=== PATIENT | male | born 1965 | race Caucasian/White ===

== ENCOUNTER 2018-11-24 12:28 | Inpatient (IN) | payer MEDICAID ==
[~2018-11-24] VITALS: Ht 177.8 cm; Wt 71.5 kg
--- NOTE | 2018-11-24 12:41 | NUR ---
IRRIGATOR OVERHEAD MYLENE PERALES HERE. CONTACT NUMBER [phone]
--- NOTE | 2018-11-24 12:51 | NUR ---
REFERRAL COORDINATOR LEFT BUT APPLIED ANKLE BRACELET TO PATIENT'S RIGHT ANKLE. WHEN PATIENT IS DISCHARGED, THE OFFICER TECHNOLOGY METHODOLOGY CONSULTANT SHOULD BE NOTIFIED.
[2018-11-24 14:39] LABS: BASOPHILS % (AUTO) 0.1 % (0-1); EOSINOPHILS % (AUTO) 0 % (0-6); HEMATOCRIT 41.5 % (42.0-52.0); HEMOGLOBIN 13.5 g/dl (14.0-17.9); LYMPHOCYTES # (AUTO) 0.7 X10'3 (1.1-4.8); LYMPHOCYTES % (AUTO) 6.9 % (21-51); MEAN CORPUSCULAR HEMOGLOBIN 28.2 PG (27.0-31.0); MEAN CORPUSCULAR HGB CONC 32.5 g/dL (33.0-36.5); MEAN PLATELET VOLUME 7.9 FL (7.4-10.4); MONOCYTES # (AUTO) 0.3 X10'3 (0-0.9); MONOCYTES % (AUTO) 2.6 % (2-12); NEUTROPHILS # (AUTO) 8.9 X10'3 (1.8-7.7); NEUTROPHILS % (AUTO) 90.4 % (42-75); PLATELET COUNT 155 X10'3 (140-440); RED BLOOD COUNT 4.77 X10'6 (4.70-6.10); RED CELL DISTRIBUTION WIDTH 16.8 % (11.5-14.5); WHITE BLOOD COUNT 9.8 X10'3 (4.5-11.0)
[2018-11-24 14:55] LABS: ALANINE AMINOTRANSFERASE 101 U/L (12-78); ALBUMIN 2.9 G/DL (3.4-5.0); ALBUMIN/GLOBULIN RATIO 0.8 (1.1-1.5); ALKALINE PHOSPHATASE 93 IU/L (46-116); ANION GAP 9 (8-16); ASPARTATE AMINO TRANSFERASE 35 U/L (10-37); BILIRUBIN,TOTAL 0.3 MG/DL (0.1-1.0); BLOOD UREA NITROGEN 15 MG/DL (7-18); BUN/CREATININE RATIO 16.5 (5.4-32.0); CALCIUM 9.2 MG/DL (8.5-10.1); CHLORIDE 101 MMOL/L (99-107); CREATININE 0.91 MG/DL (0.60-1.10); GLUCOSE 168 MG/DL (70-104); POTASSIUM 4.3 MMOL/L (3.5-5.1); SODIUM 136 MMOL/L (135-145); TOTAL PROTEIN 6.5 G/DL (6.4-8.2); eGFR 87 ML/MIN
[2018-11-24 15:00] LABS: ETHANOL < 0.010 GM/DL (0.0-0.010); TROPONIN I < 0.04 NG/ML (0.0-0.05)
[2018-11-24] MEDS ORDERED: normal saline 1000ML IV soln IVB ONE ×2 (15:35→21:15)
[2018-11-24] MEDS ORDERED: CefTRIAXone/D5W-Rocephin 1gm 50 ML IV ONE (15:40)
[2018-11-24] MEDS ORDERED: azithromycin/NS 500mg/250ml 250 ML IV ONE (15:40)
--- NOTE | 2018-11-24 16:30 | NUR ---
COMPLETE LINENE CHANGE PERFORMED. PARTIAL BED BATH PERFORMED, AND PT PLACED IN CLEAN GOWN.
[2018-11-24 17:56] LABS: CLARITY,URINE SLIGHTLY CLOUDY (Clear); COLOR,URINE YELLOW (Yellow); GLUCOSE, URINE 500 mg/dl (Neg); KETONES,URINE NEGATIVE (Neg); LEUKOCYTE ESTERASE ,URINE NEGATIVE (Neg); NITRITES, URINE NEGATIVE (Neg); OCCULT BLOOD,URINE NEGATIVE (Neg); PH,URINE 8.5 (4.8-8.0); PROTEIN,URINE NEGATIVE (Neg); UROBILINOGEN,URINE 0.2 E.U/dL (0.2-1.0)
[2018-11-24 18:02] LABS: BACTERIA,URINE NONE SEEN /HPF (Neg); RBC,URINE NONE SEEN /HPF (0-2); UA COLLECTION TYPE VOIDED; WBC,URINE NONE SEEN /HPF (0-4)
[2018-11-24 18:03] LABS: AMORPHOUS PHOSPHATES 2+; MUCUS STRANDS FEW /LPF (Neg); SQUAMOUS EPITHELIAL CELL,UR NONE SEEN /LPF (FEW)
[2018-11-24 18:07] LABS: URINE AMPHETAMINE SCREEN NEGATIVE (Neg); URINE BARBITUATE SCREEN NEGATIVE (Neg); URINE BENZODIAZEPINES SCREEN NEGATIVE (Neg); URINE CANNABINOID SCREEN NEGATIVE (Neg); URINE COCAINE SCREEN NEGATIVE (Neg); URINE METHADONE SCREEN NEGATIVE (Neg); URINE OPIATE SCREEN NEGATIVE (Neg); URINE PHENCYCLIDINE SCREEN NEGATIVE (Neg)
--- NOTE | 2018-11-24 21:30 | NUR ---
PT PULLED OUT EJ IV STATING "IT WAS PINCHING SO I TOOK IT OUT". NEW IV STARTED IN LEFT AC AND PT INSTRUCTED NOT TO PULL IT OUT IF HURTING BUT TO ALERT THE RN. PT VERBALIZED UNDERSTANDING
--- NOTE | 2018-11-24 21:45 | NUR ---
PT REQUESTING FOOD, TURKEY SANDWICH AND ICE WATER GIVEN.
[2018-11-24] MEDS ORDERED: iohexol 300mg/ml 100ml inj. ONE (21:55)
--- NOTE | 2018-11-25 00:15 | NUR ---
PT STATING HE WANTS TO LEAVE DUE TO BEING HUNGRY AND NOT GETTING ANY FOOD AFTER ASKING SEVERAL TIMES. PT HAS BEEN SLEEPING AND RESTING COMFORTABLY AND HAS NOT ASKED FOR FOOD SINCE TURKEY SANDWICH 3 HOURS AGO. PT DECIDED TO STAY AFTER JELLO FED TO HIM
--- NOTE | 2018-11-25 01:00 | NUR ---
PT YELLING AND CUSSING AT STAFF SAYING HE HAS NOT BEEN TAKEN CARE OF AND WANTS TO LEAVE. PT REORIENTED TO CARE PROVIDED AND PT SAID HE WOULD STAY.
[2018-11-25] MEDS ORDERED: morphine 2 MG/ML inj. syringe IV PRN ×2 (01:05)
[2018-11-25] MEDS ORDERED: ondansetron/PF 4mg/2ml inj IV PRN (01:05)
[2018-11-25] MEDS ORDERED: magnesium hydroxide 30ml (MOM) UD suspension PO PRN (01:05)
[2018-11-25] MEDS ORDERED: acetaminophen 325mg tablet PO PRN (01:05)
[2018-11-25] MEDS ORDERED: mag hydrox/Alum hydrox/simeth 30ml oral suspension PO PRN (01:05)
[2018-11-25] MEDS: normal saline 1000ml 1,000 ML IV SCH ×3 (02:15→23:39)
--- NOTE | 2018-11-25 02:30 | NUR ---
PT REQUESTING TO LEAVE AGAIN DUE TO "NOT HAVING ANY FOOD OR DRINK SINCE NOON". AFTER LONG DISCUSSION OF PT CONDITION, REORIENTING PT TO GETTING TURKEY SANDWICH ADN JELLO EARLIER, AND HOW RECOMMENDED IT IS TO STAY DUE TO PT CONDITION, PT DECIDED TO STAY IF HE COULD GET SLEEP. FULL LINEN CHANGE ACHIEVED, NEW PT GOWN PLACED, 2 NEW WARM BLANKETS, LIGHTS TURNED OFF, AND CALL LIGHT WITHIN REACH. PT RESTING COMFORTABLY.
--- NOTE | 2018-11-25 03:15 | NUR ---
Patient in room ORTHO 4023. I have received report from CASTRO Charles and had the opportunity to ask questions and assume patient care.
[2018-11-25 03:30] VITALS: BP 135/82
--- NOTE | 2018-11-25 03:40 | NUR ---
PT STATED AT TRANSFER UPSTAIRS THAT HE BROUGHT MEDICATIONS IN. THIS INFORMATION NOT GIVEN TO ME AT COS REPORT, CHECKED WITH WIND UP WORKER, LOOKED THROUGH PT BELONGINGS, AND CHECK PHARMACY IN BOX - NO MEDS FOR THIS PT FOUND. SABRINA BRUCE RN NOTIFIED AND RECOMMENDED TO CHECK WITH DIRECTOR CORPORATE SECURITY, NUMBER IN NOTES
[2018-11-25] MEDS: HYDROcodone/acetaminophen 10/325mg tab PO PRN ×3 (03:46→20:42)
[2018-11-25 06:00] VITALS: BP 116/62
--- NOTE | 2018-11-25 06:42 | NUR ---
Problems reprioritized. Patient report given, questions answered & plan of care reviewed with CASTRO Mac.
[2018-11-25] MEDS: enoxaparin 100mg/ml syringe SUBCUT SCH ×2 (08:00→20:15)
[2018-11-25] MEDS ORDERED: enoxaparin 30mg/0.3ml syringe SUBCUT SCH (08:00)
[2018-11-25] MEDS ORDERED: enoxaparin 100mg/ml syringe SUBCUT SCH (08:00)
[2018-11-25 10:00] VITALS: BP 116/66
--- NOTE | 2018-11-25 12:30 | NUR ---
PT IV pulled out LAC/will restart IV after pt eats lunch/pt request
--- NOTE | 2018-11-25 13:06 | NUR ---
Malnutrition consult: Pt reports 2-13 # wt loss r/t decreased appetite per malnutrition risk screening with RN. Pt currently on a CHO controlled diet pending documented PO intake. Current documented wt classified as obese with BMI 31.0 using documented wt of 98 kg using gurney scale. Unknown wt hx as pt with no prior visits. Pt A/O x 2 per physical assessment. Attempted visit with pt at bedside however pt sleeping and did not wake with verbal cues. Unable to assess for any visible fat or muscle wasting d/t patient's sleeping position. Pt with no documented edema or decrease in muscle strength. Unable to determine if patient meets criteria for malnutrition at this time as additional information is required. Will f/u tomorrow. Addendum: 11/25/18 at [address] Amended: Links added.
[2018-11-25 18:00] VITALS: BP 116/62
--- NOTE | 2018-11-25 18:30 | NUR ---
Patient in room ORTHO 4023. I have received report from myrna Mac and had the opportunity to ask questions and assume patient care.
--- NOTE | 2018-11-25 19:30 | NUR ---
pt stated that he is going to leave hospital, he will refuse everything anyway. pt thinks it was a mistake that he was brought to the hospital and not needed. pt thinks nothing is happening since he came. i asked how he will get back to his place which is a [facility]. pt said his [employer] airspace control officer will pick him up. contacted [employer] airspace control officer and he said its not his responsibility. [employer] airspace control officer has talked to pt as well. he doesn't have ways to get back and not safe for him to go. for now, he agreed to stay overnight.
[2018-11-25 20:00] VITALS: BP_SYST 107; BP_SYST 115; BP_DIAS 65; BP_DIAS 67
--- NOTE | 2018-11-25 21:00 | NUR ---
pt med rec has not been done. i asked which pharmacy he uses but he said he doesn't have a pharmacy. nurse will come to the house and sort his medication. pt doesn't remember nurses name. when i asked which doctor he sees, he answered he sees Dr. Cantu at [facility] in [facility]. he just came to [place] a couple days ago and new chief learning officer was assigned. He states he has a list of medication that his gave at his motel.
[2018-11-25 22:00] VITALS: BP 107/67
[2018-11-26] VITALS (13 sets, daily range): BP systolic 77–151; BP diastolic 51–84
[2018-11-26] MEDS: HYDROcodone/acetaminophen 10/325mg tab PO PRN (01:12)
[2018-11-26] MEDS: normal saline 1000ml 1,000 ML IV SCH ×3 (02:12→23:05)
[2018-11-26 05:26] LABS: BASOPHILS % (AUTO) 0.1 % (0-1); EOSINOPHILS # (AUTO) 0.1 X10'3 (0-0.9); EOSINOPHILS % (AUTO) 1.1 % (0-6); HEMATOCRIT 36.7 % (42.0-52.0); HEMOGLOBIN 12.4 g/dl (14.0-17.9); LYMPHOCYTES # (AUTO) 0.7 X10'3 (1.1-4.8); MEAN CORPUSCULAR HEMOGLOBIN 29.1 PG (27.0-31.0); MEAN CORPUSCULAR HGB CONC 33.7 g/dL (33.0-36.5); MEAN CORPUSCULAR VOLUME 86.2 FL (78-98); MEAN PLATELET VOLUME 8.4 FL (7.4-10.4); MONOCYTES # (AUTO) 0.3 X10'3 (0-0.9); MONOCYTES % (AUTO) 4.3 % (2-12); NEUTROPHILS # (AUTO) 5.4 X10'3 (1.8-7.7); NEUTROPHILS % (AUTO) 83.5 % (42-75); PLATELET COUNT 124 X10'3 (140-440); RED BLOOD COUNT 4.26 X10'6 (4.70-6.10); RED CELL DISTRIBUTION WIDTH 16.8 % (11.5-14.5); WHITE BLOOD COUNT 6.5 X10'3 (4.5-11.0)
[2018-11-26 05:31] LABS: ALBUMIN 2.5 G/DL (3.4-5.0); ANION GAP 6 (8-16); BLOOD UREA NITROGEN 16 MG/DL (7-18); BUN/CREATININE RATIO 18.8 (5.4-32.0); CALCIUM 8.2 MG/DL (8.5-10.1); CHLORIDE 103 MMOL/L (99-107); CREATININE 0.85 MG/DL (0.60-1.10); GLUCOSE 93 MG/DL (70-104); POTASSIUM 3.6 MMOL/L (3.5-5.1); SODIUM 135 MMOL/L (135-145); TOTAL CARBON DIOXIDE 26.1 MMOL/L (24-32); eGFR > 90 ML/MIN
--- NOTE | 2018-11-26 06:00 | NUR ---
Patient in room ORTHO 4023. I have received report from and had the opportunity to ask questions and assume patient care CASTRO Grider.
--- NOTE | 2018-11-26 06:25 | NUR ---
Problems reprioritized. Patient report given, questions answered & plan of care reviewed with myrna Mac.
[2018-11-26] MEDS ORDERED: NO HOME MEDS (07:35)
[2018-11-26] MEDS ORDERED: CefTRIAXone 2gm/D5W 50ml 50 ML IV SCH (08:00)
[2018-11-26] MEDS ORDERED: levoFLOXACIN 750MG TABLET PO SCH (08:00)
[2018-11-26] MEDS ORDERED: ipratropium/albuterol 3ml nebule NEB PRN (12:40)
[2018-11-26] MEDS ORDERED: propofol 1000mg/100ml bottle 100 ML IV SCH ×2 (12:40→12:45)
[2018-11-26] MEDS ORDERED: thiamine inj. 100 MG in normal saline 100ml IV soln 100 ML IV ONE (12:45)
[2018-11-26] MEDS ORDERED: fentaNYL/PF 50MCG/1 ML 2ML syringe IV ONE (12:45)
--- NOTE | 2018-11-26 12:45 | NUR ---
Pt was resp code on ortho neuro floor. Found down by PT with chin hooked on rail and rest of body slouched over bed onto floor. Pt was not breathing at the time, appeared to be seizing and was very cyanotic according to report. Code was called and pt was intubated by ED doc and brought to ICU. Pt HR 160s, sats in 80s on 60% FiO2. O2 turned up to 100% with sat improvement to mid 90s. Pt was hypertensive, started on propofol which improved HR and BP. 50mcg ivp of fentanyl administered by senior talent management consultant. OGT and Mcneill placed without difficulty. 2 RN skin check performed with CASTRO Cueto. Orders for EEG, head and neck CT obtained. Suctioned copious thick clear secretions from pt's mouth. Pt has gag and cough reflex. Restraints also initiated. Will continue to monitor.
[2018-11-26 13:00] LABS: ABG BASE EXCESS -9.3 mmol/L (-2.0-3.0); ABG HCO3 18.7 mmol/L (22.0-26.0); ABG PCO2 (T) 48.5 mmHg (35.0-48.0); ABG PH (T) 7.204 (7.350-7.450); ABG PO2 (T) 78.5 mmHg (83-108); ALLEN'S TEST Positive; FCOHb 0.5 % (0.5-1.5); FMetHb 0.3 % (0.3-1.12); FO2Hb 92.3 % (94-100); MINUTE VOLUME 6 L/min; PEEP 5 cm H2O; RESPIRATORY RATE 14 b/min; RESPIRATORY RATE (OBSERVED) 14 b/min; TIDAL VOLUME 450 mL; TOTAL HEMOGLOBIN 15.2 G/dl (14.0-18.0)
[2018-11-26] MEDS: propofol 1000mg/100ml bottle 100 ML IV SCH ×2 (13:56→15:25)
[2018-11-26] MEDS: FENTANYL-0.9 % NACL/PF 100 ML IV PRN (13:57)
[2018-11-26] MEDS ORDERED: folic acid inj. 2 MG, thiamine inj. 100 MG, MVI, adult No.4 with vit. K 10 ML in dextro... IV SCH ×4 (14:00)
[2018-11-26] MEDS: piperacillin/tazo 3.375gm/50ml 50 ML IV SCH (15:11)
[2018-11-26] MEDS ORDERED: iohexol 300mg/ml 100ml inj. ONE (15:32)
--- NOTE | 2018-11-26 17:13 | NUR ---
Pt taken to and from CT without complications. Accompanied by two RNs and RT. instrument and control technician at bedside. MRI rescheduled for tomorrow
--- NOTE | 2018-11-26 18:17 | NUR ---
Problems reprioritized. Patient report given, questions answered & plan of care reviewed with CASTRO Soto.
--- NOTE | 2018-11-26 18:30 | NUR ---
Patient in room ICU 2038. I have received report from Brooke ERAZO and had the opportunity to ask questions and assume patient care.
[2018-11-26 20:25] LABS: BASOPHILS % (AUTO) 0.1 % (0-1); EOSINOPHILS % (AUTO) 0.6 % (0-6); HEMOGLOBIN 12.5 g/dl (14.0-17.9); LYMPHOCYTES # (AUTO) 0.7 X10'3 (1.1-4.8); LYMPHOCYTES % (AUTO) 9.6 % (21-51); MEAN CORPUSCULAR HEMOGLOBIN 28.3 PG (27.0-31.0); MEAN CORPUSCULAR HGB CONC 32.7 g/dL (33.0-36.5); MEAN CORPUSCULAR VOLUME 86.5 FL (78-98); MONOCYTES # (AUTO) 0.3 X10'3 (0-0.9); MONOCYTES % (AUTO) 4.3 % (2-12); NEUTROPHILS # (AUTO) 6.7 X10'3 (1.8-7.7); NEUTROPHILS % (AUTO) 85.4 % (42-75); PLATELET COUNT 149 X10'3 (140-440); RED BLOOD COUNT 4.39 X10'6 (4.70-6.10); RED CELL DISTRIBUTION WIDTH 17.4 % (11.5-14.5); WHITE BLOOD COUNT 7.8 X10'3 (4.5-11.0)
[2018-11-26 20:38] LABS: ALANINE AMINOTRANSFERASE 152 U/L (12-78); ALBUMIN 2.5 G/DL (3.4-5.0); ALBUMIN/GLOBULIN RATIO 0.8 (1.1-1.5); ALKALINE PHOSPHATASE 107 IU/L (46-116); ANION GAP 6 (8-16); ASPARTATE AMINO TRANSFERASE 65 U/L (10-37); BILIRUBIN,TOTAL 0.4 MG/DL (0.1-1.0); BLOOD UREA NITROGEN 12 MG/DL (7-18); BUN/CREATININE RATIO 13.6 (5.4-32.0); CALCIUM 8.4 MG/DL (8.5-10.1); CHLORIDE 102 MMOL/L (99-107); CREATININE 0.88 MG/DL (0.60-1.10); GLUCOSE 101 MG/DL (70-104); MAGNESIUM 1.9 MG/DL (1.5-2.4); PHOSPHORUS 3.9 MG/DL (2.3-4.5); POTASSIUM 3.8 MMOL/L (3.5-5.1); SODIUM 135 MMOL/L (135-145); TOTAL CARBON DIOXIDE 26.9 MMOL/L (24-32); TOTAL PROTEIN 5.6 G/DL (6.4-8.2); eGFR > 90 ML/MIN
[2018-11-26] MEDS: lactobacillus rhamnosus 10,000 MMU CELLS/CAPSULE PO SCH (21:14)
[2018-11-26] MEDS: enoxaparin 100mg/ml syringe SUBCUT SCH ×2 (21:15→21:17)
--- NOTE | 2018-11-26 21:25 | NUR ---
Pt opens eyes to voice, nods head to questions. Titrating sedation to patient comfort.
[2018-11-26] MEDS ORDERED: albumin (Human) 5% 250ml 250 ML IV ONE ×2 (22:50→23:15)
[2018-11-27] VITALS (21 sets, daily range): BP systolic 81–141; BP diastolic 55–92
[2018-11-27] MEDS: piperacillin/tazo 3.375gm/50ml 50 ML IV SCH ×4 (00:06→23:35)
[2018-11-27] MEDS: propofol 1000mg/100ml bottle 100 ML IV SCH (00:43)
--- NOTE | 2018-11-27 01:41 | NUR ---
Patient opens eyes spontaneously, nods head to questions. Titrating FiO2 down as tolerated. Albumin completed, MAP greater than 65,will continue to monitor.
[2018-11-27 03:30] LABS: ABG BASE EXCESS 0.6 mmol/L (-2.0-3.0); ABG HCO3 23.1 mmol/L (22.0-26.0); ABG OXYGEN SATURATION 97.2 % (95-98); ABG PCO2 (T) 30.3 mmHg (35.0-48.0); ABG PH (T) 7.499 (7.350-7.450); ABG PO2 (T) 86.3 mmHg (83-108); ALLEN'S TEST Positive; FCOHb 0.3 % (0.5-1.5); FMetHb 0.3 % (0.3-1.12); FO2Hb 96.6 % (94-100); MINUTE VOLUME 8 L/min; PATIENT TEMPERATURE 36.8; PEEP 5 cm H2O; RESPIRATORY RATE 18 b/min; RESPIRATORY RATE (OBSERVED) 18 b/min; TIDAL VOLUME 450 mL; TOTAL HEMOGLOBIN 11.8 G/dl (14.0-18.0)
[2018-11-27] MEDS: FENTANYL-0.9 % NACL/PF 100 ML IV PRN (03:37)
[2018-11-27 05:16] LABS: BASOPHILS % (AUTO) 0.1 % (0-1); EOSINOPHILS # (AUTO) 0.1 X10'3 (0-0.9); EOSINOPHILS % (AUTO) 1.7 % (0-6); HEMOGLOBIN 11.7 g/dl (14.0-17.9); LYMPHOCYTES % (AUTO) 14.5 % (21-51); MEAN CORPUSCULAR HEMOGLOBIN 29.1 PG (27.0-31.0); MEAN CORPUSCULAR HGB CONC 33.5 g/dL (33.0-36.5); MEAN CORPUSCULAR VOLUME 86.9 FL (78-98); MEAN PLATELET VOLUME 7.8 FL (7.4-10.4); MONOCYTES # (AUTO) 0.3 X10'3 (0-0.9); MONOCYTES % (AUTO) 3.9 % (2-12); NEUTROPHILS # (AUTO) 5.3 X10'3 (1.8-7.7); NEUTROPHILS % (AUTO) 79.8 % (42-75); PLATELET COUNT 132 X10'3 (140-440); RED BLOOD COUNT 4.03 X10'6 (4.70-6.10); RED CELL DISTRIBUTION WIDTH 16.8 % (11.5-14.5); WHITE BLOOD COUNT 6.7 X10'3 (4.5-11.0)
[2018-11-27 05:44] LABS: ALANINE AMINOTRANSFERASE 121 U/L (12-78); ALBUMIN 2.7 G/DL (3.4-5.0); ALBUMIN/GLOBULIN RATIO 0.9 (1.1-1.5); ALKALINE PHOSPHATASE 86 IU/L (46-116); AMYLASE 53 U/L (25-115); ANION GAP 8 (8-16); ASPARTATE AMINO TRANSFERASE 49 U/L (10-37); BILIRUBIN,TOTAL 0.6 MG/DL (0.1-1.0); BLOOD UREA NITROGEN 11 MG/DL (7-18); BUN/CREATININE RATIO 13.1 (5.4-32.0); CALCIUM 8.2 MG/DL (8.5-10.1); CHLORIDE 102 MMOL/L (99-107); CREATININE 0.84 MG/DL (0.60-1.10); GLUCOSE 101 MG/DL (70-104); LIPASE 57 U/L (73-393); MAGNESIUM 1.8 MG/DL (1.5-2.4); PHOSPHORUS 3.3 MG/DL (2.3-4.5); POTASSIUM 3.5 MMOL/L (3.5-5.1); SODIUM 137 MMOL/L (135-145); TOTAL CARBON DIOXIDE 27.5 MMOL/L (24-32); TOTAL PROTEIN 5.6 G/DL (6.4-8.2); TRIGLYCERIDES 181 MG/DL (20-135); eGFR > 90 ML/MIN
--- NOTE | 2018-11-27 06:19 | NUR ---
Problems reprioritized. Patient report given, questions answered & plan of care reviewed with Brooke ERAZO.
--- NOTE | 2018-11-27 06:37 | NUR ---
Patient in room ICU 2038. I have received report from CASTRO Soto and had the opportunity to ask questions and assume patient care.
[2018-11-27] MEDS: enoxaparin 100mg/ml syringe SUBCUT SCH ×2 (07:46→19:18)
[2018-11-27] MEDS: lactobacillus rhamnosus 10,000 MMU CELLS/CAPSULE PO SCH ×2 (07:46→19:19)
[2018-11-27] MEDS ORDERED: sod chloride 0.9% 10ml flush syringe IV ONE (12:00)
[2018-11-27] MEDS ORDERED: iohexol 300mg/ml 100ml inj. ONE (12:50)
[2018-11-27] MEDS: normal saline 1000ml 1,000 ML IV SCH ×2 (13:02→23:02)
--- NOTE | 2018-11-27 13:30 | NUR ---
1145: Pt pulled out of restraint on R side and extubated himself. Immediately started complaining that throat hurt and he was "tired of being restrained and suffocated with that tube." Vital signs stable including O2 on room air. Fentanyl and propofol immediately turned off. Pt taken to MRI and CT successfully on room air without complaints. Pt impulsive at times but follows commands when asked and is able to respond appropriately. Dr. Curtis and Prachi, rn relief charge aware. Will continue to monitor
[2018-11-27] MEDS: mineral oil/petrolatum ophthal oint EACHEYE SCH ×3 (14:00→23:35)
--- NOTE | 2018-11-27 14:00 | NUR ---
Patient was intubated with acute respiratory failure, pending CT and MRI today, no tube feedings to begin today, patient self extubated this am per CM note. Pt eating well prior to the intubation, was eating 75-100% of carb controlled meals. Does not appear to be malnourished at this time. Will continue to follow. Recommend: 1. continue carb controlled diet as medically indicated 2. Weight per rx Addendum: 11/27/18 at [address] Amended: Links added.
--- NOTE | 2018-11-27 14:45 | NUR ---
Pt's licensed clinical neonatal social worker dropped off medical records to pt who gave them to RN.
--- NOTE | 2018-11-27 14:49 | NUR ---
Per Dr. Curtis, will start pt on clear liquids and advance as tolerated. Pt tolerated popsicle and water. Given applesauce and vikram crackers next which were also tolerated well. Ordered pt mechanical soft, carb controlled diet for dinner
--- NOTE | 2018-11-27 18:21 | NUR ---
Problems reprioritized. Patient report given, questions answered & plan of care reviewed with CASTRO Soto.
--- NOTE | 2018-11-27 18:30 | NUR ---
Patient in room ICU 2038. I have received report from Brooke ERAZO and had the opportunity to ask questions and assume patient care.
--- NOTE | 2018-11-27 19:38 | NUR ---
Report called to Jean Carlos RN,receiving nurse. Transferred via bed on Tele# 7. Belongings . Pt awake, alert, Sats 96% on RA, lungs coarse but able to clear secretions. Instructed on IS and flutter valve use. Special Issues communicated to receiving nurse.
--- NOTE | 2018-11-27 19:50 | NUR ---
pt in room 4020a. pt has been oriented to the room. vss. received report from myrna Soto prior to pt's arrival.
--- NOTE | 2018-11-28 03:51 | NUR ---
COASTAL TUG MATE: MYLENE PERALES [phone]
[2018-11-28 05:54] LABS: BASOPHILS % (AUTO) 0.1 % (0-1); EOSINOPHILS # (AUTO) 0.1 X10'3 (0-0.9); EOSINOPHILS % (AUTO) 1.7 % (0-6); HEMATOCRIT 37.4 % (42.0-52.0); HEMOGLOBIN 12.4 g/dl (14.0-17.9); LYMPHOCYTES # (AUTO) 0.7 X10'3 (1.1-4.8); LYMPHOCYTES % (AUTO) 12.4 % (21-51); MEAN CORPUSCULAR HEMOGLOBIN 28.5 PG (27.0-31.0); MEAN CORPUSCULAR HGB CONC 33.1 g/dL (33.0-36.5); MEAN PLATELET VOLUME 8.1 FL (7.4-10.4); MONOCYTES # (AUTO) 0.2 X10'3 (0-0.9); MONOCYTES % (AUTO) 3.5 % (2-12); NEUTROPHILS # (AUTO) 4.6 X10'3 (1.8-7.7); NEUTROPHILS % (AUTO) 82.3 % (42-75); PLATELET COUNT 132 X10'3 (140-440); RED BLOOD COUNT 4.35 X10'6 (4.70-6.10); RED CELL DISTRIBUTION WIDTH 17.5 % (11.5-14.5); WHITE BLOOD COUNT 5.6 X10'3 (4.5-11.0)
[2018-11-28 06:00] VITALS: BP 94/56
[2018-11-28 06:31] LABS: ALANINE AMINOTRANSFERASE 87 U/L (12-78); ALBUMIN 2.5 G/DL (3.4-5.0); ALBUMIN/GLOBULIN RATIO 0.8 (1.1-1.5); ALKALINE PHOSPHATASE 83 IU/L (46-116); AMYLASE 51 U/L (25-115); ANION GAP 7 (8-16); ASPARTATE AMINO TRANSFERASE 29 U/L (10-37); BILIRUBIN,TOTAL 0.5 MG/DL (0.1-1.0); BLOOD UREA NITROGEN 8 MG/DL (7-18); BUN/CREATININE RATIO 11.6 (5.4-32.0); CHLORIDE 102 MMOL/L (99-107); CREATININE 0.69 MG/DL (0.60-1.10); GLUCOSE 131 MG/DL (70-104); LIPASE 75 U/L (73-393); MAGNESIUM 1.8 MG/DL (1.5-2.4); PHOSPHORUS 2.8 MG/DL (2.3-4.5); POTASSIUM 3.1 MMOL/L (3.5-5.1); SODIUM 136 MMOL/L (135-145); TOTAL PROTEIN 5.8 G/DL (6.4-8.2); eGFR > 90 ML/MIN
--- NOTE | 2018-11-28 06:41 | NUR ---
Problems reprioritized. Patient report given, questions answered & plan of care reviewed with CASTRO PEREZ.
--- NOTE | 2018-11-28 07:08 | NUR ---
Patient in room ORTHO 4020. I have received report from Marni ERAZO and had the opportunity to ask questions and assume patient care.
[2018-11-28] MEDS: enoxaparin 100mg/ml syringe SUBCUT SCH ×2 (07:39→20:24)
[2018-11-28] MEDS: piperacillin/tazo 3.375gm/50ml 50 ML IV SCH ×3 (07:39→23:55)
[2018-11-28] MEDS: lactobacillus rhamnosus 10,000 MMU CELLS/CAPSULE PO SCH ×2 (07:40→20:24)
[2018-11-28] MEDS: pantoprazole 40mg Tablet.DR PO SCH (07:40)
[2018-11-28] MEDS: mineral oil/petrolatum ophthal oint EACHEYE SCH ×3 (07:43→20:00)
[2018-11-28] MEDS: normal saline 1000ml 1,000 ML IV SCH ×2 (09:02→15:17)
--- NOTE | 2018-11-28 09:10 | NUR ---
DM consult: Pt with A1c 6.8; DM ed not warranted at this time. Will continue to follow. Addendum: 11/28/18 at [address] Amended: Links added.
[2018-11-28 10:00] VITALS: BP 114/74
[2018-11-28] MEDS ORDERED: potassium Cl 20 mEq SR tablet PO PRN (11:10)
[2018-11-28] MEDS: potassium Cl 20 mEq SR tablet PO PRN ×3 (11:27→20:35)
[2018-11-28] MEDS ORDERED: hydrOXYzine 25 MG tablet PO PRN (11:45)
--- NOTE | 2018-11-28 11:50 | NUR ---
Spoke with Mimi social media marketing manager about patient, reviewed medication list that patient came out of [place] with, called Dr. anthony and received verbal order for medications. Called nurse to let her know about new medication orders, spoke with Albert.
[2018-11-28 18:00] VITALS: BP 114/71
--- NOTE | 2018-11-28 18:13 | NUR ---
Problems reprioritized. Patient report given, questions answered & plan of care reviewed with brook ERAZO.
--- NOTE | 2018-11-28 18:35 | NUR ---
Patient in room ORTHO 4020. I have received report from Albert ERAZO and had the opportunity to ask questions and assume patient care.
--- NOTE | 2018-11-28 19:59 | NUR ---
Patient upset with staff and calling staff liars. Patient states, "Your not feeding me enough." Patient ate 100% of dinner and snacks were given to him. Patient still upset with staff.
[2018-11-28] MEDS: busPIRone 15mg tablet PO SCH (20:24)
[2018-11-28] MEDS: lithium carbonate 150mg capsule PO SCH (20:26)
[2018-11-28] MEDS: OLANZAPINE 5 MG TABLET PO SCH (20:26)
[2018-11-28] MEDS: HYDROcodone/acetaminophen 5mg/325mg tablet PO PRN (20:32)
[2018-11-28 22:00] VITALS: BP 101/67
[2018-11-29] MEDS: mineral oil/petrolatum ophthal oint EACHEYE SCH ×3 (02:00→14:00)
[2018-11-29] MEDS: normal saline 1000ml 1,000 ML IV SCH ×2 (05:02→08:32)
[2018-11-29 06:00] VITALS: BP 108/73
[2018-11-29 06:03] LABS: BASOPHILS % (AUTO) 0.3 % (0-1); EOSINOPHILS # (AUTO) 0.2 X10'3 (0-0.9); EOSINOPHILS % (AUTO) 3.3 % (0-6); HEMATOCRIT 37.9 % (42.0-52.0); HEMOGLOBIN 12.5 g/dl (14.0-17.9); LYMPHOCYTES # (AUTO) 0.6 X10'3 (1.1-4.8); LYMPHOCYTES % (AUTO) 13.8 % (21-51); MEAN CORPUSCULAR HEMOGLOBIN 28.7 PG (27.0-31.0); MEAN PLATELET VOLUME 7.9 FL (7.4-10.4); MONOCYTES # (AUTO) 0.2 X10'3 (0-0.9); MONOCYTES % (AUTO) 4.4 % (2-12); NEUTROPHILS # (AUTO) 3.6 X10'3 (1.8-7.7); NEUTROPHILS % (AUTO) 78.2 % (42-75); PLATELET COUNT 144 X10'3 (140-440); RED BLOOD COUNT 4.36 X10'6 (4.70-6.10); RED CELL DISTRIBUTION WIDTH 17.3 % (11.5-14.5); WHITE BLOOD COUNT 4.6 X10'3 (4.5-11.0)
--- NOTE | 2018-11-29 06:20 | NUR ---
Problems reprioritized. Patient report given, questions answered & plan of care reviewed with Pavithra ERAZO.
--- NOTE | 2018-11-29 06:25 | NUR ---
Patient in room ORTHO 4020. I have received report from Rukhsana ERAZO and had the opportunity to ask questions and assume patient care.
[2018-11-29 06:34] LABS: ALANINE AMINOTRANSFERASE 83 U/L (12-78); ALBUMIN 2.7 G/DL (3.4-5.0); ALBUMIN/GLOBULIN RATIO 0.7 (1.1-1.5); ALKALINE PHOSPHATASE 81 IU/L (46-116); AMYLASE 44 U/L (25-115); ANION GAP 7 (8-16); ASPARTATE AMINO TRANSFERASE 31 U/L (10-37); BILIRUBIN,TOTAL 0.4 MG/DL (0.1-1.0); BLOOD UREA NITROGEN 8 MG/DL (7-18); BUN/CREATININE RATIO 9.8 (5.4-32.0); CALCIUM 8.4 MG/DL (8.5-10.1); CHLORIDE 106 MMOL/L (99-107); CREATININE 0.82 MG/DL (0.60-1.10); GLUCOSE 113 MG/DL (70-104); LIPASE 76 U/L (73-393); MAGNESIUM 2.2 MG/DL (1.5-2.4); PHOSPHORUS 2.4 MG/DL (2.3-4.5); POTASSIUM 3.9 MMOL/L (3.5-5.1); SODIUM 138 MMOL/L (135-145); TOTAL PROTEIN 6.4 G/DL (6.4-8.2); eGFR > 90 ML/MIN
[2018-11-29] MEDS: enoxaparin 100mg/ml syringe SUBCUT SCH ×2 (08:30→20:02)
[2018-11-29] MEDS: HYDROcodone/acetaminophen 5mg/325mg tablet PO PRN ×3 (08:31→21:10)
[2018-11-29] MEDS: busPIRone 15mg tablet PO SCH ×2 (08:31→20:02)
[2018-11-29] MEDS: piperacillin/tazo 3.375gm/50ml 50 ML IV SCH ×2 (08:31→17:35)
[2018-11-29] MEDS: lactobacillus rhamnosus 10,000 MMU CELLS/CAPSULE PO SCH ×2 (08:31→20:02)
[2018-11-29] MEDS: pantoprazole 40mg Tablet.DR PO SCH (08:31)
[2018-11-29 10:00] VITALS: BP 107/70
--- NOTE | 2018-11-29 13:27 | NUR ---
reassessment: Pt PO 75-100% meals meeting needs. LBM 11/24; REGINA d/w RN for addition of routine bowel care per MD approval; RN agrees. Pt received MoM yesterday but PRN. No other nutrition concerns at this time. Will continue to monitor. Recommend: 1. continue carb controlled/mechanical soft diet as medically indicated 2. routine bowel care 3. Weight per rx Addendum: 11/29/18 at [address] Amended: Links added.
[2018-11-29 18:00] VITALS: BP 114/77
--- NOTE | 2018-11-29 18:10 | NUR ---
Problems reprioritized. Patient report given, questions answered & plan of care reviewed with Juanita Rodriguez RN.
--- NOTE | 2018-11-29 18:10 | NUR ---
Patient in room ORTHO 4020A. I have received report from CASTRO Arshad and had the opportunity to ask questions and assume patient care.
[2018-11-29] MEDS: OLANZAPINE 5 MG TABLET PO SCH (20:02)
[2018-11-29] MEDS: lithium carbonate 150mg capsule PO SCH (20:02)
[2018-11-29 21:47] VITALS: BP 111/63
[2018-11-30] MEDS: normal saline 1000ml 1,000 ML IV SCH (01:02)
[2018-11-30] MEDS: HYDROcodone/acetaminophen 10/325mg tab PO PRN (04:39)
[2018-11-30] MEDS: piperacillin/tazo 3.375gm/50ml 50 ML IV SCH ×3 (04:39→21:46)
[2018-11-30 06:00] VITALS: BP 116/77
[2018-11-30 06:14] LABS: BASOPHILS % (AUTO) 0.4 % (0-1); EOSINOPHILS # (AUTO) 0.1 X10'3 (0-0.9); EOSINOPHILS % (AUTO) 3.2 % (0-6); HEMATOCRIT 36.1 % (42.0-52.0); HEMOGLOBIN 11.9 g/dl (14.0-17.9); LYMPHOCYTES # (AUTO) 0.7 X10'3 (1.1-4.8); LYMPHOCYTES % (AUTO) 17.2 % (21-51); MEAN CORPUSCULAR HEMOGLOBIN 28.8 PG (27.0-31.0); MEAN CORPUSCULAR VOLUME 87.4 FL (78-98); MEAN PLATELET VOLUME 7.9 FL (7.4-10.4); MONOCYTES # (AUTO) 0.2 X10'3 (0-0.9); MONOCYTES % (AUTO) 5.5 % (2-12); NEUTROPHILS % (AUTO) 73.7 % (42-75); PLATELET COUNT 153 X10'3 (140-440); RED BLOOD COUNT 4.13 X10'6 (4.70-6.10); RED CELL DISTRIBUTION WIDTH 17.6 % (11.5-14.5); WHITE BLOOD COUNT 4.1 X10'3 (4.5-11.0)
--- NOTE | 2018-11-30 06:14 | NUR ---
Problems reprioritized. Patient report given, questions answered & plan of care reviewed with CASTRO Arshad.
--- NOTE | 2018-11-30 06:20 | NUR ---
Patient in room ORTHO 4020. I have received report from Juanita Rodriguez RN and had the opportunity to ask questions and assume patient care.
[2018-11-30 06:51] LABS: ALANINE AMINOTRANSFERASE 69 U/L (12-78); ALBUMIN 2.6 G/DL (3.4-5.0); ALBUMIN/GLOBULIN RATIO 0.7 (1.1-1.5); ALKALINE PHOSPHATASE 80 IU/L (46-116); AMYLASE 47 U/L (25-115); ANION GAP 7 (8-16); ASPARTATE AMINO TRANSFERASE 26 U/L (10-37); BILIRUBIN,TOTAL 0.3 MG/DL (0.1-1.0); BLOOD UREA NITROGEN 12 MG/DL (7-18); BUN/CREATININE RATIO 14.8 (5.4-32.0); CALCIUM 8.7 MG/DL (8.5-10.1); CHLORIDE 106 MMOL/L (99-107); CREATININE 0.81 MG/DL (0.60-1.10); GLUCOSE 116 MG/DL (70-104); LIPASE 91 U/L (73-393); MAGNESIUM 2.1 MG/DL (1.5-2.4); PHOSPHORUS 3.4 MG/DL (2.3-4.5); SODIUM 136 MMOL/L (135-145); TOTAL CARBON DIOXIDE 23.1 MMOL/L (24-32); TOTAL PROTEIN 6.2 G/DL (6.4-8.2); eGFR > 90 ML/MIN
[2018-11-30] MEDS: pantoprazole 40mg Tablet.DR PO SCH (08:16)
[2018-11-30] MEDS: lactobacillus rhamnosus 10,000 MMU CELLS/CAPSULE PO SCH ×2 (08:16→19:36)
[2018-11-30] MEDS: HYDROcodone/acetaminophen 5mg/325mg tablet PO PRN ×2 (08:16→19:36)
[2018-11-30] MEDS: busPIRone 15mg tablet PO SCH ×2 (08:16→19:36)
[2018-11-30] MEDS: enoxaparin 100mg/ml syringe SUBCUT SCH (08:17)
[2018-11-30 09:49] VITALS: BP 109/69
[2018-11-30] MEDS ORDERED: LISI-604 PO (13:13)
[2018-11-30] MEDS ORDERED: WOOL454C TOP (13:13)
[2018-11-30] MEDS ORDERED: KEP500T PO (13:13)
[2018-11-30] MEDS ORDERED: TETR15DR84 OP (13:13)
[2018-11-30] MEDS ORDERED: LEVA15HF4 INH (13:13)
[2018-11-30] MEDS ORDERED: NYST1000 PO (13:13)
[2018-11-30] MEDS ORDERED: OMEP20CA15 PO (13:13)
[2018-11-30] MEDS ORDERED: OLAN5TAB3 PO (13:13)
[2018-11-30] MEDS ORDERED: ACET-2119 PO (13:13)
[2018-11-30] MEDS ORDERED: HYDR50TA65 PO (13:13)
[2018-11-30] MEDS ORDERED: VITA1TAB20 PO (13:13)
[2018-11-30] MEDS ORDERED: LIT300C PO (13:13)
[2018-11-30] MEDS ORDERED: APIX2.5T PO (13:13)
[2018-11-30] MEDS ORDERED: METF-436 PO (13:13)
[2018-11-30] MEDS ORDERED: BUSP15TA3 PO (13:13)
[2018-11-30] MEDS ORDERED: LOPE2TAB25 PO (13:13)
[2018-11-30] MEDS ORDERED: ZOLP10TA PO (13:13)
[2018-11-30] MEDS ORDERED: non-formulary drug (Hydroxyzine HCl 1 TAB) PO PRN (13:55)
[2018-11-30] MEDS ORDERED: acetaminophen 325mg tablet PO PRN (13:55)
[2018-11-30] MEDS ORDERED: mineral oil/petrolatum, white cream 113gm jar TP PRN (13:55)
[2018-11-30] MEDS ORDERED: non-formulary drug (Levalbuterol Tartrate (Xopenex Hfa) 2 PUFFS) INH PRN (13:55)
[2018-11-30] MEDS ORDERED: naphazoline/pheniramine eye 1 DROP BOTTLE EACHEYE PRN (14:15)
[2018-11-30] MEDS ORDERED: loperamide 2mg capsule PO PRN (14:15)
[2018-11-30] MEDS ORDERED: LITH300T3 PO (14:22)
[2018-11-30] MEDS: lisinopril 5mg tablet PO SCH (14:30)
[2018-11-30 18:00] VITALS: BP 115/65
--- NOTE | 2018-11-30 18:12 | NUR ---
Problems reprioritized. Patient report given, questions answered & plan of care reviewed with Juanita Rodriguez RN.
--- NOTE | 2018-11-30 18:35 | NUR ---
PAGER ID: [phone] MESSAGE: [id number] Enrique Quinteros here for ARF but history of chronic back pain and someone d/c his [place] today. Complaining of pain. Can I please get them reordered? Call natalia at [phone]
--- NOTE | 2018-11-30 18:40 | NUR ---
Patient in room ORTHO 4020A. I have received report from CASTRO Arshad and had the opportunity to ask questions and assume patient care.
[2018-11-30] MEDS: apixaban 2.5mg tablet PO SCH (19:36)
[2018-11-30] MEDS: levetiracetam 250mg tablet PO SCH (19:36)
[2018-11-30] MEDS ORDERED: busPIRone 15mg tablet PO SCH (20:00)
[2018-11-30] MEDS: OLANZAPINE 5 MG TABLET PO SCH (20:08)
[2018-11-30] MEDS: lithium carbonate 150mg capsule PO SCH (20:08)
[2018-11-30] MEDS ORDERED: OLANZAPINE 5 MG TABLET PO SCH (21:00)
[2018-11-30] MEDS ORDERED: lithium carbonate 300mg SR tablet (LithoBID) PO SCH (21:00)
[2018-11-30 21:42] VITALS: BP 113/79
[2018-12-01] MEDS: piperacillin/tazo 3.375gm/50ml 50 ML IV SCH ×3 (04:51→21:27)
[2018-12-01 06:00] VITALS: BP 101/72
--- NOTE | 2018-12-01 06:17 | NUR ---
Problems reprioritized. Patient report given, questions answered & plan of care reviewed with CASTRO Arshad.
[2018-12-01 06:22] LABS: ALANINE AMINOTRANSFERASE 70 U/L (12-78); ALBUMIN 2.9 G/DL (3.4-5.0); ALBUMIN/GLOBULIN RATIO 0.7 (1.1-1.5); ALKALINE PHOSPHATASE 91 IU/L (46-116); AMYLASE 47 U/L (25-115); ANION GAP 10 (8-16); ASPARTATE AMINO TRANSFERASE 27 U/L (10-37); BILIRUBIN,TOTAL 0.3 MG/DL (0.1-1.0); BLOOD UREA NITROGEN 13 MG/DL (7-18); BUN/CREATININE RATIO 14.3 (5.4-32.0); CALCIUM 8.9 MG/DL (8.5-10.1); CHLORIDE 102 MMOL/L (99-107); CREATININE 0.91 MG/DL (0.60-1.10); GLUCOSE 123 MG/DL (70-104); LIPASE 86 U/L (73-393); MAGNESIUM 2.1 MG/DL (1.5-2.4); PHOSPHORUS 3.7 MG/DL (2.3-4.5); POTASSIUM 3.9 MMOL/L (3.5-5.1); SODIUM 137 MMOL/L (135-145); TOTAL CARBON DIOXIDE 25.5 MMOL/L (24-32); TOTAL PROTEIN 6.8 G/DL (6.4-8.2); eGFR 87 ML/MIN
--- NOTE | 2018-12-01 06:26 | NUR ---
Patient in room ORTHO 4020. I have received report from Juanita Rodriguez RN and had the opportunity to ask questions and assume patient care.
[2018-12-01] MEDS ORDERED: non-formulary drug (Omeprazole 1 CAP) PO SCH (08:00)
[2018-12-01] MEDS: lactobacillus rhamnosus 10,000 MMU CELLS/CAPSULE PO SCH ×2 (08:21→19:27)
[2018-12-01] MEDS: busPIRone 15mg tablet PO SCH ×2 (08:21→19:27)
[2018-12-01] MEDS: lisinopril 5mg tablet PO SCH (08:21)
[2018-12-01] MEDS: apixaban 2.5mg tablet PO SCH ×2 (08:21→19:27)
[2018-12-01] MEDS: levetiracetam 250mg tablet PO SCH ×2 (08:21→19:27)
[2018-12-01] MEDS: vitamin B comp w/Vit. C tab 1 TAB TABLET PO SCH (08:21)
[2018-12-01] MEDS: HYDROcodone/acetaminophen 5mg/325mg tablet PO PRN (08:21)
[2018-12-01] MEDS: pantoprazole 40mg Tablet.DR PO SCH (08:21)
[2018-12-01 10:00] VITALS: BP 127/68
[2018-12-01 18:00] VITALS: BP 101/61
--- NOTE | 2018-12-01 18:10 | NUR ---
Patient in room ORTHO 4020A. I have received report from CASTRO Arshad and had the opportunity to ask questions and assume patient care.
--- NOTE | 2018-12-01 18:10 | NUR ---
Problems reprioritized. Patient report given, questions answered & plan of care reviewed with Juanita Rodriguez RN.
[2018-12-01] MEDS: lithium carbonate 150mg capsule PO SCH (20:19)
[2018-12-01] MEDS: OLANZAPINE 5 MG TABLET PO SCH (20:19)
[2018-12-01 22:00] VITALS: BP 99/63
[2018-12-02] MEDS: HYDROcodone/acetaminophen 5mg/325mg tablet PO PRN ×2 (00:26→20:40)
[2018-12-02] MEDS: piperacillin/tazo 3.375gm/50ml 50 ML IV SCH ×3 (04:43→20:28)
[2018-12-02 06:00] VITALS: BP 98/68
--- NOTE | 2018-12-02 06:07 | NUR ---
Problems reprioritized. Patient report given, questions answered & plan of care reviewed with CASTRO Mac.
[2018-12-02] MEDS: busPIRone 15mg tablet PO SCH ×2 (07:52→20:27)
[2018-12-02] MEDS: vitamin B comp w/Vit. C tab 1 TAB TABLET PO SCH (07:52)
[2018-12-02] MEDS: apixaban 2.5mg tablet PO SCH ×2 (07:52→20:27)
[2018-12-02] MEDS: lactobacillus rhamnosus 10,000 MMU CELLS/CAPSULE PO SCH ×2 (07:52→20:26)
[2018-12-02] MEDS: pantoprazole 40mg Tablet.DR PO SCH (07:52)
[2018-12-02] MEDS: levetiracetam 250mg tablet PO SCH ×2 (07:52→20:27)
[2018-12-02] MEDS: lisinopril 5mg tablet PO SCH (07:55)
[2018-12-02 10:00] VITALS: BP 95/70
[2018-12-02 18:00] VITALS: BP 109/64
--- NOTE | 2018-12-02 18:30 | NUR ---
Patient in room ORTHO 4020. I have received report from CASTRO GRIMES and had the opportunity to ask questions and assume patient care.
[2018-12-02 20:00] VITALS: BP 109/64
[2018-12-02] MEDS: OLANZAPINE 5 MG TABLET PO SCH (20:26)
[2018-12-02] MEDS: lithium carbonate 150mg capsule PO SCH (20:28)
[2018-12-02 22:03] VITALS: BP 95/61
[2018-12-03] MEDS: piperacillin/tazo 3.375gm/50ml 50 ML IV SCH ×2 (04:50→13:00)
[2018-12-03 06:00] VITALS: BP 120/83
--- NOTE | 2018-12-03 06:00 | NUR ---
Patient in room ORTHO 4020. I have received report from and had the opportunity to ask questions and assume patient care CASTRO Grider.
--- NOTE | 2018-12-03 06:25 | NUR ---
Problems reprioritized. Patient report given, questions answered & plan of care reviewed with CASTRO GRIMES.
--- NOTE | 2018-12-03 06:30 | NUR ---
Problems reprioritized. Patient report given, questions answered & plan of care reviewed with CASTRO Grider.
[2018-12-03] MEDS: lisinopril 5mg tablet PO SCH (08:13)
[2018-12-03] MEDS: vitamin B comp w/Vit. C tab 1 TAB TABLET PO SCH (08:13)
[2018-12-03] MEDS: apixaban 2.5mg tablet PO SCH ×2 (08:13→19:50)
[2018-12-03] MEDS: levetiracetam 250mg tablet PO SCH ×2 (08:13→19:50)
[2018-12-03] MEDS: pantoprazole 40mg Tablet.DR PO SCH (08:13)
[2018-12-03] MEDS: busPIRone 15mg tablet PO SCH ×2 (08:13→19:49)
[2018-12-03] MEDS: lactobacillus rhamnosus 10,000 MMU CELLS/CAPSULE PO SCH ×2 (08:13→19:50)
[2018-12-03] MEDS ORDERED: AMOX-422 PO (11:31)
--- NOTE | 2018-12-03 14:44 | NUR ---
reassessment: Pt PO 75-100% meals meeting needs. LBM 12/02. Will continue to monitor. Recommend: 1. continue carb controlled/mechanical soft diet as medically indicated 2. routine bowel care 3. Weight per rx Addendum: 12/03/18 at [address] Amended: Links added.
--- NOTE | 2018-12-03 17:37 | NUR ---
Paged Dr Gregory r/t replacing IV abx zosyn. Pt IV infiltrated, was set for DC. DC has been put on hold/MD aware. Pt refuses an IV start. Requested Dr Gregory order replacement/oral abx
[2018-12-03 18:00] VITALS: BP 105/74
[2018-12-03] MEDS: OLANZAPINE 5 MG TABLET PO SCH (19:50)
[2018-12-03] MEDS: lithium carbonate 150mg capsule PO SCH (19:50)
[2018-12-03] MEDS: HYDROcodone/acetaminophen 5mg/325mg tablet PO PRN (21:24)
[2018-12-03 22:00] VITALS: BP 102/71
--- NOTE | 2018-12-04 03:07 | NUR ---
Patient in room ORTHO 4020. I have received report from myrna Mac and had the opportunity to ask questions and assume patient care.
[2018-12-04 06:00] VITALS: BP 100/66
--- NOTE | 2018-12-04 06:26 | NUR ---
Problems reprioritized. Patient report given, questions answered & plan of care reviewed with CASTRO GRIMES.
[2018-12-04] MEDS: lisinopril 5mg tablet PO SCH (08:00)
[2018-12-04] MEDS: apixaban 2.5mg tablet PO SCH ×2 (08:14→21:09)
[2018-12-04] MEDS: vitamin B comp w/Vit. C tab 1 TAB TABLET PO SCH (08:14)
[2018-12-04] MEDS: busPIRone 15mg tablet PO SCH ×2 (08:14→21:09)
[2018-12-04] MEDS: lactobacillus rhamnosus 10,000 MMU CELLS/CAPSULE PO SCH ×2 (08:14→21:09)
[2018-12-04] MEDS: levetiracetam 250mg tablet PO SCH ×2 (08:14→21:09)
[2018-12-04] MEDS: pantoprazole 40mg Tablet.DR PO SCH (08:14)
[2018-12-04] MEDS: amox tr/potassium clavulanate 875/125mg TAB PO SCH ×2 (08:20→16:55)
[2018-12-04 09:00] VITALS: BP 83/54
[2018-12-04 18:00] VITALS: BP 113/81
--- NOTE | 2018-12-04 18:24 | NUR ---
Patient in room ORTHO 4020. I have received report from Estefania ERAZO and had the opportunity to ask questions and assume patient care.
--- NOTE | 2018-12-04 18:35 | NUR ---
Problems reprioritized. Patient report given, questions answered & plan of care reviewed with CASTRO Walters.
[2018-12-04] MEDS: OLANZAPINE 5 MG TABLET PO SCH (21:10)
[2018-12-04] MEDS: lithium carbonate 150mg capsule PO SCH (21:10)
[2018-12-04] MEDS: HYDROcodone/acetaminophen 5mg/325mg tablet PO PRN (21:11)
[2018-12-04 22:00] VITALS: BP 90/60
[2018-12-05 02:00] VITALS: BP 123/45
[2018-12-05 06:00] VITALS: BP 111/68
[2018-12-05 06:19] LABS: ALANINE AMINOTRANSFERASE 64 U/L (12-78); ALBUMIN 3.1 G/DL (3.4-5.0); ALBUMIN/GLOBULIN RATIO 0.8 (1.1-1.5); ALKALINE PHOSPHATASE 98 IU/L (46-116); ANION GAP 7 (8-16); ASPARTATE AMINO TRANSFERASE 26 U/L (10-37); BILIRUBIN,DIRECT 0.1 MG/DL (0-0.3); BILIRUBIN,TOTAL 0.3 MG/DL (0.1-1.0); BLOOD UREA NITROGEN 21 MG/DL (7-18); BUN/CREATININE RATIO 21.2 (5.4-32.0); CALCIUM 8.9 MG/DL (8.5-10.1); CHLORIDE 104 MMOL/L (99-107); CREATININE 0.99 MG/DL (0.60-1.10); GLUCOSE 109 MG/DL (70-104); POTASSIUM 4.1 MMOL/L (3.5-5.1); SODIUM 137 MMOL/L (135-145); TOTAL CARBON DIOXIDE 25.7 MMOL/L (24-32); TOTAL PROTEIN 7.1 G/DL (6.4-8.2); eGFR 79 ML/MIN
--- NOTE | 2018-12-05 07:04 | NUR ---
Report given to Gretchen ERAZO.
[2018-12-05] MEDS: lactobacillus rhamnosus 10,000 MMU CELLS/CAPSULE PO SCH ×2 (08:51→19:53)
[2018-12-05] MEDS: levetiracetam 250mg tablet PO SCH ×2 (08:51→19:53)
[2018-12-05] MEDS: HYDROcodone/acetaminophen 5mg/325mg tablet PO PRN (08:52)
[2018-12-05] MEDS: vitamin B comp w/Vit. C tab 1 TAB TABLET PO SCH (08:52)
[2018-12-05] MEDS: lisinopril 5mg tablet PO SCH (08:52)
[2018-12-05] MEDS: busPIRone 15mg tablet PO SCH ×2 (08:52→19:53)
[2018-12-05] MEDS: apixaban 2.5mg tablet PO SCH ×2 (08:52→19:53)
[2018-12-05] MEDS: amox tr/potassium clavulanate 875/125mg TAB PO SCH ×2 (08:53→17:43)
[2018-12-05] MEDS: pantoprazole 40mg Tablet.DR PO SCH (08:53)
[2018-12-05 10:00] VITALS: BP 96/59
--- NOTE | 2018-12-05 13:30 | NUR ---
Patient sleeping most of the shift, wakes up periodically and watches TV. eating well and pain well controlled with norco
[2018-12-05 18:00] VITALS: BP 94/59
[2018-12-05] MEDS: OLANZAPINE 5 MG TABLET PO SCH (19:53)
[2018-12-05] MEDS: lithium carbonate 150mg capsule PO SCH (19:54)
[2018-12-05 22:00] VITALS: BP 102/64
[2018-12-06 06:00] VITALS: BP 95/56
--- NOTE | 2018-12-06 06:26 | NUR ---
Patient in room ORTHO 4020. I have received report from Magda RN and had the opportunity to ask questions and assume patient care.
[2018-12-06] MEDS: lisinopril 5mg tablet PO SCH (08:00)
[2018-12-06] MEDS: lactobacillus rhamnosus 10,000 MMU CELLS/CAPSULE PO SCH ×2 (08:18→19:09)
[2018-12-06] MEDS: busPIRone 15mg tablet PO SCH ×2 (08:18→19:09)
[2018-12-06] MEDS: amox tr/potassium clavulanate 875/125mg TAB PO SCH ×2 (08:18→17:33)
[2018-12-06] MEDS: apixaban 2.5mg tablet PO SCH ×2 (08:18→19:09)
[2018-12-06] MEDS: levetiracetam 250mg tablet PO SCH ×2 (08:18→19:09)
[2018-12-06] MEDS: vitamin B comp w/Vit. C tab 1 TAB TABLET PO SCH (08:18)
[2018-12-06] MEDS: pantoprazole 40mg Tablet.DR PO SCH (08:18)
[2018-12-06 10:00] VITALS: BP 119/80
[2018-12-06] MEDS: HYDROcodone/acetaminophen 5mg/325mg tablet PO PRN (17:33)
[2018-12-06 18:00] VITALS: BP 102/58
--- NOTE | 2018-12-06 18:15 | NUR ---
Patient in room ORTHO 4020A. I have received report from CASTRO Arshad and had the opportunity to ask questions and assume patient care.
--- NOTE | 2018-12-06 18:21 | NUR ---
Problems reprioritized. Patient report given, questions answered & plan of care reviewed with Juanita Rodriguez RN.
[2018-12-06] MEDS: lithium carbonate 150mg capsule PO SCH (20:12)
[2018-12-06] MEDS: OLANZAPINE 5 MG TABLET PO SCH (20:12)
[2018-12-06 22:00] VITALS: BP 93/47
[2018-12-07 06:00] VITALS: BP 88/65
--- NOTE | 2018-12-07 06:10 | NUR ---
Patient in room ORTHO 4020. I have received report from Juanita Rodriguez RN and had the opportunity to ask questions and assume patient care.
--- NOTE | 2018-12-07 06:30 | NUR ---
Problems reprioritized. Patient report given, questions answered & plan of care reviewed with CASTRO Arshad.
[2018-12-07] MEDS: pantoprazole 40mg Tablet.DR PO SCH (07:30)
[2018-12-07] MEDS: lisinopril 5mg tablet PO SCH (08:00)
[2018-12-07] MEDS: vitamin B comp w/Vit. C tab 1 TAB TABLET PO SCH (08:36)
[2018-12-07] MEDS: levetiracetam 250mg tablet PO SCH ×2 (08:36→19:26)
[2018-12-07] MEDS: amox tr/potassium clavulanate 875/125mg TAB PO SCH ×2 (08:36→17:14)
[2018-12-07] MEDS: apixaban 2.5mg tablet PO SCH ×2 (08:36→19:27)
[2018-12-07] MEDS: lactobacillus rhamnosus 10,000 MMU CELLS/CAPSULE PO SCH ×2 (08:36→19:27)
[2018-12-07] MEDS: busPIRone 15mg tablet PO SCH ×2 (08:36→19:26)
[2018-12-07 10:00] VITALS: BP 81/46
--- NOTE | 2018-12-07 10:31 | NUR ---
Reassessment: Pt continues with 75-100% PO intake meeting nutrient needs. LBM 12/05. Pt awaiting placement per MD notes. Will continue to follow. Recommend: 1. continue carb controlled/mechanical soft diet 2. routine bowel care 3. Weight per rx Addendum: 12/07/18 at [address] Amended: Links added.
[2018-12-07] MEDS: HYDROcodone/acetaminophen 5mg/325mg tablet PO PRN (17:13)
[2018-12-07 18:00] VITALS: BP 104/57
--- NOTE | 2018-12-07 18:13 | NUR ---
Problems reprioritized. Patient report given, questions answered & plan of care reviewed with Juanita Rodriguez RN.
[2018-12-07] MEDS: lithium carbonate 150mg capsule PO SCH (21:09)
[2018-12-07] MEDS: OLANZAPINE 5 MG TABLET PO SCH (21:09)
[2018-12-07 22:00] VITALS: BP 113/76
[2018-12-08 06:10] VITALS: BP 103/56
--- NOTE | 2018-12-08 06:15 | NUR ---
Problems reprioritized. Patient report given, questions answered & plan of care reviewed with CASTRO Joya.
--- NOTE | 2018-12-08 06:30 | NUR ---
I have received patient report from Juanita Rdoriguez RN
[2018-12-08] MEDS: pantoprazole 40mg Tablet.DR PO SCH ×2 (07:30→09:10)
[2018-12-08] MEDS: apixaban 2.5mg tablet PO SCH ×3 (08:00→19:39)
[2018-12-08] MEDS: lactobacillus rhamnosus 10,000 MMU CELLS/CAPSULE PO SCH ×3 (08:00→19:39)
[2018-12-08] MEDS: lisinopril 5mg tablet PO SCH (08:00)
[2018-12-08] MEDS: busPIRone 15mg tablet PO SCH ×3 (08:00→19:39)
[2018-12-08] MEDS: levetiracetam 250mg tablet PO SCH ×3 (08:00→19:39)
[2018-12-08] MEDS: vitamin B comp w/Vit. C tab 1 TAB TABLET PO SCH ×2 (08:00→09:10)
[2018-12-08] MEDS: amox tr/potassium clavulanate 875/125mg TAB PO SCH ×3 (08:30→18:22)
[2018-12-08 10:00] VITALS: BP 110/68
--- NOTE | 2018-12-08 11:10 | NUR ---
Patient refused all of his 0800 medications.
[2018-12-08] MEDS: HYDROcodone/acetaminophen 5mg/325mg tablet PO PRN (16:07)
[2018-12-08 18:00] VITALS: BP 104/74
--- NOTE | 2018-12-08 18:10 | NUR ---
Patient in room ORTHO 4020a. I have received report from CASTRO Joya and had the opportunity to ask questions and assume patient care.
--- NOTE | 2018-12-08 18:24 | NUR ---
Patient report given to Juanita ERAZO
[2018-12-08] MEDS: OLANZAPINE 5 MG TABLET PO SCH (20:45)
[2018-12-08] MEDS: lithium carbonate 150mg capsule PO SCH (20:46)
[2018-12-08 21:55] VITALS: BP 93/58
--- NOTE | 2018-12-09 06:25 | NUR ---
Problems reprioritized. Patient report given, questions answered & plan of care reviewed with CASTRO Walter.
[2018-12-09 07:01] VITALS: BP 95/53
[2018-12-09] MEDS: levetiracetam 250mg tablet PO SCH ×2 (07:45→21:03)
[2018-12-09] MEDS: HYDROcodone/acetaminophen 5mg/325mg tablet PO PRN ×2 (07:45→17:45)
[2018-12-09] MEDS: lactobacillus rhamnosus 10,000 MMU CELLS/CAPSULE PO SCH ×2 (07:46→21:03)
[2018-12-09] MEDS: lisinopril 5mg tablet PO SCH (07:46)
[2018-12-09] MEDS: pantoprazole 40mg Tablet.DR PO SCH (07:46)
[2018-12-09] MEDS: vitamin B comp w/Vit. C tab 1 TAB TABLET PO SCH (07:46)
[2018-12-09] MEDS: busPIRone 15mg tablet PO SCH ×2 (07:46→21:04)
[2018-12-09] MEDS: apixaban 2.5mg tablet PO SCH ×2 (07:46→21:03)
[2018-12-09] MEDS: amox tr/potassium clavulanate 875/125mg TAB PO SCH ×2 (07:50→17:44)
[2018-12-09 10:39] VITALS: BP 88/51
[2018-12-09 18:00] VITALS: BP 111/76
--- NOTE | 2018-12-09 18:22 | NUR ---
RC'D VERBAL REPORT FROM CHE AND ASSUMED CARE OF PATIENT
[2018-12-09] MEDS: OLANZAPINE 5 MG TABLET PO SCH (21:03)
[2018-12-09] MEDS: lithium carbonate 150mg capsule PO SCH (21:04)
[2018-12-09 22:00] VITALS: BP 108/74
[2018-12-10 06:00] VITALS: BP 111/57
--- NOTE | 2018-12-10 06:27 | NUR ---
REPORTED OFF SHIFT TO CHE ERAZO WITH VERBAL REPORT.
[2018-12-10] MEDS: levetiracetam 250mg tablet PO SCH ×2 (07:30→19:50)
[2018-12-10] MEDS: lisinopril 5mg tablet PO SCH (07:30)
[2018-12-10] MEDS: lactobacillus rhamnosus 10,000 MMU CELLS/CAPSULE PO SCH ×2 (07:31→19:50)
[2018-12-10] MEDS: apixaban 2.5mg tablet PO SCH ×2 (07:31→19:50)
[2018-12-10] MEDS: pantoprazole 40mg Tablet.DR PO SCH (07:31)
[2018-12-10] MEDS: busPIRone 15mg tablet PO SCH ×2 (07:31→19:50)
[2018-12-10] MEDS: vitamin B comp w/Vit. C tab 1 TAB TABLET PO SCH (07:31)
[2018-12-10] MEDS: amox tr/potassium clavulanate 875/125mg TAB PO SCH ×2 (07:42→17:18)
[2018-12-10] MEDS: HYDROcodone/acetaminophen 5mg/325mg tablet PO PRN ×3 (08:17→20:14)
[2018-12-10 09:59] VITALS: BP 125/75
[2018-12-10 17:00] VITALS: BP 93/65
[2018-12-10] MEDS: OLANZAPINE 5 MG TABLET PO SCH (20:14)
[2018-12-10] MEDS: lithium carbonate 150mg capsule PO SCH (20:14)
[2018-12-10 22:00] VITALS: BP 85/47
[2018-12-11 06:00] VITALS: BP 98/62
--- NOTE | 2018-12-11 06:23 | NUR ---
Patient report given, questions answered & plan of care reviewed with Betty ERAZO.
--- NOTE | 2018-12-11 06:45 | NUR ---
Patient in room ORTHO 4020. I have received report from CASTRO Dennis and had the opportunity to ask questions and assume patient care.
[2018-12-11] MEDS: lactobacillus rhamnosus 10,000 MMU CELLS/CAPSULE PO SCH ×2 (08:42→19:27)
[2018-12-11] MEDS: lisinopril 5mg tablet PO SCH (08:42)
[2018-12-11] MEDS: amox tr/potassium clavulanate 875/125mg TAB PO SCH ×2 (08:42→19:26)
[2018-12-11] MEDS: vitamin B comp w/Vit. C tab 1 TAB TABLET PO SCH (08:42)
[2018-12-11] MEDS: levetiracetam 250mg tablet PO SCH ×2 (08:42→19:26)
[2018-12-11] MEDS: busPIRone 15mg tablet PO SCH ×2 (08:42→19:27)
[2018-12-11] MEDS: pantoprazole 40mg Tablet.DR PO SCH (08:42)
[2018-12-11] MEDS: apixaban 2.5mg tablet PO SCH ×2 (08:42→19:27)
[2018-12-11 10:00] VITALS: BP 89/56
--- NOTE | 2018-12-11 10:20 | NUR ---
Reassessment: No changes in PO intake, continues to be 75-100% meeting nutrient needs. [facility] 12/09. No nutrition diagnosis at this time. Will continue to follow. Recommend: 1. continue carb controlled/mechanical soft diet 2. routine bowel care 3. Weight per rx Addendum: 12/11/18 at [address] Amended: Links added.
[2018-12-11 18:48] VITALS: BP 97/70
[2018-12-11] MEDS: lithium carbonate 150mg capsule PO SCH (19:26)
[2018-12-11] MEDS: HYDROcodone/acetaminophen 5mg/325mg tablet PO PRN (19:27)
[2018-12-11] MEDS: OLANZAPINE 5 MG TABLET PO SCH (19:27)
--- NOTE | 2018-12-11 20:30 | NUR ---
Patient in room ORTHO 4020. I have received report from CASTRO Hernández and had the opportunity to ask questions and assume patient care. Addendum: 12/11/18 at 2030 by Urszula Powell RN Amended: Links added.
[2018-12-11 22:26] VITALS: BP 92/50
[2018-12-12 05:19] VITALS: BP 90/51
--- NOTE | 2018-12-12 06:20 | NUR ---
Problems reprioritized. Patient report given, questions answered & plan of care reviewed with CASTRO Godinez. Addendum: 12/12/18 at 0620 by Urszula Powell RN Amended: Links added.
[2018-12-12] MEDS: lisinopril 5mg tablet PO SCH (08:02)
[2018-12-12] MEDS: apixaban 2.5mg tablet PO SCH ×2 (08:02→20:57)
[2018-12-12] MEDS: levetiracetam 250mg tablet PO SCH ×2 (08:02→20:57)
[2018-12-12] MEDS: busPIRone 15mg tablet PO SCH ×2 (08:02→20:57)
[2018-12-12] MEDS: pantoprazole 40mg Tablet.DR PO SCH (08:02)
[2018-12-12] MEDS: lactobacillus rhamnosus 10,000 MMU CELLS/CAPSULE PO SCH ×2 (08:03→20:57)
[2018-12-12] MEDS: vitamin B comp w/Vit. C tab 1 TAB TABLET PO SCH (08:03)
[2018-12-12] MEDS: HYDROcodone/acetaminophen 5mg/325mg tablet PO PRN ×2 (08:03→17:07)
[2018-12-12] MEDS: amox tr/potassium clavulanate 875/125mg TAB PO SCH ×2 (08:04→16:27)
[2018-12-12 10:00] VITALS: BP 104/68
[2018-12-12 17:00] VITALS: BP 120/60
[2018-12-12] MEDS: OLANZAPINE 5 MG TABLET PO SCH (20:57)
[2018-12-12] MEDS: lithium carbonate 150mg capsule PO SCH (20:57)
[2018-12-12 22:00] VITALS: BP 100/69
[2018-12-13 06:00] VITALS: BP 96/59
--- NOTE | 2018-12-13 06:31 | NUR ---
Problems reprioritized. Patient report given, questions answered & plan of care reviewed with Char ERAZO.
[2018-12-13] MEDS: busPIRone 15mg tablet PO SCH ×2 (07:53→19:55)
[2018-12-13] MEDS: lisinopril 5mg tablet PO SCH (07:53)
[2018-12-13] MEDS: levetiracetam 250mg tablet PO SCH ×2 (07:53→19:55)
[2018-12-13] MEDS: apixaban 2.5mg tablet PO SCH ×2 (07:53→19:55)
[2018-12-13] MEDS: vitamin B comp w/Vit. C tab 1 TAB TABLET PO SCH (07:53)
[2018-12-13] MEDS: lactobacillus rhamnosus 10,000 MMU CELLS/CAPSULE PO SCH ×2 (07:53→19:55)
[2018-12-13] MEDS: amox tr/potassium clavulanate 875/125mg TAB PO SCH ×2 (07:53→17:31)
[2018-12-13] MEDS: pantoprazole 40mg Tablet.DR PO SCH (07:53)
[2018-12-13 10:00] VITALS: BP 113/61
[2018-12-13] MEDS: HYDROcodone/acetaminophen 5mg/325mg tablet PO PRN ×2 (17:31→21:33)
[2018-12-13 18:00] VITALS: BP 95/62
[2018-12-13] MEDS: OLANZAPINE 5 MG TABLET PO SCH (19:55)
[2018-12-13] MEDS: lithium carbonate 150mg capsule PO SCH (19:56)
[2018-12-13 22:00] VITALS: BP 98/64
[2018-12-14 06:00] VITALS: BP 95/58
[2018-12-14] MEDS: lisinopril 5mg tablet PO SCH (07:15)
[2018-12-14] MEDS: vitamin B comp w/Vit. C tab 1 TAB TABLET PO SCH (07:15)
[2018-12-14] MEDS: lactobacillus rhamnosus 10,000 MMU CELLS/CAPSULE PO SCH ×2 (07:15→19:27)
[2018-12-14] MEDS: levetiracetam 250mg tablet PO SCH ×2 (07:15→19:28)
[2018-12-14] MEDS: pantoprazole 40mg Tablet.DR PO SCH (07:15)
[2018-12-14] MEDS: apixaban 2.5mg tablet PO SCH ×2 (07:15→19:27)
[2018-12-14] MEDS: HYDROcodone/acetaminophen 5mg/325mg tablet PO PRN ×2 (07:19→16:16)
[2018-12-14] MEDS: busPIRone 15mg tablet PO SCH ×2 (08:04→19:27)
[2018-12-14 10:00] VITALS: BP 101/58
--- NOTE | 2018-12-14 15:45 | NUR ---
I have received patient report from Char ERAZO
[2018-12-14 18:00] VITALS: BP 109/61
--- NOTE | 2018-12-14 18:13 | NUR ---
Patient report given to Pearl ERAZO
[2018-12-14] MEDS: OLANZAPINE 5 MG TABLET PO SCH (19:28)
[2018-12-14] MEDS: lithium carbonate 150mg capsule PO SCH (19:28)
[2018-12-14 22:00] VITALS: BP 90/56
[2018-12-15 06:10] VITALS: BP 119/68
--- NOTE | 2018-12-15 06:30 | NUR ---
Patient in room ORTHO 4020. I have received report from Pearl ERAZO and had the opportunity to ask questions and assume patient care.
[2018-12-15] MEDS: busPIRone 15mg tablet PO SCH ×2 (09:06→19:25)
[2018-12-15] MEDS: levetiracetam 250mg tablet PO SCH ×2 (09:06→19:26)
[2018-12-15] MEDS: pantoprazole 40mg Tablet.DR PO SCH (09:06)
[2018-12-15] MEDS: lactobacillus rhamnosus 10,000 MMU CELLS/CAPSULE PO SCH ×2 (09:06→19:25)
[2018-12-15] MEDS: apixaban 2.5mg tablet PO SCH ×2 (09:07→19:25)
[2018-12-15] MEDS: vitamin B comp w/Vit. C tab 1 TAB TABLET PO SCH (09:07)
[2018-12-15] MEDS: lisinopril 5mg tablet PO SCH (09:07)
[2018-12-15 10:00] VITALS: BP 93/59
[2018-12-15 18:00] VITALS: BP 122/72
--- NOTE | 2018-12-15 18:29 | NUR ---
Patient in room ORTHO 4020. I have received report from Mahnaz ERAZO and had the opportunity to ask questions and assume patient care.
--- NOTE | 2018-12-15 18:30 | NUR ---
Patient report given to Rukhsana ERAZO
[2018-12-15] MEDS: lithium carbonate 150mg capsule PO SCH (19:26)
[2018-12-15] MEDS: HYDROcodone/acetaminophen 5mg/325mg tablet PO PRN (19:27)
[2018-12-15] MEDS: OLANZAPINE 5 MG TABLET PO SCH (19:27)
[2018-12-15 22:00] VITALS: BP 103/62
--- NOTE | 2018-12-16 06:23 | NUR ---
Problems reprioritized. Patient report given, questions answered & plan of care reviewed with Saba ERAZO.
[2018-12-16 06:43] VITALS: BP 107/54
[2018-12-16] MEDS: levetiracetam 250mg tablet PO SCH ×2 (07:35→20:13)
[2018-12-16] MEDS: vitamin B comp w/Vit. C tab 1 TAB TABLET PO SCH (07:35)
[2018-12-16] MEDS: apixaban 2.5mg tablet PO SCH ×2 (07:35→20:13)
[2018-12-16] MEDS: lactobacillus rhamnosus 10,000 MMU CELLS/CAPSULE PO SCH ×2 (07:35→20:13)
[2018-12-16] MEDS: pantoprazole 40mg Tablet.DR PO SCH (07:35)
[2018-12-16] MEDS: busPIRone 15mg tablet PO SCH ×2 (07:36→20:13)
[2018-12-16] MEDS: lisinopril 5mg tablet PO SCH (07:36)
[2018-12-16 12:39] VITALS: BP 136/61
[2018-12-16 18:00] VITALS: BP 93/64
[2018-12-16] MEDS: lithium carbonate 150mg capsule PO SCH (20:13)
[2018-12-16] MEDS: OLANZAPINE 5 MG TABLET PO SCH (20:13)
[2018-12-16] MEDS: HYDROcodone/acetaminophen 5mg/325mg tablet PO PRN (20:15)
[2018-12-16 22:00] VITALS: BP 92/58
--- NOTE | 2018-12-17 06:25 | NUR ---
REPORT GIVEN TO CASTRO BOLTON.
[2018-12-17 06:46] VITALS: BP 108/71
[2018-12-17] MEDS: apixaban 2.5mg tablet PO SCH ×2 (08:01→20:35)
[2018-12-17] MEDS: lisinopril 5mg tablet PO SCH (08:01)
[2018-12-17] MEDS: vitamin B comp w/Vit. C tab 1 TAB TABLET PO SCH (08:01)
[2018-12-17] MEDS: lactobacillus rhamnosus 10,000 MMU CELLS/CAPSULE PO SCH ×2 (08:01→20:36)
[2018-12-17] MEDS: levetiracetam 250mg tablet PO SCH ×2 (08:01→20:35)
[2018-12-17] MEDS: busPIRone 15mg tablet PO SCH ×2 (08:01→20:36)
[2018-12-17] MEDS: pantoprazole 40mg Tablet.DR PO SCH (08:01)
--- NOTE | 2018-12-17 10:31 | NUR ---
Reassessment: No changes in PO intake, continues to be 75-100% meeting nutrient needs. [facility] 12/15. No nutrition concerns at this time. Will continue to follow. Recommend: 1. continue carb controlled/mechanical soft diet 2. routine bowel care 3. Weight per rx Addendum: 12/17/18 at [address] Amended: Links added.
[2018-12-17 10:32] VITALS: BP 130/64
[2018-12-17 18:00] VITALS: BP 104/73
[2018-12-17] MEDS: OLANZAPINE 5 MG TABLET PO SCH (20:35)
[2018-12-17] MEDS: HYDROcodone/acetaminophen 5mg/325mg tablet PO PRN (20:35)
[2018-12-17] MEDS: lithium carbonate 150mg capsule PO SCH (20:36)
[2018-12-17 22:00] VITALS: BP 108/70
[2018-12-18 06:00] VITALS: BP 92/65
[2018-12-18] MEDS: vitamin B comp w/Vit. C tab 1 TAB TABLET PO SCH (07:46)
[2018-12-18] MEDS: busPIRone 15mg tablet PO SCH ×2 (07:46→20:32)
[2018-12-18] MEDS: lactobacillus rhamnosus 10,000 MMU CELLS/CAPSULE PO SCH ×2 (07:46→20:29)
[2018-12-18] MEDS: pantoprazole 40mg Tablet.DR PO SCH (07:46)
[2018-12-18] MEDS: lisinopril 5mg tablet PO SCH (07:46)
[2018-12-18] MEDS: apixaban 2.5mg tablet PO SCH ×2 (07:46→20:29)
[2018-12-18] MEDS: levetiracetam 250mg tablet PO SCH ×2 (07:46→20:30)
[2018-12-18 18:00] VITALS: BP 114/81
--- NOTE | 2018-12-18 18:15 | NUR ---
REPORT REC'D FROM CASTRO DENNISON.
[2018-12-18] MEDS: HYDROcodone/acetaminophen 5mg/325mg tablet PO PRN (20:29)
[2018-12-18] MEDS: OLANZAPINE 5 MG TABLET PO SCH (20:29)
[2018-12-18] MEDS: lithium carbonate 150mg capsule PO SCH (20:30)
[2018-12-18 22:00] VITALS: BP 107/69
--- NOTE | 2018-12-19 06:20 | NUR ---
Patient in room ORTHO 4020. I have received report from GABINO ERAZO and had the opportunity to ask questions and assume patient care.
--- NOTE | 2018-12-19 06:20 | NUR ---
REPORT GIVEN TO CASTRO COX.
[2018-12-19] MEDS: pantoprazole 40mg Tablet.DR PO SCH (07:58)
[2018-12-19] MEDS: busPIRone 15mg tablet PO SCH ×2 (07:58→20:21)
[2018-12-19 07:59] VITALS: BP 116/79
[2018-12-19] MEDS: levetiracetam 250mg tablet PO SCH ×2 (07:59→20:21)
[2018-12-19] MEDS: apixaban 2.5mg tablet PO SCH ×2 (07:59→20:21)
[2018-12-19] MEDS: lisinopril 5mg tablet PO SCH (07:59)
[2018-12-19] MEDS: lactobacillus rhamnosus 10,000 MMU CELLS/CAPSULE PO SCH ×2 (07:59→20:21)
[2018-12-19] MEDS: vitamin B comp w/Vit. C tab 1 TAB TABLET PO SCH (07:59)
[2018-12-19 10:00] VITALS: BP 99/52
[2018-12-19 18:00] VITALS: BP 103/62
--- NOTE | 2018-12-19 18:12 | NUR ---
Problems reprioritized. Patient report given, questions answered & plan of care reviewed with JULY ERAZO.
[2018-12-19] MEDS: HYDROcodone/acetaminophen 5mg/325mg tablet PO PRN (19:01)
[2018-12-19] MEDS: OLANZAPINE 5 MG TABLET PO SCH (20:22)
[2018-12-19] MEDS: lithium carbonate 150mg capsule PO SCH (20:22)
[2018-12-19 22:00] VITALS: BP 88/51
[2018-12-20 06:10] VITALS: BP 106/60
[2018-12-20] MEDS: apixaban 2.5mg tablet PO SCH ×2 (08:37→20:21)
[2018-12-20] MEDS: levetiracetam 250mg tablet PO SCH ×2 (08:37→20:21)
[2018-12-20] MEDS: pantoprazole 40mg Tablet.DR PO SCH (08:37)
[2018-12-20] MEDS: busPIRone 15mg tablet PO SCH ×2 (08:37→20:19)
[2018-12-20] MEDS: lactobacillus rhamnosus 10,000 MMU CELLS/CAPSULE PO SCH ×2 (08:37→20:21)
[2018-12-20] MEDS: vitamin B comp w/Vit. C tab 1 TAB TABLET PO SCH (08:37)
[2018-12-20] MEDS: lisinopril 5mg tablet PO SCH (08:38)
[2018-12-20 10:00] VITALS: BP 102/73
[2018-12-20] MEDS: HYDROcodone/acetaminophen 5mg/325mg tablet PO PRN ×2 (15:37→19:19)
[2018-12-20 18:00] VITALS: BP 88/58
[2018-12-20] MEDS: OLANZAPINE 5 MG TABLET PO SCH (20:19)
[2018-12-20] MEDS: lithium carbonate 150mg capsule PO SCH (20:21)
[2018-12-20 22:00] VITALS: BP 102/73
[2018-12-21 06:10] VITALS: BP 92/56
--- NOTE | 2018-12-21 06:26 | NUR ---
Patient in room ORTHO 4020. I have received report from Jung ERAZO and had the opportunity to ask questions and assume patient care.
[2018-12-21] MEDS: apixaban 2.5mg tablet PO SCH ×2 (09:32→20:06)
[2018-12-21] MEDS: vitamin B comp w/Vit. C tab 1 TAB TABLET PO SCH (09:32)
[2018-12-21] MEDS: pantoprazole 40mg Tablet.DR PO SCH (09:32)
[2018-12-21] MEDS: lisinopril 5mg tablet PO SCH (09:32)
[2018-12-21] MEDS: lactobacillus rhamnosus 10,000 MMU CELLS/CAPSULE PO SCH ×2 (09:32→20:05)
[2018-12-21] MEDS: busPIRone 15mg tablet PO SCH ×2 (09:32→20:06)
[2018-12-21] MEDS: levetiracetam 250mg tablet PO SCH ×2 (09:32→20:06)
[2018-12-21] MEDS: HYDROcodone/acetaminophen 5mg/325mg tablet PO PRN ×3 (09:36→22:45)
[2018-12-21 10:00] VITALS: BP 116/68
--- NOTE | 2018-12-21 18:12 | NUR ---
I gave patient report to Jung ERAZO
--- NOTE | 2018-12-21 19:00 | NUR ---
Patient in room ORTHO 4020. I have received report from Mahnaz Laura RN and had the opportunity to ask questions and assume patient care.
[2018-12-21] MEDS: lithium carbonate 150mg capsule PO SCH (20:05)
[2018-12-21] MEDS: OLANZAPINE 5 MG TABLET PO SCH (20:06)
[2018-12-22] MEDS: HYDROcodone/acetaminophen 5mg/325mg tablet PO PRN ×4 (03:27→19:39)
[2018-12-22 06:10] VITALS: BP 109/80
--- NOTE | 2018-12-22 06:30 | NUR ---
Patient in room ORTHO 4020. I have received report from Jung ERAZO and had the opportunity to ask questions and assume patient care.
[2018-12-22] MEDS: apixaban 2.5mg tablet PO SCH ×2 (08:51→21:28)
[2018-12-22] MEDS: lactobacillus rhamnosus 10,000 MMU CELLS/CAPSULE PO SCH ×2 (08:51→21:27)
[2018-12-22] MEDS: pantoprazole 40mg Tablet.DR PO SCH (08:52)
[2018-12-22] MEDS: levetiracetam 250mg tablet PO SCH ×2 (08:52→21:28)
[2018-12-22] MEDS: busPIRone 15mg tablet PO SCH ×2 (08:52→21:27)
[2018-12-22] MEDS: vitamin B comp w/Vit. C tab 1 TAB TABLET PO SCH (08:52)
[2018-12-22 10:00] VITALS: BP 97/54
--- NOTE | 2018-12-22 18:42 | NUR ---
Patient report given to Neli ERAZO
--- NOTE | 2018-12-22 19:00 | NUR ---
Patient in room ORTHO 4020. I have received report from Neli ERAZO and had the opportunity to ask questions and assume patient care.
[2018-12-22] MEDS: OLANZAPINE 5 MG TABLET PO SCH (21:28)
[2018-12-22] MEDS: lithium carbonate 150mg capsule PO SCH (21:29)
--- NOTE | 2018-12-23 06:51 | NUR ---
Received report from Jung ERAZO
[2018-12-23 07:22] VITALS: BP 120/51
[2018-12-23] MEDS: pantoprazole 40mg Tablet.DR PO SCH (07:59)
[2018-12-23] MEDS: lactobacillus rhamnosus 10,000 MMU CELLS/CAPSULE PO SCH ×2 (07:59→20:02)
[2018-12-23] MEDS: levetiracetam 250mg tablet PO SCH ×2 (07:59→20:03)
[2018-12-23] MEDS: apixaban 2.5mg tablet PO SCH ×2 (07:59→20:03)
[2018-12-23] MEDS: vitamin B comp w/Vit. C tab 1 TAB TABLET PO SCH (07:59)
[2018-12-23] MEDS: busPIRone 15mg tablet PO SCH ×2 (07:59→20:02)
[2018-12-23 10:00] VITALS: BP 101/69
--- NOTE | 2018-12-23 10:57 | NUR ---
Reassessment: No changes in PO intake, continues to be 75-100% meeting nutrient needs. [facility] 12/21. No nutrition concerns at this time. Will continue to follow. Recommend: 1. continue carb controlled/mechanical soft diet 2. routine bowel care 3. Weight per rx Addendum: 12/23/18 at [address] Amended: Links added.
[2018-12-23] MEDS: HYDROcodone/acetaminophen 5mg/325mg tablet PO PRN (14:03)
--- NOTE | 2018-12-23 14:04 | NUR ---
SCANNER ON COMPUTER NOT WORKING CHECKED [place] PRIOR TO ADMIN, CONTINUE TO MONITOR
[2018-12-23 18:00] VITALS: BP 95/59
[2018-12-23] MEDS: OLANZAPINE 5 MG TABLET PO SCH (20:03)
[2018-12-23] MEDS: lithium carbonate 150mg capsule PO SCH (20:03)
[2018-12-23 22:00] VITALS: BP 100/60
[2018-12-24 06:00] VITALS: BP 120/54
--- NOTE | 2018-12-24 06:49 | NUR ---
Patient in room ORTHO 4020. I have received report from Radha ERAZO and had the opportunity to ask questions and assume patient care.
[2018-12-24] MEDS: levetiracetam 250mg tablet PO SCH ×2 (08:07→20:15)
[2018-12-24] MEDS: apixaban 2.5mg tablet PO SCH ×2 (08:08→20:15)
[2018-12-24] MEDS: pantoprazole 40mg Tablet.DR PO SCH (08:08)
[2018-12-24] MEDS: vitamin B comp w/Vit. C tab 1 TAB TABLET PO SCH (08:08)
[2018-12-24] MEDS: busPIRone 15mg tablet PO SCH ×2 (08:08→20:15)
[2018-12-24] MEDS: lactobacillus rhamnosus 10,000 MMU CELLS/CAPSULE PO SCH ×2 (08:08→20:15)
[2018-12-24] MEDS: HYDROcodone/acetaminophen 5mg/325mg tablet PO PRN ×3 (08:12→23:03)
[2018-12-24 10:00] VITALS: BP 99/58
[2018-12-24 18:00] VITALS: BP 111/77
--- NOTE | 2018-12-24 18:20 | NUR ---
Problems reprioritized. Patient report given, questions answered & plan of care reviewed with Ivania ERAZO.
--- NOTE | 2018-12-24 18:23 | NUR ---
report rec'd from myrna Price.
[2018-12-24] MEDS: OLANZAPINE 5 MG TABLET PO SCH (20:15)
[2018-12-24] MEDS: lithium carbonate 150mg capsule PO SCH (20:15)
[2018-12-24 22:00] VITALS: BP 97/49
[2018-12-25 06:00] VITALS: BP 103/57
--- NOTE | 2018-12-25 06:15 | NUR ---
Report received from CASTRO Redd
--- NOTE | 2018-12-25 06:34 | NUR ---
REPORT GIVEN TO CASTRO GRIMES.
[2018-12-25] MEDS: lactobacillus rhamnosus 10,000 MMU CELLS/CAPSULE PO SCH ×2 (08:41→19:56)
[2018-12-25] MEDS: levetiracetam 250mg tablet PO SCH ×2 (08:41→19:56)
[2018-12-25] MEDS: vitamin B comp w/Vit. C tab 1 TAB TABLET PO SCH (08:41)
[2018-12-25] MEDS: busPIRone 15mg tablet PO SCH ×2 (08:41→19:56)
[2018-12-25] MEDS: pantoprazole 40mg Tablet.DR PO SCH (08:41)
[2018-12-25] MEDS: apixaban 2.5mg tablet PO SCH ×2 (08:41→19:56)
[2018-12-25] MEDS: HYDROcodone/acetaminophen 5mg/325mg tablet PO PRN ×2 (08:51→19:57)
[2018-12-25 10:00] VITALS: BP 118/81
[2018-12-25 18:00] VITALS: BP 143/86
--- NOTE | 2018-12-25 18:17 | NUR ---
Report given to CASTRO Redd
--- NOTE | 2018-12-25 18:31 | NUR ---
REPORT REC'D FROM CASTRO GRIMES.
[2018-12-25] MEDS: lithium carbonate 150mg capsule PO SCH (19:59)
[2018-12-25] MEDS: OLANZAPINE 5 MG TABLET PO SCH (19:59)
[2018-12-25 22:00] VITALS: BP 104/66
[2018-12-26 06:00] VITALS: BP 108/64
--- NOTE | 2018-12-26 06:11 | NUR ---
REPORT GIVEN TO CASTRO VALENTINE.
--- NOTE | 2018-12-26 06:52 | NUR ---
Patient in room ORTHO 4020. I have received report from Ivania ERAZO and had the opportunity to ask questions and assume patient care.
[2018-12-26] MEDS: vitamin B comp w/Vit. C tab 1 TAB TABLET PO SCH (08:14)
[2018-12-26] MEDS: busPIRone 15mg tablet PO SCH ×2 (08:14→19:54)
[2018-12-26] MEDS: pantoprazole 40mg Tablet.DR PO SCH (08:14)
[2018-12-26] MEDS: levetiracetam 250mg tablet PO SCH ×2 (08:14→19:54)
[2018-12-26] MEDS: lactobacillus rhamnosus 10,000 MMU CELLS/CAPSULE PO SCH ×2 (08:15→19:54)
[2018-12-26] MEDS: HYDROcodone/acetaminophen 5mg/325mg tablet PO PRN ×3 (08:15→22:30)
[2018-12-26] MEDS: apixaban 2.5mg tablet PO SCH ×2 (08:15→19:54)
--- NOTE | 2018-12-26 08:21 | NUR ---
patient refused BS at 0800, will continue to monitor Addendum: 12/26/18 at 0822 by Albert Vasquez RN Amended: Links added.
[2018-12-26 10:00] VITALS: BP 139/82
[2018-12-26 18:00] VITALS: BP 113/79
--- NOTE | 2018-12-26 18:06 | NUR ---
Problems reprioritized. Patient report given, questions answered & plan of care reviewed with Radha ERAZO.
[2018-12-26] MEDS: lithium carbonate 150mg capsule PO SCH (19:54)
[2018-12-26] MEDS: OLANZAPINE 5 MG TABLET PO SCH (19:55)
[2018-12-26 22:00] VITALS: BP 124/83
[2018-12-27] MEDS: HYDROcodone/acetaminophen 5mg/325mg tablet PO PRN ×3 (05:08→21:54)
[2018-12-27 06:30] VITALS: BP 127/93
--- NOTE | 2018-12-27 06:42 | NUR ---
Patient in room ORTHO 4020. I have received report from [place] and had the opportunity to ask questions and assume patient care.
[2018-12-27] MEDS: vitamin B comp w/Vit. C tab 1 TAB TABLET PO SCH (07:06)
[2018-12-27] MEDS: pantoprazole 40mg Tablet.DR PO SCH (07:06)
[2018-12-27] MEDS: apixaban 2.5mg tablet PO SCH ×2 (07:06→20:42)
[2018-12-27] MEDS: busPIRone 15mg tablet PO SCH ×2 (07:06→20:42)
[2018-12-27] MEDS: lactobacillus rhamnosus 10,000 MMU CELLS/CAPSULE PO SCH ×2 (07:06→20:42)
[2018-12-27] MEDS: levetiracetam 250mg tablet PO SCH ×2 (07:06→20:42)
[2018-12-27 10:00] VITALS: BP 112/70
[2018-12-27 18:00] VITALS: BP 124/85
--- NOTE | 2018-12-27 18:13 | NUR ---
Problems reprioritized. Patient report given, questions answered & plan of care reviewed with Marnie.
--- NOTE | 2018-12-27 18:15 | NUR ---
Patient in room ORTHO 4020. I have received report from Chhaya ERAZO and had the opportunity to ask questions and assume patient care. Patient finishing dinner, will continue to monitor.
[2018-12-27] MEDS: OLANZAPINE 5 MG TABLET PO SCH (20:42)
[2018-12-27] MEDS: lithium carbonate 150mg capsule PO SCH (20:44)
[2018-12-27 22:00] VITALS: BP 115/67
[2018-12-28] MEDS: HYDROcodone/acetaminophen 5mg/325mg tablet PO PRN ×3 (04:17→20:30)
--- NOTE | 2018-12-28 04:30 | NUR ---
Patient requested pain medication at 0400, in with another patient, provided pain medication 0417, explained that when asked how his pain was at 0215 he stated, "It is better." Patient then stated that he has waited an hour past time and began using foul language and incomprehendible speech. Then according to charge nurse patient stated he is upset to tech about pain medication not being given, will continue to monitor.
--- NOTE | 2018-12-28 06:00 | NUR ---
Problems reprioritized. Patient report given, questions answered & plan of care reviewed with Chhaya ERAZO. Patient resting eyes closed respirations even.
--- NOTE | 2018-12-28 06:23 | NUR ---
Patient in room ORTHO 4020. I have received report from Marnie and had the opportunity to ask questions and assume patient care.
[2018-12-28 06:30] VITALS: BP 121/85
[2018-12-28] MEDS: vitamin B comp w/Vit. C tab 1 TAB TABLET PO SCH (07:21)
[2018-12-28] MEDS: levetiracetam 250mg tablet PO SCH ×2 (07:21→20:30)
[2018-12-28] MEDS: lactobacillus rhamnosus 10,000 MMU CELLS/CAPSULE PO SCH ×2 (07:21→20:29)
[2018-12-28] MEDS: busPIRone 15mg tablet PO SCH ×2 (07:21→20:29)
[2018-12-28] MEDS: pantoprazole 40mg Tablet.DR PO SCH (07:21)
[2018-12-28] MEDS: apixaban 2.5mg tablet PO SCH ×2 (07:21→20:30)
[2018-12-28 09:30] VITALS: BP 106/64
[2018-12-28 18:00] VITALS: BP 127/82
--- NOTE | 2018-12-28 18:22 | NUR ---
Problems reprioritized. Patient report given, questions answered & plan of care reviewed with vikash.
[2018-12-28] MEDS: OLANZAPINE 5 MG TABLET PO SCH (20:29)
[2018-12-28] MEDS: lithium carbonate 150mg capsule PO SCH (20:30)
[2018-12-28 22:00] VITALS: BP 101/66
[2018-12-29] MEDS: HYDROcodone/acetaminophen 5mg/325mg tablet PO PRN ×2 (04:24→17:18)
[2018-12-29 06:00] VITALS: BP 107/65
--- NOTE | 2018-12-29 06:05 | NUR ---
Patient in room ORTHO 4020. I have received report from Ivania and had the opportunity to ask questions and assume patient care.
--- NOTE | 2018-12-29 06:07 | NUR ---
report given to myrna Charles.
[2018-12-29] MEDS: lactobacillus rhamnosus 10,000 MMU CELLS/CAPSULE PO SCH ×2 (08:47→20:11)
[2018-12-29] MEDS: apixaban 2.5mg tablet PO SCH ×2 (08:47→20:12)
[2018-12-29] MEDS: pantoprazole 40mg Tablet.DR PO SCH (08:47)
[2018-12-29] MEDS: busPIRone 15mg tablet PO SCH ×2 (08:47→20:11)
[2018-12-29] MEDS: vitamin B comp w/Vit. C tab 1 TAB TABLET PO SCH (08:48)
[2018-12-29] MEDS: levetiracetam 250mg tablet PO SCH ×2 (08:48→20:12)
[2018-12-29 09:15] VITALS: BP 156/81
--- NOTE | 2018-12-29 09:25 | NUR ---
Pt found on his left side on the floor. Pt's donovan shorts were around his ankles. Multiple staff members entered the room, vitals were taken and found to be within normal limits. Pt reports he did not hit his head and did not pull up/button his shorts. Pt reported he tripped and fell after trying to get up too quickly. Pt reported some dizziness prior to and after the fall. Pt was assisted up to a chair and then was able to pivot back to bed. Pt did not report and complaints of pain, discomfort or other injury. Report filed, notified
--- NOTE | 2018-12-29 09:33 | NUR ---
PAGER ID: [phone] MESSAGE: Damien Hernandez, evonne- Mr. Quinteros in 4020A, found down, assisted back to bed, did not hit his head, no new injuries observed Araceli #[id number]
[2018-12-29 10:00] VITALS: BP 156/81
--- NOTE | 2018-12-29 10:35 | NUR ---
Reassessment: Slight fluctuations in PO intake however overall 75-100% meeting nutrient needs. LBM 12/27. Pt medically stable awaiting placement per MD notes. No nutrition diagnosis at this time. Will continue to follow. Recommend: 1. continue carb controlled/mechanical soft diet 2. routine bowel care 3. Weight per rx Addendum: 12/29/18 at [address] Amended: Links added.
[2018-12-29 18:00] VITALS: BP 111/72
--- NOTE | 2018-12-29 18:04 | NUR ---
Problems reprioritized. Patient report given, questions answered & plan of care reviewed with Ivania ERAZO.
--- NOTE | 2018-12-29 18:54 | NUR ---
REPORT REC'D FROM CASTRO MADISON.
[2018-12-29] MEDS: OLANZAPINE 5 MG TABLET PO SCH (20:12)
[2018-12-29] MEDS: lithium carbonate 150mg capsule PO SCH (20:12)
[2018-12-29 22:00] VITALS: BP 104/67
--- NOTE | 2018-12-30 06:30 | NUR ---
REPORT GIVEN TO CASTRO BOLTON.
[2018-12-30 06:45] VITALS: BP 111/76
[2018-12-30] MEDS: pantoprazole 40mg Tablet.DR PO SCH (07:23)
[2018-12-30] MEDS: busPIRone 15mg tablet PO SCH ×2 (07:23→20:33)
[2018-12-30] MEDS: HYDROcodone/acetaminophen 5mg/325mg tablet PO PRN ×3 (07:23→20:34)
[2018-12-30] MEDS: lactobacillus rhamnosus 10,000 MMU CELLS/CAPSULE PO SCH ×2 (07:23→20:33)
[2018-12-30] MEDS: levetiracetam 250mg tablet PO SCH ×2 (07:23→20:32)
[2018-12-30] MEDS: vitamin B comp w/Vit. C tab 1 TAB TABLET PO SCH (07:23)
[2018-12-30] MEDS: apixaban 2.5mg tablet PO SCH ×2 (07:23→20:33)
[2018-12-30 10:38] VITALS: BP 104/69
[2018-12-30 18:00] VITALS: BP 109/87
[2018-12-30] MEDS: lithium carbonate 150mg capsule PO SCH (20:33)
[2018-12-30] MEDS: OLANZAPINE 5 MG TABLET PO SCH (20:33)
[2018-12-30 22:00] VITALS: BP 116/67
[2018-12-31 06:00] VITALS: BP 130/81
--- NOTE | 2018-12-31 06:06 | NUR ---
received report from myrna suh
--- NOTE | 2018-12-31 06:11 | NUR ---
REPORT GIVEN TO CASTRO STOREY.
[2018-12-31] MEDS: apixaban 2.5mg tablet PO SCH ×2 (07:58→21:04)
[2018-12-31] MEDS: levetiracetam 250mg tablet PO SCH ×2 (07:58→21:04)
[2018-12-31] MEDS: lactobacillus rhamnosus 10,000 MMU CELLS/CAPSULE PO SCH ×2 (07:59→21:04)
[2018-12-31] MEDS: busPIRone 15mg tablet PO SCH ×2 (07:59→21:04)
[2018-12-31] MEDS: vitamin B comp w/Vit. C tab 1 TAB TABLET PO SCH (07:59)
[2018-12-31] MEDS: pantoprazole 40mg Tablet.DR PO SCH (07:59)
[2018-12-31] MEDS: HYDROcodone/acetaminophen 5mg/325mg tablet PO PRN ×2 (08:01→17:52)
[2018-12-31 10:00] VITALS: BP 139/93
[2018-12-31 18:00] VITALS: BP 135/78
--- NOTE | 2018-12-31 18:27 | NUR ---
gave report to myrna loomis
[2018-12-31] MEDS: lithium carbonate 150mg capsule PO SCH (21:04)
[2018-12-31] MEDS: nystatin 15 GM powder TP SCH (21:05)
[2018-12-31] MEDS: OLANZAPINE 5 MG TABLET PO SCH (21:05)
[2018-12-31 22:00] VITALS: BP 130/84
[2019-01-01 06:00] VITALS: BP 121/78
--- NOTE | 2019-01-01 06:14 | NUR ---
Problems reprioritized. Patient report given, questions answered & plan of care reviewed with CASTRO Haddad.
--- NOTE | 2019-01-01 06:25 | NUR ---
received report from myrna loomis
[2019-01-01] MEDS: HYDROcodone/acetaminophen 5mg/325mg tablet PO PRN ×2 (07:42→19:31)
[2019-01-01] MEDS: levetiracetam 250mg tablet PO SCH ×2 (07:49→19:32)
[2019-01-01] MEDS: pantoprazole 40mg Tablet.DR PO SCH (07:50)
[2019-01-01] MEDS: busPIRone 15mg tablet PO SCH ×2 (07:50→19:31)
[2019-01-01] MEDS: apixaban 2.5mg tablet PO SCH ×2 (07:50→19:32)
[2019-01-01] MEDS: nystatin 15 GM powder TP SCH ×3 (07:51→21:00)
[2019-01-01] MEDS: vitamin B comp w/Vit. C tab 1 TAB TABLET PO SCH (07:52)
[2019-01-01] MEDS: lactobacillus rhamnosus 10,000 MMU CELLS/CAPSULE PO SCH ×2 (07:53→19:32)
--- NOTE | 2019-01-01 08:00 | NUR ---
pt refused to have his bg tested this morning
[2019-01-01 10:00] VITALS: BP 132/80
--- NOTE | 2019-01-01 18:27 | NUR ---
GAVE REPORT TO CASTRO YA
--- NOTE | 2019-01-01 18:49 | NUR ---
Patient in room ORTHO 4020. I have received report from Catie ERAZO and had the opportunity to ask questions and assume patient care.
[2019-01-01] MEDS: lithium carbonate 150mg capsule PO SCH (19:31)
[2019-01-01] MEDS: OLANZAPINE 5 MG TABLET PO SCH (19:31)
[2019-01-01 22:00] VITALS: BP 119/77
[2019-01-02 06:00] VITALS: BP 123/80
--- NOTE | 2019-01-02 06:40 | NUR ---
Patient in room ORTHO 4020. I have received report from Quita ERAZO and had the opportunity to ask questions and assume patient care.
--- NOTE | 2019-01-02 06:46 | NUR ---
Problems reprioritized. Patient report given, questions answered & plan of care reviewed with Konstantin ERAZO.
[2019-01-02] MEDS: vitamin B comp w/Vit. C tab 1 TAB TABLET PO SCH ×2 (08:00→10:11)
[2019-01-02] MEDS: nystatin 15 GM powder TP SCH ×3 (09:57→20:46)
[2019-01-02] MEDS: levetiracetam 250mg tablet PO SCH ×3 (09:57→20:45)
[2019-01-02] MEDS: lactobacillus rhamnosus 10,000 MMU CELLS/CAPSULE PO SCH ×3 (09:58→20:45)
[2019-01-02] MEDS: pantoprazole 40mg Tablet.DR PO SCH (09:59)
[2019-01-02 10:00] VITALS: BP 115/81
[2019-01-02] MEDS: apixaban 2.5mg tablet PO SCH ×2 (10:11→20:45)
[2019-01-02] MEDS: busPIRone 15mg tablet PO SCH ×2 (10:11→20:00)
[2019-01-02 18:00] VITALS: BP 142/79
--- NOTE | 2019-01-02 18:41 | NUR ---
Problems reprioritized. Patient report given, questions answered & plan of care reviewed with ELO ERAZO.
--- NOTE | 2019-01-02 20:30 | NUR ---
Patient had a large BM in Bathroom. Patient is a 2 person with steady lift.
[2019-01-02] MEDS: OLANZAPINE 5 MG TABLET PO SCH (20:45)
[2019-01-02] MEDS: lithium carbonate 150mg capsule PO SCH (20:45)
[2019-01-02 22:00] VITALS: BP_SYST 132; BP_SYST 150; BP_DIAS 62; BP_DIAS 88
[2019-01-03 06:00] VITALS: BP 126/89
--- NOTE | 2019-01-03 06:27 | NUR ---
Problems reprioritized. Patient report given, questions answered & plan of care reviewed with Gio ERAZO.
--- NOTE | 2019-01-03 06:45 | NUR ---
Patient in room ORTHO 4020. I have received report from Joanne ERAZO and had the opportunity to ask questions and assume patient care.
[2019-01-03] MEDS: pantoprazole 40mg Tablet.DR PO SCH (07:30)
[2019-01-03] MEDS: nystatin 15 GM powder TP SCH ×3 (07:45→23:33)
[2019-01-03] MEDS: vitamin B comp w/Vit. C tab 1 TAB TABLET PO SCH (08:00)
[2019-01-03] MEDS: levetiracetam 250mg tablet PO SCH ×2 (08:00→19:21)
[2019-01-03] MEDS: lactobacillus rhamnosus 10,000 MMU CELLS/CAPSULE PO SCH ×2 (08:00→19:21)
[2019-01-03] MEDS: apixaban 2.5mg tablet PO SCH ×2 (08:00→19:21)
[2019-01-03] MEDS: busPIRone 15mg tablet PO SCH ×2 (08:00→19:20)
[2019-01-03 10:00] VITALS: BP 137/84
[2019-01-03 18:00] VITALS: BP 137/88
--- NOTE | 2019-01-03 18:23 | NUR ---
Problems reprioritized. Patient report given, questions answered & plan of care reviewed with Jay ERAZO.
[2019-01-03] MEDS: lithium carbonate 150mg capsule PO SCH (19:21)
[2019-01-03] MEDS: OLANZAPINE 5 MG TABLET PO SCH (19:21)
[2019-01-03 22:00] VITALS: BP 129/83
[2019-01-04 06:00] VITALS: BP 123/83
--- NOTE | 2019-01-04 06:05 | NUR ---
reported to days. noted pt increased weakness and 2 person assist. bed alarm active
--- NOTE | 2019-01-04 06:48 | NUR ---
Patient in room ORTHO 4020. I have received report from Jay ERAZO and had the opportunity to ask questions and assume patient care.
[2019-01-04] MEDS: lactobacillus rhamnosus 10,000 MMU CELLS/CAPSULE PO SCH ×2 (08:05→20:40)
[2019-01-04] MEDS: pantoprazole 40mg Tablet.DR PO SCH (08:05)
[2019-01-04] MEDS: busPIRone 15mg tablet PO SCH ×2 (08:05→20:40)
[2019-01-04] MEDS: vitamin B comp w/Vit. C tab 1 TAB TABLET PO SCH (08:05)
[2019-01-04] MEDS: levetiracetam 250mg tablet PO SCH ×2 (08:05→20:40)
[2019-01-04] MEDS: apixaban 2.5mg tablet PO SCH ×2 (08:05→20:40)
[2019-01-04] MEDS: nystatin 15 GM powder TP SCH ×3 (08:05→20:41)
[2019-01-04] MEDS: HYDROcodone/acetaminophen 5mg/325mg tablet PO PRN ×2 (08:06→16:17)
[2019-01-04 10:00] VITALS: BP 125/79
[2019-01-04 18:00] VITALS: BP 120/84
--- NOTE | 2019-01-04 18:32 | NUR ---
Problems reprioritized. Patient report given, questions answered & plan of care reviewed with Jay ERAZO.
[2019-01-04] MEDS: OLANZAPINE 5 MG TABLET PO SCH (20:40)
[2019-01-04] MEDS: lithium carbonate 150mg capsule PO SCH (20:40)
[2019-01-04] MEDS: nystatin 500,000 unit/5ML UD oral suspension PO SCH (20:41)
[2019-01-04 22:00] VITALS: BP 122/92
[2019-01-05 06:00] VITALS: BP 126/84
--- NOTE | 2019-01-05 06:29 | NUR ---
reported to days. noted pt has been incontinent tonight x
--- NOTE | 2019-01-05 06:35 | NUR ---
Patient in room ORTHO 4020. I have received report from Jay ERAZO and had the opportunity to ask questions and assume patient care.
[2019-01-05] MEDS: pantoprazole 40mg Tablet.DR PO SCH (07:30)
[2019-01-05] MEDS: levetiracetam 250mg tablet PO SCH ×2 (08:00→20:24)
[2019-01-05] MEDS: nystatin 500,000 unit/5ML UD oral suspension PO SCH ×3 (08:00→20:27)
[2019-01-05] MEDS: busPIRone 15mg tablet PO SCH ×2 (08:00→20:25)
[2019-01-05] MEDS: lactobacillus rhamnosus 10,000 MMU CELLS/CAPSULE PO SCH ×2 (08:00→20:24)
[2019-01-05] MEDS: vitamin B comp w/Vit. C tab 1 TAB TABLET PO SCH (08:00)
[2019-01-05] MEDS: nystatin 15 GM powder TP SCH ×3 (08:00→20:25)
[2019-01-05] MEDS: apixaban 2.5mg tablet PO SCH ×2 (08:00→20:24)
[2019-01-05 10:00] VITALS: BP 110/75
--- NOTE | 2019-01-05 12:25 | NUR ---
Reassessment: Patient had great appetite, 75-100% average PO meeting needs up until one week ago, patient's PO intake began decreasing again down to 25-49% average with some refusals on 01/03 and yesterday morning. Spoke with bedside RN, reports that patient was doing well and during the past week has been refusing meals, medications, and other aspects of nursing care. Pt does not have a bedscale, needs new weight, discussed with RN that when able to take new weight to assess for any weight loss or weight gain. LBM 01/04, no GI symptoms. Pt medically stable awaiting placement per MD notes. No nutrition diagnosis at this time. Will continue to follow. Recommend: 1. continue carb controlled/mechanical soft diet-encourage PO 2. routine bowel care if s/s of constipation 3. Weight per rx 4. Need new weight Addendum: 01/05/19 at [address] Amended: Links added.
[2019-01-05] MEDS: HYDROcodone/acetaminophen 5mg/325mg tablet PO PRN ×2 (13:30→19:07)
--- NOTE | 2019-01-05 13:53 | NUR ---
paged hospitalist [phone] to see of Zofran be changed to PO patient has no IV, will continue to monitor
[2019-01-05] MEDS ORDERED: ondansetron 4mg/5ml UD cup PO PRN (14:20)
[2019-01-05 18:00] VITALS: BP 108/75
--- NOTE | 2019-01-05 18:21 | NUR ---
Problems reprioritized. Patient report given, questions answered & plan of care reviewed with hCarlie ERAZO.
[2019-01-05] MEDS: OLANZAPINE 5 MG TABLET PO SCH (20:24)
[2019-01-05] MEDS: lithium carbonate 150mg capsule PO SCH (20:25)
[2019-01-05 22:00] VITALS: BP 122/79
--- NOTE | 2019-01-05 22:25 | NUR ---
Patient had soiled his linens and t shirt with urine and food, staff went to clean patient up and reposition him in bed. Patient adamantly refused for staff to wash the urine off or change his clothes that were soiled. He became argumentative with me and other staff at bedside. He just wanted new sheets and a blanket, when we offered for him to clean himself in the private area he also refused to do it.
--- NOTE | 2019-01-06 06:39 | NUR ---
Received report from Charlie ERAZO
[2019-01-06 07:00] VITALS: BP 140/84
[2019-01-06] MEDS: pantoprazole 40mg Tablet.DR PO SCH (07:30)
[2019-01-06] MEDS: vitamin B comp w/Vit. C tab 1 TAB TABLET PO SCH (08:00)
[2019-01-06] MEDS: nystatin 500,000 unit/5ML UD oral suspension PO SCH ×3 (08:00→20:39)
[2019-01-06] MEDS: levetiracetam 250mg tablet PO SCH ×2 (08:00→20:30)
[2019-01-06] MEDS: lactobacillus rhamnosus 10,000 MMU CELLS/CAPSULE PO SCH ×2 (08:00→20:33)
[2019-01-06] MEDS: nystatin 15 GM powder TP SCH ×3 (08:00→20:39)
[2019-01-06] MEDS: busPIRone 15mg tablet PO SCH ×2 (08:00→20:42)
[2019-01-06] MEDS: apixaban 2.5mg tablet PO SCH ×2 (08:00→20:34)
[2019-01-06 12:47] VITALS: BP 103/54
[2019-01-06 18:00] VITALS: BP 107/71
--- NOTE | 2019-01-06 19:03 | NUR ---
Patient in room ORTHO 4020. I have received report from CASTRO Schneider and had the opportunity to ask questions and assume patient care. Patient awake for bedside report. Will continue to monitor closely.
[2019-01-06] MEDS: lithium carbonate 150mg capsule PO SCH (20:38)
[2019-01-06] MEDS: zolpidem 5mg tablet PO PRN (20:50)
[2019-01-06] MEDS: acetaminophen 325mg tablet PO PRN (20:51)
[2019-01-06] MEDS: OLANZAPINE 5 MG TABLET PO SCH (20:51)
[2019-01-06 23:00] VITALS: BP 124/79
[2019-01-07 06:00] VITALS: BP 140/84
--- NOTE | 2019-01-07 06:21 | NUR ---
Patient in room ORTHO 4020. I have received report from Arminda and had the opportunity to ask questions and assume patient care.
--- NOTE | 2019-01-07 06:24 | NUR ---
Problems reprioritized. Patient report given, questions answered & plan of care reviewed with CASTRO JANE.
[2019-01-07] MEDS: HYDROcodone/acetaminophen 5mg/325mg tablet PO PRN ×3 (06:48→17:10)
[2019-01-07] MEDS: pantoprazole 40mg Tablet.DR PO SCH (07:57)
[2019-01-07] MEDS: lactobacillus rhamnosus 10,000 MMU CELLS/CAPSULE PO SCH ×2 (07:57→20:35)
[2019-01-07] MEDS: busPIRone 15mg tablet PO SCH ×2 (07:57→20:34)
[2019-01-07] MEDS: nystatin 15 GM powder TP SCH ×3 (07:57→20:41)
[2019-01-07] MEDS: levetiracetam 250mg tablet PO SCH ×2 (07:57→20:35)
[2019-01-07] MEDS: vitamin B comp w/Vit. C tab 1 TAB TABLET PO SCH (07:57)
[2019-01-07] MEDS: nystatin 500,000 unit/5ML UD oral suspension PO SCH ×3 (07:57→20:39)
[2019-01-07] MEDS: apixaban 2.5mg tablet PO SCH ×2 (07:57→20:35)
[2019-01-07 10:00] VITALS: BP 114/71
[2019-01-07 18:00] VITALS: BP 141/90
--- NOTE | 2019-01-07 18:16 | NUR ---
Problems reprioritized. Patient report given, questions answered & plan of care reviewed with LORIN.
[2019-01-07] MEDS: OLANZAPINE 5 MG TABLET PO SCH (20:34)
[2019-01-07] MEDS: lithium carbonate 150mg capsule PO SCH (20:35)
[2019-01-07 22:00] VITALS: BP 123/82
[2019-01-08] MEDS: HYDROcodone/acetaminophen 5mg/325mg tablet PO PRN ×2 (00:38→20:07)
[2019-01-08 06:00] VITALS: BP 107/72
--- NOTE | 2019-01-08 06:25 | NUR ---
Report given to Kaylee ERAZO.
--- NOTE | 2019-01-08 06:30 | NUR ---
Patient in room ORTHO 4020. I have received report from CASTRO Kang and had the opportunity to ask questions and assume patient care.
[2019-01-08] MEDS: pantoprazole 40mg Tablet.DR PO SCH (07:36)
[2019-01-08] MEDS: busPIRone 15mg tablet PO SCH ×2 (08:27→20:06)
[2019-01-08] MEDS: lactobacillus rhamnosus 10,000 MMU CELLS/CAPSULE PO SCH ×2 (08:27→20:06)
[2019-01-08] MEDS: vitamin B comp w/Vit. C tab 1 TAB TABLET PO SCH (08:27)
[2019-01-08] MEDS: apixaban 2.5mg tablet PO SCH ×2 (08:27→20:05)
[2019-01-08] MEDS: nystatin 500,000 unit/5ML UD oral suspension PO SCH ×3 (08:27→19:21)
[2019-01-08] MEDS: nystatin 15 GM powder TP SCH ×3 (08:34→19:21)
[2019-01-08 10:00] VITALS: BP 113/77
[2019-01-08] MEDS: levetiracetam 250mg tablet PO SCH ×2 (10:43→20:06)
[2019-01-08 18:00] VITALS: BP 141/96
--- NOTE | 2019-01-08 18:53 | NUR ---
Problems reprioritized. Patient report given, questions answered & plan of care reviewed with CASTRO Seaman.
[2019-01-08] MEDS: lithium carbonate 150mg capsule PO SCH (20:06)
[2019-01-08] MEDS: OLANZAPINE 5 MG TABLET PO SCH (20:06)
[2019-01-08] MEDS: zolpidem 5mg tablet PO PRN (20:06)
[2019-01-08 22:00] VITALS: BP 119/73
[2019-01-09 06:00] VITALS: BP 103/64
--- NOTE | 2019-01-09 06:18 | NUR ---
Problems reprioritized. Patient report given, questions answered & plan of care reviewed with CASTRO Thompson. Addendum: 01/09/19 at 0618 by Urszula Powell RN Amended: Links added.
[2019-01-09] MEDS: pantoprazole 40mg Tablet.DR PO SCH (07:30)
[2019-01-09] MEDS: busPIRone 15mg tablet PO SCH ×2 (08:00→20:25)
[2019-01-09] MEDS: nystatin 15 GM powder TP SCH ×3 (08:00→16:53)
[2019-01-09] MEDS: lactobacillus rhamnosus 10,000 MMU CELLS/CAPSULE PO SCH ×3 (08:03→20:26)
[2019-01-09] MEDS: levetiracetam 250mg tablet PO SCH ×3 (08:03→20:26)
[2019-01-09] MEDS: apixaban 2.5mg tablet PO SCH ×3 (08:04→20:26)
[2019-01-09] MEDS: vitamin B comp w/Vit. C tab 1 TAB TABLET PO SCH (08:04)
[2019-01-09] MEDS: nystatin 500,000 unit/5ML UD oral suspension PO SCH ×3 (08:04→20:25)
--- NOTE | 2019-01-09 08:14 | NUR ---
Educated patient the risks of another CVA and Seizure patient still refused all meds.
[2019-01-09 10:00] VITALS: BP 117/68
[2019-01-09] MEDS: HYDROcodone/acetaminophen 5mg/325mg tablet PO PRN (16:58)
[2019-01-09 18:00] VITALS: BP 123/83
--- NOTE | 2019-01-09 18:15 | NUR ---
Problems reprioritized. Patient report given, questions answered & plan of care reviewed with Radha ERAZO.
[2019-01-09] MEDS: lithium carbonate 150mg capsule PO SCH (20:25)
[2019-01-09] MEDS: OLANZAPINE 5 MG TABLET PO SCH (20:26)
[2019-01-09 22:00] VITALS: BP 111/77
--- NOTE | 2019-01-10 06:43 | NUR ---
Patient in room ORTHO 4020. I have received report from CASTRO Garcia and had the opportunity to ask questions and assume patient care. Patient is currently resting in bed, bed locked and low, call light in reach. No acute distress, will continue to monitor.
[2019-01-10] MEDS: nystatin 500,000 unit/5ML UD oral suspension PO SCH ×3 (08:00→20:46)
--- NOTE | 2019-01-10 09:00 | NUR ---
Dr. Weber requesting to get patient's full medical record for him to review.
[2019-01-10] MEDS: nystatin 15 GM powder TP SCH ×3 (09:15→20:46)
[2019-01-10] MEDS: pantoprazole 40mg Tablet.DR PO SCH (09:17)
[2019-01-10] MEDS: vitamin B comp w/Vit. C tab 1 TAB TABLET PO SCH (09:17)
[2019-01-10] MEDS: busPIRone 15mg tablet PO SCH ×2 (09:17→20:21)
[2019-01-10 10:13] VITALS: BP 127/76
--- NOTE | 2019-01-10 11:42 | NUR ---
PAGER ID: [phone] MESSAGE: CASTRO Tyson, ext [phone], [phone], [place], there is a large packet of medical records that was next to the patient's chart. It appears there is information in it regarding his cancer hx.
--- NOTE | 2019-01-10 15:20 | NUR ---
reassessment: Pt PO continues to decrease 0-25% avg meals or refusing but does fluctuate up to 50-75% some meals. AOx3 resistant to care and uncooperative per EMR w/ mets to brain. LBM 8/. Glucerna TIDWM added for additional protein/kcals; MD notified and pending MD verification prior to sending on trays. REGINA d/w RN for new scaled wt in order to determine accurate wt hx this admit. Will continue to monitor. Recommend: 1. continue carb controlled/mechanical soft diet-encourage PO 2. routine bowel care if s/s of constipation 3. Glucerna TIDWM 4. Need new weight Addendum: 01/10/19 at [address] Amended: Links added.
--- NOTE | 2019-01-10 18:17 | NUR ---
Problems reprioritized. Patient report given, questions answered & plan of care reviewed with CASTRO Long. Patient is currently resting in bed, bed locked and low, call light in reach, stable at shift change
[2019-01-10 18:22] VITALS: BP 99/68
--- NOTE | 2019-01-10 18:26 | NUR ---
Received report from Marbella ERAZO pt is laying in bed in no apparent distress, tabs alarm weapons specialist light and items of freq use within reach
[2019-01-10] MEDS: lactobacillus rhamnosus 10,000 MMU CELLS/CAPSULE PO SCH (20:21)
[2019-01-10] MEDS: levetiracetam 250mg tablet PO SCH (20:21)
[2019-01-10] MEDS: OLANZAPINE 5 MG TABLET PO SCH (20:21)
[2019-01-10] MEDS: apixaban 2.5mg tablet PO SCH (20:21)
[2019-01-10] MEDS: lithium carbonate 150mg capsule PO SCH (20:22)
[2019-01-10 22:04] VITALS: BP 137/80
[2019-01-11] MEDS: HYDROcodone/acetaminophen 5mg/325mg tablet PO PRN ×3 (04:47→19:44)
[2019-01-11 06:10] VITALS: BP 120/84
--- NOTE | 2019-01-11 06:16 | NUR ---
Problems reprioritized. Patient report given, questions answered & plan of care reviewed with Mahnaz ERAZO.
--- NOTE | 2019-01-11 06:30 | NUR ---
Patient in room ORTHO 4020. I have received report from Mercedes ERAZO and had the opportunity to ask questions and assume patient care.
[2019-01-11] MEDS: lactobacillus rhamnosus 10,000 MMU CELLS/CAPSULE PO SCH ×2 (08:21→19:43)
[2019-01-11] MEDS: pantoprazole 40mg Tablet.DR PO SCH (08:21)
[2019-01-11] MEDS: apixaban 2.5mg tablet PO SCH ×2 (08:21→19:44)
[2019-01-11] MEDS: levetiracetam 250mg tablet PO SCH ×2 (08:21→19:44)
[2019-01-11] MEDS: vitamin B comp w/Vit. C tab 1 TAB TABLET PO SCH (08:21)
[2019-01-11] MEDS: busPIRone 15mg tablet PO SCH ×2 (08:22→19:44)
[2019-01-11] MEDS: nystatin 500,000 unit/5ML UD oral suspension PO SCH ×3 (08:22→21:35)
[2019-01-11] MEDS: nystatin 15 GM powder TP SCH ×3 (08:23→19:45)
[2019-01-11 10:00] VITALS: BP 107/77
[2019-01-11 18:00] VITALS: BP 117/72
--- NOTE | 2019-01-11 18:25 | NUR ---
Patient in room ORTHO 4020. I have received report from Mahnaz Cameron Rn and had the opportunity to ask questions and assume patient care. Addendum: 01/11/19 at 1858 by Winnie Butts RN Amended: Links added.
--- NOTE | 2019-01-11 18:30 | NUR ---
I gave patient report to Milagros ERAZO
[2019-01-11] MEDS: OLANZAPINE 5 MG TABLET PO SCH (19:44)
[2019-01-11] MEDS: lithium carbonate 150mg capsule PO SCH (19:45)
--- NOTE | 2019-01-11 20:01 | NUR ---
pt medicated for pain 12/12. took all of his hs meds per request now with ice water used is unit up to 2000 x6. tolerated well. has a loop repeat of wording he uses with flat affect and allowed nystatin powder to groin after skin care. refused condom cath and refused to brush his teeth or wash his face.
--- NOTE | 2019-01-11 22:00 | NUR ---
repositioned in bed for comfort. left hand stretches done due to contracture to it.
[2019-01-11 22:04] VITALS: BP 122/81
--- NOTE | 2019-01-12 | NUR ---
resting eyes closed no s&s of distress at this time.
--- NOTE | 2019-01-12 02:00 | NUR ---
resting eyes closed without changes. pt aware not to get up out of bed and call light in place & pt by nurses station.
--- NOTE | 2019-01-12 04:00 | NUR ---
awoke to void and repositioned in bed. Preschool Adviser assisting pt.
--- NOTE | 2019-01-12 05:44 | NUR ---
watching tv no complaints.
[2019-01-12 06:00] VITALS: BP 142/91
--- NOTE | 2019-01-12 06:10 | NUR ---
Problems reprioritized. Patient report given, questions answered & plan of care reviewed with Claudia Gomez. Addendum: 01/12/19 at 0612 by Winnie Butts RN Amended: Links added.
[2019-01-12 06:20] LABS: ALANINE AMINOTRANSFERASE 59 U/L (12-78); ALBUMIN 3.2 G/DL (3.4-5.0); ALBUMIN/GLOBULIN RATIO 0.7 (1.1-1.5); ALKALINE PHOSPHATASE 86 IU/L (46-116); ANION GAP 10 (8-16); ASPARTATE AMINO TRANSFERASE 37 U/L (10-37); BILIRUBIN,TOTAL 0.3 MG/DL (0.1-1.0); BLOOD UREA NITROGEN 10 MG/DL (7-18); BUN/CREATININE RATIO 12.2 (5.4-32.0); CALCIUM 9.1 MG/DL (8.5-10.1); CHLORIDE 107 MMOL/L (99-107); CREATININE 0.82 MG/DL (0.60-1.10); GLUCOSE 118 MG/DL (70-104); MAGNESIUM 1.7 MG/DL (1.5-2.4); PHOSPHORUS 3.7 MG/DL (2.3-4.5); POTASSIUM 3.5 MMOL/L (3.5-5.1); SODIUM 140 MMOL/L (135-145); TOTAL CARBON DIOXIDE 23.3 MMOL/L (24-32); TOTAL PROTEIN 7.6 G/DL (6.4-8.2); eGFR > 90 ML/MIN
[2019-01-12 07:28] LABS: BASOPHILS % (AUTO) 0.1 % (0-1); EOSINOPHILS # (AUTO) 0.4 X10'3 (0-0.9); EOSINOPHILS % (AUTO) 3.3 % (0-6); HEMATOCRIT 39.5 % (42.0-52.0); HEMOGLOBIN 12.9 g/dl (14.0-17.9); LYMPHOCYTES # (AUTO) 2.1 X10'3 (1.1-4.8); LYMPHOCYTES % (AUTO) 17.7 % (21-51); MEAN CORPUSCULAR HEMOGLOBIN 27.8 PG (27.0-31.0); MEAN CORPUSCULAR HGB CONC 32.7 g/dL (33.0-36.5); MEAN CORPUSCULAR VOLUME 84.9 FL (78-98); MEAN PLATELET VOLUME 8.5 FL (7.4-10.4); MONOCYTES # (AUTO) 1.1 X10'3 (0-0.9); MONOCYTES % (AUTO) 9.3 % (2-12); NEUTROPHILS # (AUTO) 8.3 X10'3 (1.8-7.7); NEUTROPHILS % (AUTO) 69.6 % (42-75); PLATELET COUNT 366 X10'3 (140-440); RED BLOOD COUNT 4.65 X10'6 (4.70-6.10); RED CELL DISTRIBUTION WIDTH 16.6 % (11.5-14.5); WHITE BLOOD COUNT 11.9 X10'3 (4.5-11.0)
[2019-01-12] MEDS: nystatin 500,000 unit/5ML UD oral suspension PO SCH ×3 (08:00→20:16)
[2019-01-12] MEDS: nystatin 15 GM powder TP SCH ×3 (08:00→20:17)
[2019-01-12] MEDS: levetiracetam 250mg tablet PO SCH ×2 (08:11→20:06)
[2019-01-12] MEDS: busPIRone 15mg tablet PO SCH ×2 (08:11→20:09)
[2019-01-12] MEDS: apixaban 2.5mg tablet PO SCH ×2 (08:11→20:07)
[2019-01-12] MEDS: lactobacillus rhamnosus 10,000 MMU CELLS/CAPSULE PO SCH ×2 (08:11→20:11)
[2019-01-12] MEDS: pantoprazole 40mg Tablet.DR PO SCH (08:11)
[2019-01-12] MEDS: vitamin B comp w/Vit. C tab 1 TAB TABLET PO SCH (08:12)
[2019-01-12 10:01] VITALS: BP 150/88
--- NOTE | 2019-01-12 18:25 | NUR ---
Problems reprioritized. Patient report given, questions answered & plan of care reviewed with Gerardo ERAZO.
[2019-01-12 19:00] VITALS: BP 117/74
[2019-01-12] MEDS: HYDROcodone/acetaminophen 5mg/325mg tablet PO PRN (20:05)
[2019-01-12] MEDS: OLANZAPINE 5 MG TABLET PO SCH (20:08)
[2019-01-12] MEDS: lithium carbonate 150mg capsule PO SCH (20:14)
[2019-01-12 23:00] VITALS: BP 118/82
[2019-01-13 06:00] VITALS: BP 135/81
[2019-01-13 06:48] LABS: BASOPHILS % (AUTO) 0.2 % (0-1); EOSINOPHILS # (AUTO) 0.3 X10'3 (0-0.9); EOSINOPHILS % (AUTO) 2.2 % (0-6); HEMATOCRIT 41.2 % (42.0-52.0); HEMOGLOBIN 13.6 g/dl (14.0-17.9); LYMPHOCYTES # (AUTO) 1.9 X10'3 (1.1-4.8); LYMPHOCYTES % (AUTO) 16.6 % (21-51); MEAN CORPUSCULAR HGB CONC 33.1 g/dL (33.0-36.5); MEAN CORPUSCULAR VOLUME 84.5 FL (78-98); MEAN PLATELET VOLUME 8.1 FL (7.4-10.4); MONOCYTES # (AUTO) 1.1 X10'3 (0-0.9); MONOCYTES % (AUTO) 9.7 % (2-12); NEUTROPHILS # (AUTO) 8.2 X10'3 (1.8-7.7); NEUTROPHILS % (AUTO) 71.3 % (42-75); PLATELET COUNT 356 X10'3 (140-440); RED BLOOD COUNT 4.87 X10'6 (4.70-6.10); RED CELL DISTRIBUTION WIDTH 16.4 % (11.5-14.5); WHITE BLOOD COUNT 11.4 X10'3 (4.5-11.0)
[2019-01-13 07:03] LABS: ALANINE AMINOTRANSFERASE 69 U/L (12-78); ALBUMIN 3.3 G/DL (3.4-5.0); ALBUMIN/GLOBULIN RATIO 0.7 (1.1-1.5); ALKALINE PHOSPHATASE 97 IU/L (46-116); ANION GAP 10 (8-16); ASPARTATE AMINO TRANSFERASE 38 U/L (10-37); BILIRUBIN,TOTAL 0.4 MG/DL (0.1-1.0); BLOOD UREA NITROGEN 8 MG/DL (7-18); BUN/CREATININE RATIO 10.4 (5.4-32.0); CALCIUM 9.3 MG/DL (8.5-10.1); CHLORIDE 106 MMOL/L (99-107); CREATININE 0.77 MG/DL (0.60-1.10); GLUCOSE 117 MG/DL (70-104); MAGNESIUM 1.8 MG/DL (1.5-2.4); PHOSPHORUS 4.1 MG/DL (2.3-4.5); POTASSIUM 3.6 MMOL/L (3.5-5.1); SODIUM 140 MMOL/L (135-145); TOTAL CARBON DIOXIDE 23.6 MMOL/L (24-32); eGFR > 90 ML/MIN
[2019-01-13] MEDS: nystatin 500,000 unit/5ML UD oral suspension PO SCH ×3 (08:00→20:41)
[2019-01-13] MEDS: pantoprazole 40mg Tablet.DR PO SCH (09:56)
[2019-01-13] MEDS: vitamin B comp w/Vit. C tab 1 TAB TABLET PO SCH (09:56)
[2019-01-13] MEDS: lactobacillus rhamnosus 10,000 MMU CELLS/CAPSULE PO SCH ×2 (09:56→20:40)
[2019-01-13] MEDS: HYDROcodone/acetaminophen 5mg/325mg tablet PO PRN ×2 (09:57→20:39)
[2019-01-13] MEDS: nystatin 15 GM powder TP SCH ×3 (09:57→20:54)
[2019-01-13] MEDS: busPIRone 15mg tablet PO SCH ×2 (09:57→20:41)
[2019-01-13] MEDS: levetiracetam 250mg tablet PO SCH ×2 (09:57→20:40)
[2019-01-13] MEDS: apixaban 2.5mg tablet PO SCH ×2 (09:57→20:40)
[2019-01-13 10:00] VITALS: BP 132/71
--- NOTE | 2019-01-13 12:01 | NUR ---
reassessment: Pt PO continues to fluctuate 25-50% avg meals and also refusing at times w/ ALOC AOx2. LBM 01/10. Pt new wt taken 132kg on bed scale; second since November 98kg gurnery scale wt. 40kg gain in 1.5 months not accurate given different wt methods and pt mostly fluid positive this admit but no wt loss has been noted. Will continue to monitor. Recommend: 1. continue carb controlled/mechanical soft diet-encourage PO 2. routine bowel care if s/s of constipation 3. Glucerna TIDWM 4. weekly wts Addendum: 01/13/19 at [address] Amended: Links added.
[2019-01-13 17:00] VITALS: BP 109/74
--- NOTE | 2019-01-13 18:29 | NUR ---
Problems reprioritized. Patient report given, questions answered & plan of care reviewed with Jeannie ERAZO.
--- NOTE | 2019-01-13 18:30 | NUR ---
Patient in room ORTHO 4020. I have received report from Claudia ERAZO and had the opportunity to ask questions and assume patient care.
[2019-01-13] MEDS: OLANZAPINE 5 MG TABLET PO SCH (20:40)
[2019-01-13] MEDS: lithium carbonate 150mg capsule PO SCH (20:41)
[2019-01-13 22:00] VITALS: BP 125/89
[2019-01-14 06:00] VITALS: BP 126/91
--- NOTE | 2019-01-14 06:26 | NUR ---
Problems reprioritized. Patient report given, questions answered & plan of care reviewed with Betty ERAZO.
[2019-01-14] MEDS: levetiracetam 250mg tablet PO SCH ×2 (08:55→20:51)
[2019-01-14] MEDS: vitamin B comp w/Vit. C tab 1 TAB TABLET PO SCH (08:55)
[2019-01-14] MEDS: busPIRone 15mg tablet PO SCH ×2 (08:55→20:51)
[2019-01-14] MEDS: lactobacillus rhamnosus 10,000 MMU CELLS/CAPSULE PO SCH ×2 (08:55→20:51)
[2019-01-14] MEDS: nystatin 500,000 unit/5ML UD oral suspension PO SCH ×3 (08:55→20:51)
[2019-01-14] MEDS: apixaban 2.5mg tablet PO SCH ×2 (08:55→20:51)
[2019-01-14] MEDS: pantoprazole 40mg Tablet.DR PO SCH (08:57)
[2019-01-14 10:00] VITALS: BP 101/74
[2019-01-14] MEDS: nystatin 15 GM powder TP SCH ×3 (10:08→20:51)
[2019-01-14 18:00] VITALS: BP 137/88
--- NOTE | 2019-01-14 18:20 | NUR ---
Patient in room ORTHO 4020. I have received report from Betty ERAZO and had the opportunity to ask questions and assume patient care.
[2019-01-14] MEDS: OLANZAPINE 5 MG TABLET PO SCH (20:51)
[2019-01-14] MEDS: lithium carbonate 150mg capsule PO SCH (20:51)
[2019-01-14 21:00] VITALS: BP 115/81
[2019-01-15 06:00] VITALS: BP 148/86
--- NOTE | 2019-01-15 06:20 | NUR ---
Problems reprioritized. Patient report given, questions answered & plan of care reviewed with Betty ERAZO.
[2019-01-15] MEDS: pantoprazole 40mg Tablet.DR PO SCH (07:30)
[2019-01-15] MEDS: nystatin 500,000 unit/5ML UD oral suspension PO SCH ×4 (09:01→21:00)
[2019-01-15] MEDS: vitamin B comp w/Vit. C tab 1 TAB TABLET PO SCH (09:01)
[2019-01-15] MEDS: nystatin 15 GM powder TP SCH ×3 (09:01→20:59)
[2019-01-15] MEDS: levetiracetam 250mg tablet PO SCH ×2 (09:02→19:31)
[2019-01-15] MEDS: busPIRone 15mg tablet PO SCH ×2 (09:02→19:32)
[2019-01-15] MEDS: apixaban 2.5mg tablet PO SCH ×2 (09:02→19:32)
[2019-01-15] MEDS: lactobacillus rhamnosus 10,000 MMU CELLS/CAPSULE PO SCH ×2 (09:02→19:31)
[2019-01-15 10:00] VITALS: BP 118/75
[2019-01-15 18:00] VITALS: BP 116/88
[2019-01-15] MEDS: lithium carbonate 150mg capsule PO SCH (20:55)
[2019-01-15] MEDS: OLANZAPINE 5 MG TABLET PO SCH (20:55)
[2019-01-15] MEDS: HYDROcodone/acetaminophen 5mg/325mg tablet PO PRN (20:58)
[2019-01-15 22:00] VITALS: BP 122/75
[2019-01-16 06:10] VITALS: BP 112/71
--- NOTE | 2019-01-16 06:29 | NUR ---
Problems reprioritized. Patient report given, questions answered & plan of care reviewed with Mahnaz ERAZO.
--- NOTE | 2019-01-16 06:35 | NUR ---
Patient in room ORTHO 4020. I have received report from Jeannie ERAZO and had the opportunity to ask questions and assume patient care.
[2019-01-16] MEDS: apixaban 2.5mg tablet PO SCH ×3 (08:39→19:57)
[2019-01-16] MEDS: pantoprazole 40mg Tablet.DR PO SCH ×2 (08:39→11:04)
[2019-01-16] MEDS: nystatin 500,000 unit/5ML UD oral suspension PO SCH ×4 (08:39→19:56)
[2019-01-16] MEDS: levetiracetam 250mg tablet PO SCH ×3 (08:39→19:57)
[2019-01-16] MEDS: lactobacillus rhamnosus 10,000 MMU CELLS/CAPSULE PO SCH ×3 (08:39→19:57)
[2019-01-16] MEDS: vitamin B comp w/Vit. C tab 1 TAB TABLET PO SCH ×2 (08:39→11:04)
[2019-01-16] MEDS: busPIRone 15mg tablet PO SCH ×3 (08:39→19:56)
[2019-01-16] MEDS: nystatin 15 GM powder TP SCH ×4 (08:40→19:57)
--- NOTE | 2019-01-16 08:59 | NUR ---
Enrique refused all pills this morning, he may need more time to wake up. He seems confused this morning and wouldn't even take a drink of water yet. I will monitor him.
[2019-01-16 10:00] VITALS: BP 118/81
--- NOTE | 2019-01-16 11:06 | NUR ---
patient decided he wanted his pills now.
--- NOTE | 2019-01-16 11:58 | NUR ---
reassessment: Pt PO 25% avg meals; fluctuates w/ refusal of care. Refused all meds and any water this AM per RN note. LBM 01/16 large. Receiving ONS for protein/kcal needs. Will continue to monitor. Recommend: 1. continue carb controlled/mechanical soft diet-encourage PO 2. routine bowel care if s/s of constipation 3. Glucerna TIDWM 4. weekly wts Addendum: 01/16/19 at [address] Amended: Links added.
[2019-01-16 18:00] VITALS: BP 126/91
--- NOTE | 2019-01-16 18:20 | NUR ---
Patient report given Marni ERAZO
--- NOTE | 2019-01-16 18:30 | NUR ---
Patient in room ORTHO 4020. I have received report from CASTRO MOCTEZUMA and had the opportunity to ask questions and assume patient care.
[2019-01-16] MEDS: lithium carbonate 150mg capsule PO SCH (19:56)
[2019-01-16] MEDS: OLANZAPINE 5 MG TABLET PO SCH (19:56)
[2019-01-16 22:00] VITALS: BP 124/84
[2019-01-17 06:00] VITALS: BP 112/72
--- NOTE | 2019-01-17 06:18 | NUR ---
Problems reprioritized. Patient report given, questions answered & plan of care reviewed with CASTRO ARREAGA.
[2019-01-17] MEDS: nystatin 500,000 unit/5ML UD oral suspension PO SCH ×4 (08:00→21:00)
[2019-01-17] MEDS: lactobacillus rhamnosus 10,000 MMU CELLS/CAPSULE PO SCH ×3 (08:00→21:41)
[2019-01-17] MEDS: apixaban 2.5mg tablet PO SCH ×2 (09:47→21:42)
[2019-01-17] MEDS: pantoprazole 40mg Tablet.DR PO SCH (09:47)
[2019-01-17] MEDS: busPIRone 15mg tablet PO SCH ×2 (09:47→20:00)
[2019-01-17] MEDS: levetiracetam 250mg tablet PO SCH ×2 (09:47→21:41)
[2019-01-17] MEDS: nystatin 15 GM powder TP SCH ×3 (09:48→21:57)
[2019-01-17] MEDS: vitamin B comp w/Vit. C tab 1 TAB TABLET PO SCH (09:48)
[2019-01-17] MEDS: HYDROcodone/acetaminophen 5mg/325mg tablet PO PRN ×3 (09:51→21:43)
[2019-01-17 10:00] VITALS: BP 127/79
--- NOTE | 2019-01-17 15:08 | NUR ---
PRESSURE ULCER EDUCATION: DEFINITION: A pressure ulcer is an area of skin that breaks down when you stay in one position too long. The constant pressure against the skin reduces the blood flow to that area and the affected tissue dies. CAUSES: "Being bedridden or in a wheelchair "Fragile skin "Having a chronic condition, such as diabetes or vascular disease "Inability to move certain parts of your body without assistance "Older age "Incontinence of urine or stool SYMPTOMS: "A reddened area that DOES NOT turn white when pressed on - this can be the beginning of a pressure ulcer "A blister, deep sore or a crater - these can be advanced pressure ulcers FIRST AID: "Relieve the pressure on this area "Keep the area clean and dry "Call your primary doctor if you see any of the above symptoms "DO NOT massage the area "DO NOT use a donut shaped or ring shaped pillow- these actually interfere with the blood flow and cause complications PREVENTION: "Check for pressure ulcers everyday "Change position at least every two hours to relieve pressure "Use items that help relieve pressure- pillows, sheepskin, foam padding, and powders. "Keep skin clean and dry "Eat healthy well balanced meals "Exercise daily IF YOU SEE ANY OF THESE SYMPTOMS WHILE IN THE HOSPITAL - TELL YOUR NURSE IMMEDIATELY. IF YOU SEE ANY OF THESE SYMPTOMS WHILE AT HOME OR HAVE ANY QUESTIONS OR CONCERNS ABOUT PRESSURE ULCERS - CALL YOUR PRIMARY DOCTOR IMMEDIATELY. Addendum: 01/17/19 at 1508 by Ayla Fermin RN Amended: Links added.
[2019-01-17 18:00] VITALS: BP 119/80
--- NOTE | 2019-01-17 19:00 | NUR ---
Patient in room ORTHO 4020. I have received report from Char ERAZO and had the opportunity to ask questions and assume patient care.
[2019-01-17] MEDS: OLANZAPINE 5 MG TABLET PO SCH (21:41)
[2019-01-17] MEDS: lithium carbonate 150mg capsule PO SCH (21:42)
[2019-01-17 22:00] VITALS: BP 120/73
[2019-01-18 06:00] VITALS: BP 119/74
--- NOTE | 2019-01-18 06:45 | NUR ---
Problems reprioritized. Patient report given, questions answered & plan of care reviewed with Char ERAZO.
[2019-01-18] MEDS: nystatin 500,000 unit/5ML UD oral suspension PO SCH ×3 (08:00→21:00)
[2019-01-18] MEDS: vitamin B comp w/Vit. C tab 1 TAB TABLET PO SCH ×2 (08:00→09:02)
[2019-01-18] MEDS: lactobacillus rhamnosus 10,000 MMU CELLS/CAPSULE PO SCH ×3 (08:00→20:56)
[2019-01-18] MEDS: pantoprazole 40mg Tablet.DR PO SCH (09:01)
[2019-01-18] MEDS: levetiracetam 250mg tablet PO SCH ×2 (09:02→20:57)
[2019-01-18] MEDS: apixaban 2.5mg tablet PO SCH ×2 (09:02→20:56)
[2019-01-18] MEDS: busPIRone 15mg tablet PO SCH ×2 (09:02→20:56)
[2019-01-18] MEDS: nystatin 15 GM powder TP SCH ×3 (09:02→21:00)
[2019-01-18] MEDS: HYDROcodone/acetaminophen 5mg/325mg tablet PO PRN ×3 (09:10→20:03)
[2019-01-18 10:00] VITALS: BP 130/79
--- NOTE | 2019-01-18 12:08 | NUR ---
discussed concerns with md at bedside. Pt has been declining since fall approx 3 weeks ago with increased slurring, drooling, weakness on L, decreased appetite and inability to ambulate. Pt was ambulating in room independently prior to the fall. Received orders for labs and ct scan w contrast if bnp is ok. Pt is agreeable to plan of care
[2019-01-18 13:12] LABS: BASOPHILS # (AUTO) 0.1 X10'3 (0-0.2); BASOPHILS % (AUTO) 0.5 % (0-1); EOSINOPHILS # (AUTO) 0.2 X10'3 (0-0.9); HEMATOCRIT 43.1 % (42.0-52.0); HEMOGLOBIN 14.2 g/dl (14.0-17.9); LYMPHOCYTES # (AUTO) 2.8 X10'3 (1.1-4.8); LYMPHOCYTES % (AUTO) 21.9 % (21-51); MEAN CORPUSCULAR HEMOGLOBIN 27.8 PG (27.0-31.0); MEAN CORPUSCULAR VOLUME 84.2 FL (78-98); MEAN PLATELET VOLUME 7.9 FL (7.4-10.4); MONOCYTES % (AUTO) 8.1 % (2-12); NEUTROPHILS # (AUTO) 8.6 X10'3 (1.8-7.7); NEUTROPHILS % (AUTO) 67.5 % (42-75); PLATELET COUNT 408 X10'3 (140-440); RED BLOOD COUNT 5.12 X10'6 (4.70-6.10); RED CELL DISTRIBUTION WIDTH 15.8 % (11.5-14.5); WHITE BLOOD COUNT 12.7 X10'3 (4.5-11.0)
[2019-01-18 13:21] LABS: ALBUMIN 3.6 G/DL (3.4-5.0); ANION GAP 9 (8-16); BLOOD UREA NITROGEN 7 MG/DL (7-18); BUN/CREATININE RATIO 7.4 (5.4-32.0); CALCIUM 9.4 MG/DL (8.5-10.1); CHLORIDE 104 MMOL/L (99-107); CREATININE 0.95 MG/DL (0.60-1.10); GLUCOSE 90 MG/DL (70-104); MAGNESIUM 1.9 MG/DL (1.5-2.4); PHOSPHORUS 3.9 MG/DL (2.3-4.5); POTASSIUM 3.6 MMOL/L (3.5-5.1); SODIUM 139 MMOL/L (135-145); TOTAL CARBON DIOXIDE 26.4 MMOL/L (24-32); eGFR 83 ML/MIN
--- NOTE | 2019-01-18 14:35 | NUR ---
this is the correct weight. Bed was zeroed out when pt was out of it then re weighed. Addendum: 01/18/19 at 1436 by Wanda Em RN Amended: Links added.
[2019-01-18] MEDS ORDERED: iohexol 300mg/ml 100ml inj. ONE (16:35)
[2019-01-18] MEDS: MESSAGE TO NURSING PO SCH (17:00)
--- NOTE | 2019-01-18 19:00 | NUR ---
Patient in room ORTHO 4020. I have received report from Char ERAZO and had the opportunity to ask questions and assume patient care.
[2019-01-18] MEDS: OLANZAPINE 5 MG TABLET PO SCH (20:56)
[2019-01-18] MEDS: lithium carbonate 150mg capsule PO SCH (21:00)
[2019-01-19 06:00] VITALS: BP 132/86
[2019-01-19] MEDS: busPIRone 15mg tablet PO SCH ×3 (08:00→21:31)
[2019-01-19] MEDS: lactobacillus rhamnosus 10,000 MMU CELLS/CAPSULE PO SCH ×2 (08:00→20:00)
[2019-01-19] MEDS: vitamin B comp w/Vit. C tab 1 TAB TABLET PO SCH (08:00)
[2019-01-19] MEDS: levetiracetam 250mg tablet PO SCH ×3 (08:00→21:21)
[2019-01-19] MEDS: nystatin 500,000 unit/5ML UD oral suspension PO SCH ×3 (08:00→21:00)
--- NOTE | 2019-01-19 08:30 | NUR ---
PAGER ID: [phone] MESSAGE: Char [phone] keyon Ferrer in 4020a- pls review ct head from yesterday, spoke to radiologist- changes from 11/26 very concerning. May need to talk about comfort care if pt not willing to make life extending interventions Dr Dolan [phone]
[2019-01-19 10:00] VITALS: BP 114/79
--- NOTE | 2019-01-19 10:09 | NUR ---
pt is sitting up in bed (in high fowlers) very difficult to arouse compared to yesterday. He wakes up but will not stay awake. Will pass on meds for now, will continue to monitor
[2019-01-19] MEDS: apixaban 2.5mg tablet PO SCH ×2 (12:39→21:31)
[2019-01-19] MEDS: pantoprazole 40mg Tablet.DR PO SCH (12:39)
[2019-01-19] MEDS: nystatin 15 GM powder TP SCH ×3 (12:40→21:00)
[2019-01-19] MEDS: HYDROcodone/acetaminophen 5mg/325mg tablet PO PRN ×2 (12:42→21:21)
--- NOTE | 2019-01-19 16:10 | NUR ---
PAGER ID: [phone] MESSAGE: Char [phone] re Enrique Ferrer [id number]- he told me he wants comfort care added to his normal regime. Not to dc all of his meds but to add comfort care ones. Does not want any interventions
[2019-01-19] MEDS ORDERED: LORazepam 2 mg/ml vial IV PRN (16:30)
[2019-01-19] MEDS: MESSAGE TO NURSING PO SCH (17:00)
[2019-01-19] MEDS: oxyCODONE IR 5mg (immed. release) tablet PO PRN (17:43)
[2019-01-19] MEDS: lithium carbonate 150mg capsule PO SCH (21:31)
[2019-01-19] MEDS: OLANZAPINE 5 MG TABLET PO SCH (21:31)
--- NOTE | 2019-01-20 00:37 | NUR ---
Patient in room ORTHO 4020. I have received report from Char ERAZO and had the opportunity to ask questions and assume patient care.
[2019-01-20] MEDS: pantoprazole 40mg Tablet.DR PO SCH (07:30)
[2019-01-20] MEDS: oxyCODONE IR 5mg (immed. release) tablet PO PRN ×3 (07:56→21:50)
[2019-01-20] MEDS: levetiracetam 250mg tablet PO SCH ×2 (07:56→21:51)
[2019-01-20] MEDS: nystatin 500,000 unit/5ML UD oral suspension PO SCH ×3 (08:00→21:00)
[2019-01-20] MEDS: busPIRone 15mg tablet PO SCH ×2 (08:00→22:04)
[2019-01-20] MEDS: nystatin 15 GM powder TP SCH ×3 (08:00→22:08)
[2019-01-20] MEDS: lactobacillus rhamnosus 10,000 MMU CELLS/CAPSULE PO SCH ×2 (08:00→20:00)
[2019-01-20] MEDS: vitamin B comp w/Vit. C tab 1 TAB TABLET PO SCH (08:00)
[2019-01-20] MEDS: apixaban 2.5mg tablet PO SCH ×2 (08:00→22:04)
[2019-01-20 10:00] VITALS: BP 109/70
--- NOTE | 2019-01-20 12:09 | NUR ---
Pt has been made DNR w/ comfort care. [facility] 01/18. Will continue to follow per protocol. Addendum: 01/20/19 at [address] Amended: Links added.
[2019-01-20] MEDS: OLANZAPINE 5 MG TABLET PO SCH (21:50)
[2019-01-20 22:00] VITALS: BP 139/97
[2019-01-20] MEDS: lithium carbonate 150mg capsule PO SCH (22:05)
[2019-01-21] MEDS: oxyCODONE IR 5mg (immed. release) tablet PO PRN ×4 (03:44→22:09)
--- NOTE | 2019-01-21 06:20 | NUR ---
Problems reprioritized. Patient report given, questions answered & plan of care reviewed with CASTRO BOLTON.
[2019-01-21] MEDS: pantoprazole 40mg Tablet.DR PO SCH (07:30)
[2019-01-21] MEDS: levetiracetam 250mg tablet PO SCH ×2 (07:45→20:38)
[2019-01-21] MEDS: busPIRone 15mg tablet PO SCH ×2 (07:48→20:38)
[2019-01-21] MEDS: vitamin B comp w/Vit. C tab 1 TAB TABLET PO SCH (07:48)
[2019-01-21] MEDS: nystatin 500,000 unit/5ML UD oral suspension PO SCH ×3 (07:48→20:35)
[2019-01-21] MEDS: apixaban 2.5mg tablet PO SCH ×2 (07:48→20:38)
[2019-01-21] MEDS: lactobacillus rhamnosus 10,000 MMU CELLS/CAPSULE PO SCH ×2 (07:48→20:38)
[2019-01-21] MEDS: nystatin 15 GM powder TP SCH ×3 (07:48→20:35)
[2019-01-21 10:32] VITALS: BP 121/90
[2019-01-21 18:00] VITALS: BP 114/70
--- NOTE | 2019-01-21 18:30 | NUR ---
Received report from Saba ERAZO, assumed care of patient.
[2019-01-21] MEDS: lithium carbonate 150mg capsule PO SCH (20:39)
[2019-01-21] MEDS: OLANZAPINE 5 MG TABLET PO SCH (20:39)
[2019-01-21 22:00] VITALS: BP 127/94
--- NOTE | 2019-01-22 06:37 | NUR ---
Report given to Romina ERAZO.
[2019-01-22 10:00] VITALS: BP 120/73
[2019-01-22] MEDS: oxyCODONE IR 5mg (immed. release) tablet PO PRN ×2 (11:44→20:07)
[2019-01-22] MEDS: lactobacillus rhamnosus 10,000 MMU CELLS/CAPSULE PO SCH ×2 (11:47→11:56)
[2019-01-22] MEDS: busPIRone 15mg tablet PO SCH ×2 (11:47→20:03)
[2019-01-22] MEDS: apixaban 2.5mg tablet PO SCH ×2 (11:47→11:57)
[2019-01-22] MEDS: levetiracetam 250mg tablet PO SCH ×2 (11:47→20:03)
[2019-01-22] MEDS: pantoprazole 40mg Tablet.DR PO SCH (11:55)
[2019-01-22] MEDS: nystatin 500,000 unit/5ML UD oral suspension PO SCH ×3 (11:55→20:13)
[2019-01-22] MEDS: vitamin B comp w/Vit. C tab 1 TAB TABLET PO SCH (11:55)
[2019-01-22] MEDS: nystatin 15 GM powder TP SCH ×3 (11:55→20:14)
--- NOTE | 2019-01-22 17:00 | NUR ---
pt maintained safety throughout the day. turning q2h in bed. c/o pain x1, medicated with Oxycodone with positive result. Pt alert and oriented with mild confusion.
[2019-01-22 18:00] VITALS: BP 114/73
--- NOTE | 2019-01-22 18:25 | NUR ---
Patient in room ORTHO 4020. I have received report from Tiffanie ERAZO and had the opportunity to ask questions and assume patient care.
--- NOTE | 2019-01-22 18:34 | NUR ---
Problems reprioritized. Patient report given, questions answered & plan of care reviewed with CASTRO Walters.
[2019-01-22] MEDS: OLANZAPINE 5 MG TABLET PO SCH (20:07)
[2019-01-22] MEDS: lithium carbonate 150mg capsule PO SCH (20:09)
[2019-01-22] MEDS: LORazepam 0.5 MG tablet PO PRN (21:37)
--- NOTE | 2019-01-23 06:00 | NUR ---
Problems reprioritized. Patient report given, questions answered & plan of care reviewed with Gretchen ERAZO.
[2019-01-23] MEDS: nystatin 500,000 unit/5ML UD oral suspension PO SCH ×4 (08:00→19:06)
[2019-01-23] MEDS: busPIRone 15mg tablet PO SCH ×3 (08:00→20:35)
[2019-01-23] MEDS: lactobacillus rhamnosus 10,000 MMU CELLS/CAPSULE PO SCH ×3 (08:00→20:33)
[2019-01-23] MEDS: levetiracetam 250mg tablet PO SCH ×3 (08:00→20:37)
[2019-01-23] MEDS: apixaban 2.5mg tablet PO SCH ×3 (08:00→20:32)
[2019-01-23] MEDS: vitamin B comp w/Vit. C tab 1 TAB TABLET PO SCH (08:18)
[2019-01-23] MEDS: nystatin 15 GM powder TP SCH ×3 (08:19→20:32)
[2019-01-23] MEDS: pantoprazole 40mg Tablet.DR PO SCH (08:19)
--- NOTE | 2019-01-23 12:17 | NUR ---
patient remains on comfort care with a DNR status, patient is very lethargic and has been sleeping the entire shift, woke him up for medications and breakfast this morning, initially he perked up and stated he would take his meds but once i handed them to him he said "no im not taking them". Meds were undone in the emar and also breakfast charted as refusal.
[2019-01-23] MEDS: LORazepam 0.5 MG tablet PO PRN (17:47)
[2019-01-23] MEDS: HYDROcodone/acetaminophen 5mg/325mg tablet PO PRN (17:48)
--- NOTE | 2019-01-23 18:26 | NUR ---
Problems reprioritized. Patient report given, questions answered & plan of care reviewed with Pearl ERAZO.
[2019-01-23] MEDS: OLANZAPINE 5 MG TABLET PO SCH (20:34)
[2019-01-23] MEDS: lithium carbonate 150mg capsule PO SCH (20:38)
[2019-01-23 22:00] VITALS: BP 132/85
[2019-01-24] MEDS: oxyCODONE IR 5mg (immed. release) tablet PO PRN ×3 (04:16→19:19)
[2019-01-24 06:00] VITALS: BP 148/98
--- NOTE | 2019-01-24 06:14 | NUR ---
Report given to Albert ERAZO.
--- NOTE | 2019-01-24 06:48 | NUR ---
Patient in room ORTHO 4020. I have received report from Pearl Dominguez RN and had the opportunity to ask questions and assume patient care.
[2019-01-24] MEDS: pantoprazole 40mg Tablet.DR PO SCH (07:30)
[2019-01-24] MEDS: nystatin 15 GM powder TP SCH ×3 (08:00→19:23)
[2019-01-24] MEDS: levetiracetam 250mg tablet PO SCH ×2 (08:00→19:22)
[2019-01-24] MEDS: nystatin 500,000 unit/5ML UD oral suspension PO SCH (08:00)
[2019-01-24] MEDS: lactobacillus rhamnosus 10,000 MMU CELLS/CAPSULE PO SCH (08:00)
[2019-01-24] MEDS: vitamin B comp w/Vit. C tab 1 TAB TABLET PO SCH (08:00)
[2019-01-24 09:41] VITALS: BP 128/84
[2019-01-24] MEDS: apixaban 2.5mg tablet PO SCH ×2 (10:16→19:22)
[2019-01-24] MEDS: busPIRone 15mg tablet PO SCH ×2 (10:16→19:21)
[2019-01-24] MEDS: LORazepam 0.5 MG tablet PO PRN ×2 (17:31→22:38)
[2019-01-24 18:00] VITALS: BP 137/73
--- NOTE | 2019-01-24 18:00 | NUR ---
Patient in room ORTHO 4020. I have received report from Albert ERAZO and had the opportunity to ask questions and assume patient care.
--- NOTE | 2019-01-24 18:25 | NUR ---
Problems reprioritized. Patient report given, questions answered & plan of care reviewed with Jung ERAZO.
[2019-01-24] MEDS: lithium carbonate 150mg capsule PO SCH (19:23)
[2019-01-24] MEDS: OLANZAPINE 5 MG TABLET PO SCH (19:23)
[2019-01-24] MEDS: HYDROcodone/acetaminophen 5mg/325mg tablet PO PRN (22:38)
[2019-01-25 06:00] VITALS: BP 101/67
--- NOTE | 2019-01-25 06:31 | NUR ---
Problems reprioritized. Patient report given, questions answered & plan of care reviewed with Char ERAZO.
[2019-01-25] MEDS: pantoprazole 40mg Tablet.DR PO SCH (07:30)
[2019-01-25] MEDS: busPIRone 15mg tablet PO SCH ×2 (08:00→21:01)
[2019-01-25] MEDS: levetiracetam 250mg tablet PO SCH ×2 (08:00→20:00)
[2019-01-25] MEDS: nystatin 15 GM powder TP SCH ×3 (08:00→21:00)
[2019-01-25] MEDS: apixaban 2.5mg tablet PO SCH ×2 (08:00→20:00)
[2019-01-25] MEDS: LORazepam 0.5 MG tablet PO PRN ×2 (09:25→21:01)
[2019-01-25] MEDS: oxyCODONE IR 5mg (immed. release) tablet PO PRN ×3 (09:25→18:54)
[2019-01-25 10:00] VITALS: BP 104/82
--- NOTE | 2019-01-25 18:28 | NUR ---
Patient in room ORTHO 4020. I have received report from Char ERAZO and had the opportunity to ask questions and assume patient care.
[2019-01-25] MEDS: lithium carbonate 150mg capsule PO SCH (21:00)
[2019-01-25] MEDS: OLANZAPINE 5 MG TABLET PO SCH (21:01)
[2019-01-25 22:00] VITALS: BP 124/76
[2019-01-26] MEDS: oxyCODONE IR 5mg (immed. release) tablet PO PRN ×4 (00:04→20:41)
--- NOTE | 2019-01-26 06:10 | NUR ---
Problems reprioritized. Patient report given, questions answered & plan of care reviewed with Char ERAZO.
[2019-01-26] MEDS: pantoprazole 40mg Tablet.DR PO SCH (07:30)
[2019-01-26] MEDS: levetiracetam 250mg tablet PO SCH ×2 (08:00→20:40)
[2019-01-26] MEDS: busPIRone 15mg tablet PO SCH ×2 (08:00→20:41)
[2019-01-26] MEDS: LORazepam 0.5 MG tablet PO PRN ×2 (08:26→12:47)
[2019-01-26] MEDS: apixaban 2.5mg tablet PO SCH ×2 (08:30→20:41)
[2019-01-26] MEDS: nystatin 15 GM powder TP SCH ×3 (08:34→20:41)
[2019-01-26 10:00] VITALS: BP 111/81
[2019-01-26] MEDS: HYDROcodone/acetaminophen 5mg/325mg tablet PO PRN (12:47)
[2019-01-26] MEDS: OLANZAPINE 5 MG TABLET PO SCH (20:40)
[2019-01-26] MEDS: lithium carbonate 150mg capsule PO SCH (20:41)
[2019-01-26 22:53] VITALS: BP 133/86
[2019-01-27 07:00] VITALS: BP 136/82
[2019-01-27] MEDS: pantoprazole 40mg Tablet.DR PO SCH (07:30)
[2019-01-27] MEDS: oxyCODONE IR 5mg (immed. release) tablet PO PRN ×2 (07:48→21:52)
[2019-01-27] MEDS: levetiracetam 250mg tablet PO SCH ×2 (07:48→20:14)
[2019-01-27] MEDS: apixaban 2.5mg tablet PO SCH ×2 (07:54→20:13)
[2019-01-27] MEDS: busPIRone 15mg tablet PO SCH ×2 (07:54→20:14)
[2019-01-27] MEDS: nystatin 15 GM powder TP SCH ×3 (07:55→21:53)
[2019-01-27 11:04] VITALS: BP 106/65
--- NOTE | 2019-01-27 11:49 | NUR ---
Pt has been made DNR w/ comfort care. [facility] 01/26. Will continue to follow per protocol. Addendum: 01/27/19 at [address] Amended: Links added.
--- NOTE | 2019-01-27 18:11 | NUR ---
Patient in room ORTHO 4020. I have received report from Saba ERAZO and had the opportunity to ask questions and assume patient care.
[2019-01-27] MEDS: lithium carbonate 150mg capsule PO SCH (20:14)
[2019-01-27] MEDS: OLANZAPINE 5 MG TABLET PO SCH (20:14)
[2019-01-27 22:00] VITALS: BP 138/88
[2019-01-27] MEDS: LORazepam 0.5 MG tablet PO PRN (23:04)
--- NOTE | 2019-01-28 06:15 | NUR ---
Problems reprioritized. Patient report given, questions answered & plan of care reviewed with Saba ERAZO.
[2019-01-28] MEDS: pantoprazole 40mg Tablet.DR PO SCH (07:23)
[2019-01-28] MEDS: LORazepam 0.5 MG tablet PO PRN ×2 (07:23→20:08)
[2019-01-28] MEDS: levetiracetam 250mg tablet PO SCH ×2 (07:23→20:08)
[2019-01-28] MEDS: apixaban 2.5mg tablet PO SCH ×2 (07:23→20:08)
[2019-01-28] MEDS: busPIRone 15mg tablet PO SCH ×2 (07:23→20:08)
[2019-01-28] MEDS: oxyCODONE IR 5mg (immed. release) tablet PO PRN ×2 (07:23→20:15)
[2019-01-28] MEDS: nystatin 15 GM powder TP SCH ×3 (07:23→20:09)
[2019-01-28 09:55] VITALS: BP 113/75
[2019-01-28 18:00] VITALS: BP 122/86
[2019-01-28] MEDS: OLANZAPINE 5 MG TABLET PO SCH (20:08)
[2019-01-28] MEDS: lithium carbonate 150mg capsule PO SCH (20:08)
[2019-01-28 22:00] VITALS: BP 130/77
[2019-01-28] MEDS: zolpidem 5mg tablet PO PRN (22:00)
[2019-01-29] MEDS: oxyCODONE IR 5mg (immed. release) tablet PO PRN ×2 (07:33→17:47)
[2019-01-29] MEDS: LORazepam 0.5 MG tablet PO PRN ×2 (07:33→17:47)
[2019-01-29] MEDS: pantoprazole 40mg Tablet.DR PO SCH (07:33)
[2019-01-29] MEDS: levetiracetam 250mg tablet PO SCH ×2 (07:33→20:06)
[2019-01-29] MEDS: apixaban 2.5mg tablet PO SCH ×2 (07:33→20:06)
[2019-01-29] MEDS: busPIRone 15mg tablet PO SCH ×2 (07:33→20:06)
[2019-01-29] MEDS: nystatin 15 GM powder TP SCH ×3 (07:34→20:07)
[2019-01-29 09:45] VITALS: BP 119/76
--- NOTE | 2019-01-29 13:25 | NUR ---
Spoke with pt's primary RN regarding if pt needs any WOC supplies for dressing changes to promote comfort.
--- NOTE | 2019-01-29 18:15 | NUR ---
Patient in room ORTHO 4020. I have received report from Saba ERAZO and had the opportunity to ask questions and assume patient care.
[2019-01-29] MEDS: lithium carbonate 150mg capsule PO SCH (20:06)
[2019-01-29] MEDS: OLANZAPINE 5 MG TABLET PO SCH (20:06)
[2019-01-29 22:00] VITALS: BP 112/74
[2019-01-30 06:00] VITALS: BP 124/81
--- NOTE | 2019-01-30 06:15 | NUR ---
Patient in room ORTHO 4020. I have received report from Jeannie and had the opportunity to ask questions and assume patient care.
--- NOTE | 2019-01-30 06:17 | NUR ---
Problems reprioritized. Patient report given, questions answered & plan of care reviewed with Araceli ERAZO.
[2019-01-30] MEDS: busPIRone 15mg tablet PO SCH ×2 (09:18→20:15)
[2019-01-30] MEDS: pantoprazole 40mg Tablet.DR PO SCH (09:18)
[2019-01-30] MEDS: levetiracetam 250mg tablet PO SCH ×2 (09:18→20:16)
[2019-01-30] MEDS: apixaban 2.5mg tablet PO SCH ×2 (09:18→20:16)
[2019-01-30] MEDS: nystatin 15 GM powder TP SCH ×3 (09:19→20:16)
[2019-01-30 10:00] VITALS: BP 106/69
[2019-01-30 18:00] VITALS: BP 105/60
--- NOTE | 2019-01-30 18:20 | NUR ---
Received report from Araceli ERAZO. Assumed care of patient.
--- NOTE | 2019-01-30 18:21 | NUR ---
Problems reprioritized. Patient report given, questions answered & plan of care reviewed with Sharmila RN.
[2019-01-30] MEDS: OLANZAPINE 5 MG TABLET PO SCH (20:15)
[2019-01-30] MEDS: lithium carbonate 150mg capsule PO SCH (20:16)
[2019-01-30 22:00] VITALS: BP 116/72
--- NOTE | 2019-01-31 06:10 | NUR ---
Patient in room ORTHO 4020. I have received report from [facility] and had the opportunity to ask questions and assume patient care.
--- NOTE | 2019-01-31 06:10 | NUR ---
Gave report to Araceli ERAZO.
[2019-01-31] MEDS: nystatin 15 GM powder TP SCH ×3 (09:18→21:00)
[2019-01-31] MEDS: levetiracetam 250mg tablet PO SCH ×2 (09:18→21:00)
[2019-01-31] MEDS: pantoprazole 40mg Tablet.DR PO SCH (09:18)
[2019-01-31] MEDS: busPIRone 15mg tablet PO SCH ×2 (09:18→21:02)
[2019-01-31] MEDS: apixaban 2.5mg tablet PO SCH ×2 (09:18→21:02)
[2019-01-31 10:00] VITALS: BP 120/74
--- NOTE | 2019-01-31 18:21 | NUR ---
Problems reprioritized. Patient report given, questions answered & plan of care reviewed with Jung Ramírez RN.
--- NOTE | 2019-01-31 19:00 | NUR ---
Patient in room ORTHO 4020. I have received report from Araceli and had the opportunity to ask questions and assume patient care.
[2019-01-31] MEDS: HYDROcodone/acetaminophen 5mg/325mg tablet PO PRN (20:59)
[2019-01-31] MEDS: OLANZAPINE 5 MG TABLET PO SCH (21:00)
[2019-01-31] MEDS: lithium carbonate 150mg capsule PO SCH (21:05)
--- NOTE | 2019-01-31 23:06 | NUR ---
Patient in room ORTHO 4020. I have received report from Araceli ERAZO and had the opportunity to ask questions and assume patient care.
[2019-02-01] MEDS: nystatin 15 GM powder TP SCH ×3 (08:00→20:17)
[2019-02-01 10:00] VITALS: BP 111/74
[2019-02-01] MEDS: pantoprazole 40mg Tablet.DR PO SCH (11:10)
[2019-02-01] MEDS: apixaban 2.5mg tablet PO SCH ×2 (11:10→20:16)
[2019-02-01] MEDS: levetiracetam 250mg tablet PO SCH ×3 (11:10→20:16)
[2019-02-01] MEDS: busPIRone 15mg tablet PO SCH ×2 (11:10→20:16)
[2019-02-01] MEDS: oxyCODONE IR 5mg (immed. release) tablet PO PRN (13:55)
[2019-02-01] MEDS ORDERED: hydrOXYzine 25 MG tablet PO PRN (14:55)
[2019-02-01] MEDS ORDERED: HYDROcodone/acetaminophen 5mg/325mg tablet PO PRN (15:00)
[2019-02-01] MEDS ORDERED: LORazepam 0.5 MG tablet PO PRN (15:00)
[2019-02-01 15:52] LABS: BASOPHILS % (AUTO) 0.4 % (0-1); EOSINOPHILS # (AUTO) 0.1 X10'3 (0-0.9); EOSINOPHILS % (AUTO) 0.8 % (0-6); HEMATOCRIT 44.4 % (42.0-52.0); HEMOGLOBIN 14.3 g/dl (14.0-17.9); LYMPHOCYTES # (AUTO) 2.1 X10'3 (1.1-4.8); LYMPHOCYTES % (AUTO) 17.3 % (21-51); MEAN CORPUSCULAR HEMOGLOBIN 26.8 PG (27.0-31.0); MEAN CORPUSCULAR HGB CONC 32.1 g/dL (33.0-36.5); MEAN CORPUSCULAR VOLUME 83.5 FL (78-98); MEAN PLATELET VOLUME 7.9 FL (7.4-10.4); MONOCYTES # (AUTO) 0.9 X10'3 (0-0.9); MONOCYTES % (AUTO) 7.5 % (2-12); NEUTROPHILS # (AUTO) 9.2 X10'3 (1.8-7.7); PLATELET COUNT 403 X10'3 (140-440); RED BLOOD COUNT 5.31 X10'6 (4.70-6.10); RED CELL DISTRIBUTION WIDTH 15.9 % (11.5-14.5); WHITE BLOOD COUNT 12.4 X10'3 (4.5-11.0)
[2019-02-01 16:00] LABS: ALBUMIN 3.3 G/DL (3.4-5.0); ANION GAP 11 (8-16); BLOOD UREA NITROGEN 9 MG/DL (7-18); BUN/CREATININE RATIO 10.5 (5.4-32.0); CALCIUM 9.4 MG/DL (8.5-10.1); CHLORIDE 105 MMOL/L (99-107); CREATININE 0.86 MG/DL (0.60-1.10); GLUCOSE 137 MG/DL (70-104); POTASSIUM 3.8 MMOL/L (3.5-5.1); SODIUM 139 MMOL/L (135-145); TOTAL CARBON DIOXIDE 23.3 MMOL/L (24-32); eGFR > 90 ML/MIN
--- NOTE | 2019-02-01 18:30 | NUR ---
Patient in room ORTHO 4020. I have received report from Claudia ERAZO and had the opportunity to ask questions and assume patient care.
--- NOTE | 2019-02-01 18:37 | NUR ---
Report to Paolo ERAZO
[2019-02-01] MEDS: OLANZAPINE 5 MG TABLET PO SCH (20:16)
[2019-02-01] MEDS: lithium carbonate 150mg capsule PO SCH (20:17)
[2019-02-01] MEDS: zolpidem 5mg tablet PO PRN (21:35)
[2019-02-01 22:00] VITALS: BP 119/78
[2019-02-02 06:00] VITALS: BP 108/69
--- NOTE | 2019-02-02 06:10 | NUR ---
Problems reprioritized. Patient report given, questions answered & plan of care reviewed with Albert ERAZO.
--- NOTE | 2019-02-02 06:53 | NUR ---
Patient in room ORTHO 4020. I have received report from Paolo ERAZO and had the opportunity to ask questions and assume patient care.
[2019-02-02] MEDS: pantoprazole 40mg Tablet.DR PO SCH (07:30)
[2019-02-02] MEDS: levetiracetam 250mg tablet PO SCH ×2 (08:00→20:00)
[2019-02-02 09:50] VITALS: BP 113/69
[2019-02-02] MEDS ORDERED: LORazepam 2 mg/ml vial IV PRN (10:50)
[2019-02-02] MEDS ORDERED: morphine ORAL 5MG/0.25 ML (Conc. morphine) oral syringe PO PRN (10:50)
--- NOTE | 2019-02-02 18:24 | NUR ---
Patient in room ORTHO 4020. I have received report from Jung ERAZO and had the opportunity to ask questions and assume patient care.
--- NOTE | 2019-02-02 19:00 | NUR ---
Patient in room ORTHO 4020. I have received report from Albert ERAZO and had the opportunity to ask questions and assume patient care.
[2019-02-02] MEDS: LORazepam 0.5 MG tablet PO PRN (19:46)
[2019-02-02] MEDS: lithium carbonate 150mg capsule PO SCH (21:00)
[2019-02-02] MEDS: OLANZAPINE 5 MG TABLET PO SCH (21:00)
[2019-02-03] MEDS: morphine 10mg/0.5ml (conc. morphine) oral syringe PO PRN ×3 (03:44→19:55)
[2019-02-03 10:00] VITALS: BP 102/71
[2019-02-03] MEDS: pantoprazole 40mg Tablet.DR PO SCH (10:42)
[2019-02-03] MEDS: levetiracetam 250mg tablet PO SCH ×2 (10:42→20:00)
--- NOTE | 2019-02-03 18:30 | NUR ---
Patient in room ORTHO 4020. I have received report from JESI and had the opportunity to ask questions and assume patient care.
[2019-02-03] MEDS: lithium carbonate 150mg capsule PO SCH (21:00)
[2019-02-03] MEDS: OLANZAPINE 5 MG TABLET PO SCH (21:29)
[2019-02-04] MEDS: morphine 10mg/0.5ml (conc. morphine) oral syringe PO PRN ×2 (02:15→08:06)
--- NOTE | 2019-02-04 06:10 | NUR ---
Problems reprioritized. Patient report given, questions answered & plan of care reviewed with KENNY.
--- NOTE | 2019-02-04 06:44 | NUR ---
Patient in room ORTHO 4020. I have received report from GREGORY ERAZO and had the opportunity to ask questions and assume patient care.
[2019-02-04] MEDS: pantoprazole 40mg Tablet.DR PO SCH ×2 (07:30→08:06)
[2019-02-04] MEDS: levetiracetam 250mg tablet PO SCH ×3 (08:00→20:14)
--- NOTE | 2019-02-04 08:09 | NUR ---
PATIENT REFUSING AM MEDS.
[2019-02-04 10:00] VITALS: BP 104/58
--- NOTE | 2019-02-04 18:05 | NUR ---
Problems reprioritized. Patient report given, questions answered & plan of care reviewed with CHARLOTTE ERAZO.
--- NOTE | 2019-02-04 18:51 | NUR ---
Patient in room ORTHO 4020. I have received report from CASTRO Pandey and had the opportunity to ask questions and assume patient care. Addendum: 02/04/19 at 1851 by Leslye Unger RN Amended: Links added.
[2019-02-04] MEDS: OLANZAPINE 5 MG TABLET PO SCH (20:14)
[2019-02-04] MEDS: lithium carbonate 150mg capsule PO SCH (20:15)
--- NOTE | 2019-02-05 06:35 | NUR ---
Problems reprioritized. Patient report given, questions answered & plan of care reviewed with CASTRO Oliver.
[2019-02-05] MEDS: pantoprazole 40mg Tablet.DR PO SCH ×2 (07:30→09:37)
[2019-02-05] MEDS: levetiracetam 250mg tablet PO SCH ×3 (08:00→20:07)
--- NOTE | 2019-02-05 09:50 | NUR ---
Pt. refused all medications and refused for his temperature to be taken. Will notify MD Bay during his pt. rounding. Will cont. to monitor for ASE of missed mediactions on my shift. None noted at this time.
[2019-02-05 10:00] VITALS: BP 109/80
--- NOTE | 2019-02-05 10:11 | NUR ---
Previously taken vitals. Pt. refused 0800 vitals. Reproach at a later time. Addendum: 02/05/19 at 1014 by Melody Kerr RN Amended: Links added.
--- NOTE | 2019-02-05 11:53 | NUR ---
Pt found playing in his stool. Cleaned, bathed, changed. Pt. calling out inappropriate comments, calling astaff "bitch" and stating "You all are lying to me!"
--- NOTE | 2019-02-05 12:34 | NUR ---
Reassessment: Pt with fluctuating PO intake averaging 50% with some refusals now on a regular diet. No nutrition intervention at this time given comfort care code status. Documented LBM 02/01 however per RN notes pt with BM this morning. Will continue to follow per LOS protocol. Recommendations: 1) Monitor need for bowel care per comfort care measures Addendum: 02/05/19 at [address] Amended: Links added.
[2019-02-05 18:00] VITALS: BP 112/83
--- NOTE | 2019-02-05 18:23 | NUR ---
Patient in room ORTHO 4020. I have received report from Melody ERAZO and had the opportunity to ask questions and assume patient care.
--- NOTE | 2019-02-05 18:54 | NUR ---
GAVE REPORT TO ORLIN ERAZO.
[2019-02-05] MEDS: lithium carbonate 150mg capsule PO SCH (20:03)
[2019-02-05] MEDS: OLANZAPINE 5 MG TABLET PO SCH (20:08)
[2019-02-05] MEDS: morphine 10mg/0.5ml (conc. morphine) oral syringe PO PRN (20:14)
--- NOTE | 2019-02-06 04:01 | NUR ---
Optifoam applied to L shoulder as becoming reddened. Skin remains intact and blanchable at this time. Pillow placed under for support and additional skin protection.
[2019-02-06] MEDS: morphine 10mg/0.5ml (conc. morphine) oral syringe PO PRN ×2 (04:10→21:20)
--- NOTE | 2019-02-06 06:41 | NUR ---
Problems reprioritized. Patient report given, questions answered & plan of care reviewed with Dimple ERAZO.
[2019-02-06 08:00] VITALS: BP 126/91
[2019-02-06] MEDS: levetiracetam 250mg tablet PO SCH ×2 (09:31→21:13)
[2019-02-06] MEDS: pantoprazole 40mg Tablet.DR PO SCH (09:31)
--- NOTE | 2019-02-06 18:26 | NUR ---
Problems reprioritized. Patient report given, questions answered & plan of care reviewed with CASTRO Kiran. Addendum: 02/06/19 at 1826 by Dimple Sauer RN Amended: Links added.
--- NOTE | 2019-02-06 18:33 | NUR ---
Patient in room ORTHO 4020. I have received report from CASTRO Musa and had the opportunity to ask questions and assume patient care.
[2019-02-06] MEDS: OLANZAPINE 5 MG TABLET PO SCH (21:12)
[2019-02-06] MEDS: lithium carbonate 150mg capsule PO SCH (21:12)
[2019-02-06 22:00] VITALS: BP 119/70
[2019-02-07 06:00] VITALS: BP 105/70
--- NOTE | 2019-02-07 06:23 | NUR ---
Problems reprioritized. Patient report given, questions answered & plan of care reviewed with CASTRO Taylor.
[2019-02-07 08:00] VITALS: BP 107/62
[2019-02-07] MEDS: LORazepam 0.5 MG tablet PO PRN (11:05)
[2019-02-07] MEDS: pantoprazole 40mg Tablet.DR PO SCH (11:05)
[2019-02-07] MEDS: levetiracetam 250mg tablet PO SCH ×2 (11:06→20:01)
--- NOTE | 2019-02-07 18:00 | NUR ---
Patient in room ORTHO 4018. I have received report from CASTRO Taylor and had the opportunity to ask questions and assume patient care.
[2019-02-07] MEDS: lithium carbonate 150mg capsule PO SCH (20:00)
[2019-02-07] MEDS: OLANZAPINE 5 MG TABLET PO SCH (20:00)
[2019-02-07] MEDS: morphine 10mg/0.5ml (conc. morphine) oral syringe PO PRN (20:01)
[2019-02-07 22:00] VITALS: BP 115/57
[2019-02-08] MEDS: morphine 10mg/0.5ml (conc. morphine) oral syringe PO PRN (04:50)
[2019-02-08 06:00] VITALS: BP 130/76
--- NOTE | 2019-02-08 06:37 | NUR ---
Problems reprioritized. Patient report given, questions answered & plan of care reviewed with CASTRO Taylor.
[2019-02-08] MEDS: pantoprazole 40mg Tablet.DR PO SCH (07:30)
[2019-02-08] MEDS: levetiracetam 250mg tablet PO SCH ×2 (08:00→20:03)
[2019-02-08 10:00] VITALS: BP 129/85
--- NOTE | 2019-02-08 10:37 | NUR ---
Patients dairy quality assurance officer here.
[2019-02-08] MEDS: LORazepam 0.5 MG tablet PO PRN (14:25)
--- NOTE | 2019-02-08 14:37 | NUR ---
Patient refused all medications today except ativan. When I ask him anything or offer to change sheets he just tries to agrue.
--- NOTE | 2019-02-08 18:00 | NUR ---
Patient in room ORTHO 4018. I have received report from philippe and had the opportunity to ask questions and assume patient care.
--- NOTE | 2019-02-08 18:43 | NUR ---
Problems reprioritized. Patient report given, questions answered & plan of care reviewed with Brandy RN and Tung RN.
[2019-02-08 20:00] VITALS: BP 116/77
[2019-02-08] MEDS: acetaminophen 325mg tablet PO PRN (20:03)
[2019-02-08] MEDS: lithium carbonate 150mg capsule PO SCH (20:03)
[2019-02-08] MEDS: OLANZAPINE 5 MG TABLET PO SCH (20:03)
[2019-02-09] MEDS: morphine 10mg/0.5ml (conc. morphine) oral syringe PO PRN ×3 (05:28→20:01)
--- NOTE | 2019-02-09 06:00 | NUR ---
Patient in room ORTHO 4018. I have received report from Brandy RN and Tung RN and had the opportunity to ask questions and assume patient care.
--- NOTE | 2019-02-09 06:23 | NUR ---
Problems reprioritized. Patient report given, questions answered & plan of care reviewed with judson.
[2019-02-09] MEDS: pantoprazole 40mg Tablet.DR PO SCH (07:30)
[2019-02-09 08:00] VITALS: BP 106/70
[2019-02-09] MEDS: levetiracetam 250mg tablet PO SCH ×2 (08:00→20:01)
[2019-02-09 18:00] VITALS: BP 129/85
--- NOTE | 2019-02-09 18:00 | NUR ---
Patient in room ORTHO 4018. I have received report from lamoni and had the opportunity to ask questions and assume patient care.
--- NOTE | 2019-02-09 18:00 | NUR ---
Patient in room ORTHO 4018. I have received report from CASTRO Barnes and had the opportunity to ask questions and assume patient care.
--- NOTE | 2019-02-09 18:36 | NUR ---
Problems reprioritized. Patient report given, questions answered & plan of care reviewed with Tung Gomez and Brandy GOMEZ.
[2019-02-09] MEDS: OLANZAPINE 5 MG TABLET PO SCH (20:01)
[2019-02-09] MEDS: lithium carbonate 150mg capsule PO SCH (20:01)
--- NOTE | 2019-02-10 06:00 | NUR ---
Problems reprioritized. Patient report given, questions answered & plan of care reviewed with CASTRO Schneider.
--- NOTE | 2019-02-10 07:01 | NUR ---
RECEIVED REPORT FROM Anthony norris
[2019-02-10] MEDS: pantoprazole 40mg Tablet.DR PO SCH (07:30)
[2019-02-10 08:00] VITALS: BP 94/64
[2019-02-10] MEDS: levetiracetam 250mg tablet PO SCH ×2 (08:00→20:00)
[2019-02-10] MEDS: morphine 10mg/0.5ml (conc. morphine) oral syringe PO PRN (19:50)
[2019-02-10] MEDS: OLANZAPINE 5 MG TABLET PO SCH (21:00)
[2019-02-10] MEDS: lithium carbonate 150mg capsule PO SCH (21:00)
[2019-02-11] MEDS: pantoprazole 40mg Tablet.DR PO SCH (07:30)
[2019-02-11] MEDS: levetiracetam 250mg tablet PO SCH ×2 (08:00→20:40)
[2019-02-11 10:00] VITALS: BP 130/82
--- NOTE | 2019-02-11 15:12 | NUR ---
Patients son, mother and father are her to visit.
--- NOTE | 2019-02-11 18:10 | NUR ---
Problems reprioritized. Patient report given, questions answered & plan of care reviewed with Jeannie ERAZO.
--- NOTE | 2019-02-11 18:10 | NUR ---
Patient in room ORTHO 4018. I have received report from Claudia ERAZO and had the opportunity to ask questions and assume patient care.
[2019-02-11] MEDS: OLANZAPINE 5 MG TABLET PO SCH (20:40)
[2019-02-11] MEDS: lithium carbonate 150mg capsule PO SCH (20:40)
--- NOTE | 2019-02-12 06:14 | NUR ---
Problems reprioritized. Patient report given, questions answered & plan of care reviewed with Claudia ERAZO.
[2019-02-12] MEDS: pantoprazole 40mg Tablet.DR PO SCH (07:30)
[2019-02-12] MEDS: levetiracetam 250mg tablet PO SCH ×2 (08:00→20:29)
--- NOTE | 2019-02-12 09:43 | NUR ---
Ángel SALAMANCA w/ comfort care. [facility] 02/11. Will continue to follow per protocol. Addendum: 02/12/19 at [address] Amended: Links added.
[2019-02-12 14:00] VITALS: BP 111/75
[2019-02-12] MEDS: morphine 10mg/0.5ml (conc. morphine) oral syringe PO PRN (14:30)
--- NOTE | 2019-02-12 18:31 | NUR ---
Problems reprioritized. Patient report given, questions answered & plan of care reviewed with Jeannie ERAZO.
[2019-02-12] MEDS: lithium carbonate 150mg capsule PO SCH (20:29)
[2019-02-12] MEDS: OLANZAPINE 5 MG TABLET PO SCH (20:29)
[2019-02-12 22:00] VITALS: BP 115/72
[2019-02-12] MEDS: LORazepam 0.5 MG tablet PO PRN (22:28)
--- NOTE | 2019-02-13 06:25 | NUR ---
Problems reprioritized. Patient report given, questions answered & plan of care reviewed with Jasiel ERAZO.
[2019-02-13] MEDS: pantoprazole 40mg Tablet.DR PO SCH (08:07)
[2019-02-13] MEDS: levetiracetam 250mg tablet PO SCH ×2 (08:08→22:16)
[2019-02-13 10:00] VITALS: BP 112/75
[2019-02-13] MEDS: morphine 10mg/0.5ml (conc. morphine) oral syringe PO PRN ×3 (11:35→22:15)
--- NOTE | 2019-02-13 12:22 | NUR ---
Asked pt's primary RN if pt in need of any wound care materials to promote comfort such as sacral optifoam/interdry/creams. No additional needs at this time. Pt currently on comfort care, will continue to monitor.
[2019-02-13] MEDS: LORazepam 0.5 MG tablet PO PRN (15:29)
--- NOTE | 2019-02-13 18:18 | NUR ---
Patient report given to Marni ERAZO
--- NOTE | 2019-02-13 18:23 | NUR ---
Problems reprioritized. Patient report given, questions answered & plan of care reviewed with CASTRO MOCTEZUMA.
[2019-02-13 22:00] VITALS: BP 130/65
[2019-02-13] MEDS: lithium carbonate 150mg capsule PO SCH (22:16)
[2019-02-13] MEDS: OLANZAPINE 5 MG TABLET PO SCH (22:16)
--- NOTE | 2019-02-14 06:25 | NUR ---
Problems reprioritized. Patient report given, questions answered & plan of care reviewed with CASTRO SIMPSON.
--- NOTE | 2019-02-14 06:52 | NUR ---
Patient in room ORTHO 4018. I have received report from Marni ERAZO and had the opportunity to ask questions and assume patient care.
[2019-02-14] MEDS: pantoprazole 40mg Tablet.DR PO SCH (07:30)
[2019-02-14] MEDS: levetiracetam 250mg tablet PO SCH ×2 (08:00→20:35)
[2019-02-14 09:39] VITALS: BP 121/72
[2019-02-14] MEDS: morphine 10mg/0.5ml (conc. morphine) oral syringe PO PRN (15:12)
[2019-02-14] MEDS: OLANZAPINE 5 MG TABLET PO SCH (20:35)
[2019-02-14] MEDS: lithium carbonate 150mg capsule PO SCH (20:36)
--- NOTE | 2019-02-15 01:02 | NUR ---
reviewed and edited nursing assessment from SRN.
--- NOTE | 2019-02-15 06:23 | NUR ---
Problems reprioritized. Patient report given, questions answered & plan of care reviewed with Albert ERAZO.
--- NOTE | 2019-02-15 06:41 | NUR ---
Patient in room ORTHO 4018. I have received report from Pearl ERAZO and had the opportunity to ask questions and assume patient care.
[2019-02-15] MEDS: pantoprazole 40mg Tablet.DR PO SCH (07:59)
[2019-02-15] MEDS: levetiracetam 250mg tablet PO SCH ×2 (07:59→20:29)
[2019-02-15] MEDS: morphine 10mg/0.5ml (conc. morphine) oral syringe PO PRN ×2 (08:07→16:35)
[2019-02-15 09:42] VITALS: BP 137/84
[2019-02-15] MEDS: LORazepam 0.5 MG tablet PO PRN ×2 (14:57→19:20)
--- NOTE | 2019-02-15 18:14 | NUR ---
Problems reprioritized. Patient report given, questions answered & plan of care reviewed with Joanne ERAZO.
[2019-02-15] MEDS: lithium carbonate 150mg capsule PO SCH (20:29)
[2019-02-15] MEDS: OLANZAPINE 5 MG TABLET PO SCH (20:29)
--- NOTE | 2019-02-16 06:37 | NUR ---
Patient in room ORTHO 4018. I have received report from Joanne ERAZO and had the opportunity to ask questions and assume patient care.
[2019-02-16 08:00] VITALS: BP 112/74
[2019-02-16] MEDS: levetiracetam 250mg tablet PO SCH ×2 (08:00→20:00)
[2019-02-16] MEDS: pantoprazole 40mg Tablet.DR PO SCH (08:58)
[2019-02-16 10:00] VITALS: BP 112/74
[2019-02-16] MEDS: morphine 10mg/0.5ml (conc. morphine) oral syringe PO PRN ×2 (15:20→21:55)
--- NOTE | 2019-02-16 18:23 | NUR ---
Problems reprioritized. Patient report given, questions answered & plan of care reviewed with Jung ERAZO.
--- NOTE | 2019-02-16 19:00 | NUR ---
Patient in room ORTHO 4018. I have received report from Pavithra ERAZO and had the opportunity to ask questions and assume patient care.
[2019-02-16] MEDS: lithium carbonate 150mg capsule PO SCH (21:00)
[2019-02-16] MEDS: LORazepam 0.5 MG tablet PO PRN (21:56)
[2019-02-16] MEDS: OLANZAPINE 5 MG TABLET PO SCH (21:59)
--- NOTE | 2019-02-17 06:00 | NUR ---
Patient in room ORTHO 4018. I have received report from Jung ERAZO and had the opportunity to ask questions and assume patient care.
[2019-02-17] MEDS: pantoprazole 40mg Tablet.DR PO SCH (07:30)
[2019-02-17 08:00] VITALS: BP 90/64
[2019-02-17] MEDS: levetiracetam 250mg tablet PO SCH ×2 (08:00→20:45)
[2019-02-17] MEDS: morphine 10mg/0.5ml (conc. morphine) oral syringe PO PRN ×2 (11:15→20:52)
--- NOTE | 2019-02-17 18:24 | NUR ---
Problems reprioritized. Patient report given, questions answered & plan of care reviewed with Ivania ERAZO.
--- NOTE | 2019-02-17 18:53 | NUR ---
Report rec'd from myrna Arshad.
[2019-02-17] MEDS: lithium carbonate 150mg capsule PO SCH (20:45)
[2019-02-17] MEDS: OLANZAPINE 5 MG TABLET PO SCH (20:45)
--- NOTE | 2019-02-18 06:31 | NUR ---
Report given to myrna Arshad.
--- NOTE | 2019-02-18 06:41 | NUR ---
Patient in room ORTHO 4018. I have received report from Ivania ERAZO and had the opportunity to ask questions and assume patient care.
[2019-02-18] MEDS: levetiracetam 250mg tablet PO SCH ×2 (07:25→19:17)
[2019-02-18] MEDS: pantoprazole 40mg Tablet.DR PO SCH (07:25)
--- NOTE | 2019-02-18 08:35 | NUR ---
Patient was not coraparative with ECHO. unable to do echo
[2019-02-18 10:00] VITALS: BP 123/51
--- NOTE | 2019-02-18 13:31 | NUR ---
reassessment: Pt LBM 02/12; no routine bowel care ordered on comfort care. REGINA mejia/w RN for routine bowel care per MD approval per protocol. Will continue to follow per protocol. Recommendations: 1) routine bowel care Addendum: 02/18/19 at [address] Amended: Links added.
--- NOTE | 2019-02-18 18:16 | NUR ---
Problems reprioritized. Patient report given, questions answered & plan of care reviewed with Marni Gomez and Brittany GOMEZ.
[2019-02-18] MEDS: lithium carbonate 150mg capsule PO SCH (19:18)
[2019-02-18] MEDS: OLANZAPINE 5 MG TABLET PO SCH (19:18)
[2019-02-18] MEDS: morphine 10mg/0.5ml (conc. morphine) oral syringe PO PRN (19:20)
--- NOTE | 2019-02-19 06:26 | NUR ---
Problems reprioritized. Patient report given, questions answered & plan of care reviewed with CASTRO PHILLIPS.
--- NOTE | 2019-02-19 06:33 | NUR ---
Patient in room ORTHO 4018. I have received report from Marni ERAZO and Brittany ERAZO and had the opportunity to ask questions and assume patient care.
--- NOTE | 2019-02-19 06:59 | NUR ---
Patient on Comfort Care Addendum: 02/19/19 at 0700 by Adonis Vigil RN Amended: Links added.
[2019-02-19] MEDS: pantoprazole 40mg Tablet.DR PO SCH (07:30)
[2019-02-19] MEDS: levetiracetam 250mg tablet PO SCH ×2 (07:43→20:03)
[2019-02-19 10:00] VITALS: BP 107/65
--- NOTE | 2019-02-19 13:41 | NUR ---
Per pt's primary RN, pt requires no further WOC interventions at this time. Will continue to follow and provide WOC materials to support comfort.
[2019-02-19] MEDS: morphine 10mg/0.5ml (conc. morphine) oral syringe PO PRN ×2 (15:07→20:04)
[2019-02-19] MEDS: LORazepam 0.5 MG tablet PO PRN (15:48)
[2019-02-19] MEDS: OLANZAPINE 5 MG TABLET PO SCH (20:02)
[2019-02-19] MEDS: lithium carbonate 150mg capsule PO SCH (20:03)
[2019-02-20] MEDS: morphine 10mg/0.5ml (conc. morphine) oral syringe PO PRN ×3 (01:55→17:18)
--- NOTE | 2019-02-20 06:48 | NUR ---
Problems reprioritized. Patient report given, questions answered & plan of care reviewed with myrna De Santiago.
[2019-02-20 07:08] VITALS: BP 91/61
[2019-02-20] MEDS: levetiracetam 250mg tablet PO SCH ×2 (10:05→20:45)
[2019-02-20] MEDS: pantoprazole 40mg Tablet.DR PO SCH (10:05)
--- NOTE | 2019-02-20 14:56 | NUR ---
WOC spoke with primary nurse regarding pt's wound care needs. Primary nursing staff reports no new WOC needs at this time to promote comfort. Will continue to follow.
[2019-02-20] MEDS: LORazepam 0.5 MG tablet PO PRN (20:45)
[2019-02-20] MEDS: OLANZAPINE 5 MG TABLET PO SCH (20:45)
[2019-02-20] MEDS: lithium carbonate 150mg capsule PO SCH (20:45)
--- NOTE | 2019-02-21 06:00 | NUR ---
Patient in room ORTHO 4018. I have received report from Pearl Uribe and had the opportunity to ask questions and assume patient care.
--- NOTE | 2019-02-21 06:08 | NUR ---
Report given to Araceli ERAZO.
[2019-02-21] MEDS: levetiracetam 250mg tablet PO SCH ×2 (08:31→20:34)
[2019-02-21] MEDS: pantoprazole 40mg Tablet.DR PO SCH (08:31)
[2019-02-21 10:00] VITALS: BP 102/69
--- NOTE | 2019-02-21 18:10 | NUR ---
Patient in room ORTHO 4018. I have received report from CASTRO Charles and had the opportunity to ask questions and assume patient care.
--- NOTE | 2019-02-21 18:20 | NUR ---
Problems reprioritized. Patient report given, questions answered & plan of care reviewed with Brandy.
[2019-02-21] MEDS: OLANZAPINE 5 MG TABLET PO SCH (20:34)
[2019-02-21] MEDS: lithium carbonate 150mg capsule PO SCH (20:34)
[2019-02-21] MEDS: morphine 10mg/0.5ml (conc. morphine) oral syringe PO PRN (23:18)
--- NOTE | 2019-02-22 06:05 | NUR ---
Patient in room ORTHO 4018. I have received report from Brandy and had the opportunity to ask questions and assume patient care.
--- NOTE | 2019-02-22 06:24 | NUR ---
Problems reprioritized. Patient report given, questions answered & plan of care reviewed with CASTRO Charles.
[2019-02-22] MEDS: pantoprazole 40mg Tablet.DR PO SCH (07:30)
[2019-02-22] MEDS: levetiracetam 250mg tablet PO SCH ×2 (08:00→20:00)
[2019-02-22] MEDS: lactose-reduced food (Ensure High Protein) 237ml bottle PO SCH (18:00)
--- NOTE | 2019-02-22 18:16 | NUR ---
Problems reprioritized. Patient report given, questions answered & plan of care reviewed with Jung Ramírez
--- NOTE | 2019-02-22 19:00 | NUR ---
Patient in room ORTHO 4018. I have received report from Araceli ERAZO and had the opportunity to ask questions and assume patient care.
[2019-02-22] MEDS: LORazepam 0.5 MG tablet PO PRN (20:22)
[2019-02-22] MEDS: morphine 10mg/0.5ml (conc. morphine) oral syringe PO PRN (20:23)
[2019-02-22] MEDS: OLANZAPINE 5 MG TABLET PO SCH (21:00)
[2019-02-22] MEDS: lithium carbonate 150mg capsule PO SCH (21:00)
--- NOTE | 2019-02-23 06:05 | NUR ---
Patient in room ORTHO 4018. I have received report from HECTOR ERAZO and had the opportunity to ask questions and assume patient care.
[2019-02-23] MEDS: lactose-reduced food (Ensure High Protein) 237ml bottle PO SCH ×3 (08:00→18:00)
[2019-02-23] MEDS: morphine 10mg/0.5ml (conc. morphine) oral syringe PO PRN ×2 (08:37→20:41)
[2019-02-23] MEDS: levetiracetam 250mg tablet PO SCH ×2 (08:37→20:00)
[2019-02-23] MEDS: pantoprazole 40mg Tablet.DR PO SCH (08:37)
[2019-02-23 10:00] VITALS: BP 100/72
[2019-02-23] MEDS: bisacodyl 5mg tablet.DR PO PRN (16:24)
[2019-02-23] MEDS: LORazepam 0.5 MG tablet PO PRN ×2 (16:25→20:43)
[2019-02-23] MEDS: acetaminophen 325mg tablet PO PRN (16:25)
--- NOTE | 2019-02-23 18:10 | NUR ---
Problems reprioritized. Patient report given, questions answered & plan of care reviewed with HCETOR ERAZO.
[2019-02-23] MEDS: docusate sod 100mg capsule PO SCH (20:44)
[2019-02-23] MEDS: OLANZAPINE 5 MG TABLET PO SCH (20:45)
[2019-02-23] MEDS: lithium carbonate 150mg capsule PO SCH (21:00)
[2019-02-24] MEDS: morphine 10mg/0.5ml (conc. morphine) oral syringe PO PRN ×3 (06:27→17:46)
[2019-02-24] MEDS: pantoprazole 40mg Tablet.DR PO SCH (07:30)
[2019-02-24] MEDS: levetiracetam 250mg tablet PO SCH ×2 (08:00→20:01)
[2019-02-24] MEDS: docusate sod 100mg capsule PO SCH ×2 (08:00→20:01)
[2019-02-24] MEDS: lactose-reduced food (Ensure High Protein) 237ml bottle PO SCH ×3 (08:00→18:55)
[2019-02-24 10:00] VITALS: BP 97/69
--- NOTE | 2019-02-24 11:25 | NUR ---
reassessment: Ángel PENG 02/19 refusing bowel care meds. DNR w/ comfort care. Will continue to follow per protocol. Recommendations: 1) routine bowel care Addendum: 02/24/19 at [address] Amended: Links added.
--- NOTE | 2019-02-24 18:31 | NUR ---
Problems reprioritized. Patient report given, questions answered & plan of care reviewed with Magda/Marjorie ERAZO.
[2019-02-24] MEDS: OLANZAPINE 5 MG TABLET PO SCH (20:01)
[2019-02-24] MEDS: LORazepam 0.5 MG tablet PO PRN (20:01)
[2019-02-24] MEDS: lithium carbonate 150mg capsule PO SCH (20:02)
--- NOTE | 2019-02-25 06:00 | NUR ---
Patient in room ORTHO 4018. I have received report from GRAYSON ERAZO AND RAMSEY ERAZO and had the opportunity to ask questions and assume patient care.
[2019-02-25] MEDS: levetiracetam 250mg tablet PO SCH ×2 (07:05→21:22)
[2019-02-25] MEDS: pantoprazole 40mg Tablet.DR PO SCH (07:05)
[2019-02-25] MEDS: docusate sod 100mg capsule PO SCH ×2 (07:05→21:22)
[2019-02-25] MEDS: acetaminophen 325mg tablet PO PRN ×2 (07:05→13:28)
[2019-02-25] MEDS: lactose-reduced food (Ensure High Protein) 237ml bottle PO SCH ×3 (08:00→18:00)
[2019-02-25 10:00] VITALS: BP 88/52
[2019-02-25] MEDS: bisacodyl 5mg tablet.DR PO PRN (13:27)
--- NOTE | 2019-02-25 18:05 | NUR ---
Problems reprioritized. Patient report given, questions answered & plan of care reviewed with GRAYSON ERAZO.
[2019-02-25] MEDS: LORazepam 0.5 MG tablet PO PRN (18:41)
[2019-02-25] MEDS: OLANZAPINE 5 MG TABLET PO SCH (21:22)
[2019-02-25] MEDS: lithium carbonate 150mg capsule PO SCH (21:22)
--- NOTE | 2019-02-26 06:30 | NUR ---
Patient in room ORTHO 4018. I have received report from CASTRO Meyers and had the opportunity to ask questions and assume patient care.
[2019-02-26] MEDS: pantoprazole 40mg Tablet.DR PO SCH (07:30)
[2019-02-26] MEDS: lactose-reduced food (Ensure High Protein) 237ml bottle PO SCH ×3 (08:00→18:30)
[2019-02-26] MEDS: levetiracetam 250mg tablet PO SCH ×2 (08:00→21:02)
[2019-02-26] MEDS: docusate sod 100mg capsule PO SCH ×2 (08:00→21:02)
[2019-02-26] MEDS: morphine 10mg/0.5ml (conc. morphine) oral syringe PO PRN ×3 (09:06→18:07)
--- NOTE | 2019-02-26 14:04 | NUR ---
Spoke with pt's primary RN regarding WOC needs to help promote comfort. Primary RN states pt has no new WOC needs at this time. Will continue to follow.
[2019-02-26] MEDS: LORazepam 0.5 MG tablet PO PRN ×2 (16:17→21:02)
[2019-02-26 18:00] VITALS: BP 107/60
--- NOTE | 2019-02-26 18:51 | NUR ---
Problems reprioritized. Patient report given, questions answered & plan of care reviewed with Ivania/CASTRO Amador.
[2019-02-26] MEDS: OLANZAPINE 5 MG TABLET PO SCH (21:02)
[2019-02-26] MEDS: lithium carbonate 150mg capsule PO SCH (21:02)
[2019-02-27] MEDS: pantoprazole 40mg Tablet.DR PO SCH (07:30)
[2019-02-27] MEDS: docusate sod 100mg capsule PO SCH ×2 (08:00→20:09)
[2019-02-27] MEDS: lactose-reduced food (Ensure High Protein) 237ml bottle PO SCH ×4 (08:00→18:00)
[2019-02-27] MEDS: levetiracetam 250mg tablet PO SCH ×2 (08:00→20:10)
[2019-02-27 10:00] VITALS: BP 99/59
[2019-02-27] MEDS: morphine 10mg/0.5ml (conc. morphine) oral syringe PO PRN (17:42)
--- NOTE | 2019-02-27 18:13 | NUR ---
Report to Radha ERAZO
[2019-02-27] MEDS: OLANZAPINE 5 MG TABLET PO SCH (20:10)
[2019-02-27] MEDS: lithium carbonate 150mg capsule PO SCH (20:10)
[2019-02-27] MEDS: LORazepam 0.5 MG tablet PO PRN (20:11)
[2019-02-28 06:00] VITALS: BP 107/64
[2019-02-28] MEDS: lactose-reduced food (Ensure High Protein) 237ml bottle PO SCH ×3 (08:00→18:00)
[2019-02-28] MEDS: docusate sod 100mg capsule PO SCH ×2 (09:10→20:05)
[2019-02-28] MEDS: pantoprazole 40mg Tablet.DR PO SCH (09:10)
[2019-02-28] MEDS: LORazepam 0.5 MG tablet PO PRN ×3 (09:11→20:06)
[2019-02-28] MEDS: levetiracetam 250mg tablet PO SCH ×2 (09:11→20:06)
[2019-02-28] MEDS: acetaminophen 325mg tablet PO PRN ×2 (09:12→15:24)
--- NOTE | 2019-02-28 15:41 | NUR ---
WOC spoke with pt's primary RN to assess pt's skin care needs. She mentioned some redness on left hip and shoulder. Upon examination noted redness on left posterior shoulder that blanches and no redness noted on hip at this time. Pt is comfort care, and did not tolerate having an optifoam dressing in place over the area of pressure on the left shoulder, per pt's nurse. Pt also apparently favors that side to lay on. Will continue to monitor and promote comfort.
[2019-02-28] MEDS: lactulose 20gm/30ml cup PO SCH ×2 (16:00→20:00)
--- NOTE | 2019-02-28 18:10 | NUR ---
Problems reprioritized. Patient report given, questions answered & plan of care reviewed with VANNESA RN.
--- NOTE | 2019-02-28 18:15 | NUR ---
Received report from Dannie ERAZO. assumed care of patient.
[2019-02-28] MEDS: lithium carbonate 150mg capsule PO SCH (20:05)
[2019-02-28] MEDS: OLANZAPINE 5 MG TABLET PO SCH (20:06)
[2019-02-28] MEDS: morphine 10mg/0.5ml (conc. morphine) oral syringe PO PRN (22:29)
[2019-03-01] MEDS: lactulose 20gm/30ml cup PO SCH ×3 (04:00→08:00)
--- NOTE | 2019-03-01 06:15 | NUR ---
Patient in room ORTHO 4018. I have received report from VANNESA ERAZO and had the opportunity to ask questions and assume patient care.
--- NOTE | 2019-03-01 06:25 | NUR ---
Gave report to Dannie ERAZO.
[2019-03-01] MEDS: pantoprazole 40mg Tablet.DR PO SCH (07:30)
[2019-03-01] MEDS: docusate sod 100mg capsule PO SCH ×2 (08:00→20:15)
[2019-03-01] MEDS: lactose-reduced food (Ensure High Protein) 237ml bottle PO SCH ×3 (08:00→18:00)
[2019-03-01] MEDS: levetiracetam 250mg tablet PO SCH ×2 (08:00→20:15)
[2019-03-01 10:00] VITALS: BP 126/51
[2019-03-01] MEDS: LORazepam 0.5 MG tablet PO PRN ×2 (14:06→20:14)
[2019-03-01] MEDS: morphine 10mg/0.5ml (conc. morphine) oral syringe PO PRN ×2 (14:06→21:50)
--- NOTE | 2019-03-01 18:15 | NUR ---
Received report from Dannie ERAZO. assumed care of patient.
[2019-03-01] MEDS: lithium carbonate 150mg capsule PO SCH (20:15)
[2019-03-01] MEDS: OLANZAPINE 5 MG TABLET PO SCH (20:15)
--- NOTE | 2019-03-02 06:15 | NUR ---
Gave report to Dannie ERAZO.
[2019-03-02] MEDS: pantoprazole 40mg Tablet.DR PO SCH (07:30)
[2019-03-02] MEDS: lactose-reduced food (Ensure High Protein) 237ml bottle PO SCH ×3 (08:00→18:46)
[2019-03-02] MEDS: docusate sod 100mg capsule PO SCH ×2 (08:00→20:17)
[2019-03-02] MEDS: levetiracetam 250mg tablet PO SCH ×2 (08:00→20:16)
[2019-03-02 10:00] VITALS: BP 119/71
[2019-03-02] MEDS: acetaminophen 325mg tablet PO PRN (12:56)
[2019-03-02] MEDS: LORazepam 0.5 MG tablet PO PRN ×2 (12:56→20:16)
--- NOTE | 2019-03-02 18:06 | NUR ---
Problems reprioritized. Patient report given, questions answered & plan of care reviewed with VANNESA RN.
--- NOTE | 2019-03-02 18:17 | NUR ---
report given to CASTRO velazquez. pt anderson.
--- NOTE | 2019-03-02 18:20 | NUR ---
Received report from Dannie ERAZO. assumed care of patient.
[2019-03-02] MEDS: lithium carbonate 150mg capsule PO SCH (20:17)
[2019-03-02] MEDS: polyethylene glycol 3350 17gm powd pack PO SCH (20:17)
[2019-03-02] MEDS: OLANZAPINE 5 MG TABLET PO SCH (20:17)
--- NOTE | 2019-03-03 06:40 | NUR ---
Gave report to Nancy ERAZO
[2019-03-03] MEDS: pantoprazole 40mg Tablet.DR PO SCH (08:18)
[2019-03-03] MEDS: levetiracetam 250mg tablet PO SCH ×2 (08:18→20:36)
[2019-03-03] MEDS: docusate sod 100mg capsule PO SCH ×2 (08:19→20:36)
[2019-03-03] MEDS: lactose-reduced food (Ensure High Protein) 237ml bottle PO SCH ×3 (08:20→18:00)
[2019-03-03 10:00] VITALS: BP 96/60
--- NOTE | 2019-03-03 11:37 | NUR ---
reassessment: Pt LBM 02/28 on regular diet. DNR w/ comfort care. Will continue to follow per protocol. Recommendations: 1) routine bowel care Addendum: 03/03/19 at [address] Amended: Links added.
[2019-03-03] MEDS: morphine 10mg/0.5ml (conc. morphine) oral syringe PO PRN ×2 (17:16→21:41)
[2019-03-03 19:00] VITALS: BP 98/65
[2019-03-03] MEDS: lithium carbonate 150mg capsule PO SCH (20:36)
[2019-03-03] MEDS: OLANZAPINE 5 MG TABLET PO SCH (20:36)
[2019-03-03] MEDS: polyethylene glycol 3350 17gm powd pack PO SCH (20:37)
[2019-03-03 23:00] VITALS: BP 106/62
--- NOTE | 2019-03-04 06:17 | NUR ---
Patient in room ORTHO 4018. I have received report from CASTRO Decker and had the opportunity to ask questions and assume patient care. Addendum: 03/04/19 at 0617 by Dimple Sauer RN Amended: Links added.
--- NOTE | 2019-03-04 06:29 | NUR ---
Problems reprioritized. Patient report given, questions answered & plan of care reviewed with JENNIFER. Addendum: 03/04/19 at 0629 by Agustin Luis RN Amended: Links added.
[2019-03-04] MEDS: lactose-reduced food (Ensure High Protein) 237ml bottle PO SCH ×3 (08:00→18:00)
[2019-03-04 10:00] VITALS: BP 96/61
[2019-03-04] MEDS: morphine 10mg/0.5ml (conc. morphine) oral syringe PO PRN ×3 (10:24→20:51)
[2019-03-04] MEDS: levetiracetam 250mg tablet PO SCH ×2 (10:25→20:06)
[2019-03-04] MEDS: pantoprazole 40mg Tablet.DR PO SCH (10:25)
[2019-03-04] MEDS: docusate sod 100mg capsule PO SCH ×2 (10:25→20:06)
--- NOTE | 2019-03-04 18:33 | NUR ---
Problems reprioritized. Patient report given, questions answered & plan of care reviewed with CASTRO Kang. Addendum: 03/04/19 at 1833 by Dimple Sauer RN Amended: Links added.
[2019-03-04] MEDS: lithium carbonate 150mg capsule PO SCH (20:06)
[2019-03-04] MEDS: bisacodyl 5mg tablet.DR PO PRN (20:06)
[2019-03-04] MEDS: polyethylene glycol 3350 17gm powd pack PO SCH (20:06)
[2019-03-04] MEDS: OLANZAPINE 5 MG TABLET PO SCH (20:12)
[2019-03-04 22:00] VITALS: BP 107/65
[2019-03-05] MEDS: morphine 10mg/0.5ml (conc. morphine) oral syringe PO PRN ×3 (02:14→13:15)
[2019-03-05 06:00] VITALS: BP 110/54
--- NOTE | 2019-03-05 06:07 | NUR ---
received report from myrna blum
--- NOTE | 2019-03-05 06:20 | NUR ---
Problems reprioritized. Patient report given, questions answered & plan of care reviewed with CASTRO Haddad.
[2019-03-05] MEDS: pantoprazole 40mg Tablet.DR PO SCH (07:30)
[2019-03-05] MEDS: levetiracetam 250mg tablet PO SCH ×2 (08:00→19:50)
[2019-03-05] MEDS: docusate sod 100mg capsule PO SCH ×2 (08:00→19:50)
[2019-03-05] MEDS: lactose-reduced food (Ensure High Protein) 237ml bottle PO SCH ×3 (08:35→18:00)
[2019-03-05 10:00] VITALS: BP 92/61
[2019-03-05 18:42] VITALS: BP 134/75
[2019-03-05] MEDS: OLANZAPINE 5 MG TABLET PO SCH (19:50)
[2019-03-05] MEDS: LORazepam 0.5 MG tablet PO PRN (19:50)
[2019-03-05] MEDS: polyethylene glycol 3350 17gm powd pack PO SCH (19:51)
[2019-03-05] MEDS: lithium carbonate 150mg capsule PO SCH (19:51)
[2019-03-06 06:00] VITALS: BP 100/70
--- NOTE | 2019-03-06 06:25 | NUR ---
Patient in room ORTHO 4018. I have received report from September and had the opportunity to ask questions and assume patient care.
[2019-03-06] MEDS: lactose-reduced food (Ensure High Protein) 237ml bottle PO SCH ×3 (08:00→18:02)
[2019-03-06] MEDS: docusate sod 100mg capsule PO SCH ×2 (09:01→20:20)
[2019-03-06] MEDS: pantoprazole 40mg Tablet.DR PO SCH (09:01)
[2019-03-06] MEDS: levetiracetam 250mg tablet PO SCH ×2 (09:02→20:20)
[2019-03-06] MEDS: morphine 10mg/0.5ml (conc. morphine) oral syringe PO PRN ×2 (09:04→22:42)
[2019-03-06 10:30] VITALS: BP 116/62
--- NOTE | 2019-03-06 10:55 | NUR ---
Student documentation: I have reviewed all interventions, assessments performed and documented by Emi Motley. Student Medication Administration: For this medication-pass time frame, all medication were reviewed, dispensed, administered and documented per hospital policy by Emi Motley.
--- NOTE | 2019-03-06 11:57 | NUR ---
WOC spoke with pt's nurse regarding pt's wound care needs to promote comfort. Nurse notes no new skin issues to be addressed, and no additional wound care supplies needed at this time. Will continue to follow.
[2019-03-06] MEDS: LORazepam 0.5 MG tablet PO PRN (16:53)
--- NOTE | 2019-03-06 18:13 | NUR ---
Problems reprioritized. Patient report given, questions answered & plan of care reviewed with Radha.
[2019-03-06] MEDS: OLANZAPINE 5 MG TABLET PO SCH (20:21)
[2019-03-06] MEDS: lithium carbonate 150mg capsule PO SCH (20:21)
[2019-03-06] MEDS: polyethylene glycol 3350 17gm powd pack PO SCH (21:00)
[2019-03-06 22:00] VITALS: BP 104/47
[2019-03-07] MEDS: pantoprazole 40mg Tablet.DR PO SCH (07:58)
[2019-03-07] MEDS: docusate sod 100mg capsule PO SCH ×2 (07:58→20:20)
[2019-03-07] MEDS: levetiracetam 250mg tablet PO SCH ×2 (08:07→20:20)
[2019-03-07] MEDS: lactose-reduced food (Ensure High Protein) 237ml bottle PO SCH ×3 (08:11→18:02)
[2019-03-07] MEDS: morphine 10mg/0.5ml (conc. morphine) oral syringe PO PRN ×2 (08:18→20:21)
[2019-03-07 08:45] VITALS: BP 105/72
--- NOTE | 2019-03-07 11:35 | NUR ---
Student documentation: I have reviewed interventions, assessments performed and documented by SIRIA Arechiga [facility]
[2019-03-07] MEDS: LORazepam 0.5 MG tablet PO PRN (15:49)
--- NOTE | 2019-03-07 18:15 | NUR ---
Problems reprioritized. Patient report given, questions answered & plan of care reviewed with Sharmila.
--- NOTE | 2019-03-07 18:15 | NUR ---
Received report from Araceli ERAZO. assumed care of patient.
[2019-03-07] MEDS: lithium carbonate 150mg capsule PO SCH (20:20)
[2019-03-07] MEDS: polyethylene glycol 3350 17gm powd pack PO SCH (20:20)
[2019-03-07] MEDS: OLANZAPINE 5 MG TABLET PO SCH (20:20)
--- NOTE | 2019-03-08 06:00 | NUR ---
Gave report to Adonis ERAZO.
--- NOTE | 2019-03-08 06:38 | NUR ---
Patient in room ORTHO 4018. I have received report from Sharmila ERAZO and had the opportunity to ask questions and assume patient care.
[2019-03-08] MEDS: pantoprazole 40mg Tablet.DR PO SCH (08:31)
[2019-03-08] MEDS: LORazepam 0.5 MG tablet PO PRN (08:31)
[2019-03-08] MEDS: docusate sod 100mg capsule PO SCH ×2 (08:31→20:32)
[2019-03-08] MEDS: levetiracetam 250mg tablet PO SCH ×2 (08:31→20:32)
[2019-03-08] MEDS: lactose-reduced food (Ensure High Protein) 237ml bottle PO SCH ×3 (08:34→18:38)
[2019-03-08 10:00] VITALS: BP 94/70
[2019-03-08] MEDS: morphine 10mg/0.5ml (conc. morphine) oral syringe PO PRN ×2 (13:56→20:33)
--- NOTE | 2019-03-08 18:00 | NUR ---
Received report from Adonis ERAZO. Assumed care of patient.
--- NOTE | 2019-03-08 18:06 | NUR ---
Problems reprioritized. Patient report given, questions answered & plan of care reviewed with Sharmila RN.
[2019-03-08] MEDS: lithium carbonate 150mg capsule PO SCH (20:31)
[2019-03-08] MEDS: OLANZAPINE 5 MG TABLET PO SCH (20:31)
[2019-03-08] MEDS: polyethylene glycol 3350 17gm powd pack PO SCH (20:32)
--- NOTE | 2019-03-09 06:00 | NUR ---
Gave report to Adonis ERAZO.
--- NOTE | 2019-03-09 06:23 | NUR ---
Patient in room ORTHO 4018. I have received report from Sharmila ERAZO and had the opportunity to ask questions and assume patient care.
[2019-03-09] MEDS: levetiracetam 250mg tablet PO SCH ×2 (07:32→20:48)
[2019-03-09] MEDS: pantoprazole 40mg Tablet.DR PO SCH (07:32)
[2019-03-09] MEDS: docusate sod 100mg capsule PO SCH ×2 (07:32→20:48)
[2019-03-09] MEDS: morphine 10mg/0.5ml (conc. morphine) oral syringe PO PRN ×3 (07:37→20:49)
[2019-03-09] MEDS: lactose-reduced food (Ensure High Protein) 237ml bottle PO SCH ×3 (08:11→18:31)
[2019-03-09 10:00] VITALS: BP 96/56
[2019-03-09] MEDS: LORazepam 0.5 MG tablet PO PRN (15:20)
--- NOTE | 2019-03-09 18:00 | NUR ---
Received report from Adonis ERAZO. assumed care of patient.
--- NOTE | 2019-03-09 18:06 | NUR ---
Problems reprioritized. Patient report given, questions answered & plan of care reviewed with Sharmila RN.
[2019-03-09] MEDS: polyethylene glycol 3350 17gm powd pack PO SCH (20:47)
[2019-03-09] MEDS: OLANZAPINE 5 MG TABLET PO SCH (20:47)
[2019-03-09] MEDS: lithium carbonate 150mg capsule PO SCH (20:48)
--- NOTE | 2019-03-10 06:00 | NUR ---
Gave report to Jyoti ERAZO.
[2019-03-10] MEDS: levetiracetam 250mg tablet PO SCH ×2 (10:43→20:58)
[2019-03-10] MEDS: docusate sod 100mg capsule PO SCH ×2 (10:43→20:58)
[2019-03-10] MEDS: pantoprazole 40mg Tablet.DR PO SCH (10:44)
[2019-03-10] MEDS: lactose-reduced food (Ensure High Protein) 237ml bottle PO SCH ×3 (10:45→18:00)
--- NOTE | 2019-03-10 13:42 | NUR ---
reassessment: Pt LBM 03/07 on regular diet. DNR w/ comfort care. Will continue to follow per protocol. Recommendations: 1) routine bowel care Addendum: 03/10/19 at [address] Amended: Links added.
[2019-03-10] MEDS: morphine 10mg/0.5ml (conc. morphine) oral syringe PO PRN ×2 (15:46→21:11)
[2019-03-10] MEDS: bisacodyl 5mg tablet.DR PO PRN (17:05)
[2019-03-10] MEDS: LORazepam 0.5 MG tablet PO PRN (17:12)
--- NOTE | 2019-03-10 18:04 | NUR ---
Report to Jeannie ERAZO
--- NOTE | 2019-03-10 18:05 | NUR ---
Patient in room ORTHO 4018. I have received report from Jyoti ERAZO and had the opportunity to ask questions and assume patient care.
[2019-03-10] MEDS: OLANZAPINE 5 MG TABLET PO SCH (20:58)
[2019-03-10] MEDS: lithium carbonate 150mg capsule PO SCH (20:58)
[2019-03-10] MEDS: polyethylene glycol 3350 17gm powd pack PO SCH (21:11)
[2019-03-11] MEDS: morphine 10mg/0.5ml (conc. morphine) oral syringe PO PRN ×3 (05:31→22:26)
--- NOTE | 2019-03-11 06:07 | NUR ---
Problems reprioritized. Patient report given, questions answered & plan of care reviewed with Jyoti ERAZO.
[2019-03-11] MEDS: levetiracetam 250mg tablet PO SCH ×2 (07:30→20:01)
[2019-03-11] MEDS: lactose-reduced food (Ensure High Protein) 237ml bottle PO SCH ×3 (07:30→18:00)
[2019-03-11] MEDS: pantoprazole 40mg Tablet.DR PO SCH (07:30)
[2019-03-11] MEDS: docusate sod 100mg capsule PO SCH ×3 (07:30→20:01)
--- NOTE | 2019-03-11 12:19 | NUR ---
Patient has refused multiple times today to eat, drink. Wants to be left alone to sleep.
[2019-03-11] MEDS: LORazepam 0.5 MG tablet PO PRN (17:06)
[2019-03-11] MEDS: bisacodyl 5mg tablet.DR PO PRN (17:06)
[2019-03-11 18:00] VITALS: BP 100/64
--- NOTE | 2019-03-11 18:17 | NUR ---
Patient in room ORTHO 4018. I have received report from Jyoti ERAZO and had the opportunity to ask questions and assume patient care.
[2019-03-11] MEDS: lithium carbonate 150mg capsule PO SCH (20:01)
[2019-03-11] MEDS: OLANZAPINE 5 MG TABLET PO SCH (20:01)
[2019-03-11] MEDS: polyethylene glycol 3350 17gm powd pack PO SCH (20:19)
[2019-03-11 22:00] VITALS: BP 126/71
[2019-03-12 06:00] VITALS: BP 102/61
--- NOTE | 2019-03-12 06:11 | NUR ---
Problems reprioritized. Patient report given, questions answered & plan of care reviewed with Jyoti ERAZO.
[2019-03-12] MEDS: pantoprazole 40mg Tablet.DR PO SCH (09:43)
[2019-03-12] MEDS: docusate sod 100mg capsule PO SCH ×2 (09:43→20:04)
[2019-03-12] MEDS: LORazepam 0.5 MG tablet PO PRN ×2 (09:43→17:30)
[2019-03-12] MEDS: levetiracetam 250mg tablet PO SCH ×2 (09:43→20:04)
[2019-03-12] MEDS: morphine 10mg/0.5ml (conc. morphine) oral syringe PO PRN ×4 (09:44→22:20)
[2019-03-12] MEDS: lactose-reduced food (Ensure High Protein) 237ml bottle PO SCH ×2 (09:49→18:00)
[2019-03-12 10:00] VITALS: BP 104/69
[2019-03-12] MEDS: OLANZAPINE 5 MG TABLET PO SCH (20:04)
[2019-03-12] MEDS: polyethylene glycol 3350 17gm powd pack PO SCH (20:05)
[2019-03-12] MEDS: lithium carbonate 150mg capsule PO SCH (20:05)
[2019-03-12 22:00] VITALS: BP 111/65
--- NOTE | 2019-03-13 06:17 | NUR ---
I have received patient report from Joanne ERAZO
--- NOTE | 2019-03-13 06:40 | NUR ---
Problems reprioritized. Patient report given, questions answered & plan of care reviewed with Mahnaz ERAZO.
[2019-03-13] MEDS: levetiracetam 250mg tablet PO SCH ×2 (08:39→20:55)
[2019-03-13] MEDS: docusate sod 100mg capsule PO SCH ×2 (08:39→20:55)
[2019-03-13] MEDS: LORazepam 0.5 MG tablet PO PRN ×3 (08:39→20:54)
[2019-03-13] MEDS: pantoprazole 40mg Tablet.DR PO SCH (08:39)
[2019-03-13] MEDS: lactose-reduced food (Ensure High Protein) 237ml bottle PO SCH ×3 (08:40→18:00)
[2019-03-13 10:00] VITALS: BP 111/76
[2019-03-13] MEDS: morphine 10mg/0.5ml (conc. morphine) oral syringe PO PRN ×2 (15:45→20:54)
[2019-03-13] MEDS: OLANZAPINE 5 MG TABLET PO SCH (20:55)
[2019-03-13] MEDS: lithium carbonate 150mg capsule PO SCH (20:55)
[2019-03-13] MEDS: polyethylene glycol 3350 17gm powd pack PO SCH (20:55)
[2019-03-13 22:00] VITALS: BP 114/72
--- NOTE | 2019-03-14 06:17 | NUR ---
REPORT GIVEN TO CASTRO MOCTEZUMA.
[2019-03-14] MEDS: lactose-reduced food (Ensure High Protein) 237ml bottle PO SCH ×3 (08:00→18:00)
[2019-03-14] MEDS: morphine 10mg/0.5ml (conc. morphine) oral syringe PO PRN (08:28)
[2019-03-14] MEDS: LORazepam 0.5 MG tablet PO PRN ×2 (08:28→19:29)
[2019-03-14] MEDS: levetiracetam 250mg tablet PO SCH ×2 (08:28→19:28)
[2019-03-14] MEDS: pantoprazole 40mg Tablet.DR PO SCH (08:28)
[2019-03-14] MEDS: docusate sod 100mg capsule PO SCH ×2 (08:28→19:27)
[2019-03-14 10:00] VITALS: BP 110/74
--- NOTE | 2019-03-14 11:38 | NUR ---
Checked with pt's primary RN regarding WOC concerns, skin breakdown, or pressure ulcer formation. Pt's nurse states nothing new noted upon assessment except some redness on favored shoulder and no additional WOC supplies needed to promote comfort. Will continue to follow.
--- NOTE | 2019-03-14 18:00 | NUR ---
Patient in room ORTHO 4018. I have received report from Amy ERAZO and had the opportunity to ask questions and assume patient care.
--- NOTE | 2019-03-14 18:24 | NUR ---
Patient report given to [facility] from [facility]
[2019-03-14] MEDS: lithium carbonate 150mg capsule PO SCH (19:28)
[2019-03-14] MEDS: OLANZAPINE 5 MG TABLET PO SCH (19:28)
[2019-03-14] MEDS: polyethylene glycol 3350 17gm powd pack PO SCH (19:29)
[2019-03-14 22:00] VITALS: BP 104/55
[2019-03-15] MEDS: morphine 10mg/0.5ml (conc. morphine) oral syringe PO PRN ×3 (03:37→20:47)
--- NOTE | 2019-03-15 05:55 | NUR ---
I agree with all intervention, and assessments performed by Lyndsay.
--- NOTE | 2019-03-15 06:02 | NUR ---
Problems reprioritized. Patient report given, questions answered & plan of care reviewed with Amy ERAZO.
--- NOTE | 2019-03-15 06:19 | NUR ---
I have received patient report from Elo ERAZO
[2019-03-15] MEDS: docusate sod 100mg capsule PO SCH ×3 (08:00→19:37)
[2019-03-15] MEDS: pantoprazole 40mg Tablet.DR PO SCH (08:41)
[2019-03-15] MEDS: levetiracetam 250mg tablet PO SCH ×2 (08:43→19:37)
[2019-03-15] MEDS: lactose-reduced food (Ensure High Protein) 237ml bottle PO SCH ×3 (08:44→18:00)
[2019-03-15 10:00] VITALS: BP 119/76
[2019-03-15] MEDS: LORazepam 0.5 MG tablet PO PRN ×2 (15:04→20:46)
--- NOTE | 2019-03-15 18:45 | NUR ---
Patient report given to Daksha ERAZO
[2019-03-15] MEDS: OLANZAPINE 5 MG TABLET PO SCH (19:36)
[2019-03-15] MEDS: lithium carbonate 150mg capsule PO SCH (19:37)
[2019-03-15] MEDS: acetaminophen 325mg tablet PO PRN (19:37)
[2019-03-15] MEDS: polyethylene glycol 3350 17gm powd pack PO SCH (19:37)
--- NOTE | 2019-03-16 05:58 | NUR ---
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 reported that pt will be off parole June 14. restrictions will be lifted at that time - patient can travel or be discharged wherever placement is found. stated parents may be willing to take him back b/c they had firearms they were unwilling to give up earlier to house patient. once restrictions are lifted they maybe more willing to take patient.
--- NOTE | 2019-03-16 06:41 | NUR ---
Patient in room ORTHO 4018. I have received report from Jay ERAZO and had the opportunity to ask questions and assume patient care.
[2019-03-16] MEDS: lactose-reduced food (Ensure High Protein) 237ml bottle PO SCH ×3 (07:08→18:37)
[2019-03-16] MEDS: LORazepam 0.5 MG tablet PO PRN ×2 (07:09→17:52)
[2019-03-16] MEDS: docusate sod 100mg capsule PO SCH ×2 (07:09→20:00)
[2019-03-16] MEDS: morphine 10mg/0.5ml (conc. morphine) oral syringe PO PRN (07:10)
[2019-03-16] MEDS: pantoprazole 40mg Tablet.DR PO SCH (07:10)
[2019-03-16] MEDS: levetiracetam 250mg tablet PO SCH ×2 (07:10→19:52)
[2019-03-16 10:00] VITALS: BP 105/53
--- NOTE | 2019-03-16 18:12 | NUR ---
Problems reprioritized. Patient report given, questions answered & plan of care reviewed with Jay ERAZO.
[2019-03-16] MEDS: lithium carbonate 150mg capsule PO SCH (19:52)
[2019-03-16] MEDS: OLANZAPINE 5 MG TABLET PO SCH (19:52)
[2019-03-16] MEDS: acetaminophen 325mg tablet PO PRN (19:53)
[2019-03-16] MEDS: polyethylene glycol 3350 17gm powd pack PO SCH (19:53)
[2019-03-17] MEDS: morphine 10mg/0.5ml (conc. morphine) oral syringe PO PRN ×3 (04:55→17:02)
--- NOTE | 2019-03-17 06:12 | NUR ---
reported to days. noted bed alarm active. pt dry at this time
--- NOTE | 2019-03-17 06:30 | NUR ---
Patient in room ORTHO 4018. I have received report from CASTRO Thompson, and had the opportunity to ask questions and assume patient care.
[2019-03-17] MEDS: lactose-reduced food (Ensure High Protein) 237ml bottle PO SCH ×3 (08:00→18:00)
[2019-03-17] MEDS: docusate sod 100mg capsule PO SCH ×2 (09:16→20:34)
[2019-03-17] MEDS: pantoprazole 40mg Tablet.DR PO SCH (09:16)
[2019-03-17] MEDS: levetiracetam 250mg tablet PO SCH ×2 (09:16→20:34)
[2019-03-17] MEDS: LORazepam 0.5 MG tablet PO PRN ×2 (11:28→17:01)
[2019-03-17 13:00] VITALS: BP 144/87
--- NOTE | 2019-03-17 14:38 | NUR ---
reassessment: Pt LBM 03/07 on regular diet receiving colace and miralax. REGINA d/w RN regarding possibility of opioid antagonist since receiving opiates PRN on comfort care protocol per MD approval given constipation. Will continue to follow per protocol. Recommendations: 1) routine bowel care 2) consider opioid antagonist per MD approval to promote bowel regularity on opiods PRN Addendum: 03/17/19 at [address] Amended: Links added.
--- NOTE | 2019-03-17 18:15 | NUR ---
Received report from CASTRO Page.
--- NOTE | 2019-03-17 18:41 | NUR ---
Problems reprioritized. Patient report given, questions answered & plan of care reviewed with CASTRO Amador.
[2019-03-17] MEDS: OLANZAPINE 5 MG TABLET PO SCH (20:34)
[2019-03-17] MEDS: lithium carbonate 150mg capsule PO SCH (20:35)
[2019-03-17] MEDS: polyethylene glycol 3350 17gm powd pack PO SCH (20:35)
--- NOTE | 2019-03-18 06:12 | NUR ---
Gave report to CASTRO Page.
[2019-03-18] MEDS: LORazepam 0.5 MG tablet PO PRN ×3 (06:59→19:26)
[2019-03-18] MEDS: morphine 10mg/0.5ml (conc. morphine) oral syringe PO PRN ×4 (07:00→19:27)
[2019-03-18] MEDS: pantoprazole 40mg Tablet.DR PO SCH (07:30)
[2019-03-18] MEDS: docusate sod 100mg capsule PO SCH ×2 (08:00→19:27)
[2019-03-18] MEDS: levetiracetam 250mg tablet PO SCH ×2 (08:00→19:27)
[2019-03-18] MEDS: lactose-reduced food (Ensure High Protein) 237ml bottle PO SCH ×3 (08:00→18:00)
[2019-03-18 10:00] VITALS: BP 110/62
--- NOTE | 2019-03-18 14:22 | NUR ---
Spoke with pt's primary RN regarding WOC needs at this time. She stated no new issues or concerns at this time. Will continue to follow.
--- NOTE | 2019-03-18 18:15 | NUR ---
Received report from Kaylee ERAZO, assumed care of patient.
[2019-03-18] MEDS: OLANZAPINE 5 MG TABLET PO SCH (19:28)
[2019-03-18] MEDS: lithium carbonate 150mg capsule PO SCH (19:29)
[2019-03-18] MEDS: polyethylene glycol 3350 17gm powd pack PO SCH (19:29)
[2019-03-18 22:00] VITALS: BP 127/86
--- NOTE | 2019-03-19 06:29 | NUR ---
Report given to CASTRO Page.
[2019-03-19] MEDS: LORazepam 0.5 MG tablet PO PRN ×3 (06:51→20:00)
[2019-03-19] MEDS: docusate sod 100mg capsule PO SCH ×2 (06:51→20:00)
[2019-03-19] MEDS: morphine 10mg/0.5ml (conc. morphine) oral syringe PO PRN ×3 (06:51→20:01)
[2019-03-19] MEDS: levetiracetam 250mg tablet PO SCH ×2 (06:51→20:00)
[2019-03-19] MEDS: pantoprazole 40mg Tablet.DR PO SCH (06:51)
[2019-03-19] MEDS: lactose-reduced food (Ensure High Protein) 237ml bottle PO SCH ×3 (08:00→18:00)
[2019-03-19 10:00] VITALS: BP 111/73
[2019-03-19] MEDS: lithium carbonate 150mg capsule PO SCH (20:00)
[2019-03-19] MEDS: polyethylene glycol 3350 17gm powd pack PO SCH (20:00)
[2019-03-19] MEDS: OLANZAPINE 5 MG TABLET PO SCH (20:00)
[2019-03-20] MEDS: morphine 10mg/0.5ml (conc. morphine) oral syringe PO PRN ×3 (02:00→18:05)
--- NOTE | 2019-03-20 06:19 | NUR ---
Problems reprioritized. Patient report given, questions answered & plan of care reviewed with Olga ERAZO
--- NOTE | 2019-03-20 06:37 | NUR ---
Patient in room ORTHO 4018. I have received report from BETO ERAZO and had the opportunity to ask questions and assume patient care.
[2019-03-20] MEDS: docusate sod 100mg capsule PO SCH ×2 (08:30→21:13)
[2019-03-20] MEDS: pantoprazole 40mg Tablet.DR PO SCH (08:30)
[2019-03-20] MEDS: levetiracetam 250mg tablet PO SCH ×2 (08:30→21:13)
[2019-03-20] MEDS: lactose-reduced food (Ensure High Protein) 237ml bottle PO SCH ×3 (08:42→18:00)
[2019-03-20 10:00] VITALS: BP 109/69
[2019-03-20] MEDS: bisacodyl 5mg tablet.DR PO PRN (11:59)
[2019-03-20] MEDS: LORazepam 0.5 MG tablet PO PRN ×2 (11:59→18:01)
--- NOTE | 2019-03-20 18:21 | NUR ---
Problems reprioritized. Patient report given, questions answered & plan of care reviewed with Ivania ERAZO.
[2019-03-20] MEDS: OLANZAPINE 5 MG TABLET PO SCH (21:13)
[2019-03-20] MEDS: lithium carbonate 150mg capsule PO SCH (21:13)
[2019-03-20] MEDS: polyethylene glycol 3350 17gm powd pack PO SCH (21:19)
--- NOTE | 2019-03-21 07:04 | NUR ---
REPORT GIVEN TO CASTRO ARREAGA.
[2019-03-21] MEDS: lactose-reduced food (Ensure High Protein) 237ml bottle PO SCH ×6 (08:00→20:17)
[2019-03-21] MEDS: levetiracetam 250mg tablet PO SCH ×2 (08:00→20:10)
[2019-03-21] MEDS: pantoprazole 40mg Tablet.DR PO SCH (09:09)
[2019-03-21] MEDS: docusate sod 100mg capsule PO SCH ×2 (09:09→20:10)
[2019-03-21] MEDS: LORazepam 0.5 MG tablet PO PRN (09:10)
[2019-03-21] MEDS: morphine 10mg/0.5ml (conc. morphine) oral syringe PO PRN ×3 (09:12→20:10)
[2019-03-21 10:00] VITALS: BP 131/91
--- NOTE | 2019-03-21 11:47 | NUR ---
PAGER ID: [phone] MESSAGE: Char [phone] re NabilEnrique in [id number]- he is still painful and agitated after morphine and Ativan .5, can we increase dose or frequency of these meds? Comfort care not comfortable.
[2019-03-21] MEDS ORDERED: LORazepam 0.5 MG tablet PO PRN (13:00)
--- NOTE | 2019-03-21 18:20 | NUR ---
Received report from Char ERAZO. assumed care of patient.
[2019-03-21] MEDS: OLANZAPINE 5 MG TABLET PO SCH (20:08)
[2019-03-21] MEDS: lithium carbonate 150mg capsule PO SCH (20:09)
[2019-03-21] MEDS: polyethylene glycol 3350 17gm powd pack PO SCH (20:10)
--- NOTE | 2019-03-22 06:29 | NUR ---
Gave report to Char ERAZO.
[2019-03-22] MEDS: pantoprazole 40mg Tablet.DR PO SCH (07:30)
[2019-03-22] MEDS: levetiracetam 250mg tablet PO SCH ×2 (08:00→20:41)
[2019-03-22] MEDS: docusate sod 100mg capsule PO SCH ×2 (08:00→20:41)
[2019-03-22 10:00] VITALS: BP 103/68
[2019-03-22] MEDS: LORazepam 1 MG tablet PO PRN ×2 (12:52→20:40)
--- NOTE | 2019-03-22 16:25 | NUR ---
Reassessment: D/w RN recommendation for ONS change to Ensure Enlive TID rather than Ensure High Protein TID for increased kcal intake given pt consuming 100% of ONS with poor PO intake of meals with max assist. RN states pt dislikes gravy on the chopped meats and request gravy on the side. Meal preferences obtained for lunch tomorrow. D/w RN additional food items to optimize PO intake. All food preferences d/w dietary including to send a smoothie QD at breakfast, ice cream QD with lunch, and a milkshake QD with dinner. LBM 03/07, pt with routine Colace and Miralax however noted that pt refused Colace today. Pt also with Dulcolax PRN last given 03/20. Will continue to follow. Recommendations: 1) routine bowel care 2) consider opioid antagonist per MD approval to promote bowel regularity on opioids PRN 3) Ensure Enlive TID; chopped meat with gravy on the side; smoothie QD at breakfast, ice cream QD with lunch, and a milkshake QD with dinner Addendum: 03/22/19 at [address] Amended: Links added.
--- NOTE | 2019-03-22 18:15 | NUR ---
Received report from Char ERAZO. assumed care of patient.
[2019-03-22] MEDS: lactose-reduced food (Ensure Enlive) - 237ml bottle PO SCH (18:44)
[2019-03-22] MEDS: lithium carbonate 150mg capsule PO SCH (20:41)
[2019-03-22] MEDS: polyethylene glycol 3350 17gm powd pack PO SCH (20:41)
[2019-03-22] MEDS: OLANZAPINE 5 MG TABLET PO SCH (20:41)
[2019-03-23] MEDS: bisacodyl 5mg tablet.DR PO PRN ×2 (05:40→20:21)
[2019-03-23] MEDS: morphine 10mg/0.5ml (conc. morphine) oral syringe PO PRN ×2 (05:40→20:22)
--- NOTE | 2019-03-23 06:20 | NUR ---
Gave report to Dannie ERAZO.
--- NOTE | 2019-03-23 06:20 | NUR ---
Patient in room ORTHO 4018. I have received report from VANNESA ERAZO and had the opportunity to ask questions and assume patient care.
[2019-03-23] MEDS: lactose-reduced food (Ensure Enlive) - 237ml bottle PO SCH ×3 (08:00→18:17)
[2019-03-23] MEDS: docusate sod 100mg capsule PO SCH ×2 (09:04→20:21)
[2019-03-23] MEDS: pantoprazole 40mg Tablet.DR PO SCH (09:04)
[2019-03-23] MEDS: LORazepam 1 MG tablet PO PRN ×2 (09:05→20:20)
[2019-03-23] MEDS: levetiracetam 250mg tablet PO SCH ×2 (09:05→20:21)
[2019-03-23 10:00] VITALS: BP 121/65
[2019-03-23] MEDS: acetaminophen 325mg tablet PO PRN (11:43)
--- NOTE | 2019-03-23 11:45 | NUR ---
PATIENT REQUESTING TYLENOL FOR PAIN.
--- NOTE | 2019-03-23 17:33 | NUR ---
Student documentation: I have reviewed and agree with all interventions, assessments performed and documented by FATMATA CLINE. Student Medication Administration: For this medication-pass time frame, all medication were reviewed, dispensed, administered and documented per hospital policy by FATMATA CLINE.
--- NOTE | 2019-03-23 18:03 | NUR ---
Problems reprioritized. Patient report given, questions answered & plan of care reviewed with VANNESA RN.
--- NOTE | 2019-03-23 18:05 | NUR ---
Report given to Sharmila ERAZO
--- NOTE | 2019-03-23 18:10 | NUR ---
Received report from Dannie ERAZO. assumed care of patient.
[2019-03-23] MEDS: OLANZAPINE 5 MG TABLET PO SCH (20:21)
[2019-03-23] MEDS: lithium carbonate 150mg capsule PO SCH (20:21)
[2019-03-23] MEDS: polyethylene glycol 3350 17gm powd pack PO SCH (20:22)
[2019-03-24] MEDS: LORazepam 1 MG tablet PO PRN ×4 (03:19→23:40)
[2019-03-24] MEDS: morphine 10mg/0.5ml (conc. morphine) oral syringe PO PRN ×3 (03:19→14:55)
--- NOTE | 2019-03-24 06:13 | NUR ---
Gave report to Kaylee ERAZO.
[2019-03-24] MEDS: lactose-reduced food (Ensure Enlive) - 237ml bottle PO SCH ×3 (08:00→18:00)
[2019-03-24] MEDS: pantoprazole 40mg Tablet.DR PO SCH (09:22)
[2019-03-24] MEDS: docusate sod 100mg capsule PO SCH ×2 (09:22→20:02)
[2019-03-24] MEDS: levetiracetam 250mg tablet PO SCH ×2 (09:22→20:02)
[2019-03-24 10:00] VITALS: BP 108/75
[2019-03-24] MEDS: lithium carbonate 150mg capsule PO SCH (20:02)
[2019-03-24] MEDS: OLANZAPINE 5 MG TABLET PO SCH (20:03)
[2019-03-24] MEDS: polyethylene glycol 3350 17gm powd pack PO SCH (20:09)
[2019-03-25] MEDS: lactose-reduced food (Ensure Enlive) - 237ml bottle PO SCH ×3 (08:00→18:53)
[2019-03-25 10:00] VITALS: BP 115/76
[2019-03-25] MEDS: levetiracetam 250mg tablet PO SCH ×2 (12:30→20:13)
[2019-03-25] MEDS: docusate sod 100mg capsule PO SCH ×2 (12:30→20:12)
[2019-03-25] MEDS: pantoprazole 40mg Tablet.DR PO SCH (12:30)
[2019-03-25] MEDS: morphine 10mg/0.5ml (conc. morphine) oral syringe PO PRN ×3 (12:36→21:56)
[2019-03-25] MEDS ORDERED: LORazepam 1 MG tablet PO SCH ×2 (13:00→19:01)
--- NOTE | 2019-03-25 18:35 | NUR ---
Patient in room ORTHO 4018. I have received report from JESI ERAZO and had the opportunity to ask questions and assume patient care. Addendum: 03/25/19 at 2146 by Winnie Butts RN Amended: Links added.
[2019-03-25] MEDS: OLANZAPINE 5 MG TABLET PO SCH (20:12)
[2019-03-25] MEDS: LORazepam 1 MG tablet PO SCH (20:12)
[2019-03-25] MEDS: lithium carbonate 150mg capsule PO SCH (20:13)
[2019-03-25] MEDS: polyethylene glycol 3350 17gm powd pack PO SCH (20:13)
--- NOTE | 2019-03-25 20:15 | NUR ---
HS MEDS GIVEN TO PT. 2 PILLS AT A TIME. SWALLOWED IT WITH COKE MIXED WITH THE MIRALAX. THEN WHEN THAT WAS COMPLETED TOOK SIPS OF A COLD PLAIN COKE. PT INC OF URINE SKIN CARE DONE. ANKLE MONITOR IN PLACE AND HOOKED TO ACCOUNTANT TAX. PT REPOSITIONED UP IN BED WITH ASSISTANCE. NOTED RESTLESS AND HOLLERING OUT. WARM BLANKET PROVIDED AND REVIEWED PLAN OF CARE WITH PT.
--- NOTE | 2019-03-25 21:29 | NUR ---
ON COMFORT CARE. Addendum: 03/25/19 at 2129 by Winnie Butts RN Amended: Links added.
--- NOTE | 2019-03-25 21:59 | NUR ---
PT CALLING OUT IN PAIN AND MEDICATED WITH ROXINOL FOR THIS. PT SWALLOWED IT AND THEN DRANK COKE AFTERWARDS.
[2019-03-25 22:00] VITALS: BP 120/70
--- NOTE | 2019-03-25 23:00 | NUR ---
pt inc of urine skin care done and repositioned in bed.
--- NOTE | 2019-03-26 01:00 | NUR ---
pt remains dry and resting eyes closed without s&s of distress.
--- NOTE | 2019-03-26 02:43 | NUR ---
pt resting without changes.
--- NOTE | 2019-03-26 03:56 | NUR ---
IN RESTING NO CHANGES AT THIS TIME.
--- NOTE | 2019-03-26 05:00 | NUR ---
PT RESTING NOTED INC URINE ON SHEET AND CHANGED. PT AWOKE BRIEFLY TOOK ATIVAN PO SWALLOWED IT AND TOOK THE ROXINOL FOR PAIN.
[2019-03-26] MEDS: LORazepam 1 MG tablet PO SCH ×3 (05:05→19:51)
[2019-03-26] MEDS: morphine 10mg/0.5ml (conc. morphine) oral syringe PO PRN ×4 (05:06→23:28)
--- NOTE | 2019-03-26 05:55 | NUR ---
PT RESTING EYES CLOSED WITHOUT S&S OF DISTRESS.
--- NOTE | 2019-03-26 06:03 | NUR ---
Problems reprioritized. Patient report given, questions answered & plan of care reviewed with JESI ERAZO. Addendum: 03/26/19 at 0606 by Winnie Butts RN Amended: Links added.
[2019-03-26] MEDS: lactose-reduced food (Ensure Enlive) - 237ml bottle PO SCH ×3 (08:00→18:00)
[2019-03-26 10:00] VITALS: BP 119/81
[2019-03-26] MEDS: docusate sod 100mg capsule PO SCH ×2 (13:08→19:52)
[2019-03-26] MEDS: pantoprazole 40mg Tablet.DR PO SCH (13:08)
[2019-03-26] MEDS: levetiracetam 250mg tablet PO SCH ×2 (13:09→19:52)
--- NOTE | 2019-03-26 14:00 | NUR ---
Noted pt has not had a BM since 03/07 per medical record. Review of record showed recommendation made by REGINA Yadav, to start Relistor SQ on a routine basis as pt is receiving Roxanol up the 6 times a day. No response by MD. PENALOZA placed to Dr. Gregory to request order for pt to start Relistor. Received no response from calling Dr. Gregory's phone number or from paging her at 1400 today. Will continue to monitor. Discussed with Jorge Luis Le RN. Will continue to follow.
--- NOTE | 2019-03-26 18:30 | NUR ---
Patient in room ORTHO 4018. I have received report from CASTRO Page and had the opportunity to ask questions and assume patient care. Patient on comfort care, resting comfortably on bed.
[2019-03-26] MEDS: lithium carbonate 150mg capsule PO SCH (19:51)
[2019-03-26] MEDS: OLANZAPINE 5 MG TABLET PO SCH (19:52)
[2019-03-26] MEDS: polyethylene glycol 3350 17gm powd pack PO SCH (19:54)
[2019-03-26 22:00] VITALS: BP 116/80
[2019-03-27] MEDS: LORazepam 1 MG tablet PO SCH ×3 (04:00→21:13)
--- NOTE | 2019-03-27 06:08 | NUR ---
Problems reprioritized. Patient report given, questions answered & plan of care reviewed with CASTRO Pandey.
--- NOTE | 2019-03-27 06:10 | NUR ---
Patient in room ORTHO 4018. I have received report from LORIN ERAZO and had the opportunity to ask questions and assume patient care.
[2019-03-27] MEDS: lactose-reduced food (Ensure Enlive) - 237ml bottle PO SCH ×3 (08:19→18:00)
[2019-03-27] MEDS: morphine 10mg/0.5ml (conc. morphine) oral syringe PO PRN ×3 (08:22→17:38)
[2019-03-27] MEDS: levetiracetam 250mg tablet PO SCH ×2 (08:22→21:14)
[2019-03-27] MEDS: docusate sod 100mg capsule PO SCH ×2 (08:22→21:13)
[2019-03-27] MEDS: pantoprazole 40mg Tablet.DR PO SCH (08:22)
[2019-03-27 10:00] VITALS: BP 102/71
--- NOTE | 2019-03-27 18:10 | NUR ---
Problems reprioritized. Patient report given, questions answered & plan of care reviewed with ASHLEIGH.
[2019-03-27] MEDS: lithium carbonate 150mg capsule PO SCH (21:15)
[2019-03-27] MEDS: polyethylene glycol 3350 17gm powd pack PO SCH (21:16)
[2019-03-27] MEDS: OLANZAPINE 5 MG TABLET PO SCH (21:16)
[2019-03-27 22:00] VITALS: BP 110/77
[2019-03-28] MEDS: LORazepam 1 MG tablet PO SCH ×3 (04:00→19:32)
--- NOTE | 2019-03-28 06:17 | NUR ---
Patient in room ORTHO 4018. I have received report from ASHLEIGH ERAZO and had the opportunity to ask questions and assume patient care.
--- NOTE | 2019-03-28 06:20 | NUR ---
Problems reprioritized. Patient report given, questions answered & plan of care reviewed with Dannie ERAZO.
[2019-03-28] MEDS: docusate sod 100mg capsule PO SCH ×2 (07:22→19:32)
[2019-03-28] MEDS: pantoprazole 40mg Tablet.DR PO SCH (07:23)
[2019-03-28] MEDS: levetiracetam 250mg tablet PO SCH ×2 (07:23→19:32)
[2019-03-28] MEDS: morphine 10mg/0.5ml (conc. morphine) oral syringe PO PRN ×3 (07:23→17:16)
[2019-03-28] MEDS: lactose-reduced food (Ensure Enlive) - 237ml bottle PO SCH ×3 (08:54→18:22)
[2019-03-28 10:00] VITALS: BP 103/42
--- NOTE | 2019-03-28 12:43 | NUR ---
reassessment: Pt LBM noted on 03/07 w/ only smears following. Pt receiving colace, miralax routinely as well as dulcolax PRN 03/23. REGINA [employer] regarding opioid antagonist on morphine; RN contacted REGINA and said MD has approved relistor to start today. Will continue to monitor. Recommendations: 1) routine bowel care 2) relistor per MD to start 03/27 for constipation on morphine 3) Ensure Enlive TID; chopped meat with gravy on the side; smoothie QD at breakfast, ice cream QD with lunch, and a milkshake QD with dinner; no milk to drink Addendum: 03/28/19 at [address] Amended: Links added.
[2019-03-28] MEDS: methylnaltrexone br 12mg/0.6ml inj***SubQ only SQ SCH (13:25)
--- NOTE | 2019-03-28 18:25 | NUR ---
Problems reprioritized. Patient report given, questions answered & plan of care reviewed with LORIN ERAZO.
[2019-03-28] MEDS: OLANZAPINE 5 MG TABLET PO SCH (19:31)
[2019-03-28] MEDS: lithium carbonate 150mg capsule PO SCH (19:32)
[2019-03-28] MEDS: bisacodyl 5mg tablet.DR PO PRN (19:32)
[2019-03-28] MEDS: polyethylene glycol 3350 17gm powd pack PO SCH (19:33)
[2019-03-29] MEDS: morphine 10mg/0.5ml (conc. morphine) oral syringe PO PRN ×3 (01:33→22:15)
[2019-03-29] MEDS: LORazepam 1 MG tablet PO SCH ×3 (04:08→22:16)
--- NOTE | 2019-03-29 06:05 | NUR ---
Patient in room ORTHO 4018. I have received report from VANNESA ERAZO and had the opportunity to ask questions and assume patient care.
--- NOTE | 2019-03-29 06:14 | NUR ---
Problems reprioritized. Patient report given, questions answered & plan of care reviewed with CASTRO Pandey.
[2019-03-29] MEDS: pantoprazole 40mg Tablet.DR PO SCH (07:30)
[2019-03-29] MEDS: lactose-reduced food (Ensure Enlive) - 237ml bottle PO SCH ×3 (08:00→18:00)
[2019-03-29] MEDS: docusate sod 100mg capsule PO SCH ×2 (08:00→22:16)
[2019-03-29] MEDS: levetiracetam 250mg tablet PO SCH ×2 (08:00→22:16)
[2019-03-29 10:00] VITALS: BP 103/65
[2019-03-29 11:05] VITALS: BP 94/56
--- NOTE | 2019-03-29 18:10 | NUR ---
Problems reprioritized. Patient report given, questions answered & plan of care reviewed with HECTOR ERAZO.
[2019-03-29] MEDS: polyethylene glycol 3350 17gm powd pack PO SCH (21:00)
[2019-03-29] MEDS: OLANZAPINE 5 MG TABLET PO SCH (22:16)
[2019-03-29] MEDS: lithium carbonate 150mg capsule PO SCH (22:17)
[2019-03-30] MEDS: morphine 10mg/0.5ml (conc. morphine) oral syringe PO PRN ×3 (02:34→19:50)
[2019-03-30] MEDS: LORazepam 1 MG tablet PO SCH ×3 (03:42→19:47)
--- NOTE | 2019-03-30 06:00 | NUR ---
Patient in room ORTHO 4018. I have received report from Jung ERAZO and had the opportunity to ask questions and assume patient care.
[2019-03-30] MEDS: pantoprazole 40mg Tablet.DR PO SCH (07:30)
[2019-03-30] MEDS: docusate sod 100mg capsule PO SCH ×2 (08:00→19:48)
[2019-03-30] MEDS: levetiracetam 250mg tablet PO SCH ×2 (08:00→19:47)
[2019-03-30] MEDS: lactose-reduced food (Ensure Enlive) - 237ml bottle PO SCH ×3 (08:00→18:00)
[2019-03-30 10:00] VITALS: BP 105/74
[2019-03-30] MEDS: methylnaltrexone br 12mg/0.6ml inj***SubQ only SQ SCH (14:11)
--- NOTE | 2019-03-30 18:11 | NUR ---
Problems reprioritized. Patient report given, questions answered & plan of care reviewed with Jung ERAZO.
--- NOTE | 2019-03-30 19:00 | NUR ---
Patient in room ORTHO 4018. I have received report from Pavithra ERAZO and had the opportunity to ask questions and assume patient care.
[2019-03-30] MEDS: OLANZAPINE 5 MG TABLET PO SCH (19:48)
[2019-03-30] MEDS: lithium carbonate 150mg capsule PO SCH (19:50)
[2019-03-30] MEDS: polyethylene glycol 3350 17gm powd pack PO SCH (21:00)
[2019-03-31] MEDS: LORazepam 1 MG tablet PO SCH ×3 (04:00→20:03)
[2019-03-31] MEDS: pantoprazole 40mg Tablet.DR PO SCH (07:28)
[2019-03-31] MEDS: levetiracetam 250mg tablet PO SCH ×2 (07:28→20:03)
[2019-03-31] MEDS: morphine 10mg/0.5ml (conc. morphine) oral syringe PO PRN ×3 (07:28→15:50)
[2019-03-31] MEDS: docusate sod 100mg capsule PO SCH ×2 (07:28→20:03)
[2019-03-31] MEDS: lactose-reduced food (Ensure Enlive) - 237ml bottle PO SCH ×3 (08:00→17:58)
--- NOTE | 2019-03-31 11:55 | NUR ---
reassessment: Pt receiving relistor having large hard stools following essentially 24 day constipation. Remains DNR w/ comfort care. Will continue to follow per protocol. Recommendations: 1) routine bowel care 2) relistor per MD to start 03/27 for constipation on morphine 3) Ensure Enlive TID; chopped meat with gravy on the side; smoothie QD at breakfast, ice cream QD with lunch, and a milkshake QD with dinner; no milk to drink Addendum: 03/31/19 at [address] Amended: Links added.
--- NOTE | 2019-03-31 18:10 | NUR ---
Received report from CASTRO Walter. Assumed care of patient.
[2019-03-31] MEDS: polyethylene glycol 3350 17gm powd pack PO SCH (20:02)
[2019-03-31] MEDS: OLANZAPINE 5 MG TABLET PO SCH (20:02)
[2019-03-31] MEDS: lithium carbonate 150mg capsule PO SCH (20:03)
[2019-04-01] MEDS: LORazepam 1 MG tablet PO SCH ×3 (03:40→20:04)
--- NOTE | 2019-04-01 06:21 | NUR ---
Patient report given, questions answered and plan of care reviewed with CASTRO Schneider.
--- NOTE | 2019-04-01 06:34 | NUR ---
RECEIVED REPORT FROM JESI ERAZO
[2019-04-01] MEDS: lactose-reduced food (Ensure Enlive) - 237ml bottle PO SCH ×3 (08:09→18:00)
[2019-04-01] MEDS: docusate sod 100mg capsule PO SCH ×2 (08:09→20:04)
[2019-04-01] MEDS: levetiracetam 250mg tablet PO SCH ×2 (08:09→20:04)
[2019-04-01] MEDS: pantoprazole 40mg Tablet.DR PO SCH (08:09)
[2019-04-01 10:00] VITALS: BP 103/62
[2019-04-01] MEDS: methylnaltrexone br 12mg/0.6ml inj***SubQ only SQ SCH (13:00)
--- NOTE | 2019-04-01 18:05 | NUR ---
Problems reprioritized. Patient report given, questions answered & plan of care reviewed with CASTRO Page.
--- NOTE | 2019-04-01 18:19 | NUR ---
Received report from CASTRO Schneider. Assumed patient care.
[2019-04-01] MEDS: OLANZAPINE 5 MG TABLET PO SCH (20:04)
[2019-04-01] MEDS: polyethylene glycol 3350 17gm powd pack PO SCH (20:04)
[2019-04-01] MEDS: lithium carbonate 150mg capsule PO SCH (20:04)
[2019-04-02] MEDS: LORazepam 1 MG tablet PO SCH ×3 (04:57→20:06)
--- NOTE | 2019-04-02 06:22 | NUR ---
Patient report given, questions answered and plan of care reviewed with CASTRO Page.
--- NOTE | 2019-04-02 06:32 | NUR ---
Patient in room ORTHO 4018. I have received report from CASTRO Amador and had the opportunity to ask questions and assume patient care.
[2019-04-02] MEDS: lactose-reduced food (Ensure Enlive) - 237ml bottle PO SCH ×3 (08:00→18:00)
[2019-04-02 10:00] VITALS: BP 118/88
[2019-04-02] MEDS: docusate sod 100mg capsule PO SCH ×2 (10:53→20:06)
[2019-04-02] MEDS: levetiracetam 250mg tablet PO SCH ×2 (10:53→20:07)
[2019-04-02] MEDS: pantoprazole 40mg Tablet.DR PO SCH (10:53)
[2019-04-02] MEDS: morphine 10mg/0.5ml (conc. morphine) oral syringe PO PRN (10:54)
--- NOTE | 2019-04-02 18:05 | NUR ---
Received report from CASTRO Page. Assumed patient care.
--- NOTE | 2019-04-02 18:33 | NUR ---
Problems reprioritized. Patient report given, questions answered & plan of care reviewed with CASTRO Amador.
[2019-04-02] MEDS: polyethylene glycol 3350 17gm powd pack PO SCH (20:06)
[2019-04-02] MEDS: OLANZAPINE 5 MG TABLET PO SCH (20:06)
[2019-04-02] MEDS: lithium carbonate 150mg capsule PO SCH (20:07)
[2019-04-02 22:00] VITALS: BP 126/87
[2019-04-03] MEDS: LORazepam 1 MG tablet PO SCH ×3 (04:36→20:35)
[2019-04-03] MEDS: pantoprazole 40mg Tablet.DR PO SCH (07:30)
[2019-04-03] MEDS: docusate sod 100mg capsule PO SCH ×2 (08:00→20:35)
[2019-04-03] MEDS: lactose-reduced food (Ensure Enlive) - 237ml bottle PO SCH ×3 (08:00→18:42)
[2019-04-03 10:00] VITALS: BP 143/62
[2019-04-03] MEDS: levetiracetam 250mg tablet PO SCH ×2 (11:56→20:35)
[2019-04-03] MEDS: morphine 10mg/0.5ml (conc. morphine) oral syringe PO PRN ×2 (11:57→17:47)
[2019-04-03] MEDS: methylnaltrexone br 12mg/0.6ml inj***SubQ only SQ SCH (13:00)
[2019-04-03] MEDS: acetaminophen 325mg tablet PO PRN (17:48)
--- NOTE | 2019-04-03 18:05 | NUR ---
Received report from Pavithra ERAZO, assumed care of patient.
--- NOTE | 2019-04-03 18:35 | NUR ---
Problems reprioritized. Patient report given, questions answered & plan of care reviewed with Pearl Dominguez RN.
[2019-04-03] MEDS: lithium carbonate 150mg capsule PO SCH (20:35)
[2019-04-03] MEDS: polyethylene glycol 3350 17gm powd pack PO SCH (20:35)
[2019-04-03] MEDS: OLANZAPINE 5 MG TABLET PO SCH (20:35)
[2019-04-03 22:00] VITALS: BP 104/57
[2019-04-04] MEDS: LORazepam 1 MG tablet PO SCH ×3 (04:59→19:18)
[2019-04-04] MEDS: morphine 10mg/0.5ml (conc. morphine) oral syringe PO PRN ×3 (05:00→16:49)
--- NOTE | 2019-04-04 06:16 | NUR ---
Report given to Pavithra ERAZO.
--- NOTE | 2019-04-04 06:36 | NUR ---
Patient in room ORTHO 4018. I have received report from Pearl Archer RN and had the opportunity to ask questions and assume patient care.
[2019-04-04] MEDS: lactose-reduced food (Ensure Enlive) - 237ml bottle PO SCH ×3 (08:00→18:44)
[2019-04-04 09:52] VITALS: BP 109/80
[2019-04-04] MEDS: pantoprazole 40mg Tablet.DR PO SCH (11:27)
[2019-04-04] MEDS: levetiracetam 250mg tablet PO SCH ×2 (11:27→19:18)
[2019-04-04] MEDS: docusate sod 100mg capsule PO SCH ×2 (11:28→19:18)
--- NOTE | 2019-04-04 18:06 | NUR ---
PAGER ID: [phone] MESSAGE: RE: [id number] CLAUD. JACINTO Called Rapid Response; patient in respiratory distress. Albert [id number] Addendum: 04/04/19 at 1807 by Pavithra Mckeon RN WRONG PATIENT
--- NOTE | 2019-04-04 18:21 | NUR ---
Problems reprioritized. Patient report given, questions answered & plan of care reviewed with Pearl Archer RN.
[2019-04-04] MEDS: OLANZAPINE 5 MG TABLET PO SCH (19:19)
[2019-04-04] MEDS: polyethylene glycol 3350 17gm powd pack PO SCH (19:19)
[2019-04-04] MEDS: lithium carbonate 150mg capsule PO SCH (19:19)
[2019-04-05] MEDS: LORazepam 1 MG tablet PO SCH ×3 (04:00→19:51)
--- NOTE | 2019-04-05 06:13 | NUR ---
Problems reprioritized. Patient report given, questions answered & plan of care reviewed with CASTRO Sylvester.
--- NOTE | 2019-04-05 06:35 | NUR ---
Patient in room ORTHO 4018. I have received report from CASTRO Kang and had the opportunity to ask questions and assume patient care. Pt sleeping. Will continue to monitor.
[2019-04-05] MEDS: pantoprazole 40mg Tablet.DR PO SCH (07:41)
[2019-04-05] MEDS: levetiracetam 250mg tablet PO SCH ×2 (07:42→19:51)
[2019-04-05] MEDS: docusate sod 100mg capsule PO SCH ×2 (07:42→19:51)
[2019-04-05] MEDS: lactose-reduced food (Ensure Enlive) - 237ml bottle PO SCH ×3 (08:32→18:00)
[2019-04-05 10:00] VITALS: BP 124/62
[2019-04-05] MEDS: methylnaltrexone br 12mg/0.6ml inj***SubQ only SQ SCH (12:08)
[2019-04-05] MEDS: morphine 10mg/0.5ml (conc. morphine) oral syringe PO PRN (12:08)
--- NOTE | 2019-04-05 14:39 | NUR ---
WOC spoke with pt's primary RN regarding pt's comfort needs at this time as far as wound care team is concerned. Primary RN reports no new issues at this time and no new dressings or supplies requested. Will continue to follow.
--- NOTE | 2019-04-05 18:21 | NUR ---
Problems reprioritized. Patient report given, questions answered & plan of care reviewed with CASTRO Kang.
[2019-04-05] MEDS: lithium carbonate 150mg capsule PO SCH (19:53)
[2019-04-05] MEDS: OLANZAPINE 5 MG TABLET PO SCH (19:53)
[2019-04-05] MEDS: polyethylene glycol 3350 17gm powd pack PO SCH (19:53)
--- NOTE | 2019-04-06 01:29 | NUR ---
reviewed and agree with SRN assessment.
[2019-04-06] MEDS: LORazepam 1 MG tablet PO SCH ×3 (03:49→20:22)
--- NOTE | 2019-04-06 06:10 | NUR ---
Patient in room ORTHO 4018. I have received report from Pearl Cotton and had the opportunity to ask questions and assume patient care.
--- NOTE | 2019-04-06 06:13 | NUR ---
Problems reprioritized. Patient report given, questions answered & plan of care reviewed with CASTRO Charles.
[2019-04-06] MEDS: levetiracetam 250mg tablet PO SCH ×2 (08:15→20:22)
[2019-04-06] MEDS: docusate sod 100mg capsule PO SCH ×2 (08:15→20:22)
[2019-04-06] MEDS: pantoprazole 40mg Tablet.DR PO SCH (08:15)
[2019-04-06] MEDS: lactose-reduced food (Ensure Enlive) - 237ml bottle PO SCH ×3 (08:15→18:13)
[2019-04-06 10:00] VITALS: BP 99/73
[2019-04-06] MEDS: morphine 10mg/0.5ml (conc. morphine) oral syringe PO PRN ×2 (14:51→20:23)
--- NOTE | 2019-04-06 18:00 | NUR ---
Received report from Araceli ERAZO. assumed care of patient.
--- NOTE | 2019-04-06 18:29 | NUR ---
Problems reprioritized. Patient report given, questions answered & plan of care reviewed with Sharmila.
[2019-04-06] MEDS: lithium carbonate 150mg capsule PO SCH (20:22)
[2019-04-06] MEDS: polyethylene glycol 3350 17gm powd pack PO SCH (20:22)
[2019-04-06] MEDS: OLANZAPINE 5 MG TABLET PO SCH (20:22)
[2019-04-07] MEDS: morphine 10mg/0.5ml (conc. morphine) oral syringe PO PRN ×5 (00:59→20:08)
[2019-04-07] MEDS: LORazepam 1 MG tablet PO SCH ×3 (04:02→20:07)
--- NOTE | 2019-04-07 06:10 | NUR ---
Gave report to Saba ERAZO.
[2019-04-07] MEDS: levetiracetam 250mg tablet PO SCH ×2 (07:28→20:07)
[2019-04-07] MEDS: pantoprazole 40mg Tablet.DR PO SCH (07:29)
[2019-04-07] MEDS: docusate sod 100mg capsule PO SCH ×2 (07:29→20:07)
[2019-04-07] MEDS: lactose-reduced food (Ensure Enlive) - 237ml bottle PO SCH ×3 (07:48→17:38)
[2019-04-07 10:15] VITALS: BP 119/70
[2019-04-07] MEDS: methylnaltrexone br 12mg/0.6ml inj***SubQ only SQ SCH (13:00)
--- NOTE | 2019-04-07 14:51 | NUR ---
reassessment: Pt remains DNR w/ comfort care. LBM 04/06. Will continue to follow per protocol. Recommendations: 1) routine bowel care 2) relistor per MD to start 03/27 for constipation on morphine 3) Ensure Enlive TID; chopped meat with gravy on the side; smoothie QD at breakfast, ice cream QD with lunch, and a milkshake QD with dinner; no milk to drink Addendum: 04/07/19 at [address] Amended: Links added.
--- NOTE | 2019-04-07 18:10 | NUR ---
Received report from CASTRO Walter. Assumed patient care.
[2019-04-07] MEDS: OLANZAPINE 5 MG TABLET PO SCH (20:07)
[2019-04-07] MEDS: lithium carbonate 150mg capsule PO SCH (20:08)
[2019-04-07] MEDS: polyethylene glycol 3350 17gm powd pack PO SCH (20:08)
[2019-04-08] MEDS: LORazepam 1 MG tablet PO SCH ×3 (04:24→20:08)
--- NOTE | 2019-04-08 06:14 | NUR ---
Report given, questions answered and plan of care reviewed with CASTRO Walter.
[2019-04-08] MEDS: levetiracetam 250mg tablet PO SCH ×2 (07:31→20:08)
[2019-04-08] MEDS: pantoprazole 40mg Tablet.DR PO SCH (07:31)
[2019-04-08] MEDS: morphine 10mg/0.5ml (conc. morphine) oral syringe PO PRN ×4 (07:31→20:09)
[2019-04-08] MEDS: docusate sod 100mg capsule PO SCH ×2 (07:31→20:08)
[2019-04-08] MEDS: lactose-reduced food (Ensure Enlive) - 237ml bottle PO SCH ×3 (08:13→17:28)
[2019-04-08] MEDS: lithium carbonate 150mg capsule PO SCH (20:09)
[2019-04-08] MEDS: polyethylene glycol 3350 17gm powd pack PO SCH (20:09)
[2019-04-08] MEDS: OLANZAPINE 5 MG TABLET PO SCH (20:09)
[2019-04-09] MEDS: morphine 10mg/0.5ml (conc. morphine) oral syringe PO PRN ×5 (00:39→20:49)
[2019-04-09] MEDS: LORazepam 1 MG tablet PO SCH ×3 (05:09→20:48)
--- NOTE | 2019-04-09 06:17 | NUR ---
REPORT GIVEN TO CASTRO BOLTON.
[2019-04-09] MEDS: docusate sod 100mg capsule PO SCH ×2 (07:36→20:48)
[2019-04-09] MEDS: pantoprazole 40mg Tablet.DR PO SCH (07:36)
[2019-04-09] MEDS: levetiracetam 250mg tablet PO SCH ×2 (07:36→20:48)
[2019-04-09] MEDS: lactose-reduced food (Ensure Enlive) - 237ml bottle PO SCH ×3 (08:13→17:48)
[2019-04-09 10:00] VITALS: BP 106/77
[2019-04-09] MEDS: methylnaltrexone br 12mg/0.6ml inj***SubQ only SQ SCH (12:45)
[2019-04-09] MEDS: lithium carbonate 150mg capsule PO SCH (20:48)
[2019-04-09] MEDS: polyethylene glycol 3350 17gm powd pack PO SCH (20:48)
[2019-04-09] MEDS: OLANZAPINE 5 MG TABLET PO SCH (20:48)
[2019-04-09 22:00] VITALS: BP 118/74
[2019-04-10] MEDS: LORazepam 1 MG tablet PO SCH ×3 (04:15→20:09)
[2019-04-10] MEDS: morphine 10mg/0.5ml (conc. morphine) oral syringe PO PRN ×3 (04:16→20:10)
--- NOTE | 2019-04-10 06:30 | NUR ---
Patient in room ORTHO 4018. I have received report from Pearl Uribe and had the opportunity to ask questions and assume patient care.
--- NOTE | 2019-04-10 06:30 | NUR ---
Report given to Araceli ERAZO.
[2019-04-10] MEDS: levetiracetam 250mg tablet PO SCH ×2 (08:06→20:10)
[2019-04-10] MEDS: pantoprazole 40mg Tablet.DR PO SCH (08:06)
[2019-04-10] MEDS: docusate sod 100mg capsule PO SCH ×2 (08:06→20:09)
[2019-04-10 10:00] VITALS: BP 101/74
[2019-04-10] MEDS: methylnaltrexone br 12mg/0.6ml inj***SubQ only SQ SCH (12:37)
[2019-04-10] MEDS: lactose-reduced food (Ensure Enlive) - 237ml bottle PO SCH ×2 (13:57→18:00)
--- NOTE | 2019-04-10 18:17 | NUR ---
Problems reprioritized. Patient report given, questions answered & plan of care reviewed with Pearl Uribe
[2019-04-10] MEDS: polyethylene glycol 3350 17gm powd pack PO SCH (20:09)
[2019-04-10] MEDS: lithium carbonate 150mg capsule PO SCH (20:10)
[2019-04-10] MEDS: OLANZAPINE 5 MG TABLET PO SCH (20:10)
[2019-04-11] MEDS: LORazepam 1 MG tablet PO SCH ×3 (04:05→20:02)
[2019-04-11] MEDS: morphine 10mg/0.5ml (conc. morphine) oral syringe PO PRN ×5 (04:05→21:41)
--- NOTE | 2019-04-11 06:23 | NUR ---
Report given to Pavithra.
--- NOTE | 2019-04-11 06:30 | NUR ---
Patient in room ORTHO 4018. I have received report from Pearl ERAZO and had the opportunity to ask questions and assume patient care.
--- NOTE | 2019-04-11 06:40 | NUR ---
Patient in room ORTHO 4018. I have received report from Pearl ERAZO and had the opportunity to ask questions and assume patient care.
[2019-04-11] MEDS: pantoprazole 40mg Tablet.DR PO SCH (08:18)
[2019-04-11] MEDS: levetiracetam 250mg tablet PO SCH ×2 (08:18→20:03)
[2019-04-11] MEDS: docusate sod 100mg capsule PO SCH ×2 (08:19→20:03)
[2019-04-11] MEDS: lactose-reduced food (Ensure Enlive) - 237ml bottle PO SCH ×3 (08:21→18:00)
--- NOTE | 2019-04-11 10:41 | NUR ---
Student documentation: I have reviewed all interventions, assessments performed and documented by Jyoti Motley. Student Medication Administration: For this medication-pass time frame, all medication were reviewed, dispensed, administered and documented per hospital policy by Jyoti [facility].
[2019-04-11] MEDS: methylnaltrexone br 12mg/0.6ml inj***SubQ only SQ SCH (13:00)
--- NOTE | 2019-04-11 14:34 | NUR ---
WOC attempted to see pt's primary RN regarding pt's WOC needs at this time. Primary RN not available on the floor. Asked the patient care technicians on the floor about the pt's skin integrity at this time and they note no areas of skin breakdown upon bowel care and turns, just reddened left shoulder which pt favors to lay on. Due to state of comfort care and pt's preference to lay on that side, offloading is still highest recommended intervention.
[2019-04-11] MEDS: polyethylene glycol 3350 17gm powd pack PO SCH (20:03)
[2019-04-11] MEDS: lithium carbonate 150mg capsule PO SCH (20:03)
[2019-04-11] MEDS: OLANZAPINE 5 MG TABLET PO SCH (20:03)
[2019-04-12] MEDS: LORazepam 1 MG tablet PO SCH ×3 (04:00→20:17)
--- NOTE | 2019-04-12 06:15 | NUR ---
Problems reprioritized. Patient report given, questions answered & plan of care reviewed with CASTRO Arshad.
[2019-04-12] MEDS: docusate sod 100mg capsule PO SCH ×2 (08:00→20:00)
[2019-04-12] MEDS: lactose-reduced food (Ensure Enlive) - 237ml bottle PO SCH ×3 (08:00→18:00)
[2019-04-12 09:48] VITALS: BP 93/64
[2019-04-12] MEDS: levetiracetam 250mg tablet PO SCH ×2 (11:16→20:17)
[2019-04-12] MEDS: morphine 10mg/0.5ml (conc. morphine) oral syringe PO PRN ×3 (11:16→22:41)
[2019-04-12] MEDS: pantoprazole 40mg Tablet.DR PO SCH (11:16)
--- NOTE | 2019-04-12 18:24 | NUR ---
Problems reprioritized. Patient report given, questions answered & plan of care reviewed with Pearl Archer RN.
[2019-04-12] MEDS: OLANZAPINE 5 MG TABLET PO SCH (20:17)
[2019-04-12] MEDS: polyethylene glycol 3350 17gm powd pack PO SCH (20:17)
[2019-04-12] MEDS: lithium carbonate 150mg capsule PO SCH (20:17)
--- NOTE | 2019-04-13 02:44 | NUR ---
reviewed and agree with SRN assessment
[2019-04-13] MEDS: LORazepam 1 MG tablet PO SCH ×3 (04:14→20:27)
--- NOTE | 2019-04-13 06:25 | NUR ---
Problems reprioritized. Patient report given, questions answered & plan of care reviewed with CASTRO Pardo .
[2019-04-13] MEDS: pantoprazole 40mg Tablet.DR PO SCH (07:30)
[2019-04-13] MEDS: lactose-reduced food (Ensure Enlive) - 237ml bottle PO SCH ×3 (08:00→18:00)
[2019-04-13] MEDS: docusate sod 100mg capsule PO SCH ×2 (08:00→20:00)
[2019-04-13] MEDS: morphine 10mg/0.5ml (conc. morphine) oral syringe PO PRN ×3 (10:57→20:28)
[2019-04-13] MEDS: levetiracetam 250mg tablet PO SCH ×2 (11:02→20:27)
[2019-04-13] MEDS: methylnaltrexone br 12mg/0.6ml inj***SubQ only SQ SCH (13:00)
[2019-04-13 17:30] VITALS: BP 106/71
--- NOTE | 2019-04-13 18:19 | NUR ---
Patient report given, questions answered & plan of care reviewed with Jay ERAZO.
[2019-04-13] MEDS: OLANZAPINE 5 MG TABLET PO SCH (20:27)
[2019-04-13] MEDS: lithium carbonate 150mg capsule PO SCH (20:27)
[2019-04-13] MEDS: polyethylene glycol 3350 17gm powd pack PO SCH (20:27)
[2019-04-14] MEDS: morphine 10mg/0.5ml (conc. morphine) oral syringe PO PRN ×4 (03:18→17:45)
[2019-04-14] MEDS: LORazepam 1 MG tablet PO SCH ×3 (03:18→19:48)
--- NOTE | 2019-04-14 06:10 | NUR ---
reported to days. noted pt resting w/o distress
--- NOTE | 2019-04-14 06:30 | NUR ---
received report from myrna rothman
[2019-04-14] MEDS: pantoprazole 40mg Tablet.DR PO SCH (07:13)
[2019-04-14] MEDS: levetiracetam 250mg tablet PO SCH ×2 (07:14→19:48)
[2019-04-14] MEDS: docusate sod 100mg capsule PO SCH ×2 (07:14→20:00)
[2019-04-14] MEDS: lactose-reduced food (Ensure Enlive) - 237ml bottle PO SCH ×3 (08:03→18:05)
[2019-04-14 10:00] VITALS: BP 105/71
--- NOTE | 2019-04-14 11:21 | NUR ---
Reassessment: Pt not eating much of meals, overall 0-25% with max assist, however with 100% of Ensure Enlive TID providing a daily total of 1050 kcal and 60 g protein/day from ONS meeting about 49% EEN and 88% EPN from ONS PO intake alone. No further nutrition intervention implemented at this time as pt remains DNR with comfort care. LBM 04/13. Will continue to follow per LOS protocol. Recommendations: 1) routine bowel care 2) relistor per MD for constipation on morphine 3) Ensure Enlive TID; chopped meat with gravy on the side; smoothie QD at breakfast, ice cream QD with lunch, and a milkshake QD with dinner; no milk to drink Addendum: 04/14/19 at [address] Amended: Links added.
--- NOTE | 2019-04-14 12:47 | NUR ---
scanner on computer not scanning, checked ativan prior to admin, continue to monitor
--- NOTE | 2019-04-14 18:21 | NUR ---
gave report to september,
[2019-04-14] MEDS: OLANZAPINE 5 MG TABLET PO SCH (19:47)
[2019-04-14] MEDS: lithium carbonate 150mg capsule PO SCH (19:48)
[2019-04-14] MEDS: polyethylene glycol 3350 17gm powd pack PO SCH (21:00)
[2019-04-15] MEDS: LORazepam 1 MG tablet PO SCH ×3 (03:27→20:05)
--- NOTE | 2019-04-15 06:15 | NUR ---
received report from yanet, rn
[2019-04-15] MEDS: pantoprazole 40mg Tablet.DR PO SCH (07:30)
[2019-04-15] MEDS: docusate sod 100mg capsule PO SCH ×2 (08:00→20:05)
[2019-04-15] MEDS: levetiracetam 250mg tablet PO SCH ×2 (08:00→20:05)
[2019-04-15] MEDS: lactose-reduced food (Ensure Enlive) - 237ml bottle PO SCH ×3 (08:30→18:00)
[2019-04-15 10:16] VITALS: BP 122/75
[2019-04-15] MEDS: morphine 10mg/0.5ml (conc. morphine) oral syringe PO PRN ×2 (10:39→16:31)
[2019-04-15] MEDS: methylnaltrexone br 12mg/0.6ml inj***SubQ only SQ SCH (12:45)
--- NOTE | 2019-04-15 18:05 | NUR ---
Received report from CASTRO Haddad. Assumed patient care.
--- NOTE | 2019-04-15 18:07 | NUR ---
gave report to myrna cedeno
[2019-04-15] MEDS: lithium carbonate 150mg capsule PO SCH (20:04)
[2019-04-15] MEDS: OLANZAPINE 5 MG TABLET PO SCH (20:05)
[2019-04-15] MEDS: polyethylene glycol 3350 17gm powd pack PO SCH (20:11)
[2019-04-15 22:00] VITALS: BP 116/65
[2019-04-16] MEDS: LORazepam 1 MG tablet PO SCH ×3 (04:34→19:19)
--- NOTE | 2019-04-16 06:02 | NUR ---
Pt report given, questions answered and plan of care reviewed with CASTRO Page.
[2019-04-16] MEDS: lactose-reduced food (Ensure Enlive) - 237ml bottle PO SCH ×3 (08:00→19:12)
[2019-04-16 10:00] VITALS: BP 129/84
[2019-04-16] MEDS: docusate sod 100mg capsule PO SCH ×2 (10:50→19:19)
[2019-04-16] MEDS: pantoprazole 40mg Tablet.DR PO SCH (10:50)
[2019-04-16] MEDS: morphine 10mg/0.5ml (conc. morphine) oral syringe PO PRN ×3 (10:51→19:20)
[2019-04-16] MEDS: levetiracetam 250mg tablet PO SCH ×2 (10:51→19:19)
--- NOTE | 2019-04-16 18:47 | NUR ---
Problems reprioritized. Patient report given, questions answered & plan of care reviewed with CASTRO Bauman.
--- NOTE | 2019-04-16 18:48 | NUR ---
Patient in room ORTHO 4018. I have received report from JESI ERAZO and had the opportunity to ask questions and assume patient care.
[2019-04-16] MEDS: lithium carbonate 150mg capsule PO SCH (20:23)
[2019-04-16] MEDS: OLANZAPINE 5 MG TABLET PO SCH (20:23)
[2019-04-16] MEDS: polyethylene glycol 3350 17gm powd pack PO SCH (20:25)
[2019-04-17] MEDS: LORazepam 1 MG tablet PO SCH ×3 (05:25→21:15)
[2019-04-17] MEDS: morphine 10mg/0.5ml (conc. morphine) oral syringe PO PRN ×4 (05:26→17:02)
--- NOTE | 2019-04-17 06:19 | NUR ---
Problems reprioritized. Patient report given, questions answered & plan of care reviewed with JOSE ELIAS ERAZO.
--- NOTE | 2019-04-17 06:30 | NUR ---
Patient in room ORTHO 4018. I have received report from Mitul ERAZO and had the opportunity to ask questions and assume patient care.
[2019-04-17] MEDS: pantoprazole 40mg Tablet.DR PO SCH (07:37)
[2019-04-17] MEDS: levetiracetam 250mg tablet PO SCH ×2 (07:38→21:15)
[2019-04-17] MEDS: docusate sod 100mg capsule PO SCH ×2 (07:38→20:00)
[2019-04-17] MEDS: lactose-reduced food (Ensure Enlive) - 237ml bottle PO SCH ×3 (08:00→18:00)
[2019-04-17 10:00] VITALS: BP 132/84
[2019-04-17] MEDS: methylnaltrexone br 12mg/0.6ml inj***SubQ only SQ SCH (14:06)
--- NOTE | 2019-04-17 18:27 | NUR ---
Problems reprioritized. Patient report given, questions answered & plan of care reviewed with Qiana ERAZO.
--- NOTE | 2019-04-17 18:45 | NUR ---
Patient in room ORTHO 4018. I have received report from CASTRO Joya and had the opportunity to ask questions and assume patient care.
[2019-04-17] MEDS: polyethylene glycol 3350 17gm powd pack PO SCH (21:00)
[2019-04-17] MEDS: OLANZAPINE 5 MG TABLET PO SCH (21:15)
[2019-04-17] MEDS: lithium carbonate 150mg capsule PO SCH (21:15)
[2019-04-17 22:00] VITALS: BP 109/71
[2019-04-18] MEDS: morphine 10mg/0.5ml (conc. morphine) oral syringe PO PRN (03:23)
[2019-04-18] MEDS: LORazepam 1 MG tablet PO SCH ×4 (03:23→19:24)
--- NOTE | 2019-04-18 06:37 | NUR ---
Problems reprioritized. Patient report given, questions answered & plan of care reviewed with CASTRO Tyson.
--- NOTE | 2019-04-18 06:51 | NUR ---
Patient in room ORTHO 4018. I have received report from Qiana ERAZO and had the opportunity to ask questions and assume patient care. All patient's needs met at this time.
[2019-04-18] MEDS: lactose-reduced food (Ensure Enlive) - 237ml bottle PO SCH ×3 (08:00→14:00)
[2019-04-18] MEDS: docusate sod 100mg capsule PO SCH ×2 (09:13→19:24)
[2019-04-18] MEDS: pantoprazole 40mg Tablet.DR PO SCH (09:13)
[2019-04-18] MEDS: levetiracetam 250mg tablet PO SCH ×2 (09:14→19:24)
--- NOTE | 2019-04-18 18:23 | NUR ---
Problems reprioritized. Patient report given, questions answered & plan of care reviewed with Prudence RN. All patient's needs met at this time.
--- NOTE | 2019-04-18 18:32 | NUR ---
Patient in room ORTHO 4018. I have received report from Marbella ERAZO and had the opportunity to ask questions and assume patient care. Patient is agitated at the moment and staff member is in the room help feed him.
[2019-04-18] MEDS: polyethylene glycol 3350 17gm powd pack PO SCH (20:56)
[2019-04-18] MEDS: OLANZAPINE 5 MG TABLET PO SCH (20:56)
[2019-04-18] MEDS: lithium carbonate 150mg capsule PO SCH (20:57)
[2019-04-19] MEDS: LORazepam 1 MG tablet PO SCH ×3 (03:45→19:57)
--- NOTE | 2019-04-19 06:20 | NUR ---
Problems reprioritized. Patient report given, questions answered & plan of care reviewed with Adonis ERAZO.Patient rested well last night and showed no sign of distress.
--- NOTE | 2019-04-19 06:24 | NUR ---
Patient in room ORTHO 4018. I have received report from Anayeli ERAZO and had the opportunity to ask questions and assume patient care.
[2019-04-19] MEDS: docusate sod 100mg capsule PO SCH ×2 (07:54→19:57)
[2019-04-19] MEDS: pantoprazole 40mg Tablet.DR PO SCH (07:54)
[2019-04-19] MEDS: levetiracetam 250mg tablet PO SCH ×2 (07:54→19:57)
[2019-04-19] MEDS: lactose-reduced food (Ensure Enlive) - 237ml bottle PO SCH ×3 (08:00→18:00)
[2019-04-19 10:00] VITALS: BP 116/81
[2019-04-19] MEDS: methylnaltrexone br 12mg/0.6ml inj***SubQ only SQ SCH (13:00)
--- NOTE | 2019-04-19 18:10 | NUR ---
Problems reprioritized. Patient report given, questions answered & plan of care reviewed with Rukhsana ERAZO.
--- NOTE | 2019-04-19 18:13 | NUR ---
Patient in room ORTHO 4018. I have received report from Adonis ERAZO and had the opportunity to ask questions and assume patient care.
[2019-04-19] MEDS: polyethylene glycol 3350 17gm powd pack PO SCH (20:01)
[2019-04-19] MEDS: OLANZAPINE 5 MG TABLET PO SCH (20:01)
[2019-04-19] MEDS: lithium carbonate 150mg capsule PO SCH (20:01)
[2019-04-20] MEDS: LORazepam 1 MG tablet PO SCH ×3 (03:56→20:00)
--- NOTE | 2019-04-20 06:35 | NUR ---
Problems reprioritized. Patient report given, questions answered & plan of care reviewed with Adonis ERAZO.
--- NOTE | 2019-04-20 06:35 | NUR ---
Patient in room ORTHO 4015. I have received report from Rukhsana ERAZO and had the opportunity to ask questions and assume patient care.
[2019-04-20] MEDS: pantoprazole 40mg Tablet.DR PO SCH (07:30)
[2019-04-20] MEDS: docusate sod 100mg capsule PO SCH ×2 (08:00→20:00)
[2019-04-20] MEDS: levetiracetam 250mg tablet PO SCH ×2 (08:00→20:00)
[2019-04-20] MEDS: lactose-reduced food (Ensure Enlive) - 237ml bottle PO SCH ×3 (08:00→18:00)
[2019-04-20 10:00] VITALS: BP 131/80
[2019-04-20] MEDS: methylnaltrexone br 12mg/0.6ml inj***SubQ only SQ SCH (12:22)
--- NOTE | 2019-04-20 18:12 | NUR ---
Problems reprioritized. Patient report given, questions answered & plan of care reviewed with Rukhsana ERAZO.
--- NOTE | 2019-04-20 18:25 | NUR ---
Patient in room ORTHO 4018. I have received report from Adonis ERAZO and had the opportunity to ask questions and assume patient care.
[2019-04-20] MEDS: OLANZAPINE 5 MG TABLET PO SCH (20:00)
[2019-04-20] MEDS: polyethylene glycol 3350 17gm powd pack PO SCH (20:00)
[2019-04-20] MEDS: lithium carbonate 150mg capsule PO SCH (20:00)
[2019-04-21] MEDS: LORazepam 1 MG tablet PO SCH ×3 (04:00→20:05)
--- NOTE | 2019-04-21 06:06 | NUR ---
Problems reprioritized. Patient report given, questions answered & plan of care reviewed with Catie ERAZO.
--- NOTE | 2019-04-21 06:12 | NUR ---
received report from myrna doe
[2019-04-21] MEDS: morphine 10mg/0.5ml (conc. morphine) oral syringe PO PRN ×3 (06:51→14:56)
[2019-04-21] MEDS: pantoprazole 40mg Tablet.DR PO SCH (07:30)
[2019-04-21] MEDS: lactose-reduced food (Ensure Enlive) - 237ml bottle PO SCH ×3 (07:39→18:00)
[2019-04-21] MEDS: levetiracetam 250mg tablet PO SCH ×2 (07:39→20:06)
[2019-04-21] MEDS: docusate sod 100mg capsule PO SCH ×2 (07:39→20:00)
[2019-04-21 10:00] VITALS: BP 100/69
--- NOTE | 2019-04-21 10:59 | NUR ---
reassessment: Pt remains DNR w/ comfort care. LBM 04/19. Will continue to follow per protocol. Recommendations: 1) Routine bowel care 2) Relistor per MD for constipation on morphine 3) Ensure Enlive TID; chopped meat with gravy on the side; smoothie QD at breakfast, ice cream QD with lunch, and a milkshake QD with dinner; no milk to drink Addendum: 04/21/19 at [address] Amended: Links added.
[2019-04-21] MEDS: methylnaltrexone br 12mg/0.6ml inj***SubQ only SQ SCH (12:16)
--- NOTE | 2019-04-21 18:16 | NUR ---
GAVE REPORT TO September,
[2019-04-21] MEDS: OLANZAPINE 5 MG TABLET PO SCH (20:05)
[2019-04-21] MEDS: lithium carbonate 150mg capsule PO SCH (20:06)
[2019-04-21] MEDS: polyethylene glycol 3350 17gm powd pack PO SCH (21:00)
[2019-04-21 22:00] VITALS: BP 104/69
--- NOTE | 2019-04-22 06:00 | NUR ---
Patient in room ORTHO 4018. I have received report from Magda RN and had the opportunity to ask questions and assume patient care.
[2019-04-22] MEDS: docusate sod 100mg capsule PO SCH ×2 (07:18→20:00)
[2019-04-22] MEDS: levetiracetam 250mg tablet PO SCH ×2 (07:19→19:56)
[2019-04-22] MEDS: LORazepam 1 MG tablet PO SCH ×3 (07:19→19:56)
[2019-04-22] MEDS: pantoprazole 40mg Tablet.DR PO SCH (07:19)
[2019-04-22] MEDS: lactose-reduced food (Ensure Enlive) - 237ml bottle PO SCH ×3 (08:00→18:25)
[2019-04-22 11:00] VITALS: BP 129/83
[2019-04-22] MEDS: morphine 10mg/0.5ml (conc. morphine) oral syringe PO PRN (17:47)
--- NOTE | 2019-04-22 18:28 | NUR ---
Problems reprioritized. Patient report given, questions answered & plan of care reviewed with Magda ERAZO.
[2019-04-22] MEDS: OLANZAPINE 5 MG TABLET PO SCH (19:56)
[2019-04-22] MEDS: lithium carbonate 150mg capsule PO SCH (19:56)
[2019-04-22] MEDS: polyethylene glycol 3350 17gm powd pack PO SCH (21:00)
[2019-04-23] MEDS: morphine 10mg/0.5ml (conc. morphine) oral syringe PO PRN ×3 (00:22→20:39)
--- NOTE | 2019-04-23 06:32 | NUR ---
Patient in room ORTHO 4018. I have received report from CASTRO GALICIA and had the opportunity to ask questions and assume patient care.
[2019-04-23] MEDS: lactose-reduced food (Ensure Enlive) - 237ml bottle PO SCH ×3 (08:00→18:00)
[2019-04-23 10:00] VITALS: BP 111/64
[2019-04-23] MEDS: pantoprazole 40mg Tablet.DR PO SCH (10:19)
[2019-04-23] MEDS: docusate sod 100mg capsule PO SCH ×2 (10:19→20:35)
[2019-04-23] MEDS: levetiracetam 250mg tablet PO SCH ×2 (10:20→20:36)
[2019-04-23] MEDS: LORazepam 1 MG tablet PO SCH ×2 (12:22→20:35)
[2019-04-23] MEDS: methylnaltrexone br 12mg/0.6ml inj***SubQ only SQ SCH (13:00)
--- NOTE | 2019-04-23 18:17 | NUR ---
Problems reprioritized. Patient report given, questions answered & plan of care reviewed with CASTRO GASCA.
--- NOTE | 2019-04-23 18:26 | NUR ---
RECEIVED REPORT FROM BELGICA ERAZO AND ASSUMED PATIENT CARE
[2019-04-23] MEDS: polyethylene glycol 3350 17gm powd pack PO SCH (20:28)
[2019-04-23] MEDS: OLANZAPINE 5 MG TABLET PO SCH (20:36)
[2019-04-23] MEDS: lithium carbonate 150mg capsule PO SCH (20:36)
[2019-04-24] MEDS: LORazepam 1 MG tablet PO SCH ×3 (04:08→20:23)
--- NOTE | 2019-04-24 06:10 | NUR ---
REPORT GIVEN TO JOSE ELIAS ERAZO
--- NOTE | 2019-04-24 06:28 | NUR ---
Patient in room ORTHO 4018. I have received report from Joanne ERAZO and had the opportunity to ask questions and assume patient care.
[2019-04-24] MEDS: lactose-reduced food (Ensure Enlive) - 237ml bottle PO SCH ×3 (08:00→18:00)
[2019-04-24] MEDS: levetiracetam 250mg tablet PO SCH ×2 (09:08→20:23)
[2019-04-24] MEDS: docusate sod 100mg capsule PO SCH ×2 (09:08→09:14)
[2019-04-24] MEDS: pantoprazole 40mg Tablet.DR PO SCH (09:08)
[2019-04-24] MEDS: morphine 10mg/0.5ml (conc. morphine) oral syringe PO PRN ×3 (09:09→20:23)
[2019-04-24 10:00] VITALS: BP 118/83
--- NOTE | 2019-04-24 18:25 | NUR ---
Patient report given to Binta ERAZO
--- NOTE | 2019-04-24 18:30 | NUR ---
Patient in room ORTHO 4018. I have received report from Mahnaz ERAZO and had the opportunity to ask questions and assume patient care.
[2019-04-24] MEDS: lithium carbonate 150mg capsule PO SCH (20:23)
[2019-04-24] MEDS: OLANZAPINE 5 MG TABLET PO SCH (20:23)
[2019-04-24] MEDS: polyethylene glycol 3350 17gm powd pack PO SCH (20:24)
[2019-04-25] MEDS: LORazepam 1 MG tablet PO SCH ×3 (04:17→20:05)
--- NOTE | 2019-04-25 06:11 | NUR ---
Problems reprioritized. Patient report given, questions answered & plan of care reviewed with Char ERAZO.
[2019-04-25] MEDS: lactose-reduced food (Ensure Enlive) - 237ml bottle PO SCH ×3 (08:00→17:57)
[2019-04-25] MEDS: pantoprazole 40mg Tablet.DR PO SCH (09:44)
[2019-04-25] MEDS: levetiracetam 250mg tablet PO SCH ×2 (09:44→20:05)
[2019-04-25] MEDS: docusate sod 100mg capsule PO SCH ×2 (09:44→20:05)
[2019-04-25 10:00] VITALS: BP 100/63
[2019-04-25] MEDS: methylnaltrexone br 12mg/0.6ml inj***SubQ only SQ SCH (13:00)
--- NOTE | 2019-04-25 15:51 | NUR ---
Patient in room ORTHO 4018. I have received report from GIBSON ERAZO and had the opportunity to ask questions and assume patient care.
[2019-04-25] MEDS: morphine 10mg/0.5ml (conc. morphine) oral syringe PO PRN ×2 (16:07→20:06)
--- NOTE | 2019-04-25 18:20 | NUR ---
Received report from Albert ERAZO. assumed care of patient.
--- NOTE | 2019-04-25 18:25 | NUR ---
Problems reprioritized. Patient report given, questions answered & plan of care reviewed with Sharmila RN.
[2019-04-25] MEDS: OLANZAPINE 5 MG TABLET PO SCH (20:05)
[2019-04-25] MEDS: polyethylene glycol 3350 17gm powd pack PO SCH (20:05)
[2019-04-25] MEDS: lithium carbonate 150mg capsule PO SCH (20:05)
[2019-04-26] MEDS: LORazepam 1 MG tablet PO SCH ×4 (03:37→21:08)
[2019-04-26] MEDS: morphine 10mg/0.5ml (conc. morphine) oral syringe PO PRN ×5 (03:37→22:46)
--- NOTE | 2019-04-26 06:10 | NUR ---
Gave report to Char ERAZO.
[2019-04-26] MEDS: lactose-reduced food (Ensure Enlive) - 237ml bottle PO SCH ×3 (08:00→18:37)
[2019-04-26] MEDS: docusate sod 100mg capsule PO SCH ×2 (08:00→20:00)
[2019-04-26] MEDS: levetiracetam 250mg tablet PO SCH ×2 (08:00→20:00)
[2019-04-26] MEDS: pantoprazole 40mg Tablet.DR PO SCH (09:08)
[2019-04-26 10:00] VITALS: BP 100/63
--- NOTE | 2019-04-26 11:11 | NUR ---
Refused meal. Drank entire Ensure shake. Addendum: 04/26/19 at 1113 by Vidhya DUNCAN Amended: Links added.
[2019-04-26] MEDS: OLANZAPINE 5 MG TABLET PO SCH (21:08)
[2019-04-26] MEDS: polyethylene glycol 3350 17gm powd pack PO SCH (21:08)
[2019-04-26] MEDS: lithium carbonate 150mg capsule PO SCH (21:08)
[2019-04-27] MEDS: LORazepam 1 MG tablet PO SCH ×3 (04:18→20:40)
[2019-04-27] MEDS: morphine 10mg/0.5ml (conc. morphine) oral syringe PO PRN (04:18)
[2019-04-27] MEDS: pantoprazole 40mg Tablet.DR PO SCH ×2 (07:30→11:19)
[2019-04-27] MEDS: docusate sod 100mg capsule PO SCH ×3 (08:00→20:40)
[2019-04-27] MEDS: lactose-reduced food (Ensure Enlive) - 237ml bottle PO SCH ×3 (08:00→18:00)
[2019-04-27 10:46] VITALS: BP 127/71
[2019-04-27] MEDS: levetiracetam 250mg tablet PO SCH ×2 (11:19→20:40)
[2019-04-27] MEDS: HYDROcodone/acetaminophen 10/325mg tab PO PRN ×2 (11:20→17:16)
[2019-04-27] MEDS: methylnaltrexone br 12mg/0.6ml inj***SubQ only SQ SCH (13:00)
[2019-04-27] MEDS: OLANZAPINE 5 MG TABLET PO SCH (20:39)
[2019-04-27] MEDS: lithium carbonate 150mg capsule PO SCH (20:40)
[2019-04-27] MEDS: polyethylene glycol 3350 17gm powd pack PO SCH (21:00)
[2019-04-28] MEDS: LORazepam 1 MG tablet PO SCH ×3 (03:56→19:59)
[2019-04-28] MEDS: HYDROcodone/acetaminophen 10/325mg tab PO PRN ×3 (03:56→21:28)
--- NOTE | 2019-04-28 06:27 | NUR ---
VERBAL REPORT GIVEN TO PATRICIO AND QUESTIONS ANSWERED.
[2019-04-28] MEDS: pantoprazole 40mg Tablet.DR PO SCH (07:30)
[2019-04-28] MEDS: lactose-reduced food (Ensure Enlive) - 237ml bottle PO SCH ×3 (08:00→18:00)
[2019-04-28] MEDS: docusate sod 100mg capsule PO SCH (08:00)
[2019-04-28 10:00] VITALS: BP 135/90
--- NOTE | 2019-04-28 11:55 | NUR ---
reassessment: Pt remains DNR w/ comfort care. LBM 04/22; refusing miralax and relistor receiving routine colace. Will continue to follow per protocol. Recommendations: 1) Routine bowel care 2) Relistor per MD for constipation on morphine 3) Ensure Enlive TID; chopped meat with gravy on the side; smoothie QD at breakfast, ice cream QD with lunch, and a milkshake QD with dinner; no milk to drink Addendum: 04/28/19 at [address] Amended: Links added.
[2019-04-28] MEDS: levetiracetam 250mg tablet PO SCH ×2 (13:01→19:59)
--- NOTE | 2019-04-28 18:00 | NUR ---
RECEIVED REPORT FROM PATRICIO ERAZO AND ASSUMED PATIENT CARE
--- NOTE | 2019-04-28 18:21 | NUR ---
Problems reprioritized. Patient report given, questions answered & plan of care reviewed with ELO ERAZO.
--- NOTE | 2019-04-28 18:30 | NUR ---
Patient in room ORTHO 4018. I have received report from CASTRO Rubio-preceptor, and had the opportunity to ask questions and assume patient care. Addendum: 04/29/19 at 0320 by Brittany Bowen RN Amended: Links added.
[2019-04-28] MEDS: lithium carbonate 150mg capsule PO SCH (20:02)
[2019-04-28] MEDS: polyethylene glycol 3350 17gm powd pack PO SCH (21:00)
[2019-04-28] MEDS: OLANZAPINE 5 MG TABLET PO SCH (21:28)
[2019-04-29] MEDS: LORazepam 1 MG tablet PO SCH ×3 (05:16→19:58)
[2019-04-29] MEDS: HYDROcodone/acetaminophen 10/325mg tab PO PRN ×3 (05:16→19:59)
[2019-04-29 08:00] VITALS: BP 114/71
[2019-04-29] MEDS: levetiracetam 250mg tablet PO SCH ×2 (12:08→19:58)
[2019-04-29] MEDS: pantoprazole 40mg Tablet.DR PO SCH (12:09)
--- NOTE | 2019-04-29 13:49 | NUR ---
Problems reprioritized. Patient report given, questions answered & plan of care reviewed with SUSHANT ERAZO.
--- NOTE | 2019-04-29 13:57 | NUR ---
received report from Claudia Ko RN
[2019-04-29] MEDS: morphine 10mg/0.5ml (conc. morphine) oral syringe PO PRN (17:57)
[2019-04-29] MEDS: lactose-reduced food (Ensure Enlive) - 237ml bottle PO SCH (18:00)
--- NOTE | 2019-04-29 18:10 | NUR ---
RECEIVED REPORT FROM SUSHANT ERAZO AND ASSUMED PATIENT CARE
[2019-04-29] MEDS: lithium carbonate 150mg capsule PO SCH (19:58)
[2019-04-29] MEDS: OLANZAPINE 5 MG TABLET PO SCH (19:58)
[2019-04-29] MEDS: polyethylene glycol 3350 17gm powd pack PO SCH (21:00)
[2019-04-30] MEDS: HYDROcodone/acetaminophen 10/325mg tab PO PRN ×4 (00:13→20:15)
[2019-04-30] MEDS: LORazepam 1 MG tablet PO SCH ×3 (04:10→20:14)
[2019-04-30 06:00] VITALS: BP 114/61
--- NOTE | 2019-04-30 06:12 | NUR ---
REPORT GIVEN TO RAMSEY ERAZO
[2019-04-30] MEDS: lactose-reduced food (Ensure Enlive) - 237ml bottle PO SCH ×3 (08:00→18:00)
[2019-04-30] MEDS: pantoprazole 40mg Tablet.DR PO SCH (11:10)
[2019-04-30] MEDS: levetiracetam 250mg tablet PO SCH ×2 (11:10→20:14)
--- NOTE | 2019-04-30 18:25 | NUR ---
Received report from Kaylee ERAZO. Assumed care of patient.
[2019-04-30] MEDS: OLANZAPINE 5 MG TABLET PO SCH (20:14)
[2019-04-30] MEDS: polyethylene glycol 3350 17gm powd pack PO SCH (20:15)
[2019-04-30] MEDS: lithium carbonate 150mg capsule PO SCH (20:15)
[2019-05-01] MEDS: LORazepam 1 MG tablet PO SCH ×3 (03:33→19:49)
[2019-05-01] MEDS: HYDROcodone/acetaminophen 10/325mg tab PO PRN ×2 (03:36→14:16)
--- NOTE | 2019-05-01 06:24 | NUR ---
Report given to Adonis ERAZO.
--- NOTE | 2019-05-01 06:30 | NUR ---
Patient in room ORTHO 4018. I have received report from Pearl ERAZO and had the opportunity to ask questions and assume patient care.
[2019-05-01] MEDS: morphine 10mg/0.5ml (conc. morphine) oral syringe PO PRN (07:53)
[2019-05-01] MEDS: pantoprazole 40mg Tablet.DR PO SCH (07:53)
[2019-05-01] MEDS: levetiracetam 250mg tablet PO SCH ×2 (07:53→19:49)
[2019-05-01] MEDS: lactose-reduced food (Ensure Enlive) - 237ml bottle PO SCH ×3 (07:54→18:00)
[2019-05-01 10:00] VITALS: BP 112/73
--- NOTE | 2019-05-01 18:15 | NUR ---
Problems reprioritized. Patient report given, questions answered & plan of care reviewed with Kesha ERAZO.
[2019-05-01] MEDS: OLANZAPINE 5 MG TABLET PO SCH (19:50)
[2019-05-01] MEDS: lithium carbonate 150mg capsule PO SCH (19:50)
[2019-05-01] MEDS: polyethylene glycol 3350 17gm powd pack PO SCH (21:00)
[2019-05-01 22:00] VITALS: BP 107/69
[2019-05-02] MEDS: LORazepam 1 MG tablet PO SCH ×3 (06:02→20:07)
[2019-05-02] MEDS: HYDROcodone/acetaminophen 10/325mg tab PO PRN ×2 (06:02→12:30)
--- NOTE | 2019-05-02 06:10 | NUR ---
Patient in room ORTHO 4018. I have received report from Radha ERAZO and had the opportunity to ask questions and assume patient care.
[2019-05-02] MEDS: pantoprazole 40mg Tablet.DR PO SCH (07:30)
[2019-05-02] MEDS: lactose-reduced food (Ensure Enlive) - 237ml bottle PO SCH ×3 (08:00→18:54)
[2019-05-02 10:00] VITALS: BP 131/69
--- NOTE | 2019-05-02 12:08 | NUR ---
reassessment: Pt remains DNR w/ comfort care. LBM 04/28; refusing all bowel care currently w/ colace d/c'd. Will continue to follow per protocol. Recommendations: 1) Routine bowel care 2) Relistor per MD for constipation on morphine 3) Ensure Enlive TID; chopped meat with gravy on the side; smoothie QD at breakfast, ice cream QD with lunch, and a milkshake QD with dinner; no milk to drink Addendum: 05/02/19 at [address] Amended: Links added.
[2019-05-02] MEDS: levetiracetam 250mg tablet PO SCH ×2 (12:33→20:07)
--- NOTE | 2019-05-02 18:10 | NUR ---
Received report from CASTRO Arshad. Assumed patient care.
--- NOTE | 2019-05-02 18:17 | NUR ---
Problems reprioritized. Patient report given, questions answered & plan of care reviewed with Marjorie ERAZO.
[2019-05-02] MEDS: OLANZAPINE 5 MG TABLET PO SCH (20:07)
[2019-05-02] MEDS: polyethylene glycol 3350 17gm powd pack PO SCH (20:07)
[2019-05-02] MEDS: lithium carbonate 150mg capsule PO SCH (20:07)
[2019-05-02] MEDS: morphine 10mg/0.5ml (conc. morphine) oral syringe PO PRN (20:07)
--- NOTE | 2019-05-03 03:01 | NUR ---
Did not scan Roxanol at time of administering on 05/02 at 2007.
[2019-05-03] MEDS: LORazepam 1 MG tablet PO SCH ×3 (04:19→20:57)
--- NOTE | 2019-05-03 06:11 | NUR ---
Patient report given, questions answered and plan of care reviewed with CASTRO Charles.
--- NOTE | 2019-05-03 06:37 | NUR ---
Patient in room ORTHO 4018. I have received report from Marjorie and had the opportunity to ask questions and assume patient care.
[2019-05-03] MEDS: HYDROcodone/acetaminophen 10/325mg tab PO PRN ×4 (07:21→21:31)
[2019-05-03] MEDS: levetiracetam 250mg tablet PO SCH ×2 (07:25→20:56)
[2019-05-03] MEDS: pantoprazole 40mg Tablet.DR PO SCH (07:25)
[2019-05-03] MEDS: lactose-reduced food (Ensure Enlive) - 237ml bottle PO SCH ×3 (08:41→18:16)
[2019-05-03 10:00] VITALS: BP 97/64
--- NOTE | 2019-05-03 18:17 | NUR ---
Problems reprioritized. Patient report given, questions answered & plan of care reviewed with
--- NOTE | 2019-05-03 19:21 | NUR ---
Patient in room ORTHO 4018. I have received report from Araceli ERAZO and had the opportunity to ask questions and assume patient care.
[2019-05-03] MEDS: OLANZAPINE 5 MG TABLET PO SCH (20:56)
[2019-05-03] MEDS: lithium carbonate 150mg capsule PO SCH (20:56)
[2019-05-03] MEDS: polyethylene glycol 3350 17gm powd pack PO SCH (20:57)
[2019-05-03] MEDS: morphine 10mg/0.5ml (conc. morphine) oral syringe PO PRN (21:32)
--- NOTE | 2019-05-03 21:43 | NUR ---
2124 Attempted to medicate patient with 1 norco 10 for c/o "my head is throbbing". Placed pill in patients mouth and he attempted to swallow it, did not go down and then spit it out stating "nasty". Medication wasted in pixus with Jung and non-administered in eMar. Patient given roxinol instead. Positioned onto R side after partial linen change for incontinence of urine.
[2019-05-04] MEDS: LORazepam 1 MG tablet PO SCH ×2 (04:00→12:54)
--- NOTE | 2019-05-04 06:02 | NUR ---
Incontinent through the night with frequent linen changes and skin care given. Repositioned frequently to keep patient off of L shoulder. No changes through the night. Report to early shift RN
--- NOTE | 2019-05-04 06:35 | NUR ---
Patient in room ORTHO 4018. I have received report from Dimple and had the opportunity to ask questions and assume patient care.
[2019-05-04] MEDS: lactose-reduced food (Ensure Enlive) - 237ml bottle PO SCH ×3 (08:23→18:01)
[2019-05-04] MEDS: pantoprazole 40mg Tablet.DR PO SCH (08:26)
[2019-05-04] MEDS: levetiracetam 250mg tablet PO SCH ×2 (08:26→20:43)
[2019-05-04 10:00] VITALS: BP 103/66
--- NOTE | 2019-05-04 18:13 | NUR ---
Problems reprioritized. Patient report given, questions answered & plan of care reviewed with
--- NOTE | 2019-05-04 18:54 | NUR ---
Patient in room ORTHO 4018. I have received report from Araceli ERAZO and had the opportunity to ask questions and assume patient care.
[2019-05-04] MEDS: lithium carbonate 150mg capsule PO SCH (20:42)
[2019-05-04] MEDS: OLANZAPINE 5 MG TABLET PO SCH (20:43)
[2019-05-04] MEDS: LORazepam 1 MG tablet PO PRN (20:43)
--- NOTE | 2019-05-05 06:36 | NUR ---
Problems reprioritized. Patient report given, questions answered & plan of care reviewed with PATRICIO ERAZO.
[2019-05-05] MEDS: LORazepam 1 MG tablet PO PRN ×2 (08:00→21:00)
[2019-05-05] MEDS: levetiracetam 250mg tablet PO SCH ×2 (08:00→21:00)
[2019-05-05] MEDS: lactose-reduced food (Ensure Enlive) - 237ml bottle PO SCH ×3 (08:00→18:45)
[2019-05-05] MEDS: pantoprazole 40mg Tablet.DR PO SCH (08:00)
[2019-05-05] MEDS: HYDROcodone/acetaminophen 10/325mg tab PO PRN (08:03)
[2019-05-05 10:00] VITALS: BP 108/71
--- NOTE | 2019-05-05 10:33 | NUR ---
When ankle bracelet is put on, patient immediately takes it off. Addendum: 05/05/19 at 1038 by Claudia Javier RN Amended: Links added.
--- NOTE | 2019-05-05 18:10 | NUR ---
Report to Dimple ERAZO
--- NOTE | 2019-05-05 18:12 | NUR ---
Patient in room ORTHO 4018. I have received report from Claudia ERAZO and had the opportunity to ask questions and assume patient care.
[2019-05-05] MEDS: lithium carbonate 150mg capsule PO SCH (21:00)
[2019-05-05] MEDS: OLANZAPINE 5 MG TABLET PO SCH (21:00)
[2019-05-05] MEDS: morphine 10mg/0.5ml (conc. morphine) oral syringe PO PRN (21:07)
--- NOTE | 2019-05-06 06:36 | NUR ---
Problems reprioritized. Patient report given, questions answered & plan of care reviewed with Claudia ERAZO.
[2019-05-06] MEDS: lactose-reduced food (Ensure Enlive) - 237ml bottle PO SCH ×3 (08:00→18:00)
[2019-05-06] MEDS: LORazepam 1 MG tablet PO PRN (08:14)
[2019-05-06] MEDS: levetiracetam 250mg tablet PO SCH ×2 (08:14→21:22)
[2019-05-06] MEDS: pantoprazole 40mg Tablet.DR PO SCH (08:15)
[2019-05-06] MEDS: HYDROcodone/acetaminophen 10/325mg tab PO PRN ×2 (08:15→09:59)
[2019-05-06] MEDS: morphine 10mg/0.5ml (conc. morphine) oral syringe PO PRN (08:35)
[2019-05-06 10:14] VITALS: BP 105/61
--- NOTE | 2019-05-06 18:05 | NUR ---
Patient in room ORTHO 4018. I have received report from Claudia ERAZO and had the opportunity to ask questions and assume patient care.
[2019-05-06] MEDS: OLANZAPINE 5 MG TABLET PO SCH (21:22)
[2019-05-06] MEDS: lithium carbonate 150mg capsule PO SCH (21:23)
--- NOTE | 2019-05-07 06:10 | NUR ---
Problems reprioritized. Patient report given, questions answered & plan of care reviewed with Claudia ERAZO.
[2019-05-07] MEDS: lactose-reduced food (Ensure Enlive) - 237ml bottle PO SCH ×3 (09:16→18:00)
[2019-05-07] MEDS: pantoprazole 40mg Tablet.DR PO SCH (09:16)
[2019-05-07] MEDS: levetiracetam 250mg tablet PO SCH ×2 (09:16→19:47)
[2019-05-07] MEDS: morphine 10mg/0.5ml (conc. morphine) oral syringe PO PRN ×3 (09:17→21:52)
[2019-05-07 10:48] VITALS: BP 140/83
[2019-05-07] MEDS: LORazepam 1 MG tablet PO PRN (19:47)
[2019-05-07] MEDS: lithium carbonate 150mg capsule PO SCH (19:47)
[2019-05-07] MEDS: OLANZAPINE 5 MG TABLET PO SCH (19:47)
--- NOTE | 2019-05-08 06:31 | NUR ---
REPORT GIVEN TO CASTRO VACA,.
[2019-05-08] MEDS: lactose-reduced food (Ensure Enlive) - 237ml bottle PO SCH ×3 (08:00→18:24)
[2019-05-08 10:00] VITALS: BP 104/81
[2019-05-08] MEDS: morphine 10mg/0.5ml (conc. morphine) oral syringe PO PRN ×3 (10:33→19:43)
[2019-05-08] MEDS: LORazepam 1 MG tablet PO PRN ×2 (10:37→21:21)
[2019-05-08] MEDS: pantoprazole 40mg Tablet.DR PO SCH (10:37)
[2019-05-08] MEDS: levetiracetam 250mg tablet PO SCH ×2 (10:48→19:42)
--- NOTE | 2019-05-08 11:53 | NUR ---
reassessment: Pt remains DNR w/ comfort care. He has been drinking 75-100% average of ensure enlive. Very poor PO intake consistent throughout admission, on average eating 0-25%. RDs and Nursing have collaborated throughout patient's admission to provide meals that are appetizing to him including smoothies, ice cream, and milkshakes. Last BM 05/08. Will continue to follow. There have been no new weights since January, need new weight with updated BMI. Current BMI documented as 26.9; most recent weight 84.9 kg which is 13 kg less than [facility] scale admission weight. Spoke with bedside RN and discussed need for new weight. Recommendations: 1) Continue regular diet 2) Ensure Enlive TID; chopped meat with gravy on the side; smoothie QD at breakfast, ice cream QD with lunch, and a milkshake QD with dinner; no milk to drink Addendum: 05/08/19 at [address] Amended: Links added.
--- NOTE | 2019-05-08 18:41 | NUR ---
Problems reprioritized. Patient report given, questions answered & plan of care reviewed with Terese RN.
[2019-05-08] MEDS: OLANZAPINE 5 MG TABLET PO SCH (21:09)
[2019-05-08] MEDS: lithium carbonate 150mg capsule PO SCH (21:10)
--- NOTE | 2019-05-09 07:02 | NUR ---
Patient in room ORTHO 4018. I have received report from Terese RN and had the opportunity to ask questions and assume patient care.
[2019-05-09] MEDS: morphine 10mg/0.5ml (conc. morphine) oral syringe PO PRN ×2 (07:07→20:47)
[2019-05-09] MEDS: levetiracetam 250mg tablet PO SCH ×2 (08:07→20:46)
[2019-05-09] MEDS: LORazepam 1 MG tablet PO PRN (08:07)
[2019-05-09] MEDS: pantoprazole 40mg Tablet.DR PO SCH (08:08)
[2019-05-09] MEDS: lactose-reduced food (Ensure Enlive) - 237ml bottle PO SCH ×3 (08:11→18:00)
--- NOTE | 2019-05-09 09:37 | NUR ---
Follow up: Patient has new weight of 52.7 kg, total of 45.2 kg lost since admission r/t very poor PO intake on comfort care. New BMI 16.7; He has been drinking 75-100% average of ensure enlive. Very poor PO intake consistent throughout admission, on average eating 0-25%. RDs and Nursing have collaborated throughout patient's admission to provide meals that are appetizing to him including smoothies, ice cream, and milkshakes. Last BM 05/08. Will continue to follow. Addendum: 05/09/19 at [address] Amended: Links added.
[2019-05-09 10:00] VITALS: BP 102/60
--- NOTE | 2019-05-09 10:46 | NUR ---
Student documentation: I have reviewed all interventions, assessments performed and documented by [facility]chel [facility]. Student Medication Administration: For this medication-pass time frame, all medication were reviewed, dispensed, administered and documented per hospital policy [facility]
[2019-05-09] MEDS: HYDROcodone/acetaminophen 10/325mg tab PO PRN (17:47)
--- NOTE | 2019-05-09 18:34 | NUR ---
Problems reprioritized. Patient report given, questions answered & plan of care reviewed with Mitul ERAZO.
--- NOTE | 2019-05-09 18:35 | NUR ---
Patient in room ORTHO 4018. I have received report from JOSE ELIAS ERAZO and had the opportunity to ask questions and assume patient care.
[2019-05-09] MEDS: OLANZAPINE 5 MG TABLET PO SCH (20:46)
[2019-05-09] MEDS: lithium carbonate 150mg capsule PO SCH (20:46)
--- NOTE | 2019-05-10 06:12 | NUR ---
Problems reprioritized. Patient report given, questions answered & plan of care reviewed with JOSE ELIAS EARZO.
--- NOTE | 2019-05-10 06:21 | NUR ---
Patient in room ORTHO 4018. I have received report from Mitul ERAZO and had the opportunity to ask questions and assume patient care.
[2019-05-10] MEDS: lactose-reduced food (Ensure Enlive) - 237ml bottle PO SCH ×3 (08:00→18:00)
[2019-05-10] MEDS: HYDROcodone/acetaminophen 10/325mg tab PO PRN (08:53)
[2019-05-10] MEDS: levetiracetam 250mg tablet PO SCH ×2 (08:53→20:17)
[2019-05-10] MEDS: pantoprazole 40mg Tablet.DR PO SCH (08:53)
[2019-05-10 10:00] VITALS: BP 116/72
--- NOTE | 2019-05-10 18:29 | NUR ---
Problems reprioritized. Patient report given, questions answered & plan of care reviewed with Dimple ERAZO.
--- NOTE | 2019-05-10 18:36 | NUR ---
Patient in room ORTHO 4018. I have received report from Mahnaz ERAZO and had the opportunity to ask questions and assume patient care.
[2019-05-10] MEDS: OLANZAPINE 5 MG TABLET PO SCH (20:17)
[2019-05-10] MEDS: LORazepam 1 MG tablet PO PRN (20:18)
[2019-05-10] MEDS: lithium carbonate 150mg capsule PO SCH (20:18)
--- NOTE | 2019-05-11 06:01 | NUR ---
Patient in room ORTHO 4018. I have received report from Dimple ERAZO and had the opportunity to ask questions and assume patient care.
--- NOTE | 2019-05-11 06:44 | NUR ---
Problems reprioritized. Patient report given, questions answered & plan of care reviewed with Pavithra ERAZO.
[2019-05-11] MEDS: lactose-reduced food (Ensure Enlive) - 237ml bottle PO SCH ×2 (08:00→13:00)
[2019-05-11 10:00] VITALS: BP 106/75
[2019-05-11] MEDS: HYDROcodone/acetaminophen 10/325mg tab PO PRN ×2 (11:36→17:42)
[2019-05-11] MEDS: pantoprazole 40mg Tablet.DR PO SCH (11:37)
[2019-05-11] MEDS: levetiracetam 250mg tablet PO SCH ×2 (11:37→21:12)
[2019-05-11] MEDS: LORazepam 1 MG tablet PO PRN (17:42)
--- NOTE | 2019-05-11 17:57 | NUR ---
While on Neuro unit @ 1730 after exiting my patients room in 4013B, I was told by the charge nurse Jeronimo that the patient was found on the floor by TRINI Gottlieb. No bed alarm went off but Mahnaz RN and Jeronimo ERAZO who where in there last to reposition patient stated they turned the bed alarm on. Patient was sat up and assessed. No signs of injury noted. Patient awake and at baseline. Vital signs stable BP 119/78 HR95 RR20 T98.1 97%RA. Patient was assisted back to bed with 4 people. Repositioned for comfort. Bed alarm turned on and close monitoring of patient. Dr. Garcia was notified and no new orders. Will continue to closely monitor.
--- NOTE | 2019-05-11 18:17 | NUR ---
Problems reprioritized. Patient report given, questions answered & plan of care reviewed with Dimple ERAZO.
[2019-05-11] MEDS: OLANZAPINE 5 MG TABLET PO SCH (21:12)
[2019-05-11] MEDS: lithium carbonate 150mg capsule PO SCH (21:12)
--- NOTE | 2019-05-12 06:05 | NUR ---
received report from myrna velásquez
--- NOTE | 2019-05-12 06:10 | NUR ---
Problems reprioritized. Patient report given, questions answered & plan of care reviewed with RALEIGH ERAZO.
[2019-05-12] MEDS: lactose-reduced food (Ensure Enlive) - 237ml bottle PO SCH ×4 (07:58→18:56)
[2019-05-12] MEDS: LORazepam 1 MG tablet PO PRN ×2 (08:00→16:17)
[2019-05-12] MEDS: pantoprazole 40mg Tablet.DR PO SCH (08:01)
[2019-05-12] MEDS: levetiracetam 250mg tablet PO SCH ×2 (08:01→21:18)
[2019-05-12] MEDS: morphine 10mg/0.5ml (conc. morphine) oral syringe PO PRN ×3 (08:02→21:17)
[2019-05-12 10:00] VITALS: BP 116/83
--- NOTE | 2019-05-12 15:08 | NUR ---
GAVE REPORT TO CASTRO FELIX
--- NOTE | 2019-05-12 18:22 | NUR ---
Patient in room ORTHO 4018. I have received report from Kaylee ERAZO and had the opportunity to ask questions and assume patient care.
--- NOTE | 2019-05-12 18:28 | NUR ---
Problems reprioritized. Patient report given, questions answered & plan of care reviewed with CASTRO Musa.
[2019-05-12] MEDS: OLANZAPINE 5 MG TABLET PO SCH (21:18)
[2019-05-12] MEDS: lithium carbonate 150mg capsule PO SCH (21:18)
--- NOTE | 2019-05-13 06:48 | NUR ---
Problems reprioritized. Patient report given, questions answered & plan of care reviewed with JESI ERAZO.
[2019-05-13] MEDS: lactose-reduced food (Ensure Enlive) - 237ml bottle PO SCH ×3 (08:00→18:15)
[2019-05-13 08:15] VITALS: BP 118/76
[2019-05-13] MEDS: levetiracetam 250mg tablet PO SCH ×2 (11:27→20:04)
[2019-05-13] MEDS: pantoprazole 40mg Tablet.DR PO SCH (11:27)
[2019-05-13] MEDS: LORazepam 1 MG tablet PO PRN ×2 (11:27→20:04)
[2019-05-13] MEDS: morphine 10mg/0.5ml (conc. morphine) oral syringe PO PRN ×2 (12:23→17:41)
--- NOTE | 2019-05-13 19:42 | NUR ---
Pt was repositioned to right side to off load pressure from left shoulder roughly 15 minutes ago. Pt has rolled back to left side. Pillow is under the left shoulder. Will continue to monitor.
[2019-05-13] MEDS: OLANZAPINE 5 MG TABLET PO SCH (20:04)
[2019-05-13] MEDS: lithium carbonate 150mg capsule PO SCH (20:04)
--- NOTE | 2019-05-14 06:11 | NUR ---
Problems reprioritized. Patient report given, questions answered & plan of care reviewed with Kaylee ERAZO.
[2019-05-14] MEDS: pantoprazole 40mg Tablet.DR PO SCH (07:30)
[2019-05-14] MEDS: lactose-reduced food (Ensure Enlive) - 237ml bottle PO SCH ×3 (08:00→18:00)
[2019-05-14] MEDS: levetiracetam 250mg tablet PO SCH ×2 (08:00→19:45)
[2019-05-14 10:00] VITALS: BP 90/57
[2019-05-14] MEDS: LORazepam 1 MG tablet PO SCH (15:25)
[2019-05-14] MEDS: morphine 10mg/0.5ml (conc. morphine) oral syringe PO PRN (17:39)
[2019-05-14 18:00] VITALS: BP 110/71
--- NOTE | 2019-05-14 18:23 | NUR ---
Problems reprioritized. Patient report given, questions answered & plan of care reviewed with CASTRO Redd.
[2019-05-14] MEDS: OLANZAPINE 5 MG TABLET PO SCH (19:45)
[2019-05-14] MEDS: lithium carbonate 150mg capsule PO SCH (19:46)
[2019-05-15] MEDS: morphine 10mg/0.5ml (conc. morphine) oral syringe PO PRN (03:44)
--- NOTE | 2019-05-15 06:42 | NUR ---
REPORT GIVEN TO CASTRO WOODWARD.
[2019-05-15] MEDS: pantoprazole 40mg Tablet.DR PO SCH (07:30)
[2019-05-15] MEDS: levetiracetam 250mg tablet PO SCH ×2 (08:16→19:18)
[2019-05-15] MEDS: LORazepam 1 MG tablet PO SCH ×3 (08:16→17:05)
[2019-05-15] MEDS: HYDROcodone/acetaminophen 10/325mg tab PO PRN ×2 (08:16→17:05)
[2019-05-15] MEDS: lactose-reduced food (Ensure Enlive) - 237ml bottle PO SCH ×3 (08:16→18:00)
[2019-05-15 10:38] VITALS: BP 102/69
--- NOTE | 2019-05-15 11:00 | NUR ---
Patient in room ORTHO 4018. I have received report from CRISSY ERAZO and had the opportunity to ask questions and assume patient care.
--- NOTE | 2019-05-15 18:10 | NUR ---
Problems reprioritized. Patient report given, questions answered & plan of care reviewed with JULY ERAZO.
[2019-05-15] MEDS: OLANZAPINE 5 MG TABLET PO SCH (19:17)
[2019-05-15] MEDS: lithium carbonate 150mg capsule PO SCH (19:18)
--- NOTE | 2019-05-16 06:10 | NUR ---
Patient in room ORTHO 4018. I have received report from JULY ERAZO and had the opportunity to ask questions and assume patient care.
[2019-05-16] MEDS: levetiracetam 250mg tablet PO SCH ×2 (07:14→20:33)
[2019-05-16] MEDS: pantoprazole 40mg Tablet.DR PO SCH (07:14)
[2019-05-16] MEDS: LORazepam 1 MG tablet PO SCH ×3 (07:14→16:26)
[2019-05-16] MEDS: HYDROcodone/acetaminophen 10/325mg tab PO PRN ×4 (07:14→20:32)
[2019-05-16] MEDS: lactose-reduced food (Ensure Enlive) - 237ml bottle PO SCH ×3 (08:00→18:00)
[2019-05-16 10:00] VITALS: BP 102/71
--- NOTE | 2019-05-16 11:16 | NUR ---
Student documentation: I have reviewed interventions, assessments performed and documented by ELENITA [facility].
--- NOTE | 2019-05-16 11:55 | NUR ---
Reassessment: Pt current documented bedscaled scaled wt 75.3 wt loss of 22.7kg since admission, likely d/t poor PO intake. Previous documented wt of 52.7kg likely wt error since outlier. LBM 05/16. Pt currently DNR with comfort care. Will continue to follow per LOS protocol. Recommendations: 1) Continue regular diet 2) Ensure Enlive TID; chopped meat with gravy on the side; smoothie QD at breakfast, ice cream QD with lunch, and a milkshake QD with dinner; no milk to drink 3. bowel care as needed Addendum: 05/16/19 at 1155 by Wing Sury TAPIA Amended: Links added. Addendum: 05/16/19 at [address] REGINA Mccann
--- NOTE | 2019-05-16 18:05 | NUR ---
Problems reprioritized. Patient report given, questions answered & plan of care reviewed with HECTOR ERAZO.
--- NOTE | 2019-05-16 19:00 | NUR ---
Patient in room ORTHO 4018. I have received report from Dannie ERAZO and had the opportunity to ask questions and assume patient care.
[2019-05-16] MEDS: OLANZAPINE 5 MG TABLET PO SCH (20:33)
[2019-05-16] MEDS: lithium carbonate 150mg capsule PO SCH (20:40)
[2019-05-17] MEDS: HYDROcodone/acetaminophen 10/325mg tab PO PRN ×3 (07:05→17:49)
[2019-05-17] MEDS: LORazepam 1 MG tablet PO SCH ×3 (07:05→17:49)
[2019-05-17] MEDS: levetiracetam 250mg tablet PO SCH ×2 (07:05→19:48)
[2019-05-17] MEDS: pantoprazole 40mg Tablet.DR PO SCH (07:05)
[2019-05-17] MEDS: lactose-reduced food (Ensure Enlive) - 237ml bottle PO SCH ×3 (08:00→18:00)
[2019-05-17 10:00] VITALS: BP 105/68
--- NOTE | 2019-05-17 18:34 | NUR ---
Patient in room ORTHO 4018. I have received report from Char ERAZO and had the opportunity to ask questions and assume patient care.
[2019-05-17] MEDS: lithium carbonate 150mg capsule PO SCH (19:48)
[2019-05-17] MEDS: OLANZAPINE 5 MG TABLET PO SCH (19:48)
--- NOTE | 2019-05-18 06:29 | NUR ---
Problems reprioritized. Patient report given, questions answered & plan of care reviewed with Char ERAZO.
[2019-05-18] MEDS: pantoprazole 40mg Tablet.DR PO SCH ×2 (07:00→07:08)
[2019-05-18] MEDS: HYDROcodone/acetaminophen 10/325mg tab PO PRN ×2 (07:00→17:09)
[2019-05-18] MEDS: levetiracetam 250mg tablet PO SCH ×2 (07:00→19:42)
[2019-05-18] MEDS: LORazepam 1 MG tablet PO SCH ×3 (07:01→17:09)
[2019-05-18] MEDS: lactose-reduced food (Ensure Enlive) - 237ml bottle PO SCH ×3 (08:00→18:00)
[2019-05-18 10:00] VITALS: BP 105/69
--- NOTE | 2019-05-18 19:00 | NUR ---
Patient in room ORTHO 4018. I have received report from Char ERAZO and had the opportunity to ask questions and assume patient care.
[2019-05-18] MEDS: OLANZAPINE 5 MG TABLET PO SCH (19:42)
[2019-05-18] MEDS: lithium carbonate 150mg capsule PO SCH (21:00)
[2019-05-19] MEDS: LORazepam 1 MG tablet PO SCH ×3 (05:31→16:30)
[2019-05-19] MEDS: lactose-reduced food (Ensure Enlive) - 237ml bottle PO SCH ×3 (08:00→18:00)
[2019-05-19] MEDS: levetiracetam 250mg tablet PO SCH ×2 (10:57→20:09)
[2019-05-19] MEDS: pantoprazole 40mg Tablet.DR PO SCH (10:57)
[2019-05-19] MEDS: morphine 10mg/0.5ml (conc. morphine) oral syringe PO PRN ×2 (10:58→20:10)
--- NOTE | 2019-05-19 19:25 | NUR ---
REPORT REC'D FROM CASTRO DENNISON.
[2019-05-19] MEDS: OLANZAPINE 5 MG TABLET PO SCH (20:09)
[2019-05-19] MEDS: lithium carbonate 150mg capsule PO SCH (20:09)
--- NOTE | 2019-05-20 06:03 | NUR ---
REPORT GIVEN TO CASTRO DENNISON.
--- NOTE | 2019-05-20 06:10 | NUR ---
Patient in room ORTHO 4018. I have received report from CASTRO Redd and had the opportunity to ask questions and assume patient care.
[2019-05-20] MEDS: pantoprazole 40mg Tablet.DR PO SCH (08:48)
[2019-05-20] MEDS: LORazepam 1 MG tablet PO SCH ×4 (08:48→23:49)
[2019-05-20] MEDS: levetiracetam 250mg tablet PO SCH ×2 (08:48→20:20)
[2019-05-20] MEDS: lactose-reduced food (Ensure Enlive) - 237ml bottle PO SCH ×3 (08:59→18:00)
[2019-05-20 10:00] VITALS: BP 165/99
[2019-05-20] MEDS: morphine 10mg/0.5ml (conc. morphine) oral syringe PO PRN ×2 (10:33→23:50)
--- NOTE | 2019-05-20 18:17 | NUR ---
Problems reprioritized. Patient report given, questions answered & plan of care reviewed with CASTRO Seaman.
[2019-05-20] MEDS: OLANZAPINE 5 MG TABLET PO SCH (20:20)
[2019-05-20] MEDS: lithium carbonate 150mg capsule PO SCH (20:21)
[2019-05-20] MEDS: polyethylene glycol 3350 17gm powd pack PO PRN (20:22)
--- NOTE | 2019-05-20 20:47 | NUR ---
Patient in room ORTHO 4018. I have received report from CASTRO Page and had the opportunity to ask questions and assume patient care. Addendum: 05/20/19 at 2048 by Urszula Powell RN Amended: Links added.
--- NOTE | 2019-05-20 22:41 | NUR ---
miralax given Addendum: 05/20/19 at 2245 by Urszula Powell RN Amended: Links added.
--- NOTE | 2019-05-21 06:03 | NUR ---
Problems reprioritized. Patient report given, questions answered & plan of care reviewed with CASTRO Page. Addendum: 05/21/19 at 0604 by Urszula Powell RN Amended: Links added.
--- NOTE | 2019-05-21 06:30 | NUR ---
Patient in room ORTHO 4018. I have received report from CASTRO Seaman and had the opportunity to ask questions and assume patient care.
[2019-05-21] MEDS: levetiracetam 250mg tablet PO SCH ×2 (08:31→20:05)
[2019-05-21] MEDS: lactose-reduced food (Ensure Enlive) - 237ml bottle PO SCH ×3 (08:31→18:00)
[2019-05-21] MEDS: pantoprazole 40mg Tablet.DR PO SCH (08:31)
[2019-05-21] MEDS: LORazepam 1 MG tablet PO SCH ×2 (08:31→17:25)
[2019-05-21 10:00] VITALS: BP 131/87
[2019-05-21] MEDS: morphine 10mg/0.5ml (conc. morphine) oral syringe PO PRN ×2 (14:16→20:36)
--- NOTE | 2019-05-21 18:25 | NUR ---
Patient in room ORTHO 4018. I have received report from CASTRO Page and had the opportunity to ask questions and assume patient care. Patient resting comfortably on bed, will continue to monitor.
--- NOTE | 2019-05-21 18:26 | NUR ---
Problems reprioritized. Patient report given, questions answered & plan of care reviewed with CASTRO Kang.
[2019-05-21] MEDS: OLANZAPINE 5 MG TABLET PO SCH (20:05)
[2019-05-21] MEDS: lithium carbonate 150mg capsule PO SCH (20:05)
--- NOTE | 2019-05-22 06:00 | NUR ---
Patient in room ORTHO 4018. I have received report from Pearl Avery RN and had the opportunity to ask questions and assume patient care.
--- NOTE | 2019-05-22 06:11 | NUR ---
Problems reprioritized. Patient report given, questions answered & plan of care reviewed with CASTRO Lackey.
[2019-05-22] MEDS: LORazepam 1 MG tablet PO SCH ×3 (07:19→16:44)
[2019-05-22] MEDS: levetiracetam 250mg tablet PO SCH ×2 (07:19→20:42)
[2019-05-22] MEDS: pantoprazole 40mg Tablet.DR PO SCH (07:19)
[2019-05-22] MEDS: lactose-reduced food (Ensure Enlive) - 237ml bottle PO SCH ×3 (08:00→18:00)
[2019-05-22 10:00] VITALS: BP 112/65
--- NOTE | 2019-05-22 12:05 | NUR ---
Reassessment: Pt current documented bed scaled scaled wt 75.3 wt loss of 22.7kg since admission, likely d/t poor PO intake. Previous documented wt of 52.7kg likely wt error since outlier. LBM 05/16. REGINA d/w RN regarding routine bowel care per MD approval since previous d/c'd. Pt currently DNR with comfort care. Will continue to follow per protocol. Recommendations: 1) Continue regular diet 2) Ensure Enlive TID; chopped meat with gravy on the side; smoothie QD at breakfast, ice cream QD with lunch, and a milkshake QD with dinner; no milk to drink 3) routine bowel care Addendum: 05/22/19 at [address] Amended: Links added.
--- NOTE | 2019-05-22 18:06 | NUR ---
Problems reprioritized. Patient report given, questions answered & plan of care reviewed with Radha ERAZO.
[2019-05-22] MEDS: lithium carbonate 150mg capsule PO SCH (20:42)
[2019-05-22] MEDS: OLANZAPINE 5 MG TABLET PO SCH (20:42)
[2019-05-22] MEDS: docusate sod 100mg capsule PO SCH (20:42)
[2019-05-23] MEDS: LORazepam 1 MG tablet PO SCH ×3 (00:31→17:35)
[2019-05-23] MEDS: lactose-reduced food (Ensure Enlive) - 237ml bottle PO SCH ×3 (08:00→20:12)
[2019-05-23 10:00] VITALS: BP 115/74
[2019-05-23] MEDS: HYDROcodone/acetaminophen 10/325mg tab PO PRN ×2 (11:07→17:35)
[2019-05-23] MEDS: levetiracetam 250mg tablet PO SCH ×2 (11:07→20:04)
[2019-05-23] MEDS: pantoprazole 40mg Tablet.DR PO SCH (11:08)
[2019-05-23] MEDS: docusate sod 100mg capsule PO SCH ×2 (11:08→20:03)
--- NOTE | 2019-05-23 18:33 | NUR ---
Problems reprioritized. Patient report given, questions answered & plan of care reviewed with Joanne ERAZO.
[2019-05-23] MEDS: OLANZAPINE 5 MG TABLET PO SCH (20:03)
[2019-05-23] MEDS: lithium carbonate 150mg capsule PO SCH (20:04)
--- NOTE | 2019-05-24 02:00 | NUR ---
Patient's 0000 ativan not given tonight. Nurse waited for 2 hours. Patient resting comfortable and asleep. No need for ativan. Will continue with care.
--- NOTE | 2019-05-24 06:00 | NUR ---
Patient in room ORTHO 4018. I have received report from Joanne ERAZO and had the opportunity to ask questions and assume patient care.
--- NOTE | 2019-05-24 06:32 | NUR ---
Problems reprioritized. Patient report given, questions answered & plan of care reviewed with Pavithra.
[2019-05-24] MEDS: pantoprazole 40mg Tablet.DR PO SCH (08:04)
[2019-05-24] MEDS: LORazepam 1 MG tablet PO SCH ×4 (08:05→23:27)
[2019-05-24] MEDS: levetiracetam 250mg tablet PO SCH ×2 (08:05→19:45)
[2019-05-24] MEDS: HYDROcodone/acetaminophen 10/325mg tab PO PRN ×3 (08:05→23:28)
[2019-05-24] MEDS: lactose-reduced food (Ensure Enlive) - 237ml bottle PO SCH ×3 (08:10→18:00)
[2019-05-24 10:00] VITALS: BP 114/80
[2019-05-24] MEDS: docusate sod 100mg capsule PO SCH ×2 (16:30→19:45)
[2019-05-24] MEDS: OLANZAPINE 5 MG TABLET PO SCH (19:45)
[2019-05-24] MEDS: polyethylene glycol 3350 17gm powd pack PO PRN (19:45)
[2019-05-24] MEDS: lithium carbonate 150mg capsule PO SCH (19:45)
--- NOTE | 2019-05-25 06:00 | NUR ---
Patient in room ORTHO 4018. I have received report from Brandy ERAZO and had the opportunity to ask questions and assume patient care.
--- NOTE | 2019-05-25 06:29 | NUR ---
Problems reprioritized. Patient report given, questions answered & plan of care reviewed with CASTRO Arshad.
[2019-05-25] MEDS: pantoprazole 40mg Tablet.DR PO SCH (07:30)
[2019-05-25] MEDS: levetiracetam 250mg tablet PO SCH ×2 (08:00→20:12)
[2019-05-25] MEDS: lactose-reduced food (Ensure Enlive) - 237ml bottle PO SCH ×3 (08:00→18:00)
[2019-05-25 10:00] VITALS: BP 119/75
[2019-05-25] MEDS: docusate sod 100mg capsule PO SCH ×2 (12:37→20:12)
[2019-05-25] MEDS: LORazepam 1 MG tablet PO SCH ×3 (12:37→23:46)
[2019-05-25] MEDS: HYDROcodone/acetaminophen 10/325mg tab PO PRN ×2 (12:38→23:06)
--- NOTE | 2019-05-25 18:01 | NUR ---
Problems reprioritized. Patient report given, questions answered & plan of care reviewed with Brandy ERAZO.
--- NOTE | 2019-05-25 19:04 | NUR ---
Patient in room ORTHO 4018. I have received report from CASTRO Arshad and had the opportunity to ask questions and assume patient care.
[2019-05-25] MEDS: lithium carbonate 150mg capsule PO SCH (20:11)
[2019-05-25] MEDS: polyethylene glycol 3350 17gm powd pack PO PRN (20:12)
[2019-05-25] MEDS: OLANZAPINE 5 MG TABLET PO SCH (20:12)
--- NOTE | 2019-05-26 06:26 | NUR ---
Problems reprioritized. Patient report given, questions answered & plan of care reviewed with CASTRO Pathak.
--- NOTE | 2019-05-26 06:54 | NUR ---
Patient in room ORTHO 4018. I have received report from Brandy and had the opportunity to ask questions and assume patient care.
[2019-05-26] MEDS: pantoprazole 40mg Tablet.DR PO SCH (07:42)
[2019-05-26] MEDS: LORazepam 1 MG tablet PO SCH ×2 (07:42→15:23)
[2019-05-26] MEDS: levetiracetam 250mg tablet PO SCH ×2 (07:42→21:39)
[2019-05-26] MEDS: docusate sod 100mg capsule PO SCH ×2 (07:42→21:39)
[2019-05-26] MEDS: lactose-reduced food (Ensure Enlive) - 237ml bottle PO SCH ×2 (08:00→13:00)
[2019-05-26 11:00] VITALS: BP 136/81
--- NOTE | 2019-05-26 18:12 | NUR ---
Problems reprioritized. Patient report given, questions answered & plan of care reviewed with
--- NOTE | 2019-05-26 19:37 | NUR ---
Patient in room ORTHO 4018. I have received report from EPIFANIO ERAZO and had the opportunity to ask questions and assume patient care.
[2019-05-26] MEDS: lithium carbonate 150mg capsule PO SCH (21:40)
[2019-05-26] MEDS: HYDROcodone/acetaminophen 10/325mg tab PO PRN (21:40)
[2019-05-26] MEDS: OLANZAPINE 5 MG TABLET PO SCH (21:40)
--- NOTE | 2019-05-27 06:35 | NUR ---
REPORT TO SUSHANT ERAZO
[2019-05-27] MEDS: levetiracetam 250mg tablet PO SCH ×2 (07:45→20:00)
[2019-05-27] MEDS: docusate sod 100mg capsule PO SCH ×2 (07:45→20:00)
[2019-05-27] MEDS: HYDROcodone/acetaminophen 10/325mg tab PO PRN ×2 (07:45→17:29)
[2019-05-27] MEDS: LORazepam 1 MG tablet PO SCH ×3 (07:45→17:28)
[2019-05-27] MEDS: pantoprazole 40mg Tablet.DR PO SCH (07:45)
[2019-05-27] MEDS: lactose-reduced food (Ensure Enlive) - 237ml bottle PO SCH ×3 (08:00→18:00)
[2019-05-27 10:00] VITALS: BP 132/69
--- NOTE | 2019-05-27 18:05 | NUR ---
Received patient report from CASTRO Arshad. Assumed patient care.
--- NOTE | 2019-05-27 18:23 | NUR ---
Report to Lurdes ERAZO
--- NOTE | 2019-05-27 18:37 | NUR ---
Patient in room ORTHO 4018. I have received report from CASTRO Montes and had the opportunity to ask questions and assume patient care.
--- NOTE | 2019-05-27 20:50 | NUR ---
Patient refused all medications. Patient also did not want me to preform a physical assessment. Even with encouragement and education. Will continue to monitor.
[2019-05-27] MEDS: lithium carbonate 150mg capsule PO SCH (21:00)
[2019-05-27] MEDS: OLANZAPINE 5 MG TABLET PO SCH (21:00)
--- NOTE | 2019-05-27 22:19 | NUR ---
Patient would no allow me listen to his heart, lungs or abdomen. He would not allow me to palpate pulses. Addendum: 05/27/19 at 2220 by Lurdes Greene RN Amended: Links added.
--- NOTE | 2019-05-28 06:00 | NUR ---
Patient in room ORTHO 4018. I have received report from Lureds ERAZO and had the opportunity to ask questions and assume patient care.
--- NOTE | 2019-05-28 06:21 | NUR ---
Problems reprioritized. Patient report given, questions answered & plan of care reviewed with CASTRO Arshad.
[2019-05-28] MEDS: pantoprazole 40mg Tablet.DR PO SCH ×2 (07:30→08:32)
[2019-05-28] MEDS: levetiracetam 250mg tablet PO SCH ×3 (08:00→20:13)
[2019-05-28] MEDS: docusate sod 100mg capsule PO SCH ×3 (08:00→20:13)
[2019-05-28] MEDS: LORazepam 1 MG tablet PO SCH ×4 (08:29→23:40)
[2019-05-28] MEDS: HYDROcodone/acetaminophen 10/325mg tab PO PRN ×2 (08:34→16:47)
[2019-05-28] MEDS: lactose-reduced food (Ensure Enlive) - 237ml bottle PO SCH ×3 (08:40→18:00)
[2019-05-28 10:00] VITALS: BP 134/89
--- NOTE | 2019-05-28 13:42 | NUR ---
F/u: Pt on comfort care. LBM 05/26. Will continue to follow per protocol. Reassessment: Pt current documented bed scaled scaled wt 75.3 wt loss of 22.7kg since admission, likely d/t poor PO intake. Previous documented wt of 52.7kg likely wt error since outlier. LBM 05/16. REGINA d/w RN regarding routine bowel care per MD approval since previous d/c'd. Pt currently DNR with comfort care. Will continue to follow per protocol. Recommendations: 1) Continue regular diet 2) Ensure Enlive TID; chopped meat with gravy on the side; smoothie QD at breakfast, ice cream QD with lunch, and a milkshake QD with dinner; no milk to drink 3) routine bowel care Addendum: 05/28/19 at [address] Amended: Links added.
--- NOTE | 2019-05-28 18:12 | NUR ---
Problems reprioritized. Patient report given, questions answered & plan of care reviewed with Marjorie ERAZO.
[2019-05-28] MEDS: lithium carbonate 150mg capsule PO SCH (20:13)
[2019-05-28] MEDS: OLANZAPINE 5 MG TABLET PO SCH (20:13)
--- NOTE | 2019-05-29 05:57 | NUR ---
Patient report given, questions answered and plan of care reviewed with CASTRO Arshad.
--- NOTE | 2019-05-29 06:17 | NUR ---
Patient in room ORTHO 4018. I have received report from Marjorie ERAZO and had the opportunity to ask questions and assume patient care.
[2019-05-29] MEDS: pantoprazole 40mg Tablet.DR PO SCH (07:30)
[2019-05-29] MEDS: docusate sod 100mg capsule PO SCH ×2 (08:00→20:18)
[2019-05-29] MEDS: LORazepam 1 MG tablet PO SCH ×2 (08:00→16:56)
[2019-05-29] MEDS: levetiracetam 250mg tablet PO SCH ×2 (08:00→20:18)
[2019-05-29] MEDS: lactose-reduced food (Ensure Enlive) - 237ml bottle PO SCH ×3 (08:00→18:00)
[2019-05-29 10:00] VITALS: BP 119/80
[2019-05-29] MEDS: HYDROcodone/acetaminophen 10/325mg tab PO PRN (16:56)
--- NOTE | 2019-05-29 18:15 | NUR ---
Problems reprioritized. Patient report given, questions answered & plan of care reviewed with Zoie ERAZO.
--- NOTE | 2019-05-29 18:30 | NUR ---
Patient in room ORTHO 4018. I have received report from CASTRO Arshad and had the opportunity to ask questions and assume patient care. Addendum: 05/29/19 at 1830 by Leslye Unger RN Amended: Links added.
[2019-05-29] MEDS: OLANZAPINE 5 MG TABLET PO SCH (20:18)
[2019-05-29] MEDS: lithium carbonate 150mg capsule PO SCH (20:19)
--- NOTE | 2019-05-29 23:40 | NUR ---
Patient in room ORTHO 4018. I have received report from Leslye ERAZO and had the opportunity to ask questions and assume patient care. I have reviewed and agree with all interventions, assessments performed and documented by Leslye ERAZO .
--- NOTE | 2019-05-29 23:48 | NUR ---
Problems reprioritized. Patient report given, questions answered & plan of care reviewed with CASTRO Dennis. Addendum: 05/29/19 at 2348 by Leslye Unger RN Amended: Links added.
[2019-05-30] MEDS: LORazepam 1 MG tablet PO SCH ×3 (00:11→16:00)
--- NOTE | 2019-05-30 05:58 | NUR ---
Problems reprioritized. Patient report given, questions answered & plan of care reviewed with Catie ERAZO.
--- NOTE | 2019-05-30 06:22 | NUR ---
RECEIVED REPORT FROM CASTRO WESTBROOK
[2019-05-30] MEDS: pantoprazole 40mg Tablet.DR PO SCH (07:30)
[2019-05-30] MEDS: docusate sod 100mg capsule PO SCH ×2 (07:59→19:39)
[2019-05-30] MEDS: levetiracetam 250mg tablet PO SCH ×2 (07:59→19:31)
[2019-05-30] MEDS: lactose-reduced food (Ensure Enlive) - 237ml bottle PO SCH ×3 (07:59→18:59)
[2019-05-30 10:00] VITALS: BP 159/69
[2019-05-30] MEDS: morphine 10mg/0.5ml (conc. morphine) oral syringe PO PRN ×2 (13:07→16:29)
--- NOTE | 2019-05-30 18:12 | NUR ---
gave report to myrna lbum
[2019-05-30] MEDS: OLANZAPINE 5 MG TABLET PO SCH (19:31)
[2019-05-30] MEDS: lithium carbonate 150mg capsule PO SCH (19:32)
[2019-05-31] MEDS: LORazepam 1 MG tablet PO SCH ×3 (00:07→17:22)
--- NOTE | 2019-05-31 06:00 | NUR ---
NO VITALS AT THIS TIME, PATIENT ON COMFORT CARE.
--- NOTE | 2019-05-31 06:26 | NUR ---
Problems reprioritized. Patient report given, questions answered & plan of care reviewed with CASTRO Middleton.
--- NOTE | 2019-05-31 06:32 | NUR ---
Patient in room ORTHO 4018. I have received report from LORIN ERAZO and had the opportunity to ask questions and assume patient care.
[2019-05-31] MEDS: pantoprazole 40mg Tablet.DR PO SCH (07:46)
[2019-05-31] MEDS: levetiracetam 250mg tablet PO SCH ×2 (07:54→19:19)
[2019-05-31] MEDS: docusate sod 100mg capsule PO SCH ×2 (07:54→19:18)
[2019-05-31] MEDS: lactose-reduced food (Ensure Enlive) - 237ml bottle PO SCH ×3 (08:00→18:31)
--- NOTE | 2019-05-31 08:28 | NUR ---
PATIENT REFUSED COLACE AND KEPPRA THIS MORNING.
[2019-05-31 10:00] VITALS: BP 108/73
--- NOTE | 2019-05-31 13:28 | NUR ---
PHYSICIAN WAS ASSESSING WOUND ON PATIENTS BACK. PATIENT WOULD NOT LET PHYSICIAN EVEN LOOK AT WOUND BEFORE TELLING US WE NEEDED STOP AND SHE ROLLED BACK ON TO HER BACK JUST THE WOUND WAS COVER BACK UP WITH OPTIFOAM. WILL ATTEMPT TO OBTAIN WOUND PHOTO LATER.
--- NOTE | 2019-05-31 18:30 | NUR ---
Problems reprioritized. Patient report given, questions answered & plan of care reviewed with LORIN ERAZO.
[2019-05-31] MEDS: OLANZAPINE 5 MG TABLET PO SCH (19:18)
[2019-05-31] MEDS: lithium carbonate 150mg capsule PO SCH (19:19)
[2019-06-01] MEDS: LORazepam 1 MG tablet PO SCH ×3 (00:05→16:00)
--- NOTE | 2019-06-01 06:10 | NUR ---
Patient in room ORTHO 4018. I have received report from LORIN ERAZO and had the opportunity to ask questions and assume patient care.
--- NOTE | 2019-06-01 06:19 | NUR ---
Problems reprioritized. Patient report given, questions answered & plan of care reviewed with CASTRO Pandey.
[2019-06-01] MEDS: lactose-reduced food (Ensure Enlive) - 237ml bottle PO SCH ×3 (08:00→18:00)
[2019-06-01 10:00] VITALS: BP 118/88
[2019-06-01] MEDS: pantoprazole 40mg Tablet.DR PO SCH ×2 (10:22→10:35)
[2019-06-01] MEDS: HYDROcodone/acetaminophen 10/325mg tab PO PRN (10:23)
[2019-06-01] MEDS: levetiracetam 250mg tablet PO SCH ×2 (10:23→19:30)
[2019-06-01] MEDS: docusate sod 100mg capsule PO SCH ×3 (10:23→19:30)
--- NOTE | 2019-06-01 18:00 | NUR ---
Problems reprioritized. Patient report given, questions answered & plan of care reviewed with LORIN ERAZO .
[2019-06-01] MEDS: OLANZAPINE 5 MG TABLET PO SCH (19:30)
[2019-06-01] MEDS: lithium carbonate 150mg capsule PO SCH (19:31)
[2019-06-01 22:00] VITALS: BP 108/72
[2019-06-02] MEDS: LORazepam 1 MG tablet PO SCH ×4 (00:46→23:27)
--- NOTE | 2019-06-02 06:38 | NUR ---
Problems reprioritized. Patient report given, questions answered & plan of care reviewed with CASTRO Alicia.
[2019-06-02] MEDS: pantoprazole 40mg Tablet.DR PO SCH (08:00)
[2019-06-02] MEDS: docusate sod 100mg capsule PO SCH ×2 (08:00→20:49)
[2019-06-02] MEDS: lactose-reduced food (Ensure Enlive) - 237ml bottle PO SCH ×3 (08:00→18:00)
[2019-06-02] MEDS: morphine 10mg/0.5ml (conc. morphine) oral syringe PO PRN ×2 (11:52→20:52)
[2019-06-02] MEDS: levetiracetam 250mg tablet PO SCH ×2 (11:53→20:49)
[2019-06-02] MEDS: OLANZAPINE 5 MG TABLET PO SCH (20:49)
[2019-06-02] MEDS: lithium carbonate 150mg capsule PO SCH (20:49)
--- NOTE | 2019-06-03 06:18 | NUR ---
Problems reprioritized. Patient report given, questions answered & plan of care reviewed with CASTRO CANCHOLA.
[2019-06-03] MEDS: lactose-reduced food (Ensure Enlive) - 237ml bottle PO SCH ×2 (08:00→18:00)
[2019-06-03] MEDS: docusate sod 100mg capsule PO SCH ×2 (08:00→20:00)
[2019-06-03] MEDS: LORazepam 1 MG tablet PO SCH (09:35)
[2019-06-03] MEDS: levetiracetam 250mg tablet PO SCH ×2 (09:36→21:01)
[2019-06-03] MEDS: pantoprazole 40mg Tablet.DR PO SCH (09:36)
[2019-06-03] MEDS: lithium carbonate 150mg capsule PO SCH (20:57)
[2019-06-03] MEDS: OLANZAPINE 5 MG TABLET PO SCH (20:57)
[2019-06-04] MEDS: LORazepam 1 MG tablet PO SCH ×3 (00:29→17:19)
--- NOTE | 2019-06-04 06:24 | NUR ---
Problems reprioritized. Patient report given, questions answered & plan of care reviewed with CASTRO CANCHOLA.
[2019-06-04] MEDS: lactose-reduced food (Ensure Enlive) - 237ml bottle PO SCH ×3 (08:00→18:00)
[2019-06-04] MEDS: docusate sod 100mg capsule PO SCH ×2 (09:10→20:00)
[2019-06-04] MEDS: morphine 10mg/0.5ml (conc. morphine) oral syringe PO PRN ×2 (09:13→17:20)
[2019-06-04] MEDS: levetiracetam 250mg tablet PO SCH ×2 (09:14→20:56)
[2019-06-04] MEDS: pantoprazole 40mg Tablet.DR PO SCH (09:14)
[2019-06-04 10:00] VITALS: BP 124/80
--- NOTE | 2019-06-04 11:54 | NUR ---
Reassessment: Pt now on a puree diet, previously regular, and documented with fluctuating PO intake of 25-50% with refusals however continues with good PO intake of ONS TID and receiving a milkshake BIDLD and ice cream with lunches. No further nutrition intervention at this time given pt continues to be DNR with comfort care. [facility] 06/03. Will continue to follow per LOS protocol. Recommendations: 1) Continue pureed diet 2) Advance to regular if pt requests with chopped meat and gravy on the side given comfort care code status 3) Ensure Enlive TID; ice cream QD with lunch; milkshake BIDLD; no milk to drink 4) routine bowel care Addendum: 06/04/19 at [address] Amended: Links added.
--- NOTE | 2019-06-04 18:12 | NUR ---
Report to Marni ERAZO, NA assisting patient with ensure and dinner tray
[2019-06-04] MEDS: OLANZAPINE 5 MG TABLET PO SCH (20:56)
[2019-06-04] MEDS: lithium carbonate 150mg capsule PO SCH (20:56)
[2019-06-05] MEDS: LORazepam 1 MG tablet PO SCH ×3 (01:16→17:03)
--- NOTE | 2019-06-05 06:32 | NUR ---
Problems reprioritized. Patient report given, questions answered & plan of care reviewed with CASTRO ARREAGA.
[2019-06-05] MEDS: pantoprazole 40mg Tablet.DR PO SCH (07:30)
[2019-06-05] MEDS: levetiracetam 250mg tablet PO SCH ×2 (08:00→19:56)
[2019-06-05] MEDS: lactose-reduced food (Ensure Enlive) - 237ml bottle PO SCH ×3 (08:00→18:00)
[2019-06-05] MEDS: docusate sod 100mg capsule PO SCH ×2 (08:00→20:00)
[2019-06-05 10:00] VITALS: BP 114/84
[2019-06-05] MEDS: nystatin 500,000 unit/5ML UD oral suspension PO SCH ×2 (13:13→19:57)
[2019-06-05] MEDS ORDERED: polyethylene glycol 3350 17gm powd pack PO PRN (16:15)
[2019-06-05] MEDS: HYDROcodone/acetaminophen 10/325mg tab PO PRN (17:03)
--- NOTE | 2019-06-05 18:40 | NUR ---
Patient in room ORTHO 4018. I have received report from Char ERAZO and had the opportunity to ask questions and assume patient care.
[2019-06-05] MEDS: lithium carbonate 150mg capsule PO SCH (19:57)
[2019-06-05] MEDS: OLANZAPINE 5 MG TABLET PO SCH (19:57)
[2019-06-06] MEDS: LORazepam 1 MG tablet PO SCH ×4 (00:37→23:17)
--- NOTE | 2019-06-06 06:26 | NUR ---
Problems reprioritized. Patient report given, questions answered & plan of care reviewed with Char ERAZO.
--- NOTE | 2019-06-06 06:35 | NUR ---
Patient in room ORTHO 4018. I have received report from Rukhsana ERAZO and had the opportunity to ask questions and assume patient care.
[2019-06-06] MEDS: docusate sod 100mg capsule PO SCH ×2 (08:00→19:49)
[2019-06-06] MEDS: lactose-reduced food (Ensure Enlive) - 237ml bottle PO SCH ×3 (08:00→14:00)
[2019-06-06] MEDS: nystatin 500,000 unit/5ML UD oral suspension PO SCH ×3 (09:18→19:48)
[2019-06-06] MEDS: pantoprazole 40mg Tablet.DR PO SCH (09:18)
[2019-06-06] MEDS: levetiracetam 250mg tablet PO SCH ×2 (09:18→19:44)
[2019-06-06 10:00] VITALS: BP 121/79
--- NOTE | 2019-06-06 18:09 | NUR ---
Patient in room ORTHO 4018. I have received report from Mahnaz ERAZO and had the opportunity to ask questions and assume patient care.
--- NOTE | 2019-06-06 18:38 | NUR ---
patient report given to Rukhsana ERAZO
[2019-06-06] MEDS: OLANZAPINE 5 MG TABLET PO SCH (19:44)
[2019-06-06] MEDS: lithium carbonate 150mg capsule PO SCH (19:44)
[2019-06-06 22:00] VITALS: BP 111/59
--- NOTE | 2019-06-07 06:11 | NUR ---
Problems reprioritized. Patient report given, questions answered & plan of care reviewed with Adonis ERAZO.
--- NOTE | 2019-06-07 06:30 | NUR ---
Patient in room ORTHO 4018. I have received report from Rukhsana ERAZO and had the opportunity to ask questions and assume patient care.
[2019-06-07] MEDS: lactose-reduced food (Ensure Enlive) - 237ml bottle PO SCH ×3 (08:34→18:00)
[2019-06-07] MEDS: pantoprazole 40mg Tablet.DR PO SCH (08:38)
[2019-06-07] MEDS: LORazepam 1 MG tablet PO SCH ×3 (08:39→23:25)
[2019-06-07] MEDS: nystatin 500,000 unit/5ML UD oral suspension PO SCH ×3 (08:39→19:50)
[2019-06-07] MEDS: levetiracetam 250mg tablet PO SCH ×2 (08:39→19:49)
[2019-06-07] MEDS: docusate sod 100mg capsule PO SCH ×2 (08:39→20:00)
[2019-06-07 10:00] VITALS: BP 104/70
--- NOTE | 2019-06-07 18:03 | NUR ---
Problems reprioritized. Patient report given, questions answered & plan of care reviewed with Rukhsana ERAZO.
--- NOTE | 2019-06-07 18:12 | NUR ---
Patient in room ORTHO 4018. I have received report from Adonis ERAZO and had the opportunity to ask questions and assume patient care.
[2019-06-07] MEDS: OLANZAPINE 5 MG TABLET PO SCH (19:49)
[2019-06-07] MEDS: lithium carbonate 150mg capsule PO SCH (19:50)
--- NOTE | 2019-06-08 06:20 | NUR ---
Problems reprioritized. Patient report given, questions answered & plan of care reviewed with Adonis ERAZO.
--- NOTE | 2019-06-08 06:35 | NUR ---
Patient in room ORTHO 4018. I have received report from Rukhsana ERAZO and had the opportunity to ask questions and assume patient care.
[2019-06-08] MEDS: pantoprazole 40mg Tablet.DR PO SCH (07:30)
[2019-06-08] MEDS: nystatin 500,000 unit/5ML UD oral suspension PO SCH ×3 (08:00→20:58)
[2019-06-08] MEDS: lactose-reduced food (Ensure Enlive) - 237ml bottle PO SCH ×3 (08:00→12:54)
[2019-06-08] MEDS: levetiracetam 250mg tablet PO SCH ×2 (08:00→20:57)
[2019-06-08] MEDS: LORazepam 1 MG tablet PO SCH ×3 (08:00→15:47)
[2019-06-08] MEDS: docusate sod 100mg capsule PO SCH ×2 (08:00→20:57)
[2019-06-08] MEDS: HYDROcodone/acetaminophen 10/325mg tab PO PRN (08:34)
[2019-06-08 10:00] VITALS: BP 121/83
--- NOTE | 2019-06-08 10:09 | NUR ---
Adonis [id number] Re: Enrique Quinteros. Pt father called stated Pt mother had passed. Father requesting Hospital to tell Pt.
--- NOTE | 2019-06-08 18:37 | NUR ---
Problems reprioritized. Patient report given, questions answered & plan of care reviewed with Chicho Gomez from PCU.
--- NOTE | 2019-06-08 18:40 | NUR ---
Patient in room ORTHO 4018. I have received report from CASTRO Lamb and had the opportunity to ask questions and assume patient care.
[2019-06-08] MEDS: OLANZAPINE 5 MG TABLET PO SCH (20:57)
[2019-06-08] MEDS: lithium carbonate 150mg capsule PO SCH (20:58)
[2019-06-09] MEDS: LORazepam 1 MG tablet PO SCH ×3 (00:09→17:23)
--- NOTE | 2019-06-09 06:30 | NUR ---
Patient in room ORTHO 4018. I have received report from CASTRO Godinez and had the opportunity to ask questions and assume patient care.
--- NOTE | 2019-06-09 06:35 | NUR ---
Problems reprioritized. Patient report given, questions answered & plan of care reviewed with CASTRO Page. Patient stable at shift change
[2019-06-09] MEDS: lactose-reduced food (Ensure Enlive) - 237ml bottle PO SCH ×3 (08:00→18:00)
[2019-06-09] MEDS: nystatin 500,000 unit/5ML UD oral suspension PO SCH ×3 (08:00→21:07)
[2019-06-09] MEDS: levetiracetam 250mg tablet PO SCH ×2 (08:56→21:08)
[2019-06-09] MEDS: docusate sod 100mg capsule PO SCH ×2 (08:56→21:08)
[2019-06-09] MEDS: pantoprazole 40mg Tablet.DR PO SCH (08:57)
[2019-06-09 10:00] VITALS: BP 124/78
[2019-06-09] MEDS: morphine 10mg/0.5ml (conc. morphine) oral syringe PO PRN ×2 (17:24→21:09)
--- NOTE | 2019-06-09 18:20 | NUR ---
RECEIVED REPORT FROM RAMSEY ERAZO AND ASSUMED PATIENT CARE
--- NOTE | 2019-06-09 18:30 | NUR ---
Problems reprioritized. Patient report given, questions answered & plan of care reviewed with CASTRO Rubio.
[2019-06-09] MEDS: lithium carbonate 150mg capsule PO SCH (21:07)
[2019-06-09] MEDS: OLANZAPINE 5 MG TABLET PO SCH (21:07)
[2019-06-10] MEDS: nystatin 500,000 unit/5ML UD oral suspension PO SCH ×3 (08:21→20:54)
[2019-06-10] MEDS: docusate sod 100mg capsule PO SCH ×2 (08:33→20:00)
[2019-06-10] MEDS: levetiracetam 250mg tablet PO SCH ×2 (08:33→20:00)
[2019-06-10] MEDS: lactose-reduced food (Ensure Enlive) - 237ml bottle PO SCH ×3 (08:33→18:45)
[2019-06-10] MEDS: LORazepam 1 MG tablet PO SCH ×3 (08:33→17:04)
[2019-06-10] MEDS: pantoprazole 40mg Tablet.DR PO SCH (08:33)
[2019-06-10 10:00] VITALS: BP 111/84
--- NOTE | 2019-06-10 18:15 | NUR ---
Received patient report from CASTRO Page. Assumed patient care.
[2019-06-10] MEDS: lithium carbonate 150mg capsule PO SCH (20:54)
[2019-06-10] MEDS: OLANZAPINE 5 MG TABLET PO SCH (20:55)
[2019-06-10 22:00] VITALS: BP 107/80
[2019-06-11] MEDS: LORazepam 1 MG tablet PO SCH ×3 (00:42→16:30)
--- NOTE | 2019-06-11 06:03 | NUR ---
Patient report given, questions answered and plan of care reviewed with CASTRO Page.
[2019-06-11] MEDS: nystatin 500,000 unit/5ML UD oral suspension PO SCH ×3 (08:00→21:00)
[2019-06-11] MEDS: docusate sod 100mg capsule PO SCH ×2 (08:54→20:00)
[2019-06-11] MEDS: levetiracetam 250mg tablet PO SCH ×2 (08:55→21:02)
[2019-06-11] MEDS: lactose-reduced food (Ensure Enlive) - 237ml bottle PO SCH ×3 (08:55→18:00)
[2019-06-11] MEDS: pantoprazole 40mg Tablet.DR PO SCH (08:57)
[2019-06-11 10:00] VITALS: BP 120/80
--- NOTE | 2019-06-11 11:05 | NUR ---
F/u: DANISH 06/08. DNR w/ comfort care. Will continue to monitor per protocol. Addendum: 06/11/19 at [address] Amended: Links added.
--- NOTE | 2019-06-11 18:10 | NUR ---
Received patient report from CASTRO Page. Assumed patient care.
--- NOTE | 2019-06-11 18:30 | NUR ---
Problems reprioritized. Patient report given, questions answered & plan of care reviewed with CASTRO Amador.
[2019-06-11] MEDS: OLANZAPINE 5 MG TABLET PO SCH (21:00)
[2019-06-11] MEDS: lithium carbonate 150mg capsule PO SCH (21:02)
[2019-06-11 22:00] VITALS: BP 131/83
[2019-06-12] MEDS: LORazepam 1 MG tablet PO SCH ×3 (00:33→17:12)
--- NOTE | 2019-06-12 06:26 | NUR ---
Patient report given, questions answered and plan of care reviewed with CASTRO Pryor.
--- NOTE | 2019-06-12 06:54 | NUR ---
Patient in room ORTHO 4018. I have received report from Marjorie ERAZO and had the opportunity to ask questions and assume patient care.
[2019-06-12] MEDS: lactose-reduced food (Ensure Enlive) - 237ml bottle PO SCH ×4 (08:00→18:08)
[2019-06-12] MEDS: levetiracetam 250mg tablet PO SCH ×2 (09:20→20:31)
[2019-06-12] MEDS: nystatin 500,000 unit/5ML UD oral suspension PO SCH ×3 (09:20→20:39)
[2019-06-12] MEDS: docusate sod 100mg capsule PO SCH ×2 (09:20→20:31)
[2019-06-12] MEDS: pantoprazole 40mg Tablet.DR PO SCH (09:20)
[2019-06-12] MEDS: HYDROcodone/acetaminophen 10/325mg tab PO PRN (09:21)
--- NOTE | 2019-06-12 18:09 | NUR ---
Problems reprioritized. Patient report given, questions answered & plan of care reviewed with Marjorie ERAZO.
--- NOTE | 2019-06-12 18:10 | NUR ---
Received patient report from CASTRO Pryor. Assumed patient care.
[2019-06-12] MEDS: OLANZAPINE 5 MG TABLET PO SCH (20:31)
[2019-06-12] MEDS: lithium carbonate 150mg capsule PO SCH (20:32)
[2019-06-12 22:00] VITALS: BP 120/78
[2019-06-13] MEDS: LORazepam 1 MG tablet PO SCH ×3 (00:41→16:00)
--- NOTE | 2019-06-13 06:24 | NUR ---
Patient report given, questions answered and plan of care reviewed with CASTRO Arshad.
[2019-06-13] MEDS: pantoprazole 40mg Tablet.DR PO SCH (07:30)
[2019-06-13] MEDS: levetiracetam 250mg tablet PO SCH ×2 (08:00→20:00)
[2019-06-13] MEDS: lactose-reduced food (Ensure Enlive) - 237ml bottle PO SCH ×3 (08:00→18:00)
[2019-06-13] MEDS: nystatin 500,000 unit/5ML UD oral suspension PO SCH (08:00)
[2019-06-13] MEDS: docusate sod 100mg capsule PO SCH ×2 (08:00→20:00)
[2019-06-13 10:00] VITALS: BP 127/80
[2019-06-13] MEDS: HYDROcodone/acetaminophen 10/325mg tab PO PRN (12:38)
--- NOTE | 2019-06-13 18:25 | NUR ---
Problems reprioritized. Patient report given, questions answered & plan of care reviewed with Rukhsana ERAZO.
--- NOTE | 2019-06-13 18:30 | NUR ---
Patient in room ORTHO 4018. I have received report from Pavithra ERAZO and had the opportunity to ask questions and assume patient care.
[2019-06-13] MEDS: OLANZAPINE 5 MG TABLET PO SCH (20:00)
[2019-06-13] MEDS: lithium carbonate 150mg capsule PO SCH (20:00)
[2019-06-14] MEDS: LORazepam 1 MG tablet PO SCH ×4 (00:10→23:45)
--- NOTE | 2019-06-14 06:27 | NUR ---
Problems reprioritized. Patient report given, questions answered & plan of care reviewed with Pavithra RN and Jose ERAZO.
--- NOTE | 2019-06-14 06:30 | NUR ---
Patient in room ORTHO 4018. I have received report from Rukhsana ERAZO and had the opportunity to ask questions and assume patient care.
[2019-06-14] MEDS: pantoprazole 40mg Tablet.DR PO SCH (07:30)
[2019-06-14] MEDS: lactose-reduced food (Ensure Enlive) - 237ml bottle PO SCH ×3 (08:00→18:00)
[2019-06-14] MEDS: levetiracetam 250mg tablet PO SCH ×2 (08:00→20:00)
[2019-06-14] MEDS: docusate sodium 100mg/10ml UD cup PO SCH ×2 (08:33→20:00)
[2019-06-14 10:00] VITALS: BP 114/78
--- NOTE | 2019-06-14 12:24 | NUR ---
Attempted multiple times to give patient his medications but he refused them on all attempts. Will continue to encourage medication. Doctor is aware that patient is refusing and is okay with it, as patient is on comfort centered care. Patient appears to be comfortable and does not want any medication for pain at this time.
--- NOTE | 2019-06-14 18:00 | NUR ---
Received report from Pavithra ERAZO. Assumed care of patient.
--- NOTE | 2019-06-14 18:05 | NUR ---
Problems reprioritized. Patient report given, questions answered & plan of care reviewed with Sharmila RN.
[2019-06-14] MEDS: OLANZAPINE 5 MG TABLET PO SCH (20:44)
[2019-06-14] MEDS: lithium carbonate 150mg capsule PO SCH (20:44)
--- NOTE | 2019-06-15 06:16 | NUR ---
Gave report to Pavithra ERAZO.
[2019-06-15] MEDS: pantoprazole 40mg Tablet.DR PO SCH (07:30)
[2019-06-15] MEDS: levetiracetam 250mg tablet PO SCH ×2 (08:00→20:24)
[2019-06-15] MEDS: LORazepam 1 MG tablet PO SCH ×2 (08:00→15:05)
[2019-06-15] MEDS: lactose-reduced food (Ensure Enlive) - 237ml bottle PO SCH ×3 (08:00→18:00)
[2019-06-15] MEDS: docusate sodium 100mg/10ml UD cup PO SCH ×2 (08:00→20:23)
[2019-06-15 10:00] VITALS: BP 131/84
--- NOTE | 2019-06-15 14:42 | NUR ---
Gave report to Chhaya ERAZO
--- NOTE | 2019-06-15 15:07 | NUR ---
Patient in room ORTHO 4018. I have received report from Rociada and had the opportunity to ask questions and assume patient care.
--- NOTE | 2019-06-15 18:23 | NUR ---
Problems reprioritized. Patient report given, questions answered & plan of care reviewed with
--- NOTE | 2019-06-15 19:38 | NUR ---
Assumed care of patient with verbal report from Chhaya ERAZO at 1830
[2019-06-15] MEDS: lithium carbonate 150mg capsule PO SCH (20:24)
[2019-06-15] MEDS: OLANZAPINE 5 MG TABLET PO SCH (20:24)
[2019-06-15] MEDS: HYDROcodone/acetaminophen 10/325mg tab PO PRN (20:35)
[2019-06-16] MEDS: LORazepam 1 MG tablet PO SCH ×3 (00:21→15:40)
--- NOTE | 2019-06-16 06:37 | NUR ---
Problems reprioritized. Patient report given, questions answered & plan of care reviewed with PATRICIO ERAZO.
--- NOTE | 2019-06-16 07:24 | NUR ---
Unable to assess, comfort care, and labs not drawn since 02/01/2019 Addendum: 06/16/19 at 0726 by Claudia Javier RN Amended: Links added.
[2019-06-16] MEDS: pantoprazole 40mg Tablet.DR PO SCH (07:30)
[2019-06-16] MEDS: docusate sodium 100mg/10ml UD cup PO SCH ×2 (08:00→20:18)
[2019-06-16] MEDS: lactose-reduced food (Ensure Enlive) - 237ml bottle PO SCH ×3 (08:00→18:00)
[2019-06-16 10:00] VITALS: BP 118/68
[2019-06-16] MEDS: levetiracetam 250mg tablet PO SCH ×2 (15:31→15:39)
--- NOTE | 2019-06-16 18:32 | NUR ---
Problems reprioritized. Patient report given, questions answered & plan of care reviewed with Dimple ERAZO.
--- NOTE | 2019-06-16 18:52 | NUR ---
Patient in room ORTHO 4018. I have received report from Claudia ERAZO and had the opportunity to ask questions and assume patient care.
[2019-06-16] MEDS: lithium carbonate 150mg capsule PO SCH (20:18)
[2019-06-16] MEDS: OLANZAPINE 5 MG TABLET PO SCH (20:18)
--- NOTE | 2019-06-17 06:46 | NUR ---
I have received report from Dimple ERAZO and had the opportunity to ask questions and assume patient care.
[2019-06-17] MEDS: lactose-reduced food (Ensure Enlive) - 237ml bottle PO SCH ×2 (08:00→18:00)
[2019-06-17 10:00] VITALS: BP 131/88
[2019-06-17] MEDS: levetiracetam 250mg tablet PO SCH ×2 (10:10→20:00)
[2019-06-17] MEDS: docusate sodium 100mg/10ml UD cup PO SCH ×2 (10:10→20:00)
[2019-06-17] MEDS: LORazepam 1 MG tablet PO SCH ×3 (10:11→16:00)
[2019-06-17] MEDS: pantoprazole 40mg Tablet.DR PO SCH (10:11)
--- NOTE | 2019-06-17 11:00 | NUR ---
IN AGREEMENT WITH EARLY ASSESSMENT, AND ASSUME CARE OF PATIENT. PATIENT HAVING DIFFICULTY WITH SWALLOWING THIN LIQUIDS THUS REQUIRING SUCTION WITH MIRANDA. PLACED NPO AT THIS TIME.HOB UP CALL LIGHT IN REACH BED ALARMS ON. BLL.SPOKE WITH CHARGE NURSE REGARDING SPEECH THERAPIST. Addendum: 06/17/19 at 1913 by Leah Hercules RN Amended: Links added.
--- NOTE | 2019-06-17 15:47 | NUR ---
F/u: LBM 06/15. DNR w/ comfort care. Will continue to monitor per protocol. Recommendations: 1) Continue pureed diet 2) Advance to regular if pt requests with chopped meat and gravy on the side given comfort care code status 3) Ensure Enlive TID; ice cream QD with lunch; milkshake BIDLD; no milk to drink 4) routine bowel care Addendum: 06/17/19 at [address] Amended: Links added.
--- NOTE | 2019-06-17 18:05 | NUR ---
RECEIVED REPORT FROM JEFF ERAZO AND ASSUMED PATIENT CARE
[2019-06-17] MEDS: lithium carbonate 150mg capsule PO SCH (21:00)
[2019-06-17] MEDS: OLANZAPINE 5 MG TABLET PO SCH (21:00)
[2019-06-17 22:00] VITALS: BP 125/87
--- NOTE | 2019-06-18 06:05 | NUR ---
Patient in room ORTHO 4018. I have received report from Joanne ERAZO and had the opportunity to ask questions and assume patient care.
--- NOTE | 2019-06-18 06:24 | NUR ---
REPORT GIVEN TO PATRICIO ERAZO
[2019-06-18] MEDS: pantoprazole 40mg Tablet.DR PO SCH (07:30)
[2019-06-18] MEDS: LORazepam 1 MG tablet PO SCH ×3 (08:00→16:00)
[2019-06-18] MEDS: lactose-reduced food (Ensure Enlive) - 237ml bottle PO SCH ×3 (08:00→18:00)
[2019-06-18] MEDS: levetiracetam 250mg tablet PO SCH ×2 (08:00→20:00)
[2019-06-18] MEDS: docusate sodium 100mg/10ml UD cup PO SCH ×2 (08:00→20:00)
[2019-06-18 10:00] VITALS: BP 114/89
--- NOTE | 2019-06-18 18:14 | NUR ---
RECEIVED REPORT FROM PATRICIO ERAZO AND ASSUMED PATIENT CARE
--- NOTE | 2019-06-18 18:14 | NUR ---
Problems reprioritized. Patient report given, questions answered & plan of care reviewed with Joanne ERAZO. Addendum: 06/18/19 at 1816 by Emiliana Thomas RN Problems reprioritized. Patient report given, questions answered & plan of care reviewed with Ivania ERAZO.
--- NOTE | 2019-06-18 18:16 | NUR ---
Problems reprioritized. Patient report given, questions answered & plan of care reviewed with ELO ERAZO.
[2019-06-18] MEDS: lithium carbonate 150mg capsule PO SCH (21:00)
[2019-06-18] MEDS: OLANZAPINE 5 MG TABLET PO SCH (21:00)
--- NOTE | 2019-06-19 06:15 | NUR ---
REPORT GIVEN TO PATRICIO ERAZO
[2019-06-19] MEDS: pantoprazole 40mg Tablet.DR PO SCH (07:30)
[2019-06-19] MEDS: docusate sodium 100mg/10ml UD cup PO SCH ×2 (07:59→20:00)
[2019-06-19] MEDS: LORazepam 1 MG tablet PO SCH ×3 (07:59→16:00)
[2019-06-19] MEDS: lactose-reduced food (Ensure Enlive) - 237ml bottle PO SCH ×3 (08:00→18:00)
[2019-06-19] MEDS: levetiracetam 250mg tablet PO SCH ×2 (08:00→20:00)
[2019-06-19 10:01] VITALS: BP 131/91
--- NOTE | 2019-06-19 17:35 | NUR ---
COULD NOT GET PATIENTS WEIGHT DUE TO BED WEIGHT NEEDING ADJUSTMENT. Addendum: 06/19/19 at 1735 by Claudia Javier RN Amended: Links added.
--- NOTE | 2019-06-19 18:16 | NUR ---
Problems reprioritized. Patient report given, questions answered & plan of care reviewed with Joanne ERAZO.
--- NOTE | 2019-06-19 18:25 | NUR ---
RECEIVED REPORT FROM PATRICIO ERAZO AND ASSUMED PATIENT CARE
[2019-06-19] MEDS: lithium carbonate 150mg capsule PO SCH (21:00)
[2019-06-19] MEDS: OLANZAPINE 5 MG TABLET PO SCH (21:00)
--- NOTE | 2019-06-20 06:50 | NUR ---
Patient in room ORTHO 4018. I have received report from CASTRO GASCA and had the opportunity to ask questions and assume patient care.
[2019-06-20] MEDS: pantoprazole 40mg Tablet.DR PO SCH (07:30)
[2019-06-20] MEDS: levetiracetam 250mg tablet PO SCH ×2 (08:00→19:45)
[2019-06-20] MEDS: LORazepam 1 MG tablet PO SCH ×4 (08:00→23:32)
[2019-06-20] MEDS: docusate sodium 100mg/10ml UD cup PO SCH ×2 (08:00→19:45)
[2019-06-20] MEDS: lactose-reduced food (Ensure Enlive) - 237ml bottle PO SCH ×3 (08:00→18:00)
--- NOTE | 2019-06-20 16:30 | NUR ---
PAGER ID: [phone] MESSAGE: [id number] [id number]-RE: KAY LEVY [phone]...CAN WE DC PO MEDS, PT IS NO LONGER TAKING ANYTHING PO DUE TO ASPIRATION...PT FAILED SWALLOW STUDY 2 DAYS AGO.
[2019-06-20] MEDS: lithium carbonate 150mg capsule PO SCH (19:45)
[2019-06-20] MEDS: OLANZAPINE 5 MG TABLET PO SCH (19:45)
--- NOTE | 2019-06-21 06:31 | NUR ---
Problems reprioritized. Patient report given, questions answered & plan of care reviewed with CASTRO Devlin.
--- NOTE | 2019-06-21 06:54 | NUR ---
Patient in room ORTHO 4018. I have received report from CASTRO PADGETT and had the opportunity to ask questions and assume patient care.
[2019-06-21] MEDS: pantoprazole 40mg Tablet.DR PO SCH (07:30)
[2019-06-21] MEDS: lactose-reduced food (Ensure Enlive) - 237ml bottle PO SCH ×3 (08:00→18:00)
[2019-06-21] MEDS: LORazepam 1 MG tablet PO SCH ×2 (08:00→16:00)
[2019-06-21] MEDS: docusate sodium 100mg/10ml UD cup PO SCH ×2 (08:00→20:00)
[2019-06-21] MEDS: levetiracetam 250mg tablet PO SCH ×2 (08:00→20:00)
[2019-06-21 10:00] VITALS: BP 124/86
--- NOTE | 2019-06-21 18:13 | NUR ---
Problems reprioritized. Patient report given, questions answered & plan of care reviewed with CASTRO PADGETT.
[2019-06-21] MEDS: OLANZAPINE 5 MG TABLET PO SCH (20:07)
[2019-06-21] MEDS: lithium carbonate 150mg capsule PO SCH (20:07)
--- NOTE | 2019-06-22 06:40 | NUR ---
Problems reprioritized. Patient report given, questions answered & plan of care reviewed with ceci norris.
[2019-06-22] MEDS: pantoprazole 40mg Tablet.DR PO SCH (07:30)
--- NOTE | 2019-06-22 07:37 | NUR ---
PAGER ID: [phone] MESSAGE: Char [phone] keyon Enrique Ferrer- gita is wide awake, unable to swallow or speak. Looks extremely uncomfortable. Can we start an IV if he will let us? And can we have some IV comfort care orders. He is very dehydrated
[2019-06-22] MEDS: docusate sodium 100mg/10ml UD cup PO SCH ×2 (08:00→20:00)
[2019-06-22] MEDS: LORazepam 1 MG tablet PO SCH ×3 (08:00→15:33)
[2019-06-22] MEDS: lactose-reduced food (Ensure Enlive) - 237ml bottle PO SCH ×3 (08:00→18:00)
--- NOTE | 2019-06-22 08:00 | NUR ---
unable to assess- comfort care no labs drawn Addendum: 06/22/19 at 1122 by Wanda Em RN Amended: Links added.
--- NOTE | 2019-06-22 08:02 | NUR ---
the pt is visibly uncomfortable. Eyes, cheeks, ribs are all sunken in. Eyes are wide and brow is pinched. Attempt to give water via swab or cup, the swab he pushed away and the he was unable to swallow the water. He is unable to communicate other than shaking a fist and making eye contact, attempt to communicate via finger board, to point to answers yes or no but patient took the paper and crumpled it up in his fist. I attempted to acertain whether he wanted an iv, for fluids or meds, and could not get a for sure answer. I did contact the MD with this information and I am waiting for a call back. Oral care was performed at this time as well. Addendum: 06/22/19 at 0803 by Wanda Em RN Amended: Links added.
[2019-06-22 10:00] VITALS: BP 108/79
--- NOTE | 2019-06-22 11:06 | NUR ---
Second page- PAGER ID: [phone] MESSAGE: Char [id number] re Nabil Nunez in [phone]- can we please have some IV comfort care orders for him? He looks miserable. So far he has agreed to let us place IV. Completely unable to swallow
[2019-06-22] MEDS: levetiracetam 250mg tablet PO SCH ×2 (11:07→20:00)
[2019-06-22] MEDS: morphine 10mg/0.5ml (conc. morphine) oral syringe PO PRN ×2 (15:28→17:42)
--- NOTE | 2019-06-22 19:19 | NUR ---
Patient in room ORTHO 4018. I have received report from ceci norris and had the opportunity to ask questions and assume patient care.
[2019-06-22] MEDS: lithium carbonate 150mg capsule PO SCH (20:45)
[2019-06-22] MEDS: OLANZAPINE 5 MG TABLET PO SCH (20:46)
[2019-06-23] MEDS: LORazepam 1 MG tablet PO SCH ×2 (00:49→08:19)
[2019-06-23] MEDS: morphine 10mg/0.5ml (conc. morphine) oral syringe PO PRN ×5 (00:50→13:38)
--- NOTE | 2019-06-23 06:11 | NUR ---
received report from kulwant/perla rn
[2019-06-23] MEDS: pantoprazole 40mg Tablet.DR PO SCH (07:30)
[2019-06-23] MEDS: lactose-reduced food (Ensure Enlive) - 237ml bottle PO SCH ×2 (07:35→12:34)
[2019-06-23] MEDS: docusate sodium 100mg/10ml UD cup PO SCH (07:35)
[2019-06-23] MEDS: levetiracetam 250mg tablet PO SCH (07:36)
[2019-06-23 10:00] VITALS: BP 79/51
--- NOTE | 2019-06-23 13:00 | NUR ---
F/u: LBM 06/22. DNR w/ comfort care. Will continue to monitor per protocol.. Recommendations: 1) Continue pureed diet 2) Advance to regular if pt requests with chopped meat and gravy on the side given comfort care code status 3) Ensure Enlive TID; ice cream QD with lunch; milkshake BIDLD; no milk to drink 4) routine bowel care Addendum: 06/23/19 at [address] Amended: Links added.
--- NOTE | 2019-06-23 13:58 | NUR ---
PT AT 1344, AT 1345, NOTIFIED HOSPITALIST BY PAGE AT 1346 NOTIFIED FATHER WHO SAID THAT HE IS SENDING JORGE LUIS PTS SISTER TO [facility] NEXT WEEK AND THAT HE IS TOO BUSY BECAUSE HIS HAD JUST , AT 1348 CONDUCTED AN ASYSTOLE TELE STRIP AT 1349 NOTIFIED [employer] AND TALKED W/VILMA YORK WHO GAVE ME A NUMBER [phone] AT 1354 NOTIFIED NURSING SUP AT 1356 NOTIFIED [facility] IN [place] TO COLLECT BODY, LEFT A MESSAGE AT 1402 SISTER JORGE LUIS, CALLED TO NOTIFY NURSING STAFF THAT SHE WILL BE AT HOSPITAL TOMORROW TO [facility] PT [facility]
--- NOTE | 2019-06-23 15:14 | NUR ---
ABY FROM [facility] CALLED ME BACK TO TELL ME THAT HE IS IN [place] AND WILL BE AT THE HOSPITAL TO MIXER DIAMOND POWDER THE BODY IN THEN NEXT 30 MIN
--- NOTE | 2019-06-23 16:06 | NUR ---
CALLED RILEY FROM [facility] AND LEFT A MESSAGE LETTING HIM KNOW THAT NURSING STAFF DID NOT OBTAIN A 21 DAY MRSA NASAL SWAB BECAUSE PT HAS
--- NOTE | 2019-06-23 16:13 | NUR ---
[facility] COLLECTED BODY AT THIS TIME
== END 2019-06-23 16:15 | disposition expired | DRG 133 ==
LOC: ER 12:28 → ORTHO 4S 11-25 03:24 → OBSVTOIN 11-25 03:24 → ICU 2S 11-26 12:28 → ORTHO 4S 11-27 19:50
PROVIDERS: ADMIT Internal Medicine; ATTEND Family Medicine
PROC: BW211ZZ Computerized Tomography (CT Scan) of Abdomen and Pelvis using Low Osmolar Contrast (ICD-10-PCS; 2018-11-24)
PROC: 5A1945Z Respiratory Ventilation, 24-96 Consecutive Hours (ICD-10-PCS; principal; 2018-11-26)
PROC: 0BH17EZ Insertion of Endotracheal Airway into Trachea, Via Natural or Artificial Opening (ICD-10-PCS; 2018-11-26)
PROC: BW281ZZ Computerized Tomography (CT Scan) of Head using Low Osmolar Contrast (ICD-10-PCS; 2018-11-26)
PROC: 4A10X4Z Monitoring of Central Nervous Electrical Activity, External Approach (ICD-10-PCS; 2018-11-26)
PROC: BW241ZZ Computerized Tomography (CT Scan) of Chest and Abdomen using Low Osmolar Contrast (ICD-10-PCS; 2018-11-27)
DX: J96.01 Acute respiratory failure with hypoxia (principal); J69.0 Pneumonitis due to inhalation of food and vomit; G93.40 Encephalopathy, unspecified; E87.2 Acidosis; C79.31 Secondary malignant neoplasm of brain; E44.1 Mild protein-calorie malnutrition; E66.01 Morbid (severe) obesity due to excess calories; E11.9 Type 2 diabetes mellitus without complications; E78.5 Hyperlipidemia, unspecified; F31.9 Bipolar disorder, unspecified; Z51.5 Encounter for palliative care; R13.10 Dysphagia, unspecified; Z66 Do not resuscitate; M54.9 Dorsalgia, unspecified; I10 Essential (primary) hypertension; F65.4 Pedophilia; B18.2 Chronic viral hepatitis C; R62.7 Adult failure to thrive; K59.00 Constipation, unspecified; Z85.118 Personal history of other malignant neoplasm of bronchus and lung; Z86.19 Personal history of other infectious and parasitic diseases; Z85.47 Personal history of malignant neoplasm of testis; Z68.22 Body mass index [BMI] 22.0-22.9, adult; Z85.841 Personal history of malignant neoplasm of brain; I69.354 Hemiplegia and hemiparesis following cerebral infarction affecting left non-dominant side; Z86.711 Personal history of pulmonary embolism; Z87.891 Personal history of nicotine dependence; Z90.49 Acquired absence of other specified parts of digestive tract; Z88.8 Allergy status to other drugs, medicaments and biological substances
CPT/HCPCS: 36415; 36600; 70450; 70470; 70551; 71045; 71260; 72125; 74177; 80048; 80053; 80076; 80178; 80305; 80320; 81001; 82150; 82803; 82948; 83036; 83605; 83690; 83735; 84100; 84132; 84145; 84478; 84484; 85018; 85025; 85610; 87040; 87070; 87081; 87088; 92508; 92616; 93005; 94002; 94003; 94760; 95816; 96361; 96365; 96366; 96375; 97110; 97116; 97162; 97164; 97530; 99285; G0378; J0456; J0696; J1650; J2212; J2543; J2704; J3010; J3411; J7030; P9045; Q9967; Z7610